=== PATIENT | male | born 1960 | race Caucasian/White ===

== ENCOUNTER → 2016-07-11 | Outpatient (CLI) | payer OTHER, BC ==
[~2016-07-11] MED LIST: AMLO-114 PO; AZAT50TA17 PO; CEFD300C3 PO; CPR/500 PO; ERGO500037 PO; FRRS300 PO; HYDR4TAB78 PO; INSPMPRGR SQ; INSU1INJ SC; INSUINJ17 SC; LDDP5 TD; LEVO150T9 PO; LEVO175T3 SL; LOSA50TA6 PO; METF-384 PO; METR-163 PO; NRN300 PO; ONDA4TAB46 PO; OPTIRAY 320 IV PRN; PRD10 PO; PRT/40 PO; SUCR1TAB PO; SYN200 PO; TAMS0.4C38 PO; VEDO1INJ IV
--- NOTE | 2016-07-11 14:59 | DIAGNOSTIC IMAGING REPORT ---
CT SCAN OF THE ABDOMEN AND PELVIS WITH IV CONTRAST CLINICAL HISTORY: Right lower quadrant abdominal pain. Reported history of Crohn's disease and previous bowel resection. COMPARISON STUDY: Prior abdominal CT scans, most recently dated 11/30/2015. TECHNIQUE: Following the IV administration of 113 cc of Optiray 320, CT scan of the abdomen and pelvis is performed from the lung bases to the proximal femora. Images are reviewed in the axial, sagittal, and coronal planes. IV contrast was administered without complication. Automated dose control exposure was utilized. CT DOSE: 898.97 mGy.cm FINDINGS: Lung bases: The heart is top normal in size and without pericardial effusion. The lung bases are clear noting dependent atelectasis. There is a small hiatal hernia. Liver: The contrast-enhanced liver is enlarged, measuring 20 cm in length. The liver demonstrates diminished attenuation consistent with hepatic steatosis. There is no intrahepatic biliary ductal dilatation there is chronic left portal vein thrombosis with left hepatic lobe atrophy. There is also chronic thrombosis of anterior segmental branches of the right hepatic lobe. The hepatic veins are patent. Gallbladder: Surgically absent noting clips in the gallbladder fossa. Spleen: The spleen is enlarged, measuring 14.9 cm in length. Pancreas: Mildly atrophic for age. Adrenal glands: Unremarkable. Kidneys: The contrast enhanced kidneys are normal in size and without hydronephrosis. The kidneys enhance symmetrically. A punctate nonobstructing right renal calculus is suggested on image #[id number]. Abdominal vasculature: The abdominal aorta is normal in course and caliber. Bowel: There are postoperative changes from ileocolic resections with ileocolic anastomosis. No bowel obstruction is seen. No focally thick walled bowel loops are identified. There is no pneumatosis intestinalis or portal venous gas. Peritoneum: There is no intraperitoneal free air or abdominal ascites. Lymphadenopathy: There are mild chronically enlarged mesenteric lymph nodes in the right lower quadrant measuring up to 10 mm short. Pelvic viscera: The bladder, prostate, and seminal vesicles are normal as visualized. Skeletal structures: The skeletal structures appear osteopenic. No lytic or blastic lesions are seen. Sclerotic change is identified involving the sacral joints. A large bone island is present in the left sacral wing. IMPRESSION: 1. There are no acute infectious or inflammatory findings in the abdomen or pelvis. 2. There are postoperative changes from ileocecal resection with ileocolic anastomosis. No bowel obstruction is seen and there is no convincing CT evidence of active Crohn's disease. 3. Mild chronically enlarged mesenteric lymph nodes are similar to prior studies. 4. Chronic thrombosis of the left portal venous system with atrophy of the left lobe is unchanged from previous 5. Hepatomegaly and hepatic steatosis. 6. Splenomegaly. 7. Additional changes as above. Electronically signed by: Pedro Garibay M.D. 07/11/2016 2:58 PM Dictated Date/Time: 07/11/2016 2:49 PM
== END | disposition home or self-care (01) ==
LOC: C.CTS 12:15
PROVIDERS: ATTEND Internal Medicine Gastroenterology
DX: R10.31 Right lower quadrant pain (principal); K50.80 Crohn's disease of both small and large intestine without complications; I81 Portal vein thrombosis; R16.0 Hepatomegaly, not elsewhere classified; K76.0 Fatty (change of) liver, not elsewhere classified; R16.1 Splenomegaly, not elsewhere classified

== ENCOUNTER 2016-07-15 10:31 | Inpatient (IN) | payer OTHER, BC ==
[~2016-07-15] VITALS: Ht 177.8 cm; Wt 103.6 kg
[~2016-07-15 10:31] MED LIST changes: -AMLO-114 PO; -AZAT50TA17 PO; -CEFD300C3 PO; -CPR/500 PO; -ERGO500037 PO; -FRRS300 PO; -HYDR4TAB78 PO; -INSPMPRGR SQ; -INSU1INJ SC; -LDDP5 TD; -LEVO175T3 SL; -LOSA50TA6 PO; -METF-384 PO; -METR-163 PO; -NRN300 PO; -ONDA4TAB46 PO; -OPTIRAY 320 IV PRN; -PRD10 PO; -PRT/40 PO; -SUCR1TAB PO; -SYN200 PO; -TAMS0.4C38 PO; -VEDO1INJ IV
[2016-07-15] MEDS ORDERED: TAMS0.4C38 PO (11:12)
[2016-07-15] MEDS ORDERED: HYDR4TAB78 PO (11:17)
[2016-07-15] MEDS ORDERED: SUCR1TAB PO (11:17)
[2016-07-15] MEDS ORDERED: CPR/500 PO (11:28)
[2016-07-15] MEDS ORDERED: FRRS300 PO (11:28)
[2016-07-15] MEDS ORDERED: INSPMPRGR SQ (11:28)
[2016-07-15] MEDS ORDERED: SYN200 PO (11:28)
[2016-07-15] MEDS ORDERED: METR-163 PO (11:28)
[2016-07-15] MEDS ORDERED: LOSA50TA6 PO (11:32)
[2016-07-15] MEDS ORDERED: AMLO-114 PO (11:32)
[2016-07-15] MEDS ORDERED: AZAT50TA17 PO (11:32)
[2016-07-15] MEDS ORDERED: ONDA4TAB46 PO (11:32)
[2016-07-15] MEDS ORDERED: INSU1INJ SC ×2 (11:32)
[2016-07-15 11:51] LABS: BASO % 0.5 %; BASO ABS # 0.03 K/uL (0-0.2); COMPLETE YES; EOS % 2.6 %; HEMATOCRIT 38.4 % (42-52); IG% 0.2 %; LYMPH % 19.5 %; LYMPH ABS # 1.27 K/uL (1.2-3.4); MEAN CELL VOLUME 76.3 fL (80-100); MEAN CORPUSCULAR HEMOGLOBIN 24.3 pg (25-34); MEAN CORPUSCULAR HGB CONC 31.8 g/dl (32-36); MEAN PLATELET VOLUME 8.9 fL (7.4-10.4); MONO % 8.4 %; NEUT % 68.8 %; PLATELET COUNT 338 K/uL (130-400); RED BLOOD COUNT 5.03 M/uL (4.7-6.1); WHITE BLOOD COUNT 6.51 K/uL (4.8-10.8)
[2016-07-15 12:03] LABS: URINE APPEARANCE CLEAR (CLEAR); URINE BILIRUBIN NEG (NEG); URINE COLOR YELLOW; URINE NITRITE NEG (NEG); URINE SPECIFIC GRAVITY 1.015 (1.000-1.030); UROBILINOGEN NEG (NEG); ZZUR CULT IF INDIC CLEAN CATCH NO
[2016-07-15] MEDS ORDERED: METHYLPREDNISOLONE 125 MG VIAL IV STA (12:07)
[2016-07-15] MEDS ORDERED: HYDROmorphone INJ 1 MG/ML SYR IV STA (12:07)
[2016-07-15] MEDS ORDERED: SODIUM CHLORIDE 0.9% 1000ML 1,000 ML IV STA (12:07)
[2016-07-15] MEDS ORDERED: ONDANSETRON INJ 2 MG/ML 2 ML VIAL IV STA (12:07)
[2016-07-15 12:10] LABS: MANUAL MICROSCOPIC REQUIRED? NO; REVIEW REQ? NO
[2016-07-15 12:19] LABS: BUN/CREATININE RATIO 8.1 (10-20); CALCIUM 9.1 mg/dl (8.5-10.1); CREATININE 1.3 mg/dl (0.60-1.40); POTASSIUM 3.5 mmol/L (3.5-5.1)
[2016-07-15] MEDS ORDERED: HYDROmorphone INJ 0.5 MG/0.5 ML SYR IV STA (14:01)
--- NOTE | 2016-07-15 14:03 | EMERGENCY ROOM VISIT NOTE ---
ED Visit Note First contact with patient: 11:58 I did evaluate and examine this patient myself. I did guide management for the patient. I agree with the PA's assessment as discussed. Please see the PAs dictation for further details. I did independently review the blood work. He will be hospitalized for inflammatory bowel disease exacerbation.
[2016-07-15] MEDS ORDERED: VEDOLIZUMAB 300 MG/VIAL INJ IV SCH (15:00)
[2016-07-15] MEDS ORDERED: HYDROmorphone HCL 2 MG TAB PO PRN (15:00)
[2016-07-15] MEDS ORDERED: HYDROmorphone INJ 1 MG/ML SYR IM PRN (15:00)
[2016-07-15] MEDS ORDERED: INSULIN HUMAN REGULAR SQ SCH (15:00)
[2016-07-15] MEDS ORDERED: GLUCOSE 40% GEL 15 GM TUBE PO PRN (16:00)
[2016-07-15] MEDS ORDERED: GLUCOSE 10 TABS/TUBE PO PRN (16:00)
[2016-07-15] MEDS ORDERED: GLUCAGON FOR INJ 1 MG VIAL SQ PRN (16:00)
[2016-07-15] MEDS ORDERED: DEXTROSE 50% 50 ML SYR IV PRN (16:00)
--- NOTE | 2016-07-15 16:01 | History and Physical ---
History & Physical Date & Time of Service: Jul 15, 2016 at 15:20 Chief Complaint: Chron's Pain Right Side Primary Care Physician: Audra Matos History of Present Illness Source: patient This is a 56 y/o male with hx of Crohn's (several bowel resections) and DMII presented to the ED complaining of RLQ abdominal pain X5days. He states that first he experienced the pain on . He was seen by Dr. Naranjo on and CT scan of the abdomen with IV contrast was performed. The CT was unremarkable. He was started on Ciprofloxacin and Metronidazole. On Friday his pain became worse. He rates the pain as 10/10, sharp, located at the RLQ and nonradiating. PO 4mg Dilaudid wouldn't alleviate the pain. His bowel movements increased also. On average he usually has 6-7 bowel movements. On Friday he had 7 and on Friday 10 bowel movements. He also feels nauseated and decrease in appetite. He states that over the weekend, he was only drinking fluid. Denies noticing any blood in the stool. He has hemorrhoid and frequently notice strikes of blood on the tissue paper. Right now he pain is decreased to 3/10. Denies vomiting, SOB, chest pain, dizziness, headache, dysuria or any other additional complaints. Past Medical/Surgical History Medical Problems: (1) Bronchitis Status: Resolved (2) Calculus of kidney Status: Resolved (3) Crohns disease Status: Chronic (4) Diabetes mellitus Status: Chronic (5) Hyperlipidemia Status: Chronic (6) Hypertension Status: Chronic (7) PNA (pneumonia) Status: Resolved (8) Unspecified immunity deficiency Status: Resolved Surgical Problems: (1) H/O thyroidectomy Status: Resolved (2) History of bowel resection Status: Resolved (3) Hx of appendectomy Status: Resolved (4) S/P cholecystectomy Status: Resolved Family History Cancer Diabetes mellitus Heart disease Hypertension Kidney disease Kidney stones Social History Smoking Status: Never Smoker Drug Use: none Marital Status: Housing status: lives with family Occupational Status: disabled Allergies Coded Allergies: Morphine (Unverified Allergy, Mild, GI SYMPTOMS, 07/15/16) throws up Home Medications Scheduled Amlodipine (Norvasc), 10 MG PO DAILY Azathioprine (Imuran), 150 MG PO DAILY Ciprofloxacin (Ciprofloxacin HCl), 500 MG PO DAILY Ferrous Sulfate (Ferrous Sulfate), 325 MG PO DAILY Insulin Isophan/Regular (Humulin 70/30), 40 UNITS SC QAM Insulin Isophan/Regular (Humulin 70/30), 20 UNITS SC QPM Levothyroxine Sodium (Synthroid), 200 MCG PO DAILY Losartan Potassium (Cozaar), 50 MG PO BID Metformin Hcl (Glucophage), 1,000 MG PO BID Metronidazole (Flagyl), 500 MG PO BID Sucralfate (Sucralfate), 1 TAB PO BID Tamsulosin Hcl (Flomax), 0.4 MG PO DAILY Vedolizumab (Entyvio), 1 DOSE IV Q6WK Scheduled PRN Hydromorphone Hcl (Dilaudid), 4 MG PO QID PRN for Pain Ondansetron Hcl (Zofran), 4 MG PO Q8 PRN for Nausea Miscellaneous Medications Insulin Human Regular (Humulin R) Review of Systems Constitutional: + weakness, + weight loss, No chills, No fever, No sweats Respiratory: No cough, No dyspnea at rest, No dyspnea on exertion, No shortness of breath, No sputum, No wheezing Cardiovascular: No chest pain, No edema Abdomen: + diarrhea, + nausea, + pain (RLQ pain), No GI bleeding, No constipation, No vomiting Musculoskeletal: No muscle pain Genitourinary - Male: No dysuria, No hematuria Neurologic: No weakness Endocrine: No fatigue Hematologic / Lymphatic: No abnormal bleeding/bruising Integumentary: No rash Physical Exam Vital Signs Date Time Temp Pulse Resp B/P Pulse Ox O2 Delivery O2 Flow Rate FiO2 07/15/16 11:19 68 18 138/78 97 Room Air 07/15/16 10:46 36.8 92 18 151/101 96 Room Air General Appearance: WD/WN, no apparent distress Head: normocephalic, atraumatic Eyes: normal inspection, PERRL, EOMI, sclerae normal Neck: supple, trachea midline Respiratory/Chest: chest non-tender, lungs clear, normal breath sounds, no respiratory distress, no accessory muscle use Cardiovascular: regular rate, rhythm, no edema Abdomen/GI: normal bowel sounds, soft, no pulsatile mass, + tenderness (tender to palpation on the RLQ) Extremities/Musculoskelatal: no calf tenderness, no pedal edema, non-tender Neurologic/Psych: alert, normal mood/affect, oriented x 3 Skin: normal color, warm/dry, no rash Diagnostics Laboratory Results Results Past 24 Hours Test 07/15/16 11:10 07/15/16 11:15 Range/Units Urine Color YELLOW Urine Appearance CLEAR CLEAR Urine pH 5.0 4.5-7.5 Urine Specific [place] 1.015 1.000-1.030 Urine Protein NEG NEG Urine Glucose (UA) NEG NEG Urine Ketones NEG NEG Urine Occult Blood NEG NEG Urine Nitrite NEG NEG Urine Bilirubin NEG NEG Urine Urobilinogen NEG NEG Urine Leukocyte Esterase NEG NEG White Blood Count 6.51 4.8-10.8 K/uL Red Blood Count 5.03 4.7-6.1 M/uL Hemoglobin 12.2 14.0-18.0 g/dL Hematocrit 38.4 42-52 % Mean Corpuscular Volume 76.3 80-100 fL Mean Corpuscular Hemoglobin 24.3 25-34 pg Mean Corpuscular Hemoglobin Concent 31.8 32-36 g/dl Platelet Count 338 130-400 K/uL Mean Platelet Volume 8.9 7.4-10.4 fL Neutrophils (%) (Auto) 68.8 % Lymphocytes (%) (Auto) 19.5 % Monocytes (%) (Auto) 8.4 % Eosinophils (%) (Auto) 2.6 % Basophils (%) (Auto) 0.5 % Neutrophils # (Auto) 4.48 1.4-6.5 K/uL Lymphocytes # (Auto) 1.27 1.2-3.4 K/uL Monocytes # (Auto) 0.55 0.11-0.59 K/uL Eosinophils # (Auto) 0.17 0-0.5 K/uL Basophils # (Auto) 0.03 0-0.2 K/uL RDW Standard Deviation 44.2 36.4-46.3 fL RDW Coefficient of Variation 16.3 11.5-14.5 % Immature Granulocyte % (Auto) 0.2 % Immature Granulocyte # (Auto) 0.01 0.00-0.02 K/uL Sodium Level 137 136-145 mmol/L Potassium Level 3.5 3.5-5.1 mmol/L Chloride Level 102 98-107 mmol/L Carbon Dioxide Level 26 21-32 mmol/L Anion Gap 9.0 3-11 mmol/L Blood Urea Nitrogen 11 7-18 mg/dl Creatinine 1.30 0.60-1.40 mg/dl Est Creatinine Clear Calc Drug Dose 76.5 ml/min Estimated GFR () 70.7 Estimated GFR (Non- 61.0 BUN/Creatinine Ratio 8.1 10-20 Random Glucose 101 70-99 mg/dl Calcium Level 9.1 8.5-10.1 mg/dl Total Bilirubin 0.7 0.2-1 mg/dl Aspartate Amino Transf (AST/SGOT) 89 15-37 U/L Alanine Aminotransferase (ALT/SGPT) 70 12-78 U/L Alkaline Phosphatase 85 45-117 U/L Total Protein 8.2 6.4-8.2 gm/dl Albumin 4.1 3.4-5.0 gm/dl Globulin 4.1 2.5-4.0 gm/dl Albumin/Globulin Ratio 1.0 0.9-2 Lipase 147 73-393 U/L Impression Assessment and Plan This is a 56 y/o male with PMHx of Crohn's disease and multiple bowel resection presented to the ED with Cronh's flare. 1. Crohn's flare - Patient was seen by Dr. Naranjo last week and had a CT with IV contrast, which was unremarkable. - Since patient is continue to have pain will repeat CT of abd/pelvis with IV and oral contrast - Lipase and UA are normal - Continue with Ciprofloxacin 500mg and Metronidazole 500mg for 10days. Today is Day #4 - Continue all the home medications for Crohn's, Imuran 150mg - GI was consulted and await for their recommendation - NPO after midnight for any possible procedure tomorrow am - IVF NSS+20KCL meq @125mls/hr - IV Dilaudid 1mg q4h prn 2. DM II - Will start him on Lantus 18unit and sliding scale - Keep monitor him 3. BPH - C/w Flomax 0.4mg daily 4. HTN - C/w Amlodipine 10mg daily 5. DVT prophylaxis - Lovenox 40mg 6. Code Status - Full code I agree with Resident assessment and plan and have seen and examined pt myself Admitted for likely crohn's flare GI consulted Repeat CT abd with IV and PO contrast NPO after MN Cont on IV steroids Cont antibx at this time of cipro and flagyl Level of Care Med/Surg Resuscitation Status FULL RESUSCITATION VTE Prophylaxis VTE Risk Assessment Done? Y/N: Yes Risk Level: Moderate Given or contraindicated: Enoxaparin (Lovenox)SQ Note About 45 minutes
[2016-07-15 16:04] LABS: PROTHROMBIN TIME (PATIENT) 10.9 SECONDS (9.0-12.0)
--- NOTE | 2016-07-15 16:10 | EMERGENCY ROOM VISIT NOTE ---
History First contact with patient: 11:58 Chief Complaint: ABDOMINAL PAIN Stated Complaint: CHRON'S PAIN RIGHT SIDE History of Present Illness The patient is a 56 year old male who presents to the Emergency Room with complaints of a Crohn's flare. The patient reports a long history of Crohn's disease. He is currently under the management of Dr. Naranjo. He is also had several bowel resections performed by Dr. Castle at [facility]. The patient has been having increasing pain for the past week. He was seen by Dr. Naranjo on and had a CT scan performed. The patient reports that his pain and nausea has worsened since . He denies any vomiting, bloody stool or urinary symptoms. The patient is status post appendectomy many years ago. He is currently on Imuran with Entyvio injections every 6 weeks.. His last prednisone taper was in April and May of this year. He currently rates his discomfort a 5 out of 10. He does have Dilaudid 4 mg tablets at home that have not been helping his pain. Review of Systems HEENT: Denies dizziness, visual problems, hearing loss, tinnitus. Denies difficulty swallowing or oral lesions. PULMONARY: Denies cough, shortness of breath, sputum production or hemoptysis. CARDIOVASCULAR: Denies chest pain, palpitations, dyspnea on exertion, orthopnea or peripheral edema. GASTROINTESTINAL: Denies diarrhea or constipation, otherwise see history of present illness. GENITOURINARY: Denies dysuria, frequency, urgency or nocturia. NEUROLOGIC: Denies history of epilepsy, CVA, TIA or chronic headaches. MUSCULOSKELETAL: Denies history of joint tenderness/swelling. SKIN: Denies rashes or lesions. PSYCHIATRIC: Denies history of depression or mental illness. ENDOCRINE: Denies history of diabetes or thyroid disorders. Past Medical/Surgical History Medical Problems: (1) Bronchitis (2) Calculus of kidney (3) Crohns disease (4) Diabetes mellitus (5) Hyperlipidemia (6) Hypertension (7) PNA (pneumonia) (8) Right lower quadrant abdominal pain (9) Unspecified immunity deficiency Surgical Problems: (1) H/O thyroidectomy (2) History of bowel resection (3) Hx of appendectomy (4) S/P cholecystectomy Family History Cancer Diabetes mellitus Heart disease Hypertension Kidney disease Kidney stones Social History Smoking Status: Never Smoker Alcohol Use: none Drug Use: none Marital Status: Housing Status: lives with family Occupation Status: disabled Current/Historical Medications Scheduled Amlodipine (Norvasc), 10 MG PO DAILY Azathioprine (Imuran), 150 MG PO DAILY Ciprofloxacin (Ciprofloxacin HCl), 500 MG PO DAILY Ferrous Sulfate (Ferrous Sulfate), 325 MG PO DAILY Insulin Isophan/Regular (Humulin 70/30), 40 UNITS SC QAM Insulin Isophan/Regular (Humulin 70/30), 20 UNITS SC QPM Levothyroxine Sodium (Synthroid), 200 MCG PO DAILY Losartan Potassium (Cozaar), 50 MG PO BID Metformin Hcl (Glucophage), 1,000 MG PO BID Metronidazole (Flagyl), 500 MG PO BID Sucralfate (Sucralfate), 1 TAB PO BID Tamsulosin Hcl (Flomax), 0.4 MG PO DAILY Vedolizumab (Entyvio), 1 DOSE IV Q6WK Scheduled PRN Hydromorphone Hcl (Dilaudid), 4 MG PO QID PRN for Pain Ondansetron Hcl (Zofran), 4 MG PO Q8 PRN for Nausea Miscellaneous Medications Insulin Human Regular (Humulin R) Allergies Coded Allergies: Morphine (Unverified Allergy, Mild, GI SYMPTOMS, 07/15/16) throws up Physical Exam Vital Signs Date Time Temp Pulse Resp B/P Pulse Ox O2 Delivery O2 Flow Rate FiO2 07/15/16 15:15 68 20 130/78 91 Room Air 07/15/16 13:15 72 20 144/71 96 Room Air 07/15/16 11:19 68 18 138/78 97 Room Air 07/15/16 10:46 36.8 92 18 151/101 96 Room Air Physical Exam CONSTITUTIONAL: Healthy and well nourished. Alert and oriented X 3 with positive affect. The patient appears in mild discomfort from pain and nausea. HEENT: Normocephalic, atraumatic. Pupils equal, round and reactive. Ears and nares are clear. No scleral icterus or conjunctival injection/pallor. NECK: Full active range of motion without discomfort. RESPIRATORY: Clear to auscultation bilaterally with no wheezing, crackles, rhonchi or stridor. CARDIOVASCULAR: Regular rate and rhythm with no murmurs, rubs or gallops. GASTROINTESTINAL: Bowel sounds present in all quadrants. She has diffuse lower abdominal tenderness to palpation. No rigidity, guarding or rebound. MUSCULOSKELETAL: Full range of motion of all joints without discomfort. INTEGUMENTARY: No rash or other significant dermatologic conditions noted. HEMATOLOGIC: No ecchymosis or petechiae noted. NEUROLOGIC: No focal neurologic deficits noted. Medical Decision & Procedures ER Provider Diagnostic Interpretation: I did review the patient's CT report and images from last , showing no acute Crohn's inflammation, perforation or free air. Radiologist report is as follows: CT SCAN OF THE ABDOMEN AND PELVIS WITH IV CONTRAST CLINICAL HISTORY: Right lower quadrant abdominal pain. Reported history of Crohn's disease and previous bowel resection. COMPARISON STUDY: Prior abdominal CT scans, most recently dated 11/30/2015. TECHNIQUE: Following the IV administration of 113 cc of Optiray 320, CT scan of the abdomen and pelvis is performed from the lung bases to the proximal femora. Images are reviewed in the axial, sagittal, and coronal planes. IV contrast was administered without complication. Automated dose control exposure was utilized. CT DOSE: 898.97 mGy.cm FINDINGS: Lung bases: The heart is top normal in size and without pericardial effusion. The lung bases are clear noting dependent atelectasis. There is a small hiatal hernia. Liver: The contrast-enhanced liver is enlarged, measuring 20 cm in length. The liver demonstrates diminished attenuation consistent with hepatic steatosis. There is no intrahepatic biliary ductal dilatation there is chronic left portal vein thrombosis with left hepatic lobe atrophy. There is also chronic thrombosis of anterior segmental branches of the right hepatic lobe. The hepatic veins are patent. Gallbladder: Surgically absent noting clips in the gallbladder fossa. Spleen: The spleen is enlarged, measuring 14.9 cm in length. Pancreas: Mildly atrophic for age. Adrenal glands: Unremarkable. Kidneys: The contrast enhanced kidneys are normal in size and without hydronephrosis. The kidneys enhance symmetrically. A punctate nonobstructing right renal calculus is suggested on image #[id number]. Abdominal vasculature: The abdominal aorta is normal in course and caliber. Bowel: There are postoperative changes from ileocolic resections with ileocolic anastomosis. No bowel obstruction is seen. No focally thick walled bowel loops are identified. There is no pneumatosis intestinalis or portal venous gas. Peritoneum: There is no intraperitoneal free air or abdominal ascites. Lymphadenopathy: There are mild chronically enlarged mesenteric lymph nodes in the right lower quadrant measuring up to 10 mm short. Pelvic viscera: The bladder, prostate, and seminal vesicles are normal as visualized. Skeletal structures: The skeletal structures appear osteopenic. No lytic or blastic lesions are seen. Sclerotic change is identified involving the sacral joints. A large bone island is present in the left sacral wing. IMPRESSION: 1. There are no acute infectious or inflammatory findings in the abdomen or pelvis. 2. There are postoperative changes from ileocecal resection with ileocolic anastomosis. No bowel obstruction is seen and there is no convincing CT evidence of active Crohn's disease. 3. Mild chronically enlarged mesenteric lymph nodes are similar to prior studies. 4. Chronic thrombosis of the left portal venous system with atrophy of the left lobe is unchanged from previous 5. Hepatomegaly and hepatic steatosis. 6. Splenomegaly. Laboratory Results 07/15/16 11:15 Red Blood Count 5.03, Mean Corpuscular Volume 76.3, Mean Corpuscular Hemoglobin 24.3, Mean Corpuscular Hemoglobin Concent 31.8, Mean Platelet Volume 8.9, Neutrophils (%) (Auto) 68.8, Lymphocytes (%) (Auto) 19.5, Monocytes (%) (Auto) 8.4, Eosinophils (%) (Auto) 2.6, Basophils (%) (Auto) 0.5, Neutrophils # (Auto) 4.48, Lymphocytes # (Auto) 1.27, Monocytes # (Auto) 0.55, Eosinophils # (Auto) 0.17, Basophils # (Auto) 0.03 07/15/16 11:15 Test 07/15/16 11:10 07/15/16 11:15 Urine Color YELLOW Urine Appearance CLEAR (CLEAR) Urine pH 5.0 (4.5-7.5) Urine Specific Brillion 1.015 (1.000-1.030) Urine Protein NEG (NEG) Urine Glucose (UA) NEG (NEG) Urine Ketones NEG (NEG) Urine Occult Blood NEG (NEG) Urine Nitrite NEG (NEG) Urine Bilirubin NEG (NEG) Urine Urobilinogen NEG (NEG) Urine Leukocyte Esterase NEG (NEG) White Blood Count 6.51 K/uL (4.8-10.8) Red Blood Count 5.03 M/uL (4.7-6.1) Hemoglobin 12.2 g/dL (14.0-18.0) Hematocrit 38.4 % (42-52) Mean Corpuscular Volume 76.3 fL (80-100) Mean Corpuscular Hemoglobin 24.3 pg (25-34) Mean Corpuscular Hemoglobin Concent 31.8 g/dl (32-36) Platelet Count 338 K/uL (130-400) Mean Platelet Volume 8.9 fL (7.4-10.4) Neutrophils (%) (Auto) 68.8 % Lymphocytes (%) (Auto) 19.5 % Monocytes (%) (Auto) 8.4 % Eosinophils (%) (Auto) 2.6 % Basophils (%) (Auto) 0.5 % Neutrophils # (Auto) 4.48 K/uL (1.4-6.5) Lymphocytes # (Auto) 1.27 K/uL (1.2-3.4) Monocytes # (Auto) 0.55 K/uL (0.11-0.59) Eosinophils # (Auto) 0.17 K/uL (0-0.5) Basophils # (Auto) 0.03 K/uL (0-0.2) RDW Standard Deviation 44.2 fL (36.4-46.3) RDW Coefficient of Variation 16.3 % (11.5-14.5) Immature Granulocyte % (Auto) 0.2 % Immature Granulocyte # (Auto) 0.01 K/uL (0.00-0.02) Prothrombin Time 10.9 SECONDS (9.0-12.0) Prothromb Time International Ratio 1.0 (0.9-1.1) Activated Partial Thromboplast Time 26.5 SECONDS (21.0-31.0) Partial Thromboplastin Ratio 1.0 Anion Gap 9.0 mmol/L (3-11) Est Creatinine Clear Calc Drug Dose 76.5 ml/min Estimated GFR () 70.7 Estimated GFR (Non- 61.0 BUN/Creatinine Ratio 8.1 (10-20) Calcium Level 9.1 mg/dl (8.5-10.1) Total Bilirubin 0.7 mg/dl (0.2-1) Aspartate Amino Transf (AST/SGOT) 89 U/L (15-37) Alanine Aminotransferase (ALT/SGPT) 70 U/L (12-78) Alkaline Phosphatase 85 U/L (45-117) Total Protein 8.2 gm/dl (6.4-8.2) Albumin 4.1 gm/dl (3.4-5.0) Globulin 4.1 gm/dl (2.5-4.0) Albumin/Globulin Ratio 1.0 (0.9-2) Lipase 147 U/L (73-393) The above labs were reviewed. Medications Administered Medications (Trade) Dose Ordered Sig/Lance Route Start Time Stop Time Status Last Admin Dose Admin Hydromorphone HCl (Dilaudid Inj) 1 mg NOW STAT IV 07/15/16 12:07 07/15/16 12:09 DC 07/15/16 12:24 1 MG Ondansetron HCl (Zofran Inj) 4 mg NOW STAT IV 07/15/16 12:07 07/15/16 12:09 DC 07/15/16 12:23 4 MG Methylprednisolone Sodium Succinate 125 mg 125 mg NOW STAT IV 07/15/16 12:07 07/15/16 12:09 DC 07/15/16 12:23 125 MG Sodium Chloride (Nss 1000ml) 1,000 ml @ 999 mls/hr Q1H1M STAT IV 07/15/16 12:07 07/15/16 13:08 DC 07/15/16 12:23 999 MLS/HR Hydromorphone HCl (Dilaudid Inj) 0.5 mg NOW STAT IV 07/15/16 14:01 07/15/16 14:02 DC 07/15/16 14:07 0.5 MG Procedure 1. IV hydration: The patient received a liter normal saline bolus 2. IV medications: The patient initially was administered Dilaudid 1 mg, Zofran 4 mg and Solu-Medrol 125 mg IVP. The patient did require an additional Dilaudid 0.5 mg IVP up on final reevaluation and before hospitalist evaluation. ED Course Patient history and physical exam were performed. Nurse's notes were reviewed. Vital signs were reviewed, showing a blood pressure 151/101. The patient is afebrile and not tachycardic. IV access was established, and labs were drawn. The patient was hydrated with normal saline, and received IV Dilaudid and Zofran for pain and nausea. Review of labs shows no leukocytosis or significant electrolyte abnormality. Urinalysis is normal. AST is mildly elevated. Lipase is normal. I did review the patient's CT scan from , showing no active Crohn's disease or other acute findings. After workup was complete, I did reevaluate the patient. His pain a decline from an 8 out of 10-5 out of 10, but still was having notable discomfort. He was administered an additional Dilaudid 0.5 mg IVP. At this point, the case was further discussed with Dr. Hernández, ED attending physician, who suggested hospitalist consultation. The case was further discussed with the [facility]. Please see their dictation for further treatment and final disposition. Medical Decision Patient has a known history of Crohn's disease status post bowel resection. He did have a CT scan performed 4 days ago that was normal. The patient is currently afebrile and has no leukocytosis. His clinical exam is not suggestive of peritonitis or surgical abdomen. I do feel that the patient would benefit from IV hydration, analgesics and steroids into his symptoms improve. Laboratory studies are not suggestive of pancreatitis, hepatitis or cholecystitis. The patient is status post appendectomy. His symptoms are also not consistent with pyelonephritis or UTI. Impression Primary Impression: Exacerbation of Crohn's disease Departure Information Referrals Audra Matos (PCP) Patient Instructions My [facility] Problem Qualifiers Primary Impression: Exacerbation of Crohn's disease Digestive disease complication type: without complication Qualified Codes: K50.90 - Crohn's disease, unspecified, without complications
[2016-07-15] MEDS: HYDROmorphone INJ 1 MG/ML SYR IV PRN ×2 (17:21→20:58)
[2016-07-15] MEDS ORDERED: OPTIRAY 320 IV PRN (18:00)
--- NOTE | 2016-07-15 18:06 | DIAGNOSTIC IMAGING REPORT ---
CT ABD/PELVIS IV AND ORAL CONT CLINICAL HISTORY: Cronh's flare, RLQ pain COMPARISON STUDY: 07/11/2016 TECHNIQUE: Following the IV administration of 115 mL of Optiray-320, CT scan of the abdomen and pelvis was performed from the lung bases to the proximal femurs. Images are reviewed in the axial, sagittal, and coronal planes. IV contrast was administered without complication. CT DOSE: 729.40 mGy.cm FINDINGS: Lower chest: There are minor basilar atelectatic changes. Liver: There is hepatic steatosis. Left lobe of the liver appears atrophic. There is apparent stenosis left and right hepatic vein at the IVC junction. There is probable chronic left portal vein thrombus. There is no intrahepatic biliary ductal dilatation. Gallbladder: Surgically absent Spleen: Normal in size and attenuation. Pancreas: Unremarkable. Adrenal glands: Unremarkable. Kidneys: There is a punctate nonobstructing right renal calculus. No solid renal masses are visualized. There is no hydronephrosis. Bowel: There are postsurgical changes from a prior ileal colic resection with ileocolic anastomosis. There are no transition zones indicate bowel obstruction. There is borderline rectosigmoid bowel wall thickening. Peritoneum: There is no intraperitoneal free air or abdominal ascites. Vasculature: The abdominal aorta is normal in course and caliber. Adenopathy: None. Pelvic viscera: The bladder, and pelvic viscera are unremarkable. Skeletal structures: There is bilateral sacroiliitis. IMPRESSION: 1. Postsurgical changes of a right hemicolectomy and ileal colic anastomosis 2. No evidence of bowel obstruction. No evidence of free air 3. Hepatic steatosis 4. Stable hepatic left lobe atrophy 5. Stable right and middle hepatic vein stenosis 6. Borderline colonic wall thickening versus nondistended segments 7. Punctate nonobstructing right renal calculus Electronically signed by: Bobby Hay M.D. 07/15/2016 6:04 PM Dictated Date/Time: 07/15/2016 5:54 PM
[2016-07-15] MEDS ORDERED: METF-384 PO (18:29)
[2016-07-15 19:59] VITALS: BP 130/80; PULSE 74; TEMP 36.6; O2SAT 94
[2016-07-15] MEDS: INSULIN ASPART 100 UNITS/ML 3 ML PEN SC SCH ×2 (20:39→20:47)
[2016-07-15] MEDS: NSS + 20MEQ KCL 1000ML 1,000 ML IV SCH (20:41)
[2016-07-15] MEDS: ENOXAPARIN 40 MG/0.4 ML SYR SQ SCH (20:42)
[2016-07-15] MEDS: METRONIDAZOLE 500 MG TAB PO SCH (20:43)
[2016-07-15] MEDS: LOSARTAN POTASSIUM 50 MG TAB PO SCH (20:43)
[2016-07-15] MEDS: SUCRALFATE 1 GM TAB PO SCH (20:44)
[2016-07-15] MEDS: INSULIN GLARGINE SOLOSTAR 100 UNITS/ML 3 ML PEN SC SCH (20:48)
[2016-07-15] MEDS ORDERED: INSULIN HUMAN 70% NPH/30% REGULAR SC SCH (21:00)
[2016-07-15] MEDS ORDERED: VEDO1INJ IV (22:39)
[2016-07-15 22:44] VITALS: BP 107/58; PULSE 73; TEMP 36.6; O2SAT 93
[2016-07-15 23:03] VITALS: O2SAT 93; Ht 177.8 cm; Wt 103.6 kg
[2016-07-15 23:59] VITALS: O2SAT 93
[2016-07-16] MEDS: ONDANSETRON INJ 2 MG/ML 2 ML VIAL IV PRN (01:02)
[2016-07-16] MEDS: HYDROmorphone INJ 1 MG/ML SYR IV PRN ×7 (01:03→21:39)
[2016-07-16] MEDS ORDERED: NURSING VERBAL MED ORDER ONE ×2 (05:00→21:45)
[2016-07-16] MEDS: NSS + 20MEQ KCL 1000ML 1,000 ML IV SCH ×3 (05:04→21:42)
[2016-07-16 05:49] LABS: HEMATOCRIT 32.8 % (42-52); MEAN CELL VOLUME 76.3 fL (80-100); MEAN CORPUSCULAR HEMOGLOBIN 24.4 pg (25-34); MEAN PLATELET VOLUME 9.4 fL (7.4-10.4); PLATELET COUNT 318 K/uL (130-400); WHITE BLOOD COUNT 11.68 K/uL (4.8-10.8)
[2016-07-16] MEDS: LEVOTHYROXINE 200 MCG TAB PO SCH (06:10)
[2016-07-16 06:26] LABS: CALCIUM 8.5 mg/dl (8.5-10.1); CREATININE 0.99 mg/dl (0.60-1.40); POTASSIUM 4.3 mmol/L (3.5-5.1)
[2016-07-16] MEDS: CIPROFLOXACIN 500 MG TAB PO SCH (08:02)
[2016-07-16] MEDS: AMLODIPINE BESYLATE 5 MG TAB PO SCH (08:02)
[2016-07-16] MEDS: METRONIDAZOLE 500 MG TAB PO SCH ×2 (08:02→21:41)
[2016-07-16] MEDS: AZATHIOPRINE 50 MG TAB PO SCH (08:02)
[2016-07-16] MEDS: FERROUS SULFATE 325 MG TAB PO SCH (08:02)
[2016-07-16] MEDS: SUCRALFATE 1 GM TAB PO SCH ×2 (08:02→21:40)
[2016-07-16] MEDS: TAMSULOSIN HCL 0.4 MG CAP PO SCH (08:02)
[2016-07-16] MEDS: LOSARTAN POTASSIUM 50 MG TAB PO SCH ×2 (08:03→21:41)
[2016-07-16 08:23] VITALS: BP 108/66; PULSE 54; TEMP 36.5; O2SAT 96
[2016-07-16] MEDS ORDERED: INSULIN HUMAN 70% NPH/30% REGULAR SC SCH (09:00)
[2016-07-16] MEDS: INSULIN ASPART 100 UNITS/ML 3 ML PEN SC SCH ×4 (10:34→21:00)
[2016-07-16] MEDS ORDERED: METHYLPREDNISOLONE IV 20 MG in SYRINGE 0 ML IV ONE (11:15)
[2016-07-16] MEDS: INSULIN GLARGINE SOLOSTAR 100 UNITS/ML 3 ML PEN SC SCH ×2 (12:15→12:52)
[2016-07-16] MEDS ORDERED: HYDROmorphone INJ 1 MG/ML SYR ONE (12:44)
--- NOTE | 2016-07-16 13:12 | Hospitalist Progress Note ---
Hospitalist Progress Note Date of Service Jul 16, 2016. Subjective Pt evaluation today including: conversation w/ patient, physical exam, chart review, lab review, review of studies, review of inpatient medication list Voiding: no voiding problems, no incontinence No improvements in symptoms since admission. +RLQ pain- pain controlled well for ~2 hours w/ 1 mg IV Dilaudid. Patient states he has had nothing to eat since 07/13. +lightheadedness. Patient denies any fever, chills, sweats, dizziness, vision changes, CP, palpitations, edema, SOB, wheezing, cough, nausea , vomiting, diarrhea, urinary symptoms, melena, numbness/tingling, weakness, muscle/joint pain, anxiety/depression, active bleeding, or new skin discoloration/changes. Medications Current Inpatient Medications Medications (Trade) Dose Ordered Sig/Lance Route Start Time Stop Time Status Last Admin Dose Admin Enoxaparin Sodium (Lovenox Inj) 40 mg Q24H SQ 07/15/16 21:00 08/14/16 20:59 07/15/16 20:42 40 MG Acetaminophen (Tylenol Tab) 650 mg Q4H PRN PO 07/15/16 15:00 08/14/16 14:59 Ondansetron HCl (Zofran Inj) 4 mg Q6H PRN IV 07/15/16 15:00 08/14/16 14:59 07/16/16 01:02 4 MG Amlodipine Besylate (Norvasc Tab) 10 mg DAILY PO 07/16/16 08:00 08/15/16 08:59 07/16/16 08:02 10 MG Azathioprine (Imuran Tab) 150 mg DAILY PO 07/16/16 08:00 08/15/16 08:59 07/16/16 08:02 150 MG Ciprofloxacin (Cipro Tab) 500 mg DAILY PO 07/16/16 08:00 07/21/16 23:59 07/16/16 08:02 500 MG Ferrous Sulfate (Feosol Tab) 325 mg DAILY PO 07/16/16 08:00 08/15/16 08:59 07/16/16 08:02 325 MG Levothyroxine Sodium (Synthroid Tab) 200 mcg DAILYBB PO 07/16/16 06:30 08/15/16 06:59 07/16/16 06:10 200 MCG Losartan Potassium (coZAAR TAB) 50 mg BID PO 07/15/16 20:00 08/14/16 20:59 07/16/16 08:03 50 MG Metronidazole (Flagyl Tab) 500 mg BID PO 07/15/16 20:00 07/21/16 23:59 07/16/16 08:02 500 MG Sucralfate (Carafate Tab) 1 gm BID PO 07/15/16 20:00 08/14/16 20:59 07/16/16 08:02 1 GM Tamsulosin HCl 0.4 mg 0.4 mg DAILY PO 07/16/16 08:00 08/15/16 08:59 07/16/16 08:02 0.4 MG Potassium Chloride/Sodium Chloride (Nss + 20meq KCl 1000ml) 1,000 ml @ 125 mls/hr Q8H IV 07/15/16 20:15 08/14/16 14:59 07/16/16 12:52 125 MLS/HR Insulin Glargine (Lantus Solostar Pen) 18 unit BID SC 07/15/16 20:00 08/14/16 20:59 07/16/16 12:52 10 UNIT Insulin Aspart (novoLOG ASPART) SLIDING SCALE ACHS SC 07/15/16 16:00 08/14/16 15:59 07/15/16 20:47 2 UNITS Glucose (Glucose 40% Gel) 15-30 GRAMS 15 GRAMS... UD PRN PO 07/15/16 16:00 08/14/16 15:59 Glucose (Glucose Chew Tab) 4-8 Tablets 4 Tabl... UD PRN PO 07/15/16 16:00 08/14/16 15:59 Dextrose (Dextrose 50% 50ML Syringe) 25-50ML OF 50% DW IV FOR... UD PRN IV 07/15/16 16:00 08/14/16 15:59 Glucagon (Glucagon Inj) 1 mg UD PRN SQ 07/15/16 16:00 08/14/16 15:59 Ioversol (Optiray 320) 115 ml UD PRN IV 07/15/16 18:00 07/19/16 17:59 Heparin Sodium (Porcine) 5 ml 5 ml PRN PRN IV 07/16/16 05:15 08/15/16 05:14 Methylprednisolone Sodium Succinate/ Syringe (Solu-Medrol IV/ Syringe) 0.32 ml @ 1.5 mls/min Q12 IV 07/16/16 21:00 08/15/16 20:59 Hydromorphone HCl (Dilaudid Inj) 1 mg Q2H PRN IV 07/16/16 14:00 07/30/16 13:59 07/16/16 12:53 1 MG Objective Vital Signs Date Time Temp Pulse Resp B/P Pulse Ox O2 Delivery O2 Flow Rate FiO2 07/16/16 10:00 Room Air 07/16/16 08:23 36.5 54 16 108/66 96 Room Air 07/15/16 23:59 93 Room Air 07/15/16 23:03 93 Room Air 07/15/16 22:44 36.6 73 16 107/58 93 Room Air 07/15/16 19:59 36.6 74 20 130/80 94 Room Air 07/15/16 18:22 72 20 129/63 94 Nasal Cannula 2.0 07/15/16 17:02 80 20 138/69 92 Nasal Cannula 2.0 07/15/16 15:15 68 20 130/78 91 Room Air 07/15/16 13:15 72 20 144/71 96 Room Air Physical Exam General Appearance: no apparent distress Eyes: normal inspection, PERRL ENT: hearing grossly normal Neck: supple Respiratory/Chest: lungs clear, no respiratory distress, no accessory muscle use Cardiovascular: regular rate, rhythm Abdomen: normal bowel sounds, soft, + tenderness (severe ttp of RLQ ) Extremities: no pedal edema, no calf tenderness Neurologic/Psychiatric: alert, normal mood/affect, oriented x 3 Skin: normal color, warm/dry, no rash Laboratory Results Last 24 Hours Test 07/15/16 20:10 07/16/16 04:55 07/16/16 07:23 07/16/16 11:24 Bedside Glucose 167 mg/dl 139 mg/dl 146 mg/dl White Blood Count 11.68 K/uL Red Blood Count 4.30 M/uL Hemoglobin 10.5 g/dL Hematocrit 32.8 % Mean Corpuscular Volume 76.3 fL Mean Corpuscular Hemoglobin 24.4 pg Mean Corpuscular Hemoglobin Concent 32.0 g/dl RDW Standard Deviation 44.6 fL RDW Coefficient of Variation 16.4 % Platelet Count 318 K/uL Mean Platelet Volume 9.4 fL Sodium Level 139 mmol/L Potassium Level 4.3 mmol/L Chloride Level 105 mmol/L Carbon Dioxide Level 22 mmol/L Anion Gap 12.0 mmol/L Blood Urea Nitrogen 12 mg/dl Creatinine 0.99 mg/dl Est Creatinine Clear Calc Drug Dose 100.5 ml/min Estimated GFR () 98.3 Estimated GFR (Non- 84.8 BUN/Creatinine Ratio 12.0 Random Glucose 141 mg/dl Calcium Level 8.5 mg/dl Hepatitis C Antibody Screen NEG Assessment and Plan This is a 56 y/o male with PMHx of Crohn's disease and multiple bowel resection presented to the ED with Cronh's flare. Crohn's flare: - Admit med/surg - Continue with Ciprofloxacin 500mg and Metronidazole 500mg for x10 days. Day #5 - Continue Imuran 150 mg - IVF NSS+20KCL meq @125mls/hr - IV Solu Medrol - IV Dilaudid 1mg q4h PRN--> increased to q2 hrs PRN - NPO pending GI consult - GI consulted, appreciate recommendations DM II - Lantus 18 unit BID, titrate as needed - BSG ACHS w/ sliding insulin scale BPH: Continue Flomax 0.4mg daily HTN: Continue Amlodipine 10mg daily, Cozaar 50 mg BID Hypothyroidism: Continue Synthroid 200 mcg daily DVT prophylaxis: Lovenox 40 mg SQ q24 hrs Code Status: LEVEL I, FULL Dispo: Discharge to home once medically stable
[2016-07-16 15:28] VITALS: BP 157/87; PULSE 77; TEMP 36.5; O2SAT 93
[2016-07-16 15:30] VITALS: O2SAT 93
[2016-07-16] MEDS ORDERED: LAVAGE SOLUTION 4000ML PO ONE (20:30)
[2016-07-16] MEDS: METHYLPREDNISOLONE IV 20 MG in SYRINGE 0 ML IV SCH (21:42)
[2016-07-16] MEDS: ENOXAPARIN 40 MG/0.4 ML SYR SQ SCH (21:43)
[2016-07-16] MEDS ORDERED: INSULIN GLARGINE SOLOSTAR 100 UNITS/ML 3 ML PEN SC ONE (22:00)
[2016-07-16 23:43] VITALS: BP 134/79; PULSE 54; TEMP 36.5; O2SAT 97
[2016-07-17] MEDS: HYDROmorphone INJ 1 MG/ML SYR IV PRN ×8 (00:02→20:06)
[2016-07-17] MEDS: NSS + 20MEQ KCL 1000ML 1,000 ML IV SCH ×3 (03:47→20:16)
[2016-07-17] MEDS: ONDANSETRON INJ 2 MG/ML 2 ML VIAL IV PRN ×3 (03:56→20:06)
[2016-07-17] MEDS: LEVOTHYROXINE 200 MCG TAB PO SCH (05:59)
[2016-07-17 07:36] VITALS: BP 132/73; PULSE 70; TEMP 36.6; O2SAT 94
[2016-07-17] MEDS: LOSARTAN POTASSIUM 50 MG TAB PO SCH ×2 (08:51→20:07)
[2016-07-17] MEDS: METHYLPREDNISOLONE IV 20 MG in SYRINGE 0 ML IV SCH ×2 (08:51→20:16)
[2016-07-17] MEDS: AMLODIPINE BESYLATE 5 MG TAB PO SCH (08:52)
[2016-07-17] MEDS: INSULIN ASPART 100 UNITS/ML 3 ML PEN SC SCH ×4 (08:56→20:19)
--- NOTE | 2016-07-17 13:55 | GASTROINTESTINAL CONSULTATION ---
DATE OF CONSULTATION: 07/16/2016 DATE OF CONSULTATION: 07/16/2016. This is a gastroenterology interim progress note. HISTORY OF PRESENT ILLNESS: Mr. Alcantara is a patient with longstanding history of Crohn disease with resection. The patient follows with and was recently seen by Dr. Naranjo in the office last and who was consulted for the patient's ongoing right-sided abdominal pain. The patient is on Imuran and vedolizumab therapy. His stools are generally loose anywhere from 4-10 stools daily. However, the nature of the consistency is perhaps slightly more loose than usual. He was started on Flagyl as an outpatient. Since admission, the patient continues to experience right-sided abdominal discomfort. He does have an elevated white count of 11.68 today (this is 07/16/2016 note), and his hemoglobin is 10.5 with an MCV of 76.3. His serum chemistries show a blood sugar of 165. INR is normal at 1.0. Hepatitis C screen is negative. Urinalysis negative. The patient denies any nausea, vomiting and has not reported any abdominal distention. There is no active GI bleeding reported in his stool. MEDICATIONS: Include Imuran 150 mg daily, ciprofloxacin in addition to Flagyl, ferrous sulfate, Flomax, levothyroxine, subQ heparin, Lovenox, Carafate 1 gram twice daily, insulin. PHYSICAL EXAMINATION: VITAL SIGNS: Today vital signs at this time are afebrile 36.5, blood pressure is 157/87, respirations 20, pulse 77, 93% on room air. GENERAL: The patient is awake, alert and oriented x3. HEAD, EYES, EARS, NOSE, AND THROAT: Oral mucosa moist, no plaques or exudates. HEART: Normal S1, S2. LUNGS: Clear to auscultation without rales, rhonchi or wheezes. ABDOMEN: Soft, nontender in the upper abdomen with tenderness around a small horizontal incision in the right mid to lower quadrant region. There is no evidence of a ventral wall hernia and no evidence of maceration or induration to the mucosa. The incision is well healed. The tenderness occurs several centimeters around this area and also in the right lower quadrant. There is no rebound or guarding. EXTREMITIES: Without clubbing, cyanosis or edema. RECTAL EXAMINATION: Deferred at this time. PLAN: Patient with history of Crohn disease for many years with resection. The intentions for outpatient colonoscopy were in progress; however given his admission will plan to do a colonoscopy tomorrow if bowel prep can be tolerated. Will start this this evening and will ask for a C. diff toxin as well just to exclude C. diff as possibility. Additionally, biopsy will be taken to exclude CMV by immunostaining. Further recommendations to follow. Continue antibiotics as are currently being administered and follow labs accordingly. All questions answered for the patient. DUNCAND
[2016-07-17] MEDS: INSULIN GLARGINE SOLOSTAR 100 UNITS/ML 3 ML PEN SC SCH ×2 (14:47→20:11)
[2016-07-17] MEDS: SUCRALFATE 1 GM TAB PO SCH ×2 (14:53→20:07)
[2016-07-17] MEDS: METRONIDAZOLE 500 MG TAB PO SCH ×2 (14:53→20:07)
[2016-07-17 15:06] VITALS: BP 133/77; PULSE 62; TEMP 36.7; O2SAT 96
--- NOTE | 2016-07-17 15:23 | Progress Note ---
Subjective Date of Service: Jul 17, 2016. Subjective Pt evaluation today including: conversation w/ patient, conversation w/ family , physical exam, lab review, conversation w/ technology consultant, review of inpatient medication list Pain: controlled with Dilaudid IV PO Intake: NPO for colonoscopy Voiding: no voiding problems tolerated prep for colonoscopy last evening, no issues over night except increased bowel frequency, no blood pain controlled today denies any other issues, waiting for scope Problem List Medical Problems: (1) Abdominal wall hernia Status: Acute (2) Exacerbation of Crohn's disease Status: Acute (3) Urinary tract infection Status: Acute Review of Systems Abdomen: + diarrhea, + pain, + problem reported (poor appetite) All Other Systems: Reviewed and Negative Medications Current Inpatient Medications Medications (Trade) Dose Ordered Sig/Lance Route Start Time Stop Time Status Last Admin Dose Admin Enoxaparin Sodium (Lovenox Inj) 40 mg Q24H SQ 07/15/16 21:00 08/14/16 20:59 07/16/16 21:43 40 MG Acetaminophen (Tylenol Tab) 650 mg Q4H PRN PO 07/15/16 15:00 08/14/16 14:59 Ondansetron HCl (Zofran Inj) 4 mg Q6H PRN IV 07/15/16 15:00 08/14/16 14:59 07/17/16 09:53 4 MG Amlodipine Besylate (Norvasc Tab) 10 mg DAILY PO 07/16/16 08:00 08/15/16 08:59 07/17/16 08:52 10 MG Azathioprine (Imuran Tab) 150 mg DAILY PO 07/16/16 08:00 08/15/16 08:59 07/16/16 08:02 150 MG Ciprofloxacin (Cipro Tab) 500 mg DAILY PO 07/16/16 08:00 07/21/16 23:59 07/16/16 08:02 500 MG Ferrous Sulfate (Feosol Tab) 325 mg DAILY PO 07/16/16 08:00 08/15/16 08:59 07/16/16 08:02 325 MG Levothyroxine Sodium (Synthroid Tab) 200 mcg DAILYBB PO 07/16/16 06:30 08/15/16 06:59 07/17/16 05:59 200 MCG Losartan Potassium (coZAAR TAB) 50 mg BID PO 07/15/16 20:00 08/14/16 20:59 07/17/16 08:51 50 MG Metronidazole (Flagyl Tab) 500 mg BID PO 07/15/16 20:00 07/21/16 23:59 07/16/16 21:41 500 MG Sucralfate (Carafate Tab) 1 gm BID PO 07/15/16 20:00 08/14/16 20:59 07/16/16 21:40 1 GM Tamsulosin HCl 0.4 mg 0.4 mg DAILY PO 07/16/16 08:00 08/15/16 08:59 07/16/16 08:02 0.4 MG Potassium Chloride/Sodium Chloride (Nss + 20meq KCl 1000ml) 1,000 ml @ 125 mls/hr Q8H IV 07/15/16 20:15 08/14/16 14:59 07/17/16 11:26 125 MLS/HR Insulin Glargine (Lantus Solostar Pen) 18 unit BID SC 07/15/16 20:00 08/14/16 20:59 Future hold 07/16/16 12:52 10 UNIT Insulin Aspart (novoLOG ASPART) SLIDING SCALE ACHS SC 07/15/16 16:00 08/14/16 15:59 07/15/16 20:47 2 UNITS Glucose (Glucose 40% Gel) 15-30 GRAMS 15 GRAMS... UD PRN PO 07/15/16 16:00 08/14/16 15:59 Glucose (Glucose Chew Tab) 4-8 Tablets 4 Tabl... UD PRN PO 07/15/16 16:00 08/14/16 15:59 Dextrose (Dextrose 50% 50ML Syringe) 25-50ML OF 50% DW IV FOR... UD PRN IV 07/15/16 16:00 08/14/16 15:59 Glucagon (Glucagon Inj) 1 mg UD PRN SQ 07/15/16 16:00 08/14/16 15:59 Ioversol (Optiray 320) 115 ml UD PRN IV 07/15/16 18:00 07/19/16 17:59 Heparin Sodium (Porcine) 5 ml 5 ml PRN PRN IV 07/16/16 05:15 08/15/16 05:14 Methylprednisolone Sodium Succinate/ Syringe (Solu-Medrol IV/ Syringe) 0.32 ml @ 1.5 mls/min Q12 IV 07/16/16 21:00 08/15/16 20:59 07/17/16 08:51 1.5 MLS/MIN Hydromorphone HCl (Dilaudid Inj) 1 mg Q2H PRN IV 07/16/16 14:00 07/30/16 13:59 07/17/16 13:45 1 MG Objective Vital Signs Date Time Temp Pulse Resp B/P Pulse Ox O2 Delivery O2 Flow Rate FiO2 07/17/16 15:06 36.7 62 14 133/77 96 Room Air 07/17/16 10:05 Room Air 07/17/16 07:36 36.6 70 16 132/73 94 Room Air 07/17/16 01:00 Room Air 07/16/16 23:43 36.5 54 20 134/79 97 Room Air 07/16/16 15:30 93 Room Air 07/16/16 15:28 36.5 77 20 157/87 93 Physical Exam General Appearance: WD/WN, no apparent distress Eyes: normal inspection, EOMI, sclerae normal ENT: normal ENT inspection, hearing grossly normal, pharynx normal Neck: supple, no adenopathy, no JVD, trachea midline Respiratory/Chest: chest non-tender, lungs clear, normal breath sounds, no respiratory distress, no accessory muscle use Cardiovascular: regular rate, rhythm, no edema, no gallop, no JVD, no murmur Abdomen: soft, no organomegaly, + abnormal bowel sounds, + distended, + tenderness (RLQ, no rebound or rigidity) Extremities: normal range of motion, non-tender, normal inspection, no pedal edema, no calf tenderness 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, no motor/sensory deficits, alert, normal mood/affect, oriented x 3 Skin: normal color, warm/dry, no rash Lymphatic: no adenopathy Laboratory Results Last 24 Hours Test 07/16/16 16:19 07/16/16 20:03 07/17/16 07:30 07/17/16 11:27 Bedside Glucose 165 mg/dl 140 mg/dl 129 mg/dl 150 mg/dl Assessment and Plan 56 yo male with h/o Crohn's disease, s/p colectomy with colostomy and then reversal, presented with several day of increased abdominal pain, increased bowel frequency, poor appetite, started on Cipro/Flagyl outpatient by GI with plans for colonoscopy, pain was too severe to manage at home and he was referred for admission Crohn's flare: Continue with Ciprofloxacin 500mg and Metronidazole 500mg for x10 days. Day # 6 Continue Imuran 150 mg Solu Medrol 20mg IV q12 NSS+20KCL meq @125mls/hr IV Dilaudid 1mg q4h PRN--> increased to q2 hrs PRN GI consult: check for C diff, plan for colonoscopy today, prep completed DM II: stable, sugars consistently in 130-160's - Lantus 18 unit BID, titrate as needed - BSG ACHS w/ sliding insulin scale BPH: Continue Flomax 0.4mg daily HTN: Continue Amlodipine 10mg daily, Cozaar 50 mg BID Hypothyroidism: Continue Synthroid 200 mcg daily DVT prophylaxis: Lovenox 40 mg SQ q24 hrs Code Status: LEVEL I, FULL Dispo: Discharge to home once medically stable
[2016-07-17] MEDS ORDERED: PROPOFOL IV EMULSION 10 MG/ML 20 ML VIAL IV ONE (16:09)
[2016-07-17] MEDS ORDERED: LIDOCAINE HCL 2% 2 ML VIAL (20MG/ML) ONE (16:09)
--- NOTE | 2016-07-17 16:14 | History & Physical Bridge Note ---
H&P Re-Evaluation Bridge Note: I have examined the patient, reviewed the History & Physical and in the interval since the performance of the History & Physical I have noted the following changes of clinical significance: No changes noted
--- NOTE | 2016-07-17 17:37 | GI REPORT ---
Procedure Date: 07/17/2016 3:58 PM Procedure: Colonoscopy Indications: Abdominal pain in the right lower quadrant, Chronic diarrhea, Crohn's disease of the small bowel and colon Medicines: Propofol per Anesthesia Complications: No immediate complications. Estimated blood loss: Minimal. Estimated Blood Loss: Estimated blood loss was minimal. Procedure: Pre-Anesthesia Assessment: - Prior to the procedure, a History and Physical was performed, and patient medications and allergies were reviewed. The patient's tolerance of previous anesthesia was also reviewed. The risks and benefits of the procedure and the sedation options and risks were discussed with the patient. All questions were answered, and informed consent was obtained. Prior Anticoagulants: The patient has taken no previous anticoagulant or antiplatelet agents. ASA Grade Assessment: II - A patient with mild systemic disease. After reviewing the risks and benefits, the patient was deemed in satisfactory condition to undergo the procedure. After I obtained informed consent, the scope was passed under direct vision. Throughout the procedure, the patient's blood pressure, pulse, and oxygen saturations were monitored continuously. The Scope was introduced through the anus and advanced to the ileocolonic anastomosis. The colonoscopy was performed without difficulty. The patient tolerated the procedure well. The quality of the bowel preparation was good. Findings: The perianal and digital rectal examinations were normal. Pertinent negatives include normal sphincter tone, no palpable rectal lesions and no anal lesion or abnormality was detected. The distal ileum appeared normal. Biopsies were taken with a cold forceps for histology. Estimated blood loss was minimal. Verification of patient identification for the specimen was done by the physician and civilian technician using the patient's name and medical record number. The ileal surgical anastomosis appeared normal. Biopsies were taken with a cold forceps for histology. Estimated blood loss was minimal. Verification of patient identification for the specimen was done by the physician and civilian technician using the patient's name and medical record number. A scattered area of mucosa in the stephon-terminal ileum was mildly ulcerated. Biopsies were taken with a cold forceps for histology. Estimated blood loss was minimal. Verification of patient identification for the specimen was done by the physician and civilian technician using the patient's name and medical record number. The anastomosis appeared normal. Biopsies were taken with a cold forceps for histology. Estimated blood loss was minimal. Verification of patient identification for the specimen was done by the physician and civilian technician using the patient's name and medical record number. The colon (entire examined portion) appeared normal. Biopsies were taken with a cold forceps for histology. Estimated blood loss was minimal. Verification of patient identification for the specimen was done by the physician and civilian technician using the patient's name and medical record number. The retroflexed view of the distal rectum and anal verge was normal and showed no anal or rectal abnormalities. Impression: - The examined portion of the ileum was normal. Biopsied. - The examined portion of the ileum was normal. Biopsied. - Ulcerated mucosa in the stephon-terminal ileum. Biopsied. - The colonic anastomosis is normal. Biopsied. - The entire examined colon is normal. Biopsied. - The distal rectum and anal verge are normal on retroflexion view. Recommendation: - [facility]. - Full liquid diet. - Perform an upper GI series and small bowel follow through tomorrow. - Await pathology results. - Continue present medications. ( C dif was negative yesterday) MD Castro North MD 07/17/2016 5:37:04 PM This report has been signed electronically. Note Initiated On: 07/17/2016 3:58 PM I attest to the content of the Intraoperative Record and orders documented therein, exceptions below
--- NOTE | 2016-07-17 17:39 | Anesthesiology Progress Note ---
Anesthesia Post Op Note Date & Time Jul 17, 2016 at 17:38 Vital Signs Pain Intensity: 5.5 Vital Signs Past 12 Hours Date Time Temp Pulse Resp B/P Pulse Ox O2 Delivery O2 Flow Rate FiO2 07/17/16 17:28 56 20 149/77 92 Room Air 07/17/16 17:14 63 20 131/69 95 Room Air 07/17/16 17:00 36.7 60 20 134/69 94 Room Air 07/17/16 16:45 Room Air 07/17/16 15:30 36.7 94 20 157/77 100 Room Air 07/17/16 15:06 36.7 62 14 133/77 96 Room Air 07/17/16 10:05 Room Air 07/17/16 07:36 36.6 70 16 132/73 94 Room Air Notes Mental Status: alert / awake / arousable, participated in evaluation Pt Amnestic to Procedure: Yes Nausea / Vomiting: adequately controlled Pain: adequately controlled Airway Patency, RR, SpO2: stable & adequate BP & HR: stable & adequate Hydration State: stable & adequate Anesthetic Complications: no major complications apparent
[2016-07-17] MEDS: AZATHIOPRINE 50 MG TAB PO SCH (17:45)
[2016-07-17] MEDS: FERROUS SULFATE 325 MG TAB PO SCH (17:45)
[2016-07-17] MEDS: CIPROFLOXACIN 500 MG TAB PO SCH (17:46)
[2016-07-17] MEDS: TAMSULOSIN HCL 0.4 MG CAP PO SCH (17:46)
[2016-07-17] MEDS: ENOXAPARIN 40 MG/0.4 ML SYR SQ SCH (20:20)
[2016-07-17 23:17] VITALS: BP 102/60; PULSE 57; TEMP 36.5; O2SAT 92
[2016-07-18] MEDS: HYDROmorphone INJ 1 MG/ML SYR IV PRN ×6 (00:15→20:27)
[2016-07-18] MEDS: NSS + 20MEQ KCL 1000ML 1,000 ML IV SCH ×3 (04:14→20:25)
[2016-07-18 05:51] LABS: HEMATOCRIT 31.8 % (42-52); MEAN CELL VOLUME 77.8 fL (80-100); MEAN CORPUSCULAR HEMOGLOBIN 24.2 pg (25-34); MEAN CORPUSCULAR HGB CONC 31.1 g/dl (32-36); MEAN PLATELET VOLUME 8.8 fL (7.4-10.4); PLATELET COUNT 247 K/uL (130-400); RED BLOOD COUNT 4.09 M/uL (4.7-6.1); WHITE BLOOD COUNT 9.13 K/uL (4.8-10.8)
[2016-07-18] MEDS: LEVOTHYROXINE 200 MCG TAB PO SCH (06:02)
[2016-07-18] MEDS: ACETAMINOPHEN 325 MG TAB PO PRN ×2 (06:05→14:42)
[2016-07-18 06:22] LABS: CREATININE 1.2 mg/dl (0.60-1.40)
[2016-07-18] MEDS ORDERED: NURSING VERBAL MED ORDER ONE ×3 (07:15→13:30)
[2016-07-18 07:53] VITALS: BP 134/71; PULSE 46; TEMP 36.5; O2SAT 94
[2016-07-18] MEDS: METRONIDAZOLE 500 MG TAB PO SCH ×2 (07:58→20:26)
[2016-07-18] MEDS: METHYLPREDNISOLONE IV 20 MG in SYRINGE 0 ML IV SCH ×2 (07:58→20:25)
[2016-07-18] MEDS: LOSARTAN POTASSIUM 50 MG TAB PO SCH ×2 (07:59→20:26)
[2016-07-18] MEDS: AMLODIPINE BESYLATE 5 MG TAB PO SCH (07:59)
[2016-07-18] MEDS: SUCRALFATE 1 GM TAB PO SCH ×2 (07:59→20:25)
[2016-07-18] MEDS: INSULIN GLARGINE SOLOSTAR 100 UNITS/ML 3 ML PEN SC SCH ×2 (08:00→20:33)
[2016-07-18 08:23] VITALS: O2SAT 94
[2016-07-18] MEDS: AZATHIOPRINE 50 MG TAB PO SCH (09:40)
[2016-07-18] MEDS: CIPROFLOXACIN 500 MG TAB PO SCH (09:41)
[2016-07-18] MEDS: FERROUS SULFATE 325 MG TAB PO SCH (09:41)
[2016-07-18] MEDS: TAMSULOSIN HCL 0.4 MG CAP PO SCH (09:41)
[2016-07-18] MEDS: INSULIN ASPART 100 UNITS/ML 3 ML PEN SC SCH ×3 (12:18→20:33)
[2016-07-18 12:22] VITALS: BP 117/73; PULSE 54; TEMP 36.9; O2SAT 91
--- NOTE | 2016-07-18 14:21 | Progress Note ---
Subjective Date of Service: Jul 18, 2016. Subjective Pt evaluation today including: conversation w/ patient, physical exam, lab review, review of studies, conversation w/ information technology consultant, review of inpatient medication list Pain: still with RLQ pain, unchanged, better with Dilaudid and Tylenol PO Intake: NPO for imaging Voiding: no voiding problems patient still with pain, tolerable, little diarrhea, no bleeding reviewed results of colonoscopy, some ulcers, multiple biopsies done awaiting SBFT today no issues overnight Problem List Medical Problems: (1) Abdominal wall hernia Status: Acute (2) Exacerbation of Crohn's disease Status: Acute (3) Urinary tract infection Status: Acute Review of Systems Abdomen: + diarrhea, + pain (RLQ, moderate) All Other Systems: Reviewed and Negative Medications Current Inpatient Medications Medications (Trade) Dose Ordered Sig/Lance Route Start Time Stop Time Status Last Admin Dose Admin Enoxaparin Sodium (Lovenox Inj) 40 mg Q24H SQ 07/15/16 21:00 08/14/16 20:59 07/17/16 20:20 40 MG Acetaminophen (Tylenol Tab) 650 mg Q4H PRN PO 07/15/16 15:00 08/14/16 14:59 07/18/16 06:05 650 MG Ondansetron HCl (Zofran Inj) 4 mg Q6H PRN IV 07/15/16 15:00 08/14/16 14:59 07/17/16 20:06 4 MG Amlodipine Besylate (Norvasc Tab) 10 mg DAILY PO 07/16/16 08:00 08/15/16 08:59 07/18/16 07:59 10 MG Azathioprine (Imuran Tab) 150 mg DAILY PO 07/16/16 08:00 08/15/16 08:59 07/18/16 09:40 150 MG Ciprofloxacin (Cipro Tab) 500 mg DAILY PO 07/16/16 08:00 07/21/16 23:59 07/18/16 09:41 500 MG Ferrous Sulfate (Feosol Tab) 325 mg DAILY PO 07/16/16 08:00 08/15/16 08:59 07/18/16 09:41 325 MG Levothyroxine Sodium (Synthroid Tab) 200 mcg DAILYBB PO 07/16/16 06:30 08/15/16 06:59 07/18/16 06:02 200 MCG Losartan Potassium (coZAAR TAB) 50 mg BID PO 07/15/16 20:00 08/14/16 20:59 07/18/16 07:59 50 MG Metronidazole (Flagyl Tab) 500 mg BID PO 07/15/16 20:00 07/21/16 23:59 07/18/16 07:58 500 MG Sucralfate (Carafate Tab) 1 gm BID PO 07/15/16 20:00 08/14/16 20:59 07/18/16 07:59 1 GM Tamsulosin HCl 0.4 mg 0.4 mg DAILY PO 07/16/16 08:00 08/15/16 08:59 07/18/16 09:41 0.4 MG Potassium Chloride/Sodium Chloride (Nss + 20meq KCl 1000ml) 1,000 ml @ 125 mls/hr Q8H IV 07/15/16 20:15 08/14/16 14:59 07/18/16 12:15 125 MLS/HR Insulin Glargine (Lantus Solostar Pen) 18 unit BID SC 07/15/16 20:00 08/14/16 20:59 Future hold 07/17/16 20:11 18 UNIT Glucose (Glucose 40% Gel) 15-30 GRAMS 15 GRAMS... UD PRN PO 07/15/16 16:00 08/14/16 15:59 Glucose (Glucose Chew Tab) 4-8 Tablets 4 Tabl... UD PRN PO 07/15/16 16:00 08/14/16 15:59 Dextrose (Dextrose 50% 50ML Syringe) 25-50ML OF 50% DW IV FOR... UD PRN IV 07/15/16 16:00 08/14/16 15:59 Glucagon (Glucagon Inj) 1 mg UD PRN SQ 07/15/16 16:00 08/14/16 15:59 Ioversol (Optiray 320) 115 ml UD PRN IV 07/15/16 18:00 07/19/16 17:59 Heparin Sodium (Porcine) 5 ml 5 ml PRN PRN IV 07/16/16 05:15 08/15/16 05:14 Methylprednisolone Sodium Succinate/ Syringe (Solu-Medrol IV/ Syringe) 0.32 ml @ 1.5 mls/min Q12 IV 07/16/16 21:00 08/15/16 20:59 07/18/16 07:58 1.5 MLS/MIN Hydromorphone HCl (Dilaudid Inj) 1 mg Q2H PRN IV 07/16/16 14:00 07/30/16 13:59 07/18/16 12:20 1 MG Insulin Aspart (novoLOG ASPART) SLIDING SCALE Q6 SC 07/18/16 12:00 08/17/16 11:59 Future hold 07/18/16 12:18 1 UNITS Insulin Aspart (novoLOG ASPART) SLIDING SCALE ACHS MA 07/18/16 16:30 07/18/16 23:59 Objective Vital Signs Date Time Temp Pulse Resp B/P Pulse Ox O2 Delivery O2 Flow Rate FiO2 07/18/16 12:22 36.9 54 16 117/73 91 Room Air 07/18/16 08:23 94 Room Air 07/18/16 08:20 Room Air 07/18/16 07:53 36.5 46 16 134/71 94 Room Air 07/18/16 00:00 Room Air 07/17/16 23:17 36.5 57 17 102/60 92 Room Air 07/17/16 20:00 Room Air 07/17/16 17:28 56 20 149/77 92 Room Air 07/17/16 17:14 63 20 131/69 95 Room Air 07/17/16 17:00 36.7 60 20 134/69 94 Room Air 07/17/16 16:45 Room Air 07/17/16 15:30 36.7 94 20 157/77 100 Room Air 07/17/16 15:06 36.7 62 14 133/77 96 Room Air Physical Exam General Appearance: WD/WN, no apparent distress Eyes: normal inspection, EOMI, sclerae normal ENT: normal ENT inspection, hearing grossly normal, pharynx normal Neck: supple, no adenopathy, no JVD, trachea midline Respiratory/Chest: chest non-tender, lungs clear, normal breath sounds, no respiratory distress, no accessory muscle use Cardiovascular: regular rate, rhythm, no edema, no gallop, no JVD, no murmur Abdomen: normal bowel sounds, no organomegaly, + tenderness (RLQ, no rebound, ) Extremities: normal range of motion, non-tender, normal inspection, no pedal edema, no calf tenderness 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, no motor/sensory deficits, alert, normal mood/affect, oriented x 3 Skin: normal color, warm/dry, no rash Lymphatic: no adenopathy Laboratory Results Last 24 Hours Test 07/17/16 17:49 07/17/16 20:12 07/18/16 05:33 07/18/16 07:08 Bedside Glucose 132 mg/dl 167 mg/dl 117 mg/dl White Blood Count 9.13 K/uL Red Blood Count 4.09 M/uL Hemoglobin 9.9 g/dL Hematocrit 31.8 % Mean Corpuscular Volume 77.8 fL Mean Corpuscular Hemoglobin 24.2 pg Mean Corpuscular Hemoglobin Concent 31.1 g/dl RDW Standard Deviation 46.9 fL RDW Coefficient of Variation 17.1 % Platelet Count 247 K/uL Mean Platelet Volume 8.8 fL Creatinine 1.20 mg/dl Est Creatinine Clear Calc Drug Dose 82.9 ml/min Estimated GFR () 77.9 Estimated GFR (Non- 67.2 Test 07/18/16 11:26 Bedside Glucose 157 mg/dl Assessment and Plan 56 yo male with h/o Crohn's disease, s/p colectomy with colostomy and then reversal, presented with several day of increased abdominal pain, increased bowel frequency, poor appetite, started on Cipro/Flagyl outpatient by GI with plans for colonoscopy, pain was too severe to manage at home and he was referred for admission Crohn's flare: Continue with Ciprofloxacin 500mg and Metronidazole 500mg for x10 days. Day # 7 Continue Imuran 150 mg Solu Medrol 20mg IV q12 NSS+20KCL meq @125mls/hr IV Dilaudid 1mg q3 PRN, added Tylenol now, pain is controlled colonoscopy: visualization of colon, ileum, small ulceration seen, 10 biopsies taken plan for SBFT today DM II: stable, sugars consistently in 130-160's - Lantus 18 unit BID, held AM dose since NPO - BSG ACHS w/ sliding insulin scale BPH: Continue Flomax 0.4mg daily HTN: Continue Amlodipine 10mg daily, Cozaar 50 mg BID Hypothyroidism: Continue Synthroid 200 mcg daily DVT prophylaxis: Lovenox 40 mg SQ q24 hrs Code Status: LEVEL I, FULL Dispo: Discharge to home once medically stable, defer to GI for that decision
[2016-07-18 15:49] VITALS: BP 144/84; PULSE 58; TEMP 36.9; O2SAT 94
--- NOTE | 2016-07-18 17:48 | GASTROENTEROLOGY PROGRESS NOTE ---
DATE: 07/18/2016 GASTROINTESTINAL INPATIENT PROGRESS NOTE HISTORY OF PRESENT ILLNESS: Mr. Alcantara underwent colonoscopy yesterday with multiple biopsies. Overall, the colonoscopy revealed normal colonic mucosa with evidence of an ileoileal anastomosis that was patent and ileocolonic anastomosis that was also patent. There was an area located between the ileoileal anastomosis and ileocolonic anastomosis that had 2 small superficial ulcers; however, the remainder of the small bowel had a normal appearance. Biopsies are pending at this time. The patient continues to experience right-sided abdominal pain quite focally in the area of a previous incision. This is somewhat exquisitely tender, although there is no evidence of an obvious hernia in this region, induration or maceration to the skin. There is no ballottable sensation on exam. The patient seemed to do reasonably well with full liquid diet. The biopsies are available and at the ileoileal anastomosis, there was a focal mild nonspecific active ileitis, but no evidence for chronic ileitis. Above this region in the distal ileum, this had a normal appearance. Samples from the neoterminal ileum showed a normal small bowel mucosa and samples from the ileocolonic anastomosis essentially showed a mixed normal appearing small bowel and colonic mucosa. All of the samples taken randomly throughout the colon had a normal appearance microscopically without evidence of acute or chronic inflammation. LABORATORY STUDIES: Today - white count is 9.1 with a hemoglobin of 9.9 and hematocrit 31.8 with an MCV of 77. Platelets are normal at 247,000. Blood glucose is 158. INR is normal at 1.0. MEDICATIONS: Reviewed and include methylprednisolone 20 mg IV q. 12, amlodipine, Imuran 150 mg daily, ciprofloxacin and Flagyl, ferrous sulfate, tamsulosin, levothyroxine, losartan, Carafate and insulin. PHYSICAL EXAMINATION: VITAL SIGNS: The patient is afebrile, blood pressure 144/84, temperature 36.9, heart rate 58, room air 94%, respirations 17. GENERAL: The patient is awake, alert and oriented x3. HEENT: Sclerae are anicteric. LUNGS: Clear to auscultation. HEART: Normal S1, S2. ABDOMEN: Soft. Positive bowel sounds. There is tenderness focally in within and surrounding incision on the right mid to lower quadrant area from a prior surgery. The more substantial surgical scars are not tender. There is no evidence for herniation. EXTREMITIES: Without edema. IMPRESSION AND PLAN: We will plan for small bowel follow through tomorrow to exclude any subtle narrowing or inflammatory features, although endoscopically the small bowel is overall responding well to Imuran and vedolizumab. Would continue the current antibiotics and steroids and will plan for an oral conversion once patient can consistently tolerate food. If small bowel follow through does not reveal anything this may reflect pain of abdominal wall origin and perhaps an evaluation by a chronic pain service may be helpful, particularly in the absence of any inflammatory features. The CT scan did not show evidence of bowel obstruction, free air and there are no apparent transition zones or description of abdominal wall hernias, although this may need to be reviewed with radiology for any subtle features. Further recommendations to follow once the barium study is completed. Would maintain a liquid diet at the present time and can eventually advance slowly as tolerated.
[2016-07-18] MEDS: ONDANSETRON INJ 2 MG/ML 2 ML VIAL IV PRN (18:20)
[2016-07-18 20:00] VITALS: O2SAT 95
[2016-07-18] MEDS: ENOXAPARIN 40 MG/0.4 ML SYR SQ SCH (20:25)
[2016-07-18 23:21] VITALS: BP 125/72; PULSE 56; TEMP 36.9; O2SAT 92
[2016-07-19] VITALS: O2SAT 95
[2016-07-19] MEDS: HYDROmorphone INJ 1 MG/ML SYR IV PRN ×6 (00:07→23:44)
[2016-07-19] MEDS ORDERED: NURSING VERBAL MED ORDER ONE (00:15)
[2016-07-19] MEDS: LEVOTHYROXINE 200 MCG TAB PO SCH (00:18)
[2016-07-19] MEDS: NSS + 20MEQ KCL 1000ML 1,000 ML IV SCH ×3 (04:07→20:28)
[2016-07-19] MEDS: INSULIN ASPART 100 UNITS/ML 3 ML PEN SC SCH ×5 (06:00→20:42)
[2016-07-19 07:33] VITALS: BP 130/71; PULSE 54; TEMP 36.9; O2SAT 95
--- NOTE | 2016-07-19 08:57 | DIAGNOSTIC IMAGING REPORT ---
GI W/AIR SMALL BOWEL ROUTINE CLINICAL HISTORY: Generalized abdominal pain; crohns dz with surgery exclude active disease/s tri COMPARISON STUDY: Abdomen and pelvis CT 07/15/2016. Small bowel follow-through 10/11/2010. FLUOROSCOPY TIME: 3.1 minutes. 29 images submitted. FINDINGS: The patient swallowed barium without difficulty. The esophagus is normal in course, caliber, and motility. No hiatus hernia. No gastroesophageal reflux. No gastric ulcerations. The duodenal bulb and duodenal C sweep are within normal limits. [employer] images demonstrate suture material within the right side the abdomen consistent with prior ileocolectomy. Bilateral sacroiliitis persist. There is a 7.4 cm narrowed segment of distal small bowel which demonstrates an irregular fold pattern. This is consistent with an area of thickened small bowel. This represents active Crohn's disease. This is immediately proximal to the anastomosis and located within the right side the abdomen. No evidence for bowel obstruction. IMPRESSION: 1. A 7.4 segment of thickened distal small bowel within the right side of the abdomen immediately proximal to the anastomosis consistent with active Crohn's disease. 2. Postoperative changes. 3. Persistent sacroiliitis. 4. Normal upper GI series. Electronically signed by: Edi Chairez M.D. 07/19/2016 8:55 AM Dictated Date/Time: 07/19/2016 8:48 AM
[2016-07-19] MEDS: CIPROFLOXACIN 500 MG TAB PO SCH (09:01)
[2016-07-19] MEDS: AZATHIOPRINE 50 MG TAB PO SCH (09:01)
[2016-07-19] MEDS: LOSARTAN POTASSIUM 50 MG TAB PO SCH ×2 (09:01→20:30)
[2016-07-19] MEDS: FERROUS SULFATE 325 MG TAB PO SCH (09:02)
[2016-07-19] MEDS: METRONIDAZOLE 500 MG TAB PO SCH ×2 (09:03→20:28)
[2016-07-19] MEDS: SUCRALFATE 1 GM TAB PO SCH ×2 (09:03→20:31)
[2016-07-19] MEDS: AMLODIPINE BESYLATE 5 MG TAB PO SCH (09:03)
[2016-07-19] MEDS: INSULIN GLARGINE SOLOSTAR 100 UNITS/ML 3 ML PEN SC SCH ×2 (09:09→20:43)
[2016-07-19] MEDS: METHYLPREDNISOLONE IV 20 MG in SYRINGE 0 ML IV SCH ×2 (09:10→20:31)
[2016-07-19] MEDS ORDERED: NURSING DECISION MEDICATION ORDER SCH (09:15)
[2016-07-19] MEDS: TAMSULOSIN HCL 0.4 MG CAP PO SCH (09:57)
[2016-07-19] MEDS: ONDANSETRON INJ 2 MG/ML 2 ML VIAL IV PRN ×2 (09:59→20:48)
[2016-07-19 15:43] VITALS: BP 142/74; PULSE 61; TEMP 37; O2SAT 95
--- NOTE | 2016-07-19 16:16 | Progress Note ---
Subjective Date of Service: Jul 19, 2016. Subjective Pt evaluation today including: conversation w/ patient, conversation w/ family , physical exam, lab review, review of studies, conversation w/ water resource consultant, review of inpatient medication list Pain: still with RLQ pain PO Intake: tolerating liquids Voiding: no voiding problems SBFT reviewed, 7 cm segment of distal ileum inflamed, no other findings still with pain today, relieved with dilaudid, less frequency today which is improvement Problem List Medical Problems: (1) Abdominal wall hernia Status: Acute (2) Exacerbation of Crohn's disease Status: Acute (3) Urinary tract infection Status: Acute Review of Systems Abdomen: + diarrhea, + pain All Other Systems: Reviewed and Negative Medications Current Inpatient Medications Medications (Trade) Dose Ordered Sig/Lance Route Start Time Stop Time Status Last Admin Dose Admin Enoxaparin Sodium (Lovenox Inj) 40 mg Q24H SQ 07/15/16 21:00 08/14/16 20:59 07/18/16 20:25 40 MG Acetaminophen (Tylenol Tab) 650 mg Q4H PRN PO 07/15/16 15:00 08/14/16 14:59 07/18/16 14:42 650 MG Ondansetron HCl (Zofran Inj) 4 mg Q6H PRN IV 07/15/16 15:00 08/14/16 14:59 07/19/16 09:59 4 MG Amlodipine Besylate (Norvasc Tab) 10 mg DAILY PO 07/16/16 08:00 08/15/16 08:59 07/19/16 09:03 10 MG Azathioprine (Imuran Tab) 150 mg DAILY PO 07/16/16 08:00 08/15/16 08:59 07/19/16 09:01 150 MG Ciprofloxacin (Cipro Tab) 500 mg DAILY PO 07/16/16 08:00 07/21/16 23:59 07/19/16 09:01 500 MG Ferrous Sulfate (Feosol Tab) 325 mg DAILY PO 07/16/16 08:00 08/15/16 08:59 07/19/16 09:02 325 MG Levothyroxine Sodium (Synthroid Tab) 200 mcg DAILYBB PO 07/16/16 06:30 08/15/16 06:59 07/18/16 06:02 200 MCG Losartan Potassium (coZAAR TAB) 50 mg BID PO 07/15/16 20:00 08/14/16 20:59 07/19/16 09:01 50 MG Metronidazole (Flagyl Tab) 500 mg BID PO 07/15/16 20:00 07/21/16 23:59 07/19/16 09:03 500 MG Sucralfate (Carafate Tab) 1 gm BID PO 07/15/16 20:00 08/14/16 20:59 07/19/16 09:03 1 GM Tamsulosin HCl 0.4 mg 0.4 mg DAILY PO 07/16/16 08:00 08/15/16 08:59 07/19/16 09:57 0.4 MG Potassium Chloride/Sodium Chloride (Nss + 20meq KCl 1000ml) 1,000 ml @ 125 mls/hr Q8H IV 07/15/16 20:15 08/14/16 14:59 07/19/16 12:24 125 MLS/HR Insulin Glargine (Lantus Solostar Pen) 18 unit BID SC 07/15/16 20:00 08/14/16 20:59 Future hold 07/19/16 09:09 18 UNIT Glucose (Glucose 40% Gel) 15-30 GRAMS 15 GRAMS... UD PRN PO 07/15/16 16:00 08/14/16 15:59 Glucose (Glucose Chew Tab) 4-8 Tablets 4 Tabl... UD PRN PO 07/15/16 16:00 08/14/16 15:59 Dextrose (Dextrose 50% 50ML Syringe) 25-50ML OF 50% DW IV FOR... UD PRN IV 07/15/16 16:00 08/14/16 15:59 Glucagon (Glucagon Inj) 1 mg UD PRN SQ 07/15/16 16:00 08/14/16 15:59 Ioversol (Optiray 320) 115 ml UD PRN IV 07/15/16 18:00 07/19/16 17:59 Heparin Sodium (Porcine) 5 ml 5 ml PRN PRN IV 07/16/16 05:15 08/15/16 05:14 Methylprednisolone Sodium Succinate/ Syringe (Solu-Medrol IV/ Syringe) 0.32 ml @ 1.5 mls/min Q12 IV 07/16/16 21:00 08/15/16 20:59 07/19/16 09:10 1.5 MLS/MIN Hydromorphone HCl (Dilaudid Inj) 1 mg Q2H PRN IV 07/16/16 14:00 07/30/16 13:59 07/19/16 13:05 1 MG Insulin Aspart (novoLOG ASPART) SLIDING SCALE ACHS SC 07/19/16 11:00 08/18/16 10:59 07/19/16 12:28 11 UNITS Objective Vital Signs Date Time Temp Pulse Resp B/P Pulse Ox O2 Delivery O2 Flow Rate FiO2 07/19/16 15:43 37.0 61 16 142/74 95 Room Air 07/19/16 09:00 Room Air 07/19/16 07:33 36.9 54 20 130/71 95 Room Air 07/19/16 00:00 95 Room Air 07/18/16 23:21 36.9 56 16 125/72 92 Room Air 07/18/16 20:00 95 Room Air Physical Exam General Appearance: WD/WN, no apparent distress Eyes: normal inspection, EOMI, sclerae normal ENT: normal ENT inspection, hearing grossly normal, pharynx normal Neck: supple, no adenopathy, no JVD, trachea midline Respiratory/Chest: chest non-tender, lungs clear, normal breath sounds, no respiratory distress, no accessory muscle use Cardiovascular: regular rate, rhythm, no edema, no gallop, no JVD, no murmur Abdomen: soft, no organomegaly, + abnormal bowel sounds (hypoactive), + tenderness (RLQ, no rebound, no rigidity) Extremities: normal range of motion, non-tender, normal inspection, no pedal edema, no calf tenderness 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, no motor/sensory deficits, alert, normal mood/affect, oriented x 3 Skin: normal color, warm/dry, no rash Lymphatic: no adenopathy Laboratory Results Last 24 Hours Test 07/18/16 16:39 07/18/16 20:16 07/18/16 23:50 07/19/16 06:30 Bedside Glucose 158 mg/dl 146 mg/dl 166 mg/dl 119 mg/dl Test 07/19/16 11:15 Bedside Glucose 159 mg/dl Assessment and Plan 56 yo male with h/o Crohn's disease, s/p colectomy with colostomy and then reversal, presented with several day of increased abdominal pain, increased bowel frequency, poor appetite, started on Cipro/Flagyl outpatient by GI with plans for colonoscopy, pain was too severe to manage at home and he was referred for admission Crohn's flare: Continue with Ciprofloxacin 500mg and Metronidazole 500mg for x10 days. Day # 8 Continue Imuran 150 mg Solu Medrol 20mg IV q12 NSS+20KCL meq @125mls/hr IV Dilaudid 1mg q3 PRN, added Tylenol now, pain is controlled colonoscopy: visualization of colon, ileum, small ulceration seen, 10 biopsies taken SBFT: 7 cm segment of thickened small bowel diet advanced by GI, pain management consult, continue above regimen DM II: stable, sugars consistently in 130-160's - Lantus 18 unit BID, held AM dose since NPO - BSG ACHS w/ sliding insulin scale BPH: Continue Flomax 0.4mg daily HTN: Continue Amlodipine 10mg daily, Cozaar 50 mg BID Hypothyroidism: Continue Synthroid 200 mcg daily DVT prophylaxis: Lovenox 40 mg SQ q24 hrs Code Status: LEVEL I, FULL Dispo: Discharge to home once medically stable, defer to GI for that decision
--- NOTE | 2016-07-19 16:18 | PROGRESS NOTE ---
DATE: 07/19/2016 The patient continues to have right lower quadrant pain. He has little dyspepsia with eating. He had a colonoscopy yesterday by Dr. Brooks, which showed a normal colon. Biopsies throughout the colon showed no active or chronic colitis identified. His ileocecal anastomosis was patent and he had a short segment of ileum before he encountered another ileoileal anastomosis. Between these anastomoses, there were 2 aphthous ulcers which were biopsied, which showed mild nonspecific active ileitis with no dysplasia and very minimal disease. The more proximal ileum was normal. He had an upper GI and small bowel followthrough today which did show some thickening of this interim segment between the anastomoses, suggestive of active Crohn disease but endoscopically there was minimal disease found. PHYSICAL EXAMINATION: The patient has normal vital signs. He has no stools recorded for the last 3 days. He is very tender in the right lower abdomen on the skin side without even pressing into the abdomen, suggesting a neuropathic origin for the pain. He did have an ostomy in this site, so it may be a cutaneous neuroma that is causing his pain, although it is more likely that he has dermatomal pain from his ankylosing spondylitis, associated with his Crohn disease. He has had back injections in the past which were not really very helpful. IMPRESSION: The patient is having right lower quadrant pain, probably dermatomal in nature or cutaneous in nature but appears to be neuropathic and not related to active inflammatory bowel disease which he has had in the past. At this point, I plan on advancing his diet to a low fiber diet and consulting pain management to see if some form of injection may be of benefit for this patient.
[2016-07-19 20:15] VITALS: BP 151/65; PULSE 50
[2016-07-19] MEDS: ENOXAPARIN 40 MG/0.4 ML SYR SQ SCH (20:31)
[2016-07-19 23:20] VITALS: BP 147/86; PULSE 59; TEMP 36.6; O2SAT 94
[2016-07-20] MEDS: NSS + 20MEQ KCL 1000ML 1,000 ML IV SCH ×2 (04:18→11:37)
[2016-07-20] MEDS: HYDROmorphone INJ 1 MG/ML SYR IV PRN ×6 (04:19→21:05)
[2016-07-20] MEDS: LEVOTHYROXINE 200 MCG TAB PO SCH (06:21)
[2016-07-20 07:42] VITALS: BP 166/81; PULSE 58; TEMP 36.6; O2SAT 97
[2016-07-20] MEDS: METHYLPREDNISOLONE IV 20 MG in SYRINGE 0 ML IV SCH ×2 (08:26→20:59)
[2016-07-20] MEDS: AMLODIPINE BESYLATE 5 MG TAB PO SCH (08:30)
[2016-07-20] MEDS: TAMSULOSIN HCL 0.4 MG CAP PO SCH (08:30)
[2016-07-20] MEDS: FERROUS SULFATE 325 MG TAB PO SCH (08:30)
[2016-07-20] MEDS: SUCRALFATE 1 GM TAB PO SCH ×2 (08:30→20:10)
[2016-07-20] MEDS: LOSARTAN POTASSIUM 50 MG TAB PO SCH ×2 (08:30→20:09)
[2016-07-20] MEDS: METRONIDAZOLE 500 MG TAB PO SCH ×2 (08:31→20:09)
[2016-07-20] MEDS: AZATHIOPRINE 50 MG TAB PO SCH (08:31)
[2016-07-20] MEDS: CIPROFLOXACIN 500 MG TAB PO SCH (08:31)
[2016-07-20] MEDS: INSULIN GLARGINE SOLOSTAR 100 UNITS/ML 3 ML PEN SC SCH ×2 (08:38→20:59)
[2016-07-20] MEDS: INSULIN ASPART 100 UNITS/ML 3 ML PEN SC SCH ×4 (08:38→21:00)
--- NOTE | 2016-07-20 10:34 | Hospitalist Progress Note ---
Hospitalist Progress Note Date of Service Jul 20, 2016. Subjective Pt evaluation today including: conversation w/ patient, physical exam, chart review, lab review, review of studies, review of inpatient medication list Voiding: no voiding problems, no incontinence Patient states no change in status since 07/19. +RLQ pain- 7/10 without pain medications, 3/10 with pain medications. Receiving Dilaudid consistently at q3- 4 hrs. Last BM was on 07/19. GI advanced diet- patient tolerating OK, with associated nausea. Zofran PRN helping. Patient denies any fever, chills, sweats , lightheadedness, dizziness, vision changes, CP, palpitations, edema, SOB, wheezing, cough, vomiting, diarrhea, urinary symptoms, melena, numbness/tingling , weakness, muscle/joint pain, anxiety/depression, active bleeding, or new skin discoloration/changes. Medications Current Inpatient Medications Medications (Trade) Dose Ordered Sig/Lance Route Start Time Stop Time Status Last Admin Dose Admin Enoxaparin Sodium (Lovenox Inj) 40 mg Q24H SQ 07/15/16 21:00 08/14/16 20:59 07/19/16 20:31 40 MG Acetaminophen (Tylenol Tab) 650 mg Q4H PRN PO 07/15/16 15:00 08/14/16 14:59 07/18/16 14:42 650 MG Ondansetron HCl (Zofran Inj) 4 mg Q6H PRN IV 07/15/16 15:00 08/14/16 14:59 07/19/16 20:48 4 MG Amlodipine Besylate (Norvasc Tab) 10 mg DAILY PO 07/16/16 08:00 08/15/16 08:59 07/20/16 08:30 10 MG Azathioprine (Imuran Tab) 150 mg DAILY PO 07/16/16 08:00 08/15/16 08:59 07/20/16 08:31 150 MG Ciprofloxacin (Cipro Tab) 500 mg DAILY PO 07/16/16 08:00 07/21/16 23:59 07/20/16 08:31 500 MG Ferrous Sulfate (Feosol Tab) 325 mg DAILY PO 07/16/16 08:00 08/15/16 08:59 07/20/16 08:30 325 MG Levothyroxine Sodium (Synthroid Tab) 200 mcg DAILYBB PO 07/16/16 06:30 08/15/16 06:59 07/20/16 06:21 200 MCG Losartan Potassium (coZAAR TAB) 50 mg BID PO 07/15/16 20:00 08/14/16 20:59 07/20/16 08:30 50 MG Metronidazole (Flagyl Tab) 500 mg BID PO 07/15/16 20:00 07/21/16 23:59 07/20/16 08:31 500 MG Sucralfate (Carafate Tab) 1 gm BID PO 07/15/16 20:00 08/14/16 20:59 07/20/16 08:30 1 GM Tamsulosin HCl 0.4 mg 0.4 mg DAILY PO 07/16/16 08:00 08/15/16 08:59 07/20/16 08:30 0.4 MG Potassium Chloride/Sodium Chloride (Nss + 20meq KCl 1000ml) 1,000 ml @ 125 mls/hr Q8H IV 07/15/16 20:15 08/14/16 14:59 07/20/16 04:18 125 MLS/HR Insulin Glargine (Lantus Solostar Pen) 18 unit BID SC 07/15/16 20:00 08/14/16 20:59 Future hold 07/20/16 08:38 18 UNIT Glucose (Glucose 40% Gel) 15-30 GRAMS 15 GRAMS... UD PRN PO 07/15/16 16:00 08/14/16 15:59 Glucose (Glucose Chew Tab) 4-8 Tablets 4 Tabl... UD PRN PO 07/15/16 16:00 08/14/16 15:59 Dextrose (Dextrose 50% 50ML Syringe) 25-50ML OF 50% DW IV FOR... UD PRN IV 07/15/16 16:00 08/14/16 15:59 Glucagon (Glucagon Inj) 1 mg UD PRN SQ 07/15/16 16:00 08/14/16 15:59 Heparin Sodium (Porcine) 5 ml 5 ml PRN PRN IV 07/16/16 05:15 08/15/16 05:14 Methylprednisolone Sodium Succinate/ Syringe (Solu-Medrol IV/ Syringe) 0.32 ml @ 1.5 mls/min Q12 IV 07/16/16 21:00 08/15/16 20:59 07/20/16 08:26 1.5 MLS/MIN Hydromorphone HCl (Dilaudid Inj) 1 mg Q2H PRN IV 07/16/16 14:00 07/30/16 13:59 07/20/16 08:25 1 MG Insulin Aspart (novoLOG ASPART) SLIDING SCALE ACHS SC 07/19/16 11:00 08/18/16 10:59 07/20/16 08:38 6 UNITS Objective Vital Signs Date Time Temp Pulse Resp B/P Pulse Ox O2 Delivery O2 Flow Rate FiO2 07/20/16 08:00 Room Air 07/20/16 07:42 36.6 58 20 166/81 97 Room Air 07/19/16 23:59 Room Air 07/19/16 23:20 36.6 59 20 147/86 94 Room Air 07/19/16 20:15 50 151/65 07/19/16 20:00 Room Air 07/19/16 15:43 37.0 61 16 142/74 95 Room Air Physical Exam General Appearance: no apparent distress Eyes: normal inspection, PERRL ENT: hearing grossly normal Neck: supple Respiratory/Chest: lungs clear, no respiratory distress, no accessory muscle use Cardiovascular: regular rate, rhythm Abdomen: normal bowel sounds, soft, + abnormal bowel sounds (hypoactive), + tenderness (severe RLQ tenderness with light palpation ) Extremities: no pedal edema, no calf tenderness Neurologic/Psychiatric: alert, normal mood/affect, oriented x 3 Skin: warm/dry, no rash, + pallor Laboratory Results Last 24 Hours Test 07/19/16 11:15 07/19/16 16:50 07/19/16 20:13 07/20/16 07:41 Bedside Glucose 159 mg/dl 143 mg/dl 150 mg/dl 129 mg/dl Assessment and Plan 56 yo male with h/o Crohn's disease, s/p colectomy with colostomy and then reversal, presented with several day of increased abdominal pain, increased bowel frequency, poor appetite, started on Cipro/Flagyl outpatient by GI with plans for colonoscopy, pain was too severe to manage at home and he was referred for admission Crohn's flare: - Admit med/surg - Continue with Ciprofloxacin 500mg and Metronidazole 500mg for x10 days. Day #9 - Continue Imuran 150 mg - IVF NSS+ 20KCL meq @125mls/hr--> check PRP tomorrow, if unremarkable and continues to tolerate diet, will d/c IVF - IV Solu Medrol 20 mg q12 hrs - IV Dilaudid 1mg q3h PRN and Tylenol PRN for pain control - IV Zofran PRN for nausea - GI consulted, appreciate recommendations -- Colonoscopy: The examined portion of the ileum was normal- Biopsied. The examined portion of the ileum was normal- Biopsied. Ulcerated mucosa in the stephon-terminal ileum- Biopsied. The colonic anastomosis is normal- Biopsied. The entire examined colon is normal- Biopsied. The distal rectum and anal verge are normal on retroflexion view. -- SBFT: 7.4 segment of thickened distal small bowel within the right side of the abdomen immediately proximal to the anastomosis consistent with active Crohn's disease. Postoperative changes. Persistent sacroiliitis. Normal upper GI series. -- Advance diet per GI recommendations--> tolerating OK, w/ associated nausea - Pain management consult per GI recommendations Anemia, baseline hgb 11-12: - Follow CBC - Continue Ferrous Sulfate supplement DM II - Lantus 18 unit BID, titrate as needed - BSG ACHS w/ sliding insulin scale BPH: Continue Flomax 0.4mg daily HTN: Continue Amlodipine 10mg daily, Cozaar 50 mg BID Hypothyroidism: Continue Synthroid 200 mcg daily DVT prophylaxis: Lovenox 40 mg SQ q24 hrs Code Status: LEVEL I, FULL Dispo: Discharge to home once medically stable and OK by GI standpoint
--- NOTE | 2016-07-20 12:08 | Gastroenterology Progress Note ---
Progress Note Subjective Pt evaluation today including: conversation w/ patient, physical exam, chart review, review of studies Review of Systems Abdomen: + pain, + see HPI Medications Current Inpatient Medications Medications (Trade) Dose Ordered Sig/Lance Route Start Time Stop Time Status Last Admin Dose Admin Enoxaparin Sodium (Lovenox Inj) 40 mg Q24H SQ 07/15/16 21:00 08/14/16 20:59 07/19/16 20:31 40 MG Acetaminophen (Tylenol Tab) 650 mg Q4H PRN PO 07/15/16 15:00 08/14/16 14:59 07/18/16 14:42 650 MG Ondansetron HCl (Zofran Inj) 4 mg Q6H PRN IV 07/15/16 15:00 08/14/16 14:59 07/19/16 20:48 4 MG Amlodipine Besylate (Norvasc Tab) 10 mg DAILY PO 07/16/16 08:00 08/15/16 08:59 07/20/16 08:30 10 MG Azathioprine (Imuran Tab) 150 mg DAILY PO 07/16/16 08:00 08/15/16 08:59 07/20/16 08:31 150 MG Ciprofloxacin (Cipro Tab) 500 mg DAILY PO 07/16/16 08:00 07/21/16 23:59 07/20/16 08:31 500 MG Ferrous Sulfate (Feosol Tab) 325 mg DAILY PO 07/16/16 08:00 08/15/16 08:59 07/20/16 08:30 325 MG Levothyroxine Sodium (Synthroid Tab) 200 mcg DAILYBB PO 07/16/16 06:30 08/15/16 06:59 07/20/16 06:21 200 MCG Losartan Potassium (coZAAR TAB) 50 mg BID PO 07/15/16 20:00 08/14/16 20:59 07/20/16 08:30 50 MG Metronidazole (Flagyl Tab) 500 mg BID PO 07/15/16 20:00 07/21/16 23:59 07/20/16 08:31 500 MG Sucralfate (Carafate Tab) 1 gm BID PO 07/15/16 20:00 08/14/16 20:59 07/20/16 08:30 1 GM Tamsulosin HCl 0.4 mg 0.4 mg DAILY PO 07/16/16 08:00 08/15/16 08:59 07/20/16 08:30 0.4 MG Potassium Chloride/Sodium Chloride (Nss + 20meq KCl 1000ml) 1,000 ml @ 125 mls/hr Q8H IV 07/15/16 20:15 08/14/16 14:59 07/20/16 11:37 125 MLS/HR Insulin Glargine (Lantus Solostar Pen) 18 unit BID SC 07/15/16 20:00 08/14/16 20:59 Future hold 07/20/16 08:38 18 UNIT Glucose (Glucose 40% Gel) 15-30 GRAMS 15 GRAMS... UD PRN PO 07/15/16 16:00 08/14/16 15:59 Glucose (Glucose Chew Tab) 4-8 Tablets 4 Tabl... UD PRN PO 07/15/16 16:00 08/14/16 15:59 Dextrose (Dextrose 50% 50ML Syringe) 25-50ML OF 50% DW IV FOR... UD PRN IV 07/15/16 16:00 08/14/16 15:59 Glucagon (Glucagon Inj) 1 mg UD PRN SQ 07/15/16 16:00 08/14/16 15:59 Heparin Sodium (Porcine) 5 ml 5 ml PRN PRN IV 07/16/16 05:15 08/15/16 05:14 Methylprednisolone Sodium Succinate/ Syringe (Solu-Medrol IV/ Syringe) 0.32 ml @ 1.5 mls/min Q12 IV 07/16/16 21:00 08/15/16 20:59 07/20/16 08:26 1.5 MLS/MIN Hydromorphone HCl (Dilaudid Inj) 1 mg Q2H PRN IV 07/16/16 14:00 07/30/16 13:59 07/20/16 11:36 1 MG Insulin Aspart (novoLOG ASPART) SLIDING SCALE ACHS SC 07/19/16 11:00 08/18/16 10:59 07/20/16 08:38 6 UNITS Objective Vital Signs Date Time Temp Pulse Resp B/P Pulse Ox O2 Delivery O2 Flow Rate FiO2 07/20/16 08:00 Room Air 07/20/16 07:42 36.6 58 20 166/81 97 Room Air 07/19/16 23:59 Room Air 07/19/16 23:20 36.6 59 20 147/86 94 Room Air 07/19/16 20:15 50 151/65 07/19/16 20:00 Room Air 07/19/16 15:43 37.0 61 16 142/74 95 Room Air Physical Exam General Appearance: + mild distress Eyes: normal inspection Abdomen: soft, + tenderness (Around area of scar and right lower quadrant. Sensitive to touch and altered sense of touch) Extremities: normal inspection Skin: normal color, no jaundice, warm/dry Laboratory Results Last 24 Hours Test 07/19/16 16:50 07/19/16 20:13 07/20/16 07:41 07/20/16 11:17 Bedside Glucose 143 mg/dl 150 mg/dl 129 mg/dl 163 mg/dl Assessment and Plan Overall stable Consider application of Lidoderm patch or such to the area of pain. Agree with pain consult as this looks like a superficial pain. Local anesthetic injection to the ilioinguinal nerve distribution may be diagnostic. Believe we can discontinue steroid therapy as we do not feel as his symptoms are from a Crohn's flare.
[2016-07-20] MEDS ORDERED: LIDODERM (LIDOCAINE) PATCH 5% TD ONE (14:10)
[2016-07-20] MEDS: ONDANSETRON INJ 2 MG/ML 2 ML VIAL IV PRN ×3 (14:54→22:36)
[2016-07-20 14:57] VITALS: BP 152/74; PULSE 62; TEMP 36.6; O2SAT 97
[2016-07-20] MEDS ORDERED: NURSING VERBAL MED ORDER ONE (18:30)
[2016-07-20] MEDS: ENOXAPARIN 40 MG/0.4 ML SYR SQ SCH (21:06)
[2016-07-20 23:47] VITALS: BP 133/77; PULSE 58; TEMP 37.1; O2SAT 96
[2016-07-21] MEDS: HYDROmorphone INJ 1 MG/ML SYR IV PRN ×7 (00:17→22:09)
[2016-07-21 06:01] LABS: HEMATOCRIT 36.4 % (42-52); MEAN CELL VOLUME 76.5 fL (80-100); MEAN CORPUSCULAR HEMOGLOBIN 24.4 pg (25-34); MEAN CORPUSCULAR HGB CONC 31.9 g/dl (32-36); MEAN PLATELET VOLUME 9.1 fL (7.4-10.4); PLATELET COUNT 304 K/uL (130-400); RED BLOOD COUNT 4.76 M/uL (4.7-6.1); WHITE BLOOD COUNT 9.93 K/uL (4.8-10.8)
[2016-07-21] MEDS: LEVOTHYROXINE 200 MCG TAB PO SCH (06:25)
[2016-07-21 06:35] LABS: BUN/CREATININE RATIO 12.3 (10-20); CALCIUM 8.4 mg/dl (8.5-10.1); CREATININE 1.3 mg/dl (0.60-1.40); POTASSIUM 4.2 mmol/L (3.5-5.1)
[2016-07-21 07:02] VITALS: BP 115/70; PULSE 50; TEMP 36.6; O2SAT 98
[2016-07-21] MEDS: ONDANSETRON INJ 2 MG/ML 2 ML VIAL IV PRN ×3 (08:42→18:00)
[2016-07-21] MEDS: LOSARTAN POTASSIUM 50 MG TAB PO SCH ×2 (08:46→20:13)
[2016-07-21] MEDS: CIPROFLOXACIN 500 MG TAB PO SCH (08:46)
[2016-07-21] MEDS: FERROUS SULFATE 325 MG TAB PO SCH (08:47)
[2016-07-21] MEDS: METRONIDAZOLE 500 MG TAB PO SCH ×2 (08:47→20:12)
[2016-07-21] MEDS: AMLODIPINE BESYLATE 5 MG TAB PO SCH (08:47)
[2016-07-21] MEDS: TAMSULOSIN HCL 0.4 MG CAP PO SCH (08:47)
[2016-07-21] MEDS: SUCRALFATE 1 GM TAB PO SCH ×2 (08:48→20:12)
[2016-07-21] MEDS: AZATHIOPRINE 50 MG TAB PO SCH (08:48)
[2016-07-21] MEDS: LIDODERM (LIDOCAINE) PATCH 5% TD SCH (08:49)
[2016-07-21] MEDS: INSULIN ASPART 100 UNITS/ML 3 ML PEN SC SCH ×4 (08:56→20:13)
[2016-07-21] MEDS: INSULIN GLARGINE SOLOSTAR 100 UNITS/ML 3 ML PEN SC SCH ×2 (08:57→20:16)
--- NOTE | 2016-07-21 14:44 | Progress Note ---
Subjective Date of Service: Jul 21, 2016. Subjective Pt evaluation today including: conversation w/ patient, conversation w/ family , physical exam, lab review, review of inpatient medication list Pain: still with pain, no change PO Intake: tolerating food, some nausea but no vomiting Voiding: no voiding problems lidoderm patch did not help with pain yesterday, just made the patient itch, refused this AM eating well, moved bowels once, loose, no blood has nausea intermittently but no vomiting awaiting pain management consult tomorrow Problem List Medical Problems: (1) Abdominal wall hernia Status: Acute (2) Exacerbation of Crohn's disease Status: Acute (3) Urinary tract infection Status: Acute Review of Systems Abdomen: + diarrhea, + nausea, + pain (RLQ) All Other Systems: Reviewed and Negative Medications Current Inpatient Medications Medications (Trade) Dose Ordered Sig/Lance Route Start Time Stop Time Status Last Admin Dose Admin Enoxaparin Sodium (Lovenox Inj) 40 mg Q24H SQ 07/15/16 21:00 08/14/16 20:59 07/20/16 21:06 40 MG Acetaminophen (Tylenol Tab) 650 mg Q4H PRN PO 07/15/16 15:00 08/14/16 14:59 07/18/16 14:42 650 MG Amlodipine Besylate (Norvasc Tab) 10 mg DAILY PO 07/16/16 08:00 08/15/16 08:59 07/21/16 08:47 10 MG Azathioprine (Imuran Tab) 150 mg DAILY PO 07/16/16 08:00 08/15/16 08:59 07/21/16 08:48 150 MG Ciprofloxacin (Cipro Tab) 500 mg DAILY PO 07/16/16 08:00 07/21/16 23:59 07/21/16 08:46 500 MG Ferrous Sulfate (Feosol Tab) 325 mg DAILY PO 07/16/16 08:00 08/15/16 08:59 07/21/16 08:47 325 MG Levothyroxine Sodium (Synthroid Tab) 200 mcg DAILYBB PO 07/16/16 06:30 08/15/16 06:59 07/21/16 06:25 200 MCG Losartan Potassium (coZAAR TAB) 50 mg BID PO 07/15/16 20:00 08/14/16 20:59 07/21/16 08:46 50 MG Metronidazole (Flagyl Tab) 500 mg BID PO 07/15/16 20:00 07/21/16 23:59 07/21/16 08:47 500 MG Sucralfate (Carafate Tab) 1 gm BID PO 07/15/16 20:00 08/14/16 20:59 07/21/16 08:48 1 GM Tamsulosin HCl (Flomax Cap) 0.4 mg DAILY PO 07/16/16 08:00 08/15/16 08:59 07/21/16 08:47 0.4 MG Insulin Glargine (Lantus Solostar Pen) 18 unit BID SC 07/15/16 20:00 08/14/16 20:59 Future hold 07/21/16 08:57 18 UNIT Glucose (Glucose 40% Gel) 15-30 GRAMS 15 GRAMS... UD PRN PO 07/15/16 16:00 08/14/16 15:59 Glucose (Glucose Chew Tab) 4-8 Tablets 4 Tabl... UD PRN PO 07/15/16 16:00 08/14/16 15:59 Dextrose (Dextrose 50% 50ML Syringe) 25-50ML OF 50% DW IV FOR... UD PRN IV 07/15/16 16:00 08/14/16 15:59 Glucagon (Glucagon Inj) 1 mg UD PRN SQ 07/15/16 16:00 08/14/16 15:59 Heparin Sodium (Porcine) (Heparin 100 Unit/ml 5ml Flush) 5 ml PRN PRN IV 07/16/16 05:15 08/15/16 05:14 07/21/16 13:07 5 ML Hydromorphone HCl (Dilaudid Inj) 1 mg Q2H PRN IV 07/16/16 14:00 07/30/16 13:59 07/21/16 11:48 1 MG Insulin Aspart (novoLOG ASPART) SLIDING SCALE ACHS SC 07/19/16 11:00 08/18/16 10:59 07/21/16 13:07 5 UNITS Lidocaine (Lidoderm Patch 5%) 1 patch QAM TD 07/21/16 08:00 08/20/16 07:59 Miscellaneous (Remove Lidoderm Patch) 1 ea DAILY@21 N/A 07/20/16 21:00 08/19/16 20:59 07/20/16 22:30 1 EA Ondansetron HCl (Zofran Inj) 4 mg Q4H PRN IV 07/20/16 18:45 08/19/16 18:44 07/21/16 13:07 4 MG Objective Vital Signs Date Time Temp Pulse Resp B/P Pulse Ox O2 Delivery O2 Flow Rate FiO2 07/21/16 08:50 Room Air 07/21/16 07:02 36.6 50 18 115/70 98 Room Air 07/20/16 23:59 Room Air 07/20/16 23:47 37.1 58 20 133/77 96 Room Air 07/20/16 20:00 Room Air 07/20/16 16:00 Room Air 07/20/16 14:57 36.6 62 18 152/74 97 Room Air Physical Exam General Appearance: WD/WN, no apparent distress Eyes: normal inspection, EOMI, sclerae normal ENT: normal ENT inspection, hearing grossly normal, pharynx normal Neck: supple, no adenopathy, no JVD, trachea midline Respiratory/Chest: chest non-tender, lungs clear, normal breath sounds, no respiratory distress, no accessory muscle use Cardiovascular: regular rate, rhythm, no edema, no gallop, no JVD, no murmur Abdomen: normal bowel sounds, soft, no organomegaly, + tenderness (RLQ to minimal palpation, seems superficial, but also pain to deep palpation) Extremities: normal range of motion, non-tender, normal inspection, no pedal edema, no calf tenderness Neurologic/Psychiatric: cyber threat analyst II-XII nml as tested, no motor/sensory deficits, alert, normal mood/affect, oriented x 3 Skin: normal color, warm/dry, no rash Lymphatic: no adenopathy Laboratory Results Last 24 Hours Test 07/20/16 16:16 07/20/16 19:47 07/21/16 05:45 07/21/16 07:15 Bedside Glucose 159 mg/dl 142 mg/dl 151 mg/dl White Blood Count 9.93 K/uL Red Blood Count 4.76 M/uL Hemoglobin 11.6 g/dL Hematocrit 36.4 % Mean Corpuscular Volume 76.5 fL Mean Corpuscular Hemoglobin 24.4 pg Mean Corpuscular Hemoglobin Concent 31.9 g/dl RDW Standard Deviation 45.1 fL RDW Coefficient of Variation 16.8 % Platelet Count 304 K/uL Mean Platelet Volume 9.1 fL Sodium Level 138 mmol/L Potassium Level 4.2 mmol/L Chloride Level 100 mmol/L Carbon Dioxide Level 30 mmol/L Anion Gap 8.0 mmol/L Blood Urea Nitrogen 16 mg/dl Creatinine 1.30 mg/dl Est Creatinine Clear Calc Drug Dose 76.5 ml/min Estimated GFR () 70.7 Estimated GFR (Non- 61.0 BUN/Creatinine Ratio 12.3 Random Glucose 149 mg/dl Calcium Level 8.4 mg/dl Test 07/21/16 11:33 Bedside Glucose 107 mg/dl Assessment and Plan 56 yo male with h/o Crohn's disease, s/p colectomy with colostomy and then reversal, s/p hernia repair with large mesh, presented with several day of increased abdominal pain, increased bowel frequency, poor appetite, started on Cipro/Flagyl outpatient by GI with plans for colonoscopy, pain was too severe to manage at home and he was referred for admission Crohn's flare: Continue with Ciprofloxacin 500mg and Metronidazole 500mg for x10 days. Day # 9 Continue Imuran 150 mg was on Solu Medrol, stopped since no clear evidence of severe exacerbation on imaging fluids stopped IV Dilaudid 1mg q3 PRN, added Tylenol now, pain is controlled intermittently but still needs IV medications colonoscopy: visualization of colon, ileum, small ulceration seen, 10 biopsies taken SBFT: 7 cm segment of thickened small bowel diet advanced by GI, pain management consult GI feels that there is likely a neuropathic component of pain, perhaps from multiple prior surgeries DM II: stable, sugars consistently in 130-160's - Lantus 18 unit BID, held AM dose since NPO - BSG ACHS w/ sliding insulin scale BPH: Continue Flomax 0.4mg daily HTN: Continue Amlodipine 10mg daily, Cozaar 50 mg BID Hypothyroidism: Continue Synthroid 200 mcg daily DVT prophylaxis: Lovenox 40 mg SQ q24 hrs Code Status: LEVEL I, FULL Dispo: Discharge to home once medically stable, awaiting pain management recommendations tomorrow
[2016-07-21 15:05] VITALS: BP 105/58; PULSE 53; TEMP 36.8; O2SAT 94
[2016-07-21] MEDS: ENOXAPARIN 40 MG/0.4 ML SYR SQ SCH (20:16)
[2016-07-21 23:55] VITALS: BP 146/84; PULSE 60; TEMP 36.8; O2SAT 94
[2016-07-22] MEDS: HYDROmorphone INJ 1 MG/ML SYR IV PRN ×2 (01:59→07:43)
[2016-07-22] MEDS: LEVOTHYROXINE 200 MCG TAB PO SCH (06:16)
[2016-07-22 07:10] VITALS: BP 113/74; PULSE 53; TEMP 36.3; O2SAT 96
[2016-07-22] MEDS: ONDANSETRON INJ 2 MG/ML 2 ML VIAL IV PRN ×3 (07:43→23:56)
[2016-07-22] MEDS: LOSARTAN POTASSIUM 50 MG TAB PO SCH ×2 (07:46→20:25)
[2016-07-22] MEDS: SUCRALFATE 1 GM TAB PO SCH ×2 (07:46→20:25)
[2016-07-22] MEDS: TAMSULOSIN HCL 0.4 MG CAP PO SCH (07:46)
[2016-07-22] MEDS: AMLODIPINE BESYLATE 5 MG TAB PO SCH (07:47)
[2016-07-22] MEDS: AZATHIOPRINE 50 MG TAB PO SCH (07:47)
[2016-07-22] MEDS: LIDODERM (LIDOCAINE) PATCH 5% TD SCH (07:47)
[2016-07-22] MEDS: FERROUS SULFATE 325 MG TAB PO SCH (07:47)
[2016-07-22] MEDS: INSULIN ASPART 100 UNITS/ML 3 ML PEN SC SCH ×4 (09:04→20:22)
[2016-07-22] MEDS: INSULIN GLARGINE SOLOSTAR 100 UNITS/ML 3 ML PEN SC SCH ×2 (09:04→20:23)
--- NOTE | 2016-07-22 09:49 | Pain Management Consultation ---
Pain Management Consultation Date of Consultation Jul 22, 2016. Reason for Consultation RLQ abdominal pain History Mr. Alcantara is a 56 year old white male that has a significant history of Crohn's disease, bowel resection, and multiple hernia repairs. Patient reports pain in the RLQ that was not previously controlled with PO Dilaudid 4mg. Patient is currently utilizing Dilaudid 1mg x 2 hrs (7mg total) over the last 24 hours. Patient describes an aching and sharp pain that is localized in the RLQ. There are no radicular symptoms. Patient states that the pain has been slightly decreasing over the last 2 days. His nausea, diarrhea, and decreased appetite has improved. Patient denies any fevers, chills, flank pain, urinary sx, current nausea, vomiting, groin pain. Case discussed with Dr. Street Past Medical/Surgical History (1) History of herniorrhaphy (2) Diabetes mellitus (3) Hyperlipidemia (4) Right lower quadrant abdominal pain (5) Exacerbation of Crohn's disease (6) Hypertension (7) Crohns disease (8) S/P cholecystectomy (9) History of bowel resection (10) H/O thyroidectomy (11) Hx of appendectomy Social / Work History Smoking Status: Never smoker Smokeless Tobacco Use: No Alcohol Use: none Drug Use: none Marital Status: Housing Status: lives with family Occupation: disabled Allergies Coded Allergies: Morphine (Unverified Allergy, Mild, GI SYMPTOMS, 07/15/16) throws up Medications Current Inpatient Medications Medications (Trade) Dose Ordered Sig/Lance Route Start Time Stop Time Status Last Admin Dose Admin Enoxaparin Sodium (Lovenox Inj) 40 mg Q24H SQ 07/15/16 21:00 08/14/16 20:59 07/21/16 20:16 40 MG Acetaminophen (Tylenol Tab) 650 mg Q4H PRN PO 07/15/16 15:00 08/14/16 14:59 07/18/16 14:42 650 MG Amlodipine Besylate (Norvasc Tab) 10 mg DAILY PO 07/16/16 08:00 08/15/16 08:59 07/22/16 07:47 10 MG Azathioprine (Imuran Tab) 150 mg DAILY PO 07/16/16 08:00 08/15/16 08:59 07/22/16 07:47 150 MG Ferrous Sulfate (Feosol Tab) 325 mg DAILY PO 07/16/16 08:00 08/15/16 08:59 07/22/16 07:47 325 MG Levothyroxine Sodium (Synthroid Tab) 200 mcg DAILYBB PO 07/16/16 06:30 08/15/16 06:59 07/22/16 06:16 200 MCG Losartan Potassium (coZAAR TAB) 50 mg BID PO 07/15/16 20:00 08/14/16 20:59 07/22/16 07:46 50 MG Sucralfate (Carafate Tab) 1 gm BID PO 07/15/16 20:00 08/14/16 20:59 07/22/16 07:46 1 GM Tamsulosin HCl (Flomax Cap) 0.4 mg DAILY PO 07/16/16 08:00 08/15/16 08:59 07/22/16 07:46 0.4 MG Insulin Glargine (Lantus Solostar Pen) 18 unit BID SC 07/15/16 20:00 08/14/16 20:59 Future hold 07/22/16 09:04 18 UNIT Glucose (Glucose 40% Gel) 15-30 GRAMS 15 GRAMS... UD PRN PO 07/15/16 16:00 08/14/16 15:59 Glucose (Glucose Chew Tab) 4-8 Tablets 4 Tabl... UD PRN PO 07/15/16 16:00 08/14/16 15:59 Dextrose (Dextrose 50% 50ML Syringe) 25-50ML OF 50% DW IV FOR... UD PRN IV 07/15/16 16:00 08/14/16 15:59 Glucagon (Glucagon Inj) 1 mg UD PRN SQ 07/15/16 16:00 08/14/16 15:59 Heparin Sodium (Porcine) (Heparin 100 Unit/ml 5ml Flush) 5 ml PRN PRN IV 07/16/16 05:15 08/15/16 05:14 07/22/16 07:43 5 ML Hydromorphone HCl (Dilaudid Inj) 1 mg Q2H PRN IV 07/16/16 14:00 07/30/16 13:59 07/22/16 07:43 1 MG Insulin Aspart (novoLOG ASPART) SLIDING SCALE ACHS SC 07/19/16 11:00 08/18/16 10:59 07/22/16 09:04 4 UNITS Lidocaine (Lidoderm Patch 5%) 1 patch QAM TD 07/21/16 08:00 08/20/16 07:59 Miscellaneous (Remove Lidoderm Patch) 1 ea DAILY@21 N/A 07/20/16 21:00 08/19/16 20:59 07/20/16 22:30 1 EA Ondansetron HCl (Zofran Inj) 4 mg Q4H PRN IV 07/20/16 18:45 08/19/16 18:44 07/22/16 07:43 4 MG Review of Systems Denies any constitutional, cardiac, pulmonary, neurological, GI, , extremity, endocrine, neuro, ENT, dermatological, or musculoskeletal complaints other than stated in HPI Physical Exam Height & Weight: Height 5 feet, 10.00 inches. Weight 103.600 (Kilograms) 228 (Pounds) Last Vital Signs Documentation Date Time Temp Pulse Resp B/P Pulse Ox O2 Delivery O2 Flow Rate FiO2 07/22/16 07:10 36.3 53 16 113/74 96 Room Air 07/15/16 18:22 2.0 Exam: GENERAL: Mr. Alcantara is a 56 y/o white male that appears his stated age. Speech and cognition is intact. Mood and affect is appropriate. Sitting quietly in the exam room, in no acute distress. HEAD: Normocephalic; atraumatic. EYES: Pupils are round, equal, and reactive to light; EOM intact. ENT: No external ear discharge or lesions. No rhinorrhea or epistaxis. No mucosal lesions. CHEST: Regular chest respiration and excursion. ABDOMEN: Active bowel sounds throughout; focal tenderness of the RLQ. There is no focal tenderness along the right ilioinguinal nerve or genitofemoral neve. No peritoneal signs. No CVA tenderness bilaterally. EXTREMITIES: Using all extremities appropriately. NEURO: CN II-XII grossly intact with no focal deficits noted. SKIN: Multiple well healed surgical incisions along the abdomen. Laboratory / Imaging Results Laboratory Results (Last CBC): 07/21/16 05:45 Imagin07/15/[address] with IV and oral contrast 1. Postsurgical changes of a right hemicolectomy and ileal colic anastomosis 2. No evidence of bowel obstruction. No evidence of free air 3. Hepatic steatosis 4. Stable hepatic left lobe atrophy 5. Stable right and middle hepatic vein stenosis 6. Borderline colonic wall thickening versus nondistended segments 7. Punctate nonobstructing right renal calculus [place] Drug Monitoring Program Search Results: patient reviewed within database, no issues identified Assessment 1. RLQ abdominal pain 2. Crohns Disease 3. History of herniorrhaphy 4. History of multiple bowel resections 5. Diabetes Mellitus Recommendations 1. Patient is not tender in the ilioinguinal nerve region on exam, he is tender superior of the ilioinguinal nerve. Patient also denies any radicular symptoms. An ilioinguinal nerve block is not warranted for the patient. 2. Would plan to convert IV Dilaudid to oral Dilaudid so that the patient may be ready for discharge. Recommend resuming Dilaudid 4mg PO x 6 hours PRN pain. Dragon Voice Recognition This chart was completed in part utilizing [email or web address] Voice Recognition Software. Random word insertions, pronoun errors, and incomplete sentences are an occasional consequence of this system due to software limitations and ambient noise. Any questions or concerns about the content, text or information contained within the body of this dictation should be directly addressed to the provider for clarification. Additional Copies To Audra Matos
[2016-07-22] MEDS: HYDROmorphone HCL 2 MG TAB PO PRN ×2 (11:41→20:19)
--- NOTE | 2016-07-22 11:41 | Hospitalist Progress Note ---
Hospitalist Progress Note Date of Service Jul 22, 2016. Subjective Pt evaluation today including: conversation w/ patient, physical exam, chart review, lab review, review of inpatient medication list Voiding: no voiding problems, no incontinence Patient states his status remains unchanged from yesterday. +RLQ pain w/ frequent use of IV Dilaudid. +nausea w/ eating- Zofran provides relief. Patient denies any fever, chills, sweats, lightheadedness, dizziness, vision changes, CP , palpitations, edema, SOB, wheezing, cough, vomiting, diarrhea, urinary symptoms, melena, numbness/tingling, weakness, muscle/joint pain, anxiety/ depression, active bleeding, or new skin discoloration/changes. Medications Current Inpatient Medications Medications (Trade) Dose Ordered Sig/Lance Route Start Time Stop Time Status Last Admin Dose Admin Enoxaparin Sodium (Lovenox Inj) 40 mg Q24H SQ 07/15/16 21:00 08/14/16 20:59 07/21/16 20:16 40 MG Acetaminophen (Tylenol Tab) 650 mg Q4H PRN PO 07/15/16 15:00 08/14/16 14:59 07/18/16 14:42 650 MG Amlodipine Besylate (Norvasc Tab) 10 mg DAILY PO 07/16/16 08:00 08/15/16 08:59 07/22/16 07:47 10 MG Azathioprine (Imuran Tab) 150 mg DAILY PO 07/16/16 08:00 08/15/16 08:59 07/22/16 07:47 150 MG Ferrous Sulfate (Feosol Tab) 325 mg DAILY PO 07/16/16 08:00 08/15/16 08:59 07/22/16 07:47 325 MG Levothyroxine Sodium (Synthroid Tab) 200 mcg DAILYBB PO 07/16/16 06:30 08/15/16 06:59 07/22/16 06:16 200 MCG Losartan Potassium (coZAAR TAB) 50 mg BID PO 07/15/16 20:00 08/14/16 20:59 07/22/16 07:46 50 MG Sucralfate (Carafate Tab) 1 gm BID PO 07/15/16 20:00 08/14/16 20:59 07/22/16 07:46 1 GM Tamsulosin HCl (Flomax Cap) 0.4 mg DAILY PO 07/16/16 08:00 08/15/16 08:59 07/22/16 07:46 0.4 MG Insulin Glargine (Lantus Solostar Pen) 18 unit BID SC 07/15/16 20:00 08/14/16 20:59 Future hold 07/22/16 09:04 18 UNIT Glucose (Glucose 40% Gel) 15-30 GRAMS 15 GRAMS... UD PRN PO 07/15/16 16:00 08/14/16 15:59 Glucose (Glucose Chew Tab) 4-8 Tablets 4 Tabl... UD PRN PO 07/15/16 16:00 08/14/16 15:59 Dextrose (Dextrose 50% 50ML Syringe) 25-50ML OF 50% DW IV FOR... UD PRN IV 07/15/16 16:00 08/14/16 15:59 Glucagon (Glucagon Inj) 1 mg UD PRN SQ 07/15/16 16:00 08/14/16 15:59 Heparin Sodium (Porcine) (Heparin 100 Unit/ml 5ml Flush) 5 ml PRN PRN IV 07/16/16 05:15 08/15/16 05:14 07/22/16 07:43 5 ML Hydromorphone HCl (Dilaudid Inj) 1 mg Q2H PRN IV 07/16/16 14:00 07/30/16 13:59 Future Hold 07/22/16 07:43 1 MG Insulin Aspart (novoLOG ASPART) SLIDING SCALE ACHS SC 07/19/16 11:00 08/18/16 10:59 07/22/16 09:04 4 UNITS Lidocaine (Lidoderm Patch 5%) 1 patch QAM TD 07/21/16 08:00 08/20/16 07:59 Miscellaneous (Remove Lidoderm Patch) 1 ea DAILY@21 N/A 07/20/16 21:00 08/19/16 20:59 07/20/16 22:30 1 EA Ondansetron HCl (Zofran Inj) 4 mg Q4H PRN IV 07/20/16 18:45 08/19/16 18:44 07/22/16 07:43 4 MG Hydromorphone HCl (Dilaudid Tab) 4 mg Q6 PRN PO 07/22/16 10:00 08/05/16 09:59 Objective Vital Signs Date Time Temp Pulse Resp B/P Pulse Ox O2 Delivery O2 Flow Rate FiO2 07/22/16 07:10 36.3 53 16 113/74 96 Room Air 07/21/16 23:59 Room Air 07/21/16 23:55 36.8 60 20 146/84 94 Room Air 07/21/16 20:00 Room Air 07/21/16 15:16 Room Air 07/21/16 15:05 36.8 53 18 105/58 94 Room Air Physical Exam General Appearance: no apparent distress Eyes: normal inspection, PERRL ENT: hearing grossly normal Neck: supple Respiratory/Chest: lungs clear, no respiratory distress, no accessory muscle use Cardiovascular: regular rate, rhythm Abdomen: normal bowel sounds, soft, + tenderness (moderate tenderness to superficial/deep palpations ) Extremities: no pedal edema, no calf tenderness Neurologic/Psychiatric: alert, normal mood/affect, oriented x 3 Skin: normal color, warm/dry Laboratory Results Last 24 Hours Test 07/21/16 11:33 07/21/16 16:31 07/21/16 19:59 07/22/16 07:36 Bedside Glucose 107 mg/dl 119 mg/dl 103 mg/dl 115 mg/dl Assessment and Plan 56 yo male with h/o Crohn's disease, s/p colectomy with colostomy and then reversal, presented with several day of increased abdominal pain, increased bowel frequency, poor appetite, started on Cipro/Flagyl outpatient by GI with plans for colonoscopy, pain was too severe to manage at home and he was referred for admission Crohn's flare: - Admit med/surg - Continue with Ciprofloxacin 500mg and Metronidazole 500mg for x10 days- completed course - Continue Imuran 150 mg - IVF NSS+ 20KCL meq @125mls/hr provided while NPO - IV Solu Medrol 20 mg q12 hrs--> d/c'd on 07/20 because of no clear exacerbation on imaging - IV Zofran PRN for nausea - GI consulted, appreciate recommendations -- Colonoscopy: The examined portion of the ileum was normal- Biopsied. The examined portion of the ileum was normal- Biopsied. Ulcerated mucosa in the stephon-terminal ileum- Biopsied. The colonic anastomosis is normal- Biopsied. The entire examined colon is normal- Biopsied. The distal rectum and anal verge are normal on retroflexion view. -- SBFT: 7.4 segment of thickened distal small bowel within the right side of the abdomen immediately proximal to the anastomosis consistent with active Crohn's disease. Postoperative changes. Persistent sacroiliitis. Normal upper GI series. -- Advance diet per GI recommendations--> tolerating OK, w/ associated nausea - Pain management consult per GI recommendations -- Recommended Lidoderm patch- provided no relief to patient and caused local pruritus -- Does not believe lioinguinal nerve block indicated at this time -- Transition to PO home Dilaudid dose at 4 mg q6 hrs PRN on 07/22 to prepare for discharge Anemia, baseline hgb 11-12- stable: - Follow CBC - Continue Ferrous Sulfate supplement DM II - Lantus 18 unit BID, titrate as needed - BSG ACHS w/ sliding insulin scale BPH: Continue Flomax 0.4mg daily HTN: Continue Amlodipine 10mg daily, Cozaar 50 mg BID Hypothyroidism: Continue Synthroid 200 mcg daily DVT prophylaxis: Lovenox 40 mg SQ q24 hrs Code Status: LEVEL I, FULL Dispo: Discharge to home once medically stable and OK by GI standpoint. If tolerates PO Dilaudid- discharge on ?07/23
[2016-07-22 15:00] VITALS: BP 110/64; PULSE 75; TEMP 36.6; O2SAT 95
[2016-07-22 15:50] VITALS: O2SAT 95
[2016-07-22] MEDS ORDERED: NURSING VERBAL MED ORDER ONE (16:15)
[2016-07-22] MEDS ORDERED: HYDROmorphone HCL 2 MG TAB PO ONE (16:15)
--- NOTE | 2016-07-22 17:08 | PROGRESS NOTE ---
DATE: 07/22/2016 SUBJECTIVE: The patient continues to complain of relatively severe right lower quadrant pain which is very localized, does not radiate into his groin at all or his testicle. He has been seen by the pain management and they felt that this was not a dermatomal type pain or radicular pain and did not feel that an injection would be of benefit. The patient has been switched to oral Dilaudid today but it is not holding his pain. He did try a topical lidocaine patch over the weekend, but it caused the skin to be extremely itchy and had to be removed. CT scan and colonoscopy did not really show any signs of aggressive intraluminal Crohn's disease or abscess or fistula. IMPRESSION: The patient has right lower quadrant pain which I believe appears to be in the abdominal wall. On physical exam, I suspect that he may have a neuroma or neuropathic kind of pain from his previous surgery where his ileostomy was. The patient is still in a lot of distress and I plan on discussing the case with Dr. Eligio Abbasi, his colorectal surgeon tomorrow to see if he has any other suggestions on how to manage his situation.
[2016-07-22] MEDS: ENOXAPARIN 40 MG/0.4 ML SYR SQ SCH (20:24)
[2016-07-22 23:36] VITALS: BP 123/79; PULSE 79; TEMP 36.6; O2SAT 91
[2016-07-23] VITALS: O2SAT 91
[2016-07-23] MEDS: HYDROmorphone HCL 2 MG TAB PO PRN ×4 (02:06→19:52)
[2016-07-23] MEDS: LEVOTHYROXINE 200 MCG TAB PO SCH (06:55)
[2016-07-23 07:52] VITALS: BP 118/74; PULSE 54; TEMP 36.7; O2SAT 94
[2016-07-23] MEDS: LIDODERM (LIDOCAINE) PATCH 5% TD SCH (08:00)
[2016-07-23] MEDS: ONDANSETRON INJ 2 MG/ML 2 ML VIAL IV PRN ×3 (08:03→13:30)
[2016-07-23] MEDS: FERROUS SULFATE 325 MG TAB PO SCH (08:07)
[2016-07-23] MEDS: AMLODIPINE BESYLATE 5 MG TAB PO SCH (08:07)
[2016-07-23] MEDS: SUCRALFATE 1 GM TAB PO SCH ×2 (08:07→19:53)
[2016-07-23] MEDS: LOSARTAN POTASSIUM 50 MG TAB PO SCH ×2 (08:07→19:53)
[2016-07-23] MEDS: TAMSULOSIN HCL 0.4 MG CAP PO SCH (08:07)
[2016-07-23] MEDS: AZATHIOPRINE 50 MG TAB PO SCH (08:08)
--- NOTE | 2016-07-23 08:38 | Pain Management Progress Note ---
Pain Management Progress Note Date of Service Jul 23, 2016. Subjective Mr. Alcantara is admitted to the [facility] for RLQ abdominal pain. Yesterday IV Dilaudid was discontinued and oral Dilaudid 4mg x 6 hours was initiated in hopes of adequate pain relief and discharge from the hospital. Patient states that the oral Dilaudid was mildly effective for a short amount of time, it did not last 6 hours. He continues to describe right lower quadrant abdominal pain that is an aching and burning with occasional sharp pain. There is no radicular component. Patient denies any diarrhea, constipation, flank pain, urinary sx. Case discussed with Dr. Street Objective Vital Signs: Last Vital Signs Documentation Date Time Temp Pulse Resp B/P Pulse Ox O2 Delivery O2 Flow Rate FiO2 07/23/16 07:52 36.7 54 16 118/74 94 Room Air 07/23/16 00:00 2.0 Physical Exam: GENERAL: Mr. Alcantara is a 56 y/o WM that doesn't appear to be in any acute distress. ABDOMEN: Active bowel sounds throughout; focal tenderness of the RLQ. There is no focal tenderness along the right ilioinguinal nerve or genitofemoral nerve. No peritoneal signs. No CVA tenderness bilaterally. EXTREMITIES: Using all extremities appropriately. NEURO: CN II-XII grossly intact with no focal deficits noted. SKIN: Multiple well healed surgical incisions along the abdomen. Laboratory (Last CBC): 07/21/16 05:45 Assessment 1. RLQ abdominal pain 2. Crohns Disease 3. History of herniorrhaphy 4. History of multiple bowel resections 5. Diabetes Mellitus Recommendations 1. Continue Dilaudid 4mg PO x 6 hours PRN pain 2. Will initiate Gabapentin 300mg PO TID to address possible neuropathic component to pain. [employer] Voice Recognition This chart was completed in part utilizing [employer] Voice Recognition Software. Random word insertions, pronoun errors, and incomplete sentences are an occasional consequence of this system due to software limitations and ambient noise. Any questions or concerns about the content, text or information contained within the body of this dictation should be directly addressed to the provider for clarification.
[2016-07-23] MEDS: INSULIN ASPART 100 UNITS/ML 3 ML PEN SC SCH ×4 (08:58→20:42)
[2016-07-23] MEDS: INSULIN GLARGINE SOLOSTAR 100 UNITS/ML 3 ML PEN SC SCH ×2 (08:58→20:50)
[2016-07-23] MEDS: GABAPENTIN 300 MG CAP PO SCH ×3 (10:02→19:52)
--- NOTE | 2016-07-23 10:02 | Progress Note ---
Subjective Date of Service: Jul 23, 2016. Subjective Pt evaluation today including: conversation w/ patient, physical exam, chart review, lab review, review of studies, conversation w/ [facility] consultant, review of inpatient medication list Voiding: no voiding problems Sitting up in chair, feeling okay, report was having a rough night last night because of right lower abdominal pain, which required additional pain medication, for now he is eating drinking okay, he is expecting the effects of new meds from pain management Problem List Medical Problems: (1) Abdominal wall hernia Status: Acute (2) Exacerbation of Crohn's disease Status: Acute (3) Urinary tract infection Status: Acute Review of Systems Constitutional: No chills, No fatigue, No fever, No problem reported, No sweats , No weakness, No weight loss Eyes: No diplopia, No discharge, No eye pain, No redness, No worsening of vision ENT: No dental problems, No hearing loss, No nasal symptoms, No sore throat, No tinnitus, No trouble swallowing, No unusual epistaxis Respiratory: No cough, No dyspnea at rest, No dyspnea on exertion, No hemoptysis, No shortness of breath, No sputum, No wheezing Cardiac: No PND, No chest pain, No claudication, No edema, No orthopnea, No palpitations Abdomen: + pain, No constipation, No diarrhea, No nausea, No vomiting Musculoskeletal: No calf pain, No joint pain, No muscle pain, No swelling Male : No dysuria, No hematuria, No incontinence, No nocturia more than once/ night, No slowing stream, No urinary frequency Neurologic: No balance problems, No memory loss, No numbness/tingling, No paralysis, No vertigo, No weakness Psychiatric: No anhedonism, No anxiety, No depression symptoms, No insomnia, No substance abuse Heme: No abnormal bleeding/bruising, No clotting problems, No night sweats, No swollen lymph nodes Endo: No excessive thirst, No excessive urination, No fatigue Skin: No bleeding, No color change, No itch, No new/changing skin lesions, No rash Objective Vital Signs Date Time Temp Pulse Resp B/P Pulse Ox O2 Delivery O2 Flow Rate FiO2 07/23/16 07:52 36.7 54 16 118/74 94 Room Air 07/23/16 00:00 91 Room Air 2.0 07/22/16 23:36 36.6 79 20 123/79 91 Room Air 07/22/16 15:50 95 Room Air 07/22/16 15:00 36.6 75 20 110/64 95 Room Air Physical Exam General Appearance: WD/WN, no apparent distress Eyes: normal inspection, PERRL, EOMI, sclerae normal ENT: normal ENT inspection, hearing grossly normal, pharynx normal Neck: supple, no adenopathy, thyroid normal, no JVD, no carotid bruits, trachea midline Respiratory/Chest: chest non-tender, lungs clear, normal breath sounds, no respiratory distress, no accessory muscle use Cardiovascular: regular rate, rhythm, no edema, no gallop, no JVD, no murmur Abdomen: normal bowel sounds, non tender, soft, no organomegaly, no pulsatile mass, + tenderness (right lower abdomen) Extremities: normal range of motion, non-tender, normal inspection, no pedal edema, no calf tenderness, normal capillary refill, pelvis stable 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, no motor/sensory deficits, alert, normal mood/affect, oriented x 3 Skin: normal color, warm/dry, no rash Lymphatic: no adenopathy Laboratory Results Last 24 Hours Test 07/22/16 11:39 07/22/16 16:23 07/22/16 20:10 07/23/16 07:27 Bedside Glucose 113 mg/dl 124 mg/dl 162 mg/dl 121 mg/dl Assessment and Plan 56-year-old white male admitted for possible Crohn's flare on 07/15/2016 possible Crohn's flare: Has been on Ciprofloxacin 500mg and Metronidazole 500mg for x10 days- completed course Continue Imuran 150 mg IV fluid and Solu-Medrol was discontinued GI consulted, appreciate recommendations -- Colonoscopy: The examined portion of the ileum was normal- Biopsied. The examined portion of the ileum was normal- Biopsied. Ulcerated mucosa in the stephon-terminal ileum- Biopsied. The colonic anastomosis is normal- Biopsied. The entire examined colon is normal- Biopsied. The distal rectum and anal verge are normal on retroflexion view. -- SBFT: segment of thickened distal small bowel within the right side of the abdomen immediately proximal to the anastomosis consistent with active Crohn 's disease. Postoperative changes. Persistent sacroiliitis. Normal upper GI series. Right lower quadrant abdominal pain, likely because of muscular or from the nerve pain Pain management consult per GI recommendations , Recommended Lidoderm patch provided no relief to patient and caused local pruritus, Does not believe lioinguinal nerve block indicated at this time, Continue PO home Dilaudid dose at 4 mg q6 hrs PRN on 07/22 to prepare for discharge Pain management at the [facility] today Dr. Naranjo is planning to call to colorectal surgeon today Has been discussion above the planning to going home, patient agreeable for possible discharge late pm or tomorrow morning Add heating pack Continued [facility] stay due to: home environment unsafe for pt Discharge planning: home
[2016-07-23] MEDS ORDERED: LDDP5 TD (10:20)
[2016-07-23] MEDS ORDERED: NRN300 PO (10:20)
[2016-07-23] MEDS ORDERED: NURSING VERBAL MED ORDER ONE (13:30)
--- NOTE | 2016-07-23 14:11 | Pain Management Progress Note ---
Pain Management Progress Note Date of Service Jul 23, 2016. Objective Vital Signs: Last Vital Signs Documentation Date Time Temp Pulse Resp B/P Pulse Ox O2 Delivery O2 Flow Rate FiO2 07/23/16 08:00 Room Air 07/23/16 07:52 36.7 54 16 118/74 94 07/23/16 00:00 2.0 Laboratory (Last CBC): 07/21/16 05:45 Assessment 1. [] 2. [] 3. [] 4. [] 5. [] Recommendations Will plan for ultrasound guided abdominal wall trigger points in the RLQ tomorrow afternoon if the patient does not improve with oral Gabapentin today. [employer] Voice Recognition This chart was completed in part utilizing [employer] Voice Recognition Software. Random word insertions, pronoun errors, and incomplete sentences are an occasional consequence of this system due to software limitations and ambient noise. Any questions or concerns about the content, text or information contained within the body of this dictation should be directly addressed to the provider for clarification.
[2016-07-23 15:31] VITALS: BP 118/76; PULSE 83; TEMP 37; O2SAT 94
--- NOTE | 2016-07-23 17:03 | GASTROENTEROLOGY PROGRESS NOTE ---
DATE: 07/23/2016 DATE: 07/23/2016. HISTORY OF PRESENT ILLNESS: The patient continues with abdominal pain that is focal along the right mid abdomen consistent with prior ileostomy site. The patient has been seen by chronic pain management recently and again this morning and although the pain is identified in this vicinity and fairly close to the surface, they would prefer to try medical approach with gabapentin initially. The patient is requiring oral Dilaudid which only gets this pain to perhaps 5/10. His stool patterns remain unchanged and are at baseline anywhere from soft to loose stools daily which are nonbloody. He is tolerating some oral intake. He is ambulating. LABORATORY STUDIES TODAY: There are no laboratory studies available today. PHYSICAL EXAMINATION: VITAL SIGNS: Show afebrile 37.0, blood pressure 118/76, respirations 20, room air 94%, heart rate 83. GENERAL: Today the patient is awake, alert and oriented x3. HEAD, EYES, EARS, NOSE, AND THROAT: Oral mucosa moist. HEART: Normal S1, S2. LUNGS: Clear to auscultation. ABDOMEN: Soft, tender in the vicinity of 1 to 1.5 long prior incision site that is well healed. There is tenderness in and slightly around the parameter of this with superficial mild to moderate palpation. There is no hernia in this site or adjacent to it. EXTREMITIES: Without edema. RECTAL EXAMINATION: Deferred. IMPRESSION: The patient with longstanding history of Crohn disease, prior surgeries with focal tenderness in the right and mid abdomen in the close proximity and at a prior incisional site. Chronic pain therapy has been in to evaluate the patient and initially would like to try oral gabapentin. The patient unfortunately still has abdominal pain 5/10 even with oral Dilaudid and does not feel that this is a suitable approach and would like to explore other options including perhaps either transfer to [place] or prompt [place] evaluation in chronic pain service to see if local injection would be helpful. My approach to this would be that if the patient can be provided adequate pain control with Dilaudid or other agents then this can occur as an outpatient visit. Alternatively, if there is no meaningful controlling the patient's symptoms, then consideration for inpatient transfer to [place] should be considered. Would continue current therapies and diets. The patient should ambulate as currently doing. All questions answered. EM
[2016-07-23] MEDS: ONDANSETRON INJ 8 MG in DEXTROSE 5% 50ML 50 ML IV PRN (17:14)
[2016-07-23] MEDS: ENOXAPARIN 40 MG/0.4 ML SYR SQ SCH (20:44)
[2016-07-24 00:31] VITALS: BP 105/72; PULSE 71; TEMP 36.6; O2SAT 93
[2016-07-24] MEDS: HYDROmorphone HCL 2 MG TAB PO PRN ×2 (03:32→11:37)
[2016-07-24 05:46] LABS: HEMATOCRIT 37.5 % (42-52); MEAN CELL VOLUME 78.5 fL (80-100); MEAN CORPUSCULAR HEMOGLOBIN 24.9 pg (25-34); MEAN CORPUSCULAR HGB CONC 31.7 g/dl (32-36); MEAN PLATELET VOLUME 9.5 fL (7.4-10.4); PLATELET COUNT 264 K/uL (130-400); RED BLOOD COUNT 4.78 M/uL (4.7-6.1); WHITE BLOOD COUNT 8.37 K/uL (4.8-10.8)
[2016-07-24] MEDS: LEVOTHYROXINE 200 MCG TAB PO SCH (06:07)
[2016-07-24 06:20] LABS: CREATININE 1.4 mg/dl (0.60-1.40)
--- NOTE | 2016-07-24 07:33 | Hospitalist Progress Note ---
Hospitalist Progress Note Date of Service Jul 24, 2016. Objective Vital Signs Date Time Temp Pulse Resp B/P Pulse Ox O2 Delivery O2 Flow Rate FiO2 07/24/16 00:31 36.6 71 20 105/72 93 Room Air 07/24/16 00:25 Room Air 07/23/16 16:00 Room Air 07/23/16 15:31 37.0 83 20 118/76 94 Room Air 07/23/16 08:00 Room Air 07/23/16 07:52 36.7 54 16 118/74 94 Room Air Laboratory Results Last 24 Hours Test 07/23/16 11:03 07/23/16 16:47 07/23/16 20:34 07/24/16 05:25 Bedside Glucose 131 mg/dl 124 mg/dl 135 mg/dl White Blood Count 8.37 K/uL Red Blood Count 4.78 M/uL Hemoglobin 11.9 g/dL Hematocrit 37.5 % Mean Corpuscular Volume 78.5 fL Mean Corpuscular Hemoglobin 24.9 pg Mean Corpuscular Hemoglobin Concent 31.7 g/dl RDW Standard Deviation 50.5 fL RDW Coefficient of Variation 17.9 % Platelet Count 264 K/uL Mean Platelet Volume 9.5 fL Creatinine 1.40 mg/dl Est Creatinine Clear Calc Drug Dose 71.0 ml/min Estimated GFR () 64.6 Estimated GFR (Non- 55.8 Assessment and Plan 56 yo male with h/o Crohn's disease, s/p colectomy with colostomy and then reversal, presented with several day of increased abdominal pain, increased bowel frequency, poor appetite, started on Cipro/Flagyl outpatient by GI with plans for colonoscopy, pain was too severe to manage at home and he was referred for admission Crohn's flare: - Admit med/surg - Continue with Ciprofloxacin 500mg and Metronidazole 500mg for x10 days- completed course - Continue Imuran 150 mg - IVF NSS+ 20KCL meq @125mls/hr provided while NPO - IV Solu Medrol 20 mg q12 hrs--> d/c'd on 07/20 because of no clear exacerbation on imaging - IV Zofran PRN for nausea - GI consulted, appreciate recommendations -- Diarrhea- c.diff negative -- Colonoscopy: The examined portion of the ileum was normal- Biopsied. The examined portion of the ileum was normal- Biopsied. Ulcerated mucosa in the stephon-terminal ileum- Biopsied. The colonic anastomosis is normal- Biopsied. The entire examined colon is normal- Biopsied. The distal rectum and anal verge are normal on retroflexion view. -- SBFT: 7.4 segment of thickened distal small bowel within the right side of the abdomen immediately proximal to the anastomosis consistent with active Crohn's disease. Postoperative changes. Persistent sacroiliitis. Normal upper GI series. -- Advance diet per GI recommendations--> tolerating OK, w/ associated nausea - Pain management consult per GI recommendations -- Recommended Lidoderm patch- provided no relief to patient and caused local pruritus -- Does not believe lioinguinal nerve block indicated at this time -- Transition to PO home Dilaudid dose at 4 mg q6 hrs PRN on 07/22 to prepare for discharge -- Started Gabapentin 300 mg PO TID on 07/23 -- Ultrasound guided abdominal wall trigger points in the RLQ on 07/24 Anemia, baseline hgb 11-12- stable: - Follow CBC - Continue Ferrous Sulfate supplement DM II - Lantus 18 unit BID, titrate as needed - BSG ACHS w/ sliding insulin scale BPH: Continue Flomax 0.4mg daily HTN: Continue Amlodipine 10mg daily, Cozaar 50 mg BID Hypothyroidism: Continue Synthroid 200 mcg daily DVT prophylaxis: Lovenox 40 mg SQ q24 hrs Code Status: LEVEL I, FULL Dispo: Discharge to home once medically stable vs transfer to [facility] if pain cannot be controlled
[2016-07-24 07:48] VITALS: BP 124/84; PULSE 72; TEMP 36.6; O2SAT 93
[2016-07-24] MEDS: ONDANSETRON INJ 8 MG in DEXTROSE 5% 50ML 50 ML IV PRN ×2 (07:54→11:45)
[2016-07-24] MEDS: AMLODIPINE BESYLATE 5 MG TAB PO SCH (07:58)
[2016-07-24] MEDS: SUCRALFATE 1 GM TAB PO SCH (07:58)
[2016-07-24] MEDS: GABAPENTIN 300 MG CAP PO SCH ×2 (07:58→14:05)
[2016-07-24] MEDS: FERROUS SULFATE 325 MG TAB PO SCH (07:58)
[2016-07-24] MEDS: TAMSULOSIN HCL 0.4 MG CAP PO SCH (07:58)
[2016-07-24] MEDS: LOSARTAN POTASSIUM 50 MG TAB PO SCH (07:59)
[2016-07-24] MEDS: LIDODERM (LIDOCAINE) PATCH 5% TD SCH (07:59)
--- NOTE | 2016-07-24 08:39 | Pain Management Progress Note ---
Pain Management Progress Note Date of Service Jul 24, 2016. Subjective Mr. Alcantara is a 56 year old white male with RLQ abdominal pain. He is taking Dilaudid 4mg PO x 6 hours PRN pain which is mildly efficacious but the medication will not get his pain below a 5/10. He was initiated on Gabapentin 300mg TID yesterday and has not noted any efficacy yet. Patient denies any radicular pain, nausea, vomiting, diarrhea, constipation. Case discussed with Dr. Street Objective Vital Signs: Last Vital Signs Documentation Date Time Temp Pulse Resp B/P Pulse Ox O2 Delivery O2 Flow Rate FiO2 07/24/16 07:48 36.6 72 16 124/84 93 07/24/16 00:31 Room Air 07/23/16 00:00 2.0 Physical Exam: GENERAL: Mr. Alcantara is a 56 y/o WM that appears his stated age. NAD. ABDOMEN: Active bowel sounds throughout; focal tenderness of the RLQ along the edge of mesh. There is no focal tenderness along the right ilioinguinal nerve or genitofemoral nerve. No peritoneal signs. No CVA tenderness bilaterally. NEURO: CN II-XII grossly intact with no focal deficits noted. SKIN: Multiple well healed surgical incisions along the abdomen. Laboratory (Last CBC): 07/24/16 05:25 Assessment 1. RLQ abdominal pain 2. Crohns Disease 3. History of herniorrhaphy 4. History of multiple bowel resections 5. Diabetes Mellitus Recommendations Patient has failed to realize any significant improvement with oral Dilaudid and Gabapentin. Patient will have an ultrasound guided trigger point injection by Dr. Street into the RLQ this afternoon for possible pain relief. The procedure was explained to the patient. Risks and benefits were reviewed. Patient would like to proceed with the procedure. [employer] Voice Recognition This chart was completed in part utilizing [email or web address] Voice Recognition Software. Random word insertions, pronoun errors, and incomplete sentences are an occasional consequence of this system due to software limitations and ambient noise. Any questions or concerns about the content, text or information contained within the body of this dictation should be directly addressed to the provider for clarification.
[2016-07-24] MEDS: INSULIN GLARGINE SOLOSTAR 100 UNITS/ML 3 ML PEN SC SCH (08:57)
[2016-07-24] MEDS: INSULIN ASPART 100 UNITS/ML 3 ML PEN SC SCH ×2 (08:57→12:38)
[2016-07-24] MEDS ORDERED: ONDA4TAB46 PO (10:16)
--- NOTE | 2016-07-24 10:20 | Discharge Instructions ---
Discharge Instructions Date of Service Jul 24, 2016. Admission Reason for Admission: Right Lower Quadrant Abdominal Pain Discharge Discharge Diagnosis / Problem: Right lower quadrant abdominal pain Discharge Goals Goal(s): Decrease discomfort, Improve function, Diagnostic testing, Therapeutic intervention, Prevent Disease Progression Activity Recommendations Activity Limitations: resume your previous activity . Instructions / Follow-Up Instructions / Follow-Up New/changed medication: 1. Gabapentin 300 mg by mouth three times per day This medication is to help treat your abdominal pain This has been sent to your pharmacy 2. A renewal prescription of Zofran has been sent to your pharmacy- 4 mg by mouth every 6 hours as needed for nausea (you may take 2 tablets (8mg) every 6 hours if needed) 3. A renewal prescription of Dilaudid has been given to you- 4 mg by mouth every 6 hours as needed for pain Continue all other regular home medication as prescribed Please follow-up with your PCP within 5-7 days Please follow-up with GI as scheduled on 07/29 Please follow-up/keep all of your subspecialty appointments Current Hospital Diet Patient's current hospital diet: Low Fiber Diet Discharge Diet Recommended Diet: Low Fiber Diet Procedures Procedures Performed: 1. Colonoscopy with bx 2. Small bowel follow through 3. Abdominal/pelvic CT Pending Studies Studies pending at discharge: no Laboratory Results Test 07/15/16 11:10 07/15/16 11:15 07/16/16 04:55 07/21/16 05:45 Range/Units Urine Color YELLOW Urine Appearance CLEAR CLEAR Urine pH 5.0 4.5-7.5 Urine Specific [place] 1.015 1.000-1.030 Urine Protein NEG NEG Urine Glucose (UA) NEG NEG Urine Ketones NEG NEG Urine Occult Blood NEG NEG Urine Nitrite NEG NEG Urine Bilirubin NEG NEG Urine Urobilinogen NEG NEG Urine Leukocyte Esterase NEG NEG Immature Granulocyte % (Auto) 0.2 % White Blood Count 6.51 4.8-10.8 K/uL Red Blood Count 5.03 4.7-6.1 M/uL Hemoglobin 12.2 14.0-18.0 g/dL Hematocrit 38.4 42-52 % Mean Corpuscular Volume 76.3 80-100 fL Mean Corpuscular Hemoglobin 24.3 25-34 pg Mean Corpuscular Hemoglobin Concent 31.8 32-36 g/dl Platelet Count 338 130-400 K/uL Mean Platelet Volume 8.9 7.4-10.4 fL Neutrophils (%) (Auto) 68.8 % Lymphocytes (%) (Auto) 19.5 % Monocytes (%) (Auto) 8.4 % Eosinophils (%) (Auto) 2.6 % Basophils (%) (Auto) 0.5 % Neutrophils # (Auto) 4.48 1.4-6.5 K/uL Lymphocytes # (Auto) 1.27 1.2-3.4 K/uL Monocytes # (Auto) 0.55 0.11-0.59 K/uL Eosinophils # (Auto) 0.17 0-0.5 K/uL Basophils # (Auto) 0.03 0-0.2 K/uL Immature Granulocyte # (Auto) 0.01 0.00-0.02 K/uL Prothrombin Time 10.9 9.0-12.0 SECONDS Prothromb Time International Ratio 1.0 0.9-1.1 Activated Partial Thromboplast Time 26.5 21.0-31.0 SECONDS Partial Thromboplastin Ratio 1.0 Total Bilirubin 0.7 0.2-1 mg/dl Aspartate Amino Transf (AST/SGOT) 89 15-37 U/L Alanine Aminotransferase (ALT/SGPT) 70 12-78 U/L Alkaline Phosphatase 85 45-117 U/L Total Protein 8.2 6.4-8.2 gm/dl Albumin 4.1 3.4-5.0 gm/dl Globulin 4.1 2.5-4.0 gm/dl Albumin/Globulin Ratio 1.0 0.9-2 Lipase 147 73-393 U/L Hepatitis C Antibody Screen NEG NEG Sodium Level 138 136-145 mmol/L Potassium Level 4.2 3.5-5.1 mmol/L Chloride Level 100 98-107 mmol/L Carbon Dioxide Level 30 21-32 mmol/L Anion Gap 8.0 3-11 mmol/L Blood Urea Nitrogen 16 7-18 mg/dl BUN/Creatinine Ratio 12.3 10-20 Random Glucose 149 70-99 mg/dl Calcium Level 8.4 8.5-10.1 mg/dl Test 07/24/16 05:25 07/24/16 07:31 Range/Units White Blood Count 8.37 4.8-10.8 K/uL Red Blood Count 4.78 4.7-6.1 M/uL Hemoglobin 11.9 14.0-18.0 g/dL Hematocrit 37.5 42-52 % Mean Corpuscular Volume 78.5 80-100 fL Mean Corpuscular Hemoglobin 24.9 25-34 pg Mean Corpuscular Hemoglobin Concent 31.7 32-36 g/dl RDW Standard Deviation 50.5 36.4-46.3 fL RDW Coefficient of Variation 17.9 11.5-14.5 % Platelet Count 264 130-400 K/uL Mean Platelet Volume 9.5 7.4-10.4 fL Creatinine 1.40 0.60-1.40 mg/dl Est Creatinine Clear Calc Drug Dose 71.0 ml/min Estimated GFR () 64.6 Estimated GFR (Non- 55.8 Bedside Glucose 127 70-99 mg/dl Medical Emergencies . Who to Call and When: Medical Emergencies: If at any time you feel your situation is an emergency, please call 911 immediately. . Non-Emergent Contact Non-Emergency issues call your: Primary Care Provider . . "Provider Documentation" section prepared by Kalyn Paiz. VTE Core Measure Inpt VTE Proph given/why not?: Enoxaparin (Lovenox)SQ
--- NOTE | 2016-07-24 10:23 | Discharge Summary ---
Discharge Summary Date of Service Jul 24, 2016. Discharge Summary Admission Date: Jul 15, 2016 at 15:12 Discharge Date: Jul 24, 2016 Discharge Disposition: Home Principal Diagnosis: RLQ pain Problems/Secondary Diagnoses: 1. Crohn's flare 2. Anemia 2. DM II 4. BPH 5. HTN 6. Hypothyroidism Procedures: COLONOSCOPY Patient: WILMER REESE Admit Date: 07/15/1702/20/17 [facility] Rec: [id number] Acct ID: [id number] [~ rep ct labl] Page 3of 3 p: [~ rep prt dt last] [~ rep prt tm last] [~ rep ct labl] Page 1of 3 p: [~ rep prt dt last] [~ rep prt tm last] DICTATED BY: Castro Brooks M.D. Procedure Date: 07/17/2016 3:58 PM Procedure: Colonoscopy Indications: Abdominal pain in the right lower quadrant, Chronic diarrhea, Crohn's disease of the small bowel and colon Medicines: Propofol per Anesthesia Complications: No immediate complications. Estimated blood loss: Minimal. Estimated Blood Loss: Estimated blood loss was minimal. Procedure: Pre-Anesthesia Assessment: - Prior to the procedure, a History and Physical was performed, and patient medications and allergies were reviewed. The patient's tolerance of previous anesthesia was also reviewed. The risks and benefits of the procedure and the sedation options and risks were discussed with the patient. All questions were answered, and informed consent was obtained. Prior Anticoagulants: The patient has taken no previous anticoagulant or antiplatelet agents. ASA Grade Assessment: II - A patient with mild systemic disease. After reviewing the risks and benefits, the patient was deemed in satisfactory condition to undergo the procedure. After I obtained informed consent, the scope was passed under direct vision. Throughout the procedure, the patient's blood pressure, pulse, and oxygen saturations were monitored continuously. The Scope was introduced through the anus and advanced to the ileocolonic anastomosis. The colonoscopy was performed without difficulty. The patient tolerated the procedure well. The quality of the bowel preparation was good. Findings: The perianal and digital rectal examinations were normal. Pertinent negatives include normal sphincter tone, no palpable rectal lesions and no anal lesion or abnormality was detected. The distal ileum appeared normal. Biopsies were taken with a cold forceps for histology. Estimated blood loss was minimal. Verification of patient identification for the specimen was done by the physician and anesthesia technician using the patient's name and medical record number. The ileal surgical anastomosis appeared normal. Biopsies were taken with a cold forceps for histology. Estimated blood loss was minimal. Verification of patient identification for the specimen was done by the physician and anesthesia technician using the patient's name and medical record number. A scattered area of mucosa in the stephon-terminal ileum was mildly ulcerated. Biopsies were taken with a cold forceps for histology. Estimated blood loss was minimal. Verification of patient identification for the specimen was done by the physician and anesthesia technician using the patient's name and medical record number. The anastomosis appeared normal. Biopsies were taken with a cold forceps for histology. Estimated blood loss was minimal. Verification of patient identification for the specimen was done by the physician and anesthesia technician using the patient's name and medical record number. The colon (entire examined portion) appeared normal. Biopsies were taken with a cold forceps for histology. Estimated blood loss was minimal. Verification of patient identification for the specimen was done by the physician and anesthesia technician using the patient's name and medical record number. The retroflexed view of the distal rectum and anal verge was normal and showed no anal or rectal abnormalities. Impression: - The examined portion of the ileum was normal. Biopsied. - The examined portion of the ileum was normal. Biopsied. - Ulcerated mucosa in the stephon-terminal ileum. Biopsied. - The colonic anastomosis is normal. Biopsied. - The entire examined colon is normal. Biopsied. - The distal rectum and anal verge are normal on retroflexion view. Recommendation: - [facility]. - Full liquid diet. - Perform an upper GI series and small bowel follow through tomorrow. - Await pathology results. - Continue present medications. ( C dif was negative yesterday) MD Castro North MD 07/17/2016 5:37:04 PM This report has been signed electronically. Note Initiated On: 07/17/2016 3:58 PM I attest to the content of the Intraoperative Record and orders documented therein, exceptions below Dictated: 07/17/16 1558 Signed: 07/17/16 1736 The status of this report is Signed. Draft = Not yet reviewed or approved by Medical Physician. Signed = Reviewed and approved by Medical Physician. CT ABD/PELVIS IV AND ORAL CONT CLINICAL HISTORY: Cronh's flare, RLQ pain COMPARISON STUDY: 07/11/2016 TECHNIQUE: Following the IV administration of 115 mL of Optiray-320, CT scan of the abdomen and pelvis was performed from the lung bases to the proximal femurs. Images are reviewed in the axial, sagittal, and coronal planes. IV contrast was administered without complication. CT DOSE: 729.40 mGy.cm FINDINGS: Lower chest: There are minor basilar atelectatic changes. Liver: There is hepatic steatosis. Left lobe of the liver appears atrophic. There is apparent stenosis left and right hepatic vein at the IVC junction. There is probable chronic left portal vein thrombus. There is no intrahepatic biliary ductal dilatation. Gallbladder: Surgically absent Spleen: Normal in size and attenuation. Pancreas: Unremarkable. Adrenal glands: Unremarkable. Kidneys: There is a punctate nonobstructing right renal calculus. No solid renal masses are visualized. There is no hydronephrosis. Bowel: There are postsurgical changes from a prior ileal colic resection with ileocolic anastomosis. There are no transition zones indicate bowel obstruction. There is borderline rectosigmoid bowel wall thickening. Peritoneum: There is no intraperitoneal free air or abdominal ascites. Vasculature: The abdominal aorta is normal in course and caliber. Adenopathy: None. Pelvic viscera: The bladder, and pelvic viscera are unremarkable. Skeletal structures: There is bilateral sacroiliitis. IMPRESSION: 1. Postsurgical changes of a right hemicolectomy and ileal colic anastomosis 2. No evidence of bowel obstruction. No evidence of free air 3. Hepatic steatosis 4. Stable hepatic left lobe atrophy 5. Stable right and middle hepatic vein stenosis 6. Borderline colonic wall thickening versus nondistended segments 7. Punctate nonobstructing right renal calculus Electronically signed by: Bobby Hay M.D. 07/15/2016 6:04 PM Dictated Date/Time: 07/15/2016 5:54 PM The status of this report is Signed. Draft = Not yet reviewed or approved by Radiologist. Signed = Reviewed and approved by Radiologist. GI W/AIR SMALL BOWEL ROUTINE CLINICAL HISTORY: Generalized abdominal pain; crohns dz with surgery exclude active disease/s tri COMPARISON STUDY: Abdomen and pelvis CT 07/15/2016. Small bowel follow-through 10/11/2010. FLUOROSCOPY TIME: 3.1 minutes. 29 images submitted. FINDINGS: The patient swallowed barium without difficulty. The esophagus is normal in course, caliber, and motility. No hiatus hernia. No gastroesophageal reflux. No gastric ulcerations. The duodenal bulb and duodenal C sweep are within normal limits. Sheepskin Pickler images demonstrate suture material within the right side the abdomen consistent with prior ileocolectomy. Bilateral sacroiliitis persist. There is a 7.4 cm narrowed segment of distal small bowel which demonstrates an irregular fold pattern. This is consistent with an area of thickened small bowel. This represents active Crohn's disease. This is immediately proximal to the anastomosis and located within the right side the abdomen. No evidence for bowel obstruction. IMPRESSION: 1. A 7.4 segment of thickened distal small bowel within the right side of the abdomen immediately proximal to the anastomosis consistent with active Crohn's disease. 2. Postoperative changes. 3. Persistent sacroiliitis. 4. Normal upper GI series. Electronically signed by: Edi Chairez M.D. 07/19/2016 8:55 AM Dictated Date/Time: 07/19/2016 8:48 AM The status of this report is Signed. Draft = Not yet reviewed or approved by Radiologist. Signed = Reviewed and approved by Radiologist. Consultations: GI- Dr. Brooks Pain management- Marissa Trujillo PA-C, Dr. Street Medication Reconciliation New Medications: Gabapentin (Gabapentin) 300 Mg Cap 300 MG PO TID for 30 Days, CAP Lidocaine (Lidocaine) 1 Patch Tdsy 1 PATCH TD QAM for 7 Days Continued Medications: Amlodipine (Norvasc) 10 Mg Tab 10 MG PO DAILY, TAB Azathioprine (Imuran) 50 Mg Tab 150 MG PO DAILY, TAB Ferrous Sulfate (Ferrous Sulfate) 325 Mg Tab 325 MG PO DAILY Hydromorphone Hcl (Dilaudid) 4 Mg Tab 4 MG PO QID PRN for Pain for 30 Days, #120 TAB Insulin Human Regular (Humulin R) 1 Ea Inj 4 UNITS WITH MEALS PLUS SLIDING SCALE FOR BSG: BSG 201-250= 2 UNITS BSG 251-300= 3 UNITS BSG 301-350= 4 UNITS Insulin Isophan/Regular (Humulin 70/30) Susp 40 UNITS SC QAM, VIAL Insulin Isophan/Regular (Humulin 70/30) Susp 20 UNITS SC QPM, VIAL Levothyroxine Sodium (Synthroid) 200 Mcg Tab 200 MCG PO DAILY Losartan Potassium (Cozaar) 50 Mg Tab 50 MG PO BID, TAB Metformin Hcl (Glucophage) 1,000 Mg Tab 1000 MG PO BID, #60 Ondansetron Hcl (Zofran) 4 Mg Tab 4 MG PO Q8 PRN for Nausea for 30 Days, #90 TAB (This prescription has been renewed) Sucralfate (Sucralfate) 1 Gm Tab 1 TAB PO BID for 30 Days, #60 TAB 11 Refills Tamsulosin Hcl (Flomax) 0.4 Mg Cap 0.4 MG PO DAILY, CAP Vedolizumab (Entyvio) 300 Mg Inj 1 DOSE IV Q6WK Discontinued Medications: Ciprofloxacin (Ciprofloxacin HCl) 500 Mg Tab 500 MG PO DAILY Metronidazole (Flagyl) 500 Mg Tab 500 MG PO BID, #20 TAB Referrals At Discharge Follow up Referrals: Family Practice Referral - Within 1 Week with Audra Matos Discharge Exam Review of Systems: Constitutional: No chills, No fatigue, No fever, No sweats, No weakness Respiratory: No cough, No hemoptysis, No shortness of breath Cardiovascular: No chest pain, No edema, No palpitations Abdomen: + diarrhea, + nausea, + pain, No constipation, No vomiting Musculoskeletal: No calf pain, No joint pain, No muscle pain, No swelling Genitourinary - Male: No dysuria, No hematuria Neurologic: No numbness/tingling, No weakness Psychiatric: No anxiety, No depression symptoms Hematologic / Lymphatic: No abnormal bleeding/bruising Integumentary: No itch, No new/changing skin lesions, No rash Physical Exam: General Appearance: no apparent distress Eyes: normal inspection, PERRL ENT: hearing grossly normal Neck: supple Respiratory/Chest: lungs clear, no respiratory distress, no accessory muscle use Cardiovascular: regular rate, rhythm Abdomen / GI: normal bowel sounds, soft, + tenderness (RLQ ttp) Extremities: no calf tenderness, no pedal edema Neurologic/Psychiatric: alert, normal mood/affect, oriented x 3 Skin: normal color, warm/dry, no rash Hospital Course 56 yo male with h/o Crohn's disease, s/p colectomy with colostomy and then reversal, presented with several day of increased abdominal pain, increased bowel frequency, poor appetite, started on Cipro/Flagyl outpatient by GI with plans for colonoscopy, pain was too severe to manage at home and he was referred for admission Crohn's flare: - Admit med/surg - Continue with Ciprofloxacin 500mg and Metronidazole 500mg for x10 days- completed course - Continue Imuran 150 mg - IVF NSS+ 20KCL meq @125mls/hr provided while NPO - IV Solu Medrol 20 mg q12 hrs--> d/c'd on 07/20 because of no clear exacerbation on imaging - IV Zofran PRN for nausea - GI consulted, appreciate recommendations -- Diarrhea- c.diff negative -- Colonoscopy: The examined portion of the ileum was normal- Biopsied. The examined portion of the ileum was normal- Biopsied. Ulcerated mucosa in the stephon-terminal ileum- Biopsied. The colonic anastomosis is normal- Biopsied. The entire examined colon is normal- Biopsied. The distal rectum and anal verge are normal on retroflexion view. -- SBFT: 7.4 segment of thickened distal small bowel within the right side of the abdomen immediately proximal to the anastomosis consistent with active Crohn's disease. Postoperative changes. Persistent sacroiliitis. Normal upper GI series. -- Advance diet per GI recommendations--> tolerating OK, w/ associated nausea -- Patient has follow-up appointment with GI on 07/29 - Pain management consult per GI recommendations -- Recommended Lidoderm patch- provided no relief to patient and caused local pruritus -- Does not believe lioinguinal nerve block indicated at this time -- Transition to PO home Dilaudid dose at 4 mg q6 hrs PRN on 07/22 to prepare for discharge -- Started Gabapentin 300 mg PO TID on 07/23 -- Ultrasound guided abdominal wall trigger points in the RLQ on 07/24 Anemia, baseline hgb 11-12- stable: - Follow CBC - Continue Ferrous Sulfate supplement DM II - Lantus 18 unit BID, titrate as needed - BSG ACHS w/ sliding insulin scale BPH: Continue Flomax 0.4mg daily HTN: Continue Amlodipine 10mg daily, Cozaar 50 mg BID Hypothyroidism: Continue Synthroid 200 mcg daily DVT prophylaxis: Lovenox 40 mg SQ q24 hrs Code Status: LEVEL I, FULL Dispo: Discharge to home Total Time Spent: Greater than 30 minutes This includes examination of the patient, discharge planning, medication reconciliation, and communication with other providers. Discharge Instructions Please refer to the electronic Patient Visit Report (Discharge Instructions) for additional information. Follow-Up Please follow-up with your PCP within 5-7 days Please follow-up with GI on scheduled 07/29 appointment Please follow-up/keep all of your subspecialty appointments Additional Copies To Audra Matos.
[2016-07-24] MEDS ORDERED: BUPIVACAINE 0.5 % 5 MG/1 ML PF 10ML VIAL ONE (15:22)
[2016-07-24] MEDS ORDERED: TRIAMCINOLONE ACET 40 MG/ML VIAL ONE (15:22)
--- NOTE | 2016-07-24 15:27 | Operative Note-Pain Management ---
Pain Clinic Operative Note TRIGGER POINT INJECTION Site: Right internal/external oblique lower quadrant Diagnosis: myofascial pain syndrome and spasm Surgeon: Dr. Nargis Street Anesthesia: none Material forwarded to lab: none The patient was brought to the procedure room and consent was obtained and witnessed. Time out was performed. No signs of infection at the sites of needle insertion were identified. Three discrete trigger points were identified by palpation. The area was prepped with Chlorhexadine. Sterile technique was maintained throughout the procedure. Using a 25 gauge 1 inch needle, each trigger point was injected with 2 cc of solution containing 0.5% Bupivacine-MPF and 10mg Triamcinalone Acetonide. Aspiration of the needle prior to injection did not demonstrate any blood. Needle was removed. Adequate hemostasis was noted. Report was given to the floor RN. I attest to the content of the Intraoperative Record and any orders documented therein. Any exceptions are noted below.
[2016-07-24 15:37] VITALS: BP 113/71; PULSE 73; TEMP 37; O2SAT 95
[2016-07-24 15:55] VITALS: BP 113/71; PULSE 73; TEMP 37; O2SAT 95
[2016-08-18] MEDS ORDERED: PRT/40 PO (11:06)
== END 2016-07-24 17:14 | disposition home or self-care (01) | DRG 387 ==
LOC: ENRESERVDT → ENRESERVTM → C.EDB 10:34 → C.4E 15:12
PROVIDERS: ADMIT Hospitalist; ATTEND Hospitalist
PROC: 0DBE8ZX Excision of Large Intestine, Via Natural or Artificial Opening Endoscopic, Diagnostic (ICD-10-PCS; principal; 2016-07-17 15:28)
PROC: 0DBB8ZX Excision of Ileum, Via Natural or Artificial Opening Endoscopic, Diagnostic (ICD-10-PCS; principal; 2016-07-17 15:28)
PROC: 3E0233Z Introduction of Anti-inflammatory into Muscle, Percutaneous Approach (ICD-10-PCS; 2016-07-24)
DX: K50.90 Crohn's disease, unspecified, without complications (principal); D64.9 Anemia, unspecified; N40.0 Benign prostatic hyperplasia without lower urinary tract symptoms; E03.9 Hypothyroidism, unspecified; Z79.4 Long term (current) use of insulin; E78.5 Hyperlipidemia, unspecified; E11.9 Type 2 diabetes mellitus without complications; M46.1 Sacroiliitis, not elsewhere classified; I10 Essential (primary) hypertension; N20.0 Calculus of kidney; M79.1 Myalgia

== ENCOUNTER → 2016-08-16 | Outpatient (CLI) | payer OTHER, BC ==
[~2016-08-16] MED LIST changes: +AMLO-114 PO; +AZAT50TA17 PO; +CEFD300C3 PO; +ERGO500037 PO; +FRRS300 PO; +HYDR4TAB78 PO; +INSPMPRGR SQ; +INSU1INJ SC; -INSUINJ17 SC; +LDDP5 TD; -LEVO150T9 PO; +LEVO175T3 SL; +LOSA50TA6 PO; +METF-384 PO; +NRN300 PO; +ONDA4TAB46 PO; +PANT40TA2 PO; +PRD10 PO; +SUCR1TAB PO; +SYN200 PO; +TAMS0.4C38 PO; +VEDO1INJ IV
[2016-08-16 13:52] LABS: CALCIUM URINE 12.1 mg/dl
== END | disposition home or self-care (01) ==
LOC: C.LAB1850 12:06
PROVIDERS: ATTEND Internal Medicine Rheumatology
DX: M45.9 Ankylosing spondylitis of unspecified sites in spine (principal); M12.9 Arthropathy, unspecified; M54.6 Pain in thoracic spine; E61.8 Deficiency of other specified nutrient elements; E55.9 Vitamin D deficiency, unspecified; T38.0X1A Poisoning by glucocorticoids and synthetic analogues, accidental (unintentional), initial encounter; M81.8 Other osteoporosis without current pathological fracture

== ENCOUNTER → 2016-08-16 | Outpatient (CLI) | payer OTHER, BC ==
--- NOTE | 2016-08-16 15:55 | DIAGNOSTIC IMAGING REPORT ---
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 COMPARISON: Thoracic and lumbar spine 08/13/2016. FINDINGS: A few small focal areas of mild radiotracer uptake seen within the acromioclavicular joints, left sternoclavicular joint, knees, and right posterior L1 vertebral body suggestive of degenerative change.. Nonspecific punctate focus of radiotracer uptake seen within the left posterior fifth rib. Symmetric mild radiotracer uptake seen within the first MTP joints consistent with degenerative change.. IMPRESSION: 1. A few small focal areas of mild radiotracer uptake seen scattered within the axial and appendicular skeleton suggestive of degenerative change. 2. No fractures identified. 3. Punctate focus of nonspecific radiotracer uptake seen within the left posterior fifth rib. Electronically signed by: Edi Chairez M.D. 08/16/2016 3:53 PM Dictated Date/Time: 08/16/2016 3:49 PM
== END | disposition home or self-care (01) ==
LOC: C.NUCL 12:23
PROVIDERS: ATTEND Internal Medicine Rheumatology
DX: E61.8 Deficiency of other specified nutrient elements (principal); E55.9 Vitamin D deficiency, unspecified; M81.8 Other osteoporosis without current pathological fracture

== ENCOUNTER 2016-08-18 10:29 | Emergency (ER) | payer OTHER, BC ==
[~2016-08-18] VITALS: Ht 175.3 cm; Wt 102.2 kg
[~2016-08-18 10:29] MED LIST changes: -CEFD300C3 PO; -ERGO500037 PO; -LEVO175T3 SL; -PANT40TA2 PO; -PRD10 PO
[2016-08-18 10:34] VITALS: TEMP 36.6; Ht 175.3 cm; Wt 102.2 kg
[2016-08-18] MEDS ORDERED: SODIUM CHLORIDE 0.9% 1000ML 500 ML IV ONE (11:00)
[2016-08-18] MEDS ORDERED: PANT40TA2 PO (11:06)
[2016-08-18 11:19] LABS: URINE APPEARANCE CLEAR (CLEAR); URINE BILIRUBIN NEG (NEG); URINE COLOR YELLOW; URINE EPITHELIAL CELL AUTO 0-5 /lpf (0-5); URINE NITRITE NEG (NEG); URINE SPECIFIC GRAVITY 1.007 (1.000-1.030); UROBILINOGEN NEG (NEG); ZZUR CULT IF INDIC CLEAN CATCH NO
[2016-08-18 11:21] LABS: MANUAL MICROSCOPIC REQUIRED? NO; REVIEW REQ? NO
[2016-08-18 11:23] LABS: HEMATOCRIT 41.5 % (42-52); MEAN CELL VOLUME 81.4 fL (80-100); MEAN CORPUSCULAR HEMOGLOBIN 26.5 pg (25-34); MEAN CORPUSCULAR HGB CONC 32.5 g/dl (32-36); MEAN PLATELET VOLUME 8.6 fL (7.4-10.4); PLATELET COUNT 262 K/uL (130-400); WHITE BLOOD COUNT 7.64 K/uL (4.8-10.8)
[2016-08-18 11:41] LABS: BUN/CREATININE RATIO 9.3 (10-20); CALCIUM 9.2 mg/dl (8.5-10.1); CREATININE 1.2 mg/dl (0.60-1.40); POTASSIUM 3.8 mmol/L (3.5-5.1)
[2016-08-18] MEDS ORDERED: SODIUM CHLORIDE 0.9% 1000ML 1,000 ML IV ONE (12:00)
[2016-08-18] MEDS: ONDANSETRON INJ 2 MG/ML 2 ML VIAL IV PRN ×2 (12:08→16:23)
[2016-08-18] MEDS: HYDROmorphone INJ 1 MG/ML SYR IV PRN ×3 (12:09→16:23)
--- NOTE | 2016-08-18 12:17 | EMERGENCY ROOM VISIT NOTE ---
History Report prepared by Madi: Noemí Hanna Under the Supervision of: Dr. Mason Olguin M.D. First contact with patient: 11:53 Chief Complaint: KIDNEY STONE Stated Complaint: MID BACK PAIN,KIDNEY STONE??ABD PAIN-CROHNS History of Present Illness The patient is a 56 year old male who presents to the Emergency Room with complaints of constant severe sharp pain in the middle of his back starting a few days ago. He states that the pain is just above where he had pain with his past kidney stone, which was surgically removed two years ago. The patient also reports a history of Crohn's disease, but states that the pain does not match the pain from his Crohn's disease. The patient complains of difficulty urinating and vomiting. The patient denies any radiation of his pain and pain while urinating. The patient does have a history of five bowel resections since 2011, a hernia repair a year ago, and a ileostomy removal recently. Source of History: patient Onset: a few days ago Position: back Symptom Intensity: severe Quality: sharp Timing: constant Associated Symptoms: + nausea, + vomiting Note: The patient complains of difficulty urinating. The patient denies radiation of pain or pain while urinating. Review of Systems All systems have been listed, reviewed, and are negative other than those previously mentioned. Please see Additional Medical History Sheet. Past Medical & Surgical Medical Problems: (1) Bronchitis (2) Calculus of kidney (3) Crohns disease (4) Diabetes mellitus (5) Hyperlipidemia (6) Hypertension (7) PNA (pneumonia) (8) Right lower quadrant abdominal pain (9) Unspecified immunity deficiency Surgical Problems: (1) H/O thyroidectomy (2) History of bowel resection (3) History of herniorrhaphy (4) Hx of appendectomy (5) S/P cholecystectomy Family History Cancer Diabetes mellitus Heart disease Hypertension Kidney disease Kidney stones Social History Smoking Status: Never Smoker Alcohol Use: none Drug Use: none Marital Status: Housing Status: lives with family Occupation Status: disabled Current/Historical Medications Scheduled Amlodipine (Norvasc), 10 MG PO DAILY Azathioprine (Imuran), 150 MG PO DAILY Ferrous Sulfate (Ferrous Sulfate), 325 MG PO DAILY Gabapentin (Gabapentin), 300 MG PO TID Insulin Isophan/Regular (Humulin 70/30), 40 UNITS SC QAM Insulin Isophan/Regular (Humulin 70/30), 20 UNITS SC QPM Levothyroxine Sodium (Synthroid), 200 MCG PO DAILY Losartan Potassium (Cozaar), 50 MG PO BID Metformin Hcl (Glucophage), 1,000 MG PO BID Sucralfate (Sucralfate), 1 TAB PO BID Tamsulosin Hcl (Flomax), 0.4 MG PO DAILY Vedolizumab (Entyvio), 1 DOSE IV Q6WK Scheduled PRN Hydromorphone Hcl (Dilaudid), 4 MG PO QID PRN for Pain Ondansetron Hcl (Zofran), 4 MG PO Q8 PRN for Nausea Pantoprazole (Pantoprazole Sodium), 40 MG PO DAILY PRN for PRN Miscellaneous Medications Insulin Human Regular (Humulin R) Allergies Coded Allergies: Morphine (Unverified Allergy, Mild, GI SYMPTOMS, 08/18/16) throws up Physical Exam Vital Signs Date Time Temp Pulse Resp B/P Pulse Ox O2 Delivery O2 Flow Rate FiO2 08/18/16 15:54 73 16 132/79 94 Room Air 08/18/16 14:40 64 16 122/80 94 Room Air 08/18/16 13:29 65 16 161/87 97 Room Air 08/18/16 12:17 72 16 130/91 97 Room Air 08/18/16 11:19 73 16 201/101 97 Room Air 140/69 08/18/16 10:34 36.6 75 18 161/96 99 Room Air Physical Exam GENERAL: Patient awake, alert, oriented x 3. Patient follows commands. Patient does not appear toxic. Patient is adequately hydrated and well- nourished. Patient appears to be in moderate distress. SKIN: No erythema, pallor, cyanosis or rash HEENT: Normal head, pupils equal, reactive to light and accommodation. Ears normal. Mucous membranes appear dry. Posterior pharynx appear normal. Neck: Without adenopathy, no neck vein distention. LUNGS: Clear to auscultation. No wheezes, no rales, no rhonchi. HEART: No murmurs. No gallops. No rubs ABDOMEN: No masses, no rebound, no hepatomegaly or splenomegaly. Vague right upper quadrant tenderness that patient states is chronic. Right CVA tenderness noted. EXTREMITIES: No signs of trauma. No pedal or pretibial edema. No calf or thigh tenderness. NEUROLOGIC: Cranial nerves II-XII within normal limits. No gross motor sensory function deficits. Medical Decision & Procedures ER Provider Diagnostic Interpretation: Radiology results as stated below per my review and radiologist interpretation: ABDOMEN AND PELVIS CT WITHOUT CONTRAST CT DOSE: 690.20 mGy.cm HISTORY: Right flank tenderness. TECHNIQUE: Multiaxial CT images of the abdomen and pelvis were performed without the use of intravenous and oral contrast according to the standard department stone protocol. COMPARISON STUDY: Abdomen and pelvis CT 07/15/2016. FINDINGS: Suboptimal evaluation for bowel pathology due to the lack of intravenous and oral contrast. However, there is no evidence for bowel obstruction. There may be mild thickening of the colon most pronounced at the sigmoid colon. However, this could be due to underdistention. Right hemicolectomy with ileocolonic anastomosis is again noted. The bladder is unremarkable. Densities within the bilateral lower lobes posteriorly favor mild dependent change. No pneumoperitoneum. No pneumatosis no fractures within the visualized osseous structures. Bilateral sacroiliitis is again noted. Cholecystectomy. The unenhanced liver, spleen, adrenal glands, and pancreas are unremarkable. There is a punctate stone within the left kidney. No hydronephrosis. No ureteral or bladder calculi. No retroperitoneal lymphadenopathy. IMPRESSION: 1. There may be mild thickening of the colon suggestive of a low-grade colitis. This favors an inflammatory or infectious process. However, this could also be due to underdistention. Clinical correlation recommended. 2. Left-sided nephrolithiasis. No hydronephrosis. 3. Postoperative changes as described above. Electronically signed by: Edi Chairez M.D. 08/18/2016 2:34 PM Dictated Date/Time: 08/18/2016 2:28 PM RENAL ULTRASOUND HISTORY: right renal colic COMPARISON: Abdomen and pelvis CT 07/15/2016. FINDINGS: Right kidney: 11.7 cm. No hydronephrosis. Normal corticomedullary differentiation and cortical thickness. Left kidney: 11.2 cm. No hydronephrosis. Normal corticomedullary differentiation and cortical thickness. Bladder: No bladder wall thickening. The bilateral ureteral jets were identified. IMPRESSION: Normal renal ultrasound. Electronically signed by: Edi Chairez M.D. 08/18/2016 1:18 PM Dictated Date/Time: 08/18/2016 1:17 PM Laboratory Results 08/18/16 11:05 08/18/16 11:05 Test 08/18/16 11:00 08/18/16 11:05 Urine Color YELLOW Urine Appearance CLEAR (CLEAR) Urine pH 5.0 (4.5-7.5) Urine Specific [place] 1.007 (1.000-1.030) Urine Protein NEG (NEG) Urine Glucose (UA) NEG (NEG) Urine Ketones NEG (NEG) Urine Occult Blood NEG (NEG) Urine Nitrite NEG (NEG) Urine Bilirubin NEG (NEG) Urine Urobilinogen NEG (NEG) Urine Leukocyte Esterase NEG (NEG) Urine WBC (Auto) 0 /hpf (0-5) Urine RBC (Auto) 0-4 /hpf (0-4) Urine Hyaline Casts (Auto) 0 /lpf (0-5) Urine Epithelial Cells (Auto) 0-5 /lpf (0-5) Urine Bacteria (Auto) NEG (NEG) Red Blood Count 5.10 M/uL (4.7-6.1) Mean Corpuscular Volume 81.4 fL (80-100) Mean Corpuscular Hemoglobin 26.5 pg (25-34) Mean Corpuscular Hemoglobin Concent 32.5 g/dl (32-36) RDW Standard Deviation 53.3 fL (36.4-46.3) RDW Coefficient of Variation 17.8 % (11.5-14.5) Mean Platelet Volume 8.6 fL (7.4-10.4) Anion Gap 6.0 mmol/L (3-11) Est Creatinine Clear Calc Drug Dose 81.0 ml/min Estimated GFR () 77.9 Estimated GFR (Non- 67.2 BUN/Creatinine Ratio 9.3 (10-20) Calcium Level 9.2 mg/dl (8.5-10.1) Laboratory results as stated above per my review. Medications Administered Medications (Trade) Dose Ordered Sig/Lance Route Start Time Stop Time Status Last Admin Dose Admin Sodium Chloride (Nss 1000ml) 500 ml @ 999 mls/hr Q31M ONCE IV 08/18/16 11:00 08/18/16 11:30 DC 08/18/16 11:21 999 MLS/HR Hydromorphone HCl (Dilaudid Inj) 1 mg Q1HWA PRN IV 08/18/16 12:00 09/01/16 11:59 08/18/16 14:39 1 MG Ondansetron HCl 4 mg 4 mg PRN PRN IV 08/18/16 12:00 09/17/16 11:59 08/18/16 12:08 4 MG Sodium Chloride (Nss 1000ml) 1,000 ml @ 1,000 mls/hr Q1H ONCE IV 08/18/16 12:00 08/18/16 12:59 DC 08/18/16 12:09 1,000 MLS/HR ED Course 1100: Ordered NSS 500 ml @ 999 mls/hr IV. 1156: Past medical records reviewed. The patient was evaluated in room B11B. A complete history and physical examination was performed. 1200: Ordered NSS 1000 ml @ 1000 mls/hr IV, Zofran Inj 4mg PRN IV nausea, Dilaudid Inj 1 mg PRN IV pain. 1518: I reevaluated the patient and he is still in some pain. I discussed the exam findings with the patient and requested to be transferred to [place]. 1539: Discussed the patient's case with Dr. Duran from [place]. The patient will be evaluated for further management with a [place] hospitalist. 1609: I discussed the patient's future treatment plan with him and his . He will be going to [place] by private auto with his . Medical Decision Differential diagnoses include renal cholic, Crohn's disease, bowel obstruction , renal disease, pyelonephritis. Patient arrived with severe flank pain. He has had renal colic in the past in addition to multiple visits for Crohn's disease. The patient has also had multiple surgeries. Initial evaluation did not reveal a stone by ultrasound or by CAT scan. The patient received multiple doses of Dilaudid to control his pain. White count was not elevated. Urinalysis is unremarkable. I discussed at length with the patient, his and with his physicians at [facility]. The patient will require further care for his pain and evaluation for his Crohn's disease. I do not believe the patient's pain is coming from a kidney stone. The patient and have elected to be transported via private auto. I believe this is safe transport for the patient. IV was left in place. Consults Time Called: 1520 Consulting Physician: Dr. Polanco Mya Returned Call: 1535 Discussed the patient's case with Dr. Duran from [place]. The patient will be evaluated for further management with a [place] hospitalist Impression Primary Impression: Intractable abdominal pain Additional Impression: Crohns disease Scribe Attestation The scribe's documentation has been prepared under my direction and personally reviewed by me in its entirety. I confirm that the note above accurately reflects all work, treatment, procedures, and medical decision making performed by me. Departure Information Dispostion Transfer Acute Care Facility Referrals Audra Matos (PCP) Patient Instructions [facility] Additional Instructions Go directly to [facility] for a direct admission. Problem Qualifiers
--- NOTE | 2016-08-18 13:20 | DIAGNOSTIC IMAGING REPORT ---
RENAL ULTRASOUND HISTORY: right renal colic COMPARISON: Abdomen and pelvis CT 07/15/2016. FINDINGS: Right kidney: 11.7 cm. No hydronephrosis. Normal corticomedullary differentiation and cortical thickness. Left kidney: 11.2 cm. No hydronephrosis. Normal corticomedullary differentiation and cortical thickness. Bladder: No bladder wall thickening. The bilateral ureteral jets were identified. IMPRESSION: Normal renal ultrasound. Electronically signed by: Edi Chairez M.D. 08/18/2016 1:18 PM Dictated Date/Time: 08/18/2016 1:17 PM
--- NOTE | 2016-08-18 14:36 | DIAGNOSTIC IMAGING REPORT ---
ABDOMEN AND PELVIS CT WITHOUT CONTRAST CT DOSE: 690.20 mGy.cm HISTORY: Right flank tenderness. TECHNIQUE: Multiaxial CT images of the abdomen and pelvis were performed without the use of intravenous and oral contrast according to the standard department stone protocol. COMPARISON STUDY: Abdomen and pelvis CT 07/15/2016. FINDINGS: Suboptimal evaluation for bowel pathology due to the lack of intravenous and oral contrast. However, there is no evidence for bowel obstruction. There may be mild thickening of the colon most pronounced at the sigmoid colon. However, this could be due to underdistention. Right hemicolectomy with ileocolonic anastomosis is again noted. The bladder is unremarkable. Densities within the bilateral lower lobes posteriorly favor mild dependent change. No pneumoperitoneum. No pneumatosis no fractures within the visualized osseous structures. Bilateral sacroiliitis is again noted. Cholecystectomy. The unenhanced liver, spleen, adrenal glands, and pancreas are unremarkable. There is a punctate stone within the left kidney. No hydronephrosis. No ureteral or bladder calculi. No retroperitoneal lymphadenopathy. IMPRESSION: 1. There may be mild thickening of the colon suggestive of a low-grade colitis. This favors an inflammatory or infectious process. However, this could also be due to underdistention. Clinical correlation recommended. 2. Left-sided nephrolithiasis. No hydronephrosis. 3. Postoperative changes as described above. Electronically signed by: Edi Chairez M.D. 08/18/2016 2:34 PM Dictated Date/Time: 08/18/2016 2:28 PM
[2016-08-18 16:39] VITALS: BP 139/66; PULSE 66; O2SAT 98
== END 2016-08-18 16:40 | disposition short-term general hospital (02) ==
LOC: C.EDB 10:40
DX: K50.90 Crohn's disease, unspecified, without complications (principal); Z87.442 Personal history of urinary calculi; Z90.49 Acquired absence of other specified parts of digestive tract; E11.9 Type 2 diabetes mellitus without complications; E78.5 Hyperlipidemia, unspecified; I10 Essential (primary) hypertension; Z87.01 Personal history of pneumonia (recurrent); D84.9 Immunodeficiency, unspecified; E89.0 Postprocedural hypothyroidism; Z80.9 Family history of malignant neoplasm, unspecified; Z83.3 Family history of diabetes mellitus; Z82.49 Family history of ischemic heart disease and other diseases of the circulatory system; Z79.4 Long term (current) use of insulin; Z79.899 Other long term (current) drug therapy

== ENCOUNTER → 2016-09-16 | Outpatient (CLI) | payer OTHER, BC ==
[~2016-09-16] MED LIST changes: +CEFD300C3 PO; +ERGO500037 PO; -LDDP5 TD; +LEVO175T3 SL; +PANT40TA2 PO; +PRD10 PO
== END | disposition home or self-care (01) ==
LOC: C.MAMM 10:21
PROVIDERS: ATTEND Internal Medicine Rheumatology
DX: M45.9 Ankylosing spondylitis of unspecified sites in spine (principal); M12.9 Arthropathy, unspecified; E55.9 Vitamin D deficiency, unspecified; M54.6 Pain in thoracic spine; T38.0X1A Poisoning by glucocorticoids and synthetic analogues, accidental (unintentional), initial encounter; E61.8 Deficiency of other specified nutrient elements; M85.851 Other specified disorders of bone density and structure, right thigh; M85.852 Other specified disorders of bone density and structure, left thigh

== ENCOUNTER → 2016-10-25 | Outpatient (CLI) | payer OTHER, BC ==
[~2016-10-25] MED LIST changes: -PANT40TA2 PO; +PRT/40 PO
[2016-10-25 15:19] LABS: THYROID STIMULATING HORMONE 4.12 uIu/ml (0.300-4.500)
== END | disposition home or self-care (01) ==
LOC: C.LAB1850 12:53
PROVIDERS: ATTEND Internal Medicine Endocrinology, Diabetes & Metabolism
DX: E89.0 Postprocedural hypothyroidism (principal)

== ENCOUNTER 2016-12-24 12:33 | Emergency (ER) | payer OTHER, BC ==
[~2016-12-24] VITALS: Ht 175.3 cm; Wt 105.0 kg
[~2016-12-24 12:33] MED LIST changes: -CEFD300C3 PO; -ERGO500037 PO; -LEVO175T3 SL; -PRD10 PO
[2016-12-24 12:42] VITALS: TEMP 36.5; Ht 175.3 cm; Wt 105.0 kg
[2016-12-24] MEDS ORDERED: SODIUM CHLORIDE 0.9% 1000ML 1,000 ML IV STA ×2 (14:04→16:24)
[2016-12-24] MEDS ORDERED: HYDROmorphone INJ 0.5 MG/0.5 ML SYR IV STA (14:04)
[2016-12-24] MEDS ORDERED: ONDANSETRON INJ 2 MG/ML 2 ML VIAL IV STA (14:04)
[2016-12-24] MEDS ORDERED: LEVO175T3 SL (14:10)
[2016-12-24] MEDS ORDERED: ERGO500037 PO (14:10)
[2016-12-24] MEDS ORDERED: CEFD300C3 PO (14:11)
[2016-12-24 14:21] LABS: BASO % 0.2 %; BASO ABS # 0.02 K/uL (0-0.2); COMPLETE YES; EOS % 2.1 %; HEMATOCRIT 39.9 % (42-52); IG% 0.2 %; LYMPH % 15.8 %; LYMPH ABS # 1.44 K/uL (1.2-3.4); MEAN CELL VOLUME 80.1 fL (80-100); MEAN CORPUSCULAR HEMOGLOBIN 24.7 pg (25-34); MEAN CORPUSCULAR HGB CONC 30.8 g/dl (32-36); MEAN PLATELET VOLUME 8.8 fL (7.4-10.4); MONO % 6.6 %; NEUT % 75.1 %; PLATELET COUNT 340 K/uL (130-400); RED BLOOD COUNT 4.98 M/uL (4.7-6.1)
[2016-12-24 14:27] LABS: URINE APPEARANCE CLEAR (CLEAR); URINE COLOR DK YELLOW; URINE EPITHELIAL CELL AUTO 0-5 /lpf (0-5); URINE NITRITE NEG (NEG); UROBILINOGEN NEG (NEG); ZZUR CULT IF INDIC CLEAN CATCH NO
[2016-12-24 14:38] LABS: ALT/SGPT 61 U/L (12-78); AST/SGOT 70 U/L (15-37); BLOOD UREA NITROGEN 16 mg/dl (7-18); BUN/CREATININE RATIO 12.3 (10-20); CARBON DIOXIDE 24 mmol/L (21-32); CHLORIDE 103 mmol/L (98-107); GLUCOSE 185 mg/dl (70-99); POTASSIUM 3.6 mmol/L (3.5-5.1); SODIUM 136 mmol/L (136-145)
[2016-12-24 14:41] LABS: ALKALINE PHOSPHATASE 92 U/L (45-117); C-REACTIVE PROTEIN 0.35 mg/dl (0-0.29)
[2016-12-24 14:47] LABS: MANUAL MICROSCOPIC REQUIRED? NO; REVIEW REQ? NO; URINE BILIRUBIN NEG (NEG)
[2016-12-24] MEDS ORDERED: HYDROmorphone INJ 1 MG/ML SYR IV STA (16:25)
--- NOTE | 2016-12-24 17:04 | DIAGNOSTIC IMAGING REPORT ---
PA CHEST RADIOGRAPH AND UPRIGHT AND SUPINE AP RADIOGRAPHS OF THE ABDOMEN CLINICAL HISTORY: Abdominal pain. COMPARISON STUDY: Chest radiograph and abdominal series January 22, [address] of the abdomen and pelvis August 18, 2016. FINDINGS: A right internal jugular Gskzwn-d-Ebur is in place. Mild elevation of the right hemidiaphragm is unchanged. There is no evidence of pulmonary edema. No consolidation is identified. Cardiomediastinal silhouette is stable. There is no free air. There is a paucity of bowel gas. Interval placement of an electronic device is noted. IMPRESSION: 1. No free air. 2. Paucity of bowel gas, a nonspecific pattern; however, no convincing evidence for a bowel obstruction. 3. No acute cardiopulmonary findings. Electronically signed by: Heraclio Alcantara M.D. 12/24/2016 5:02 PM Dictated Date/Time: 12/24/2016 4:59 PM
[2016-12-24 17:49] VITALS: BP 136/80; PULSE 69; O2SAT 95
--- NOTE | 2016-12-24 20:59 | EMERGENCY ROOM VISIT NOTE ---
History Report prepared by Madi: Samantha Hua Under the Supervision of: Dr. Erasmo Hickman D.O. First contact with patient: 13:52 Chief Complaint: ABDOMINAL PAIN Stated Complaint: ABD PAIN, HX CROHNS Nursing Triage Summary: Pt states he has pain in LLQ that began 45 minutes ago. States he had ULQ pain last night but it went away. Pt had just eaten when he started to have pain attempted to give stool specimens to check for CDiff but that did not help the pain. Nerve stimulator placed 12/11 and . Hx Crohn's supposed to have an infusion in [place] today. History of Present Illness The patient is a 56 year old male who presents to the Emergency Room with complaints of persistent left sided abdominal pain starting 2 hours ago. The patient has a history of Crohn's disease. He has had 4 bowel resections in the past. The last was in 2013. He has been experiencing a flare over the past week. He has not seen his doctor for this as he was scheduled to have an infusion this week. He describes the pain today as sharp and stabbing. The pain today feels like his previous Crohn's flares, but worse. He was seen by his PCP today for diabetes check up. He had a stool sample taken for C diff testing. He was eating lunch after his appointment when the pain started. He reports nausea. He denies any dysuria, vomiting, or bloody stools. His last bowel movement was 10 minutes ago. He had slimy diarrhea which is normal for him. He had a DRG stem implant last week and ileostomy reversal. He is currently on Omnicef. He has had a cholecystectomy and appendectomy. Source of History: patient Onset: 2 hours ago Position: abdomen (left sided) Quality: sharp Timing: other (persistent) Associated Symptoms: + nausea, + diarrhea, No vomiting, No hematochezia, No urinary symptoms Review of Systems See HPI for pertinent positives & negatives. A total of 10 systems reviewed and were otherwise negative. Past Medical & Surgical Medical Problems: (1) Bronchitis (2) Calculus of kidney (3) Crohns disease (4) Diabetes mellitus (5) Hyperlipidemia (6) Hypertension (7) PNA (pneumonia) (8) Right lower quadrant abdominal pain (9) Unspecified immunity deficiency Surgical Problems: (1) H/O thyroidectomy (2) History of bowel resection (3) History of herniorrhaphy (4) Hx of appendectomy (5) S/P cholecystectomy Family History Cancer Diabetes mellitus Heart disease Hypertension Kidney disease Kidney stones Social History Smoking Status: Never Smoker Alcohol Use: none Drug Use: none Marital Status: Housing Status: lives with family Occupation Status: disabled Current/Historical Medications Scheduled Amlodipine (Norvasc), 10 MG PO DAILY Azathioprine (Imuran), 150 MG PO DAILY Cefdinir (Cefdinir), 300 MG PO BID Ergocalciferol (Vitamin D 01386 Unit), 50,000 UNIT PO WK Gabapentin (Gabapentin), 300 MG PO TID Insulin Human Regular (Humulin R), 6-10 UNITS SQ AC Insulin Isophan/Regular (Humulin 70/30), 40 UNITS SC QAM Insulin Isophan/Regular (Humulin 70/30), 20 UNITS SC QPM Levothyroxine Sodium (Levothyroxine Sodium), 1 TAB SL DAILY Losartan Potassium (Cozaar), 50 MG PO BID Metformin Hcl (Glucophage), 1,000 MG PO BID Pantoprazole (Pantoprazole Sodium), 40 MG PO DAILY Tamsulosin Hcl (Flomax), 0.4 MG PO DAILY Vedolizumab (Entyvio), 1 DOSE IV Q6WK Scheduled PRN Hydromorphone Hcl (Dilaudid), 4 MG PO QID PRN for Pain Ondansetron Hcl (Zofran), 4 MG PO Q8 PRN for Nausea Allergies Coded Allergies: Morphine (Unverified Allergy, Mild, GI SYMPTOMS, 12/24/16) throws up Physical Exam Vital Signs Date Time Temp Pulse Resp B/P (MAP) Pulse Ox O2 Delivery O2 Flow Rate FiO2 12/24/16 17:49 69 18 136/80 95 12/24/16 17:41 69 18 136/80 95 12/24/16 16:20 68 20 135/76 95 Room Air 12/24/16 14:24 78 18 136/74 95 Room Air 12/24/16 12:42 36.5 98 17 140/85 96 Room Air Physical Exam GENERAL: sitting up in bed, disheveled, no acute distress, nontoxic EYE EXAM: normal conjunctiva OROPHARYNX: no exudate, no erythema, lips, buccal mucosa, and tongue normal and mucous membranes are moist NECK: supple, no nuchal rigidity, no adenopathy, non-tender LUNGS: Clear to auscultation. Normal chest wall mechanics HEART: no murmurs, S1 normal and S2 normal ABDOMEN: abdomen soft, minimal tenderness to the left lower quadrant, normo- active bowel sounds, no masses, no rebound or guarding. BACK: Recent incision in the left lower back, clean dry and intact, 2 incision sites in the mid thoracic region clean dry and intact, no surrounding erythema or discharge. SKIN: no rashes and no bruising UPPER EXTREMITIES: upper extremities are grossly normal. LOWER EXTREMITIES: No pitting edema. NEURO EXAM: Normal sensorium, cranial nerves II-XII grossly intact, normal speech, no gross weakness of arms, no gross weakness of legs. Medical Decision & Procedures ER Provider Diagnostic Interpretation: Radiology results as stated below per my review and the radiologist's interpretation: PA CHEST RADIOGRAPH AND UPRIGHT AND SUPINE AP RADIOGRAPHS OF THE ABDOMEN CLINICAL HISTORY: Abdominal pain. COMPARISON STUDY: Chest radiograph and abdominal series January 22, [address] of the abdomen and pelvis August 18, 2016. FINDINGS: A right internal jugular Gebfku-k-Deap is in place. Mild elevation of the right hemidiaphragm is unchanged. There is no evidence of pulmonary edema. No consolidation is identified. Cardiomediastinal silhouette is stable. There is no free air. There is a paucity of bowel gas. Interval placement of an electronic device is noted. IMPRESSION: 1. No free air. 2. Paucity of bowel gas, a nonspecific pattern; however, no convincing evidence for a bowel obstruction. 3. No acute cardiopulmonary findings. Electronically signed by: Heraclio Alcantara M.D. 12/24/2016 5:02 PM Dictated Date/Time: 12/24/2016 4:59 PM Laboratory Results 12/24/16 14:05 Red Blood Count 4.98, Mean Corpuscular Volume 80.1, Mean Corpuscular Hemoglobin 24.7, Mean Corpuscular Hemoglobin Concent 30.8, Mean Platelet Volume 8.8, Neutrophils (%) (Auto) 75.1, Lymphocytes (%) (Auto) 15.8, Monocytes (%) (Auto) 6.6, Eosinophils (%) (Auto) 2.1, Basophils (%) (Auto) 0.2, Neutrophils # (Auto) 6.83, Lymphocytes # (Auto) 1.44, Monocytes # (Auto) 0.60, Eosinophils # (Auto) 0.19, Basophils # (Auto) 0.02 12/24/16 14:05 Test 12/24/16 14:00 12/24/16 14:05 Urine Color DK YELLOW Urine Appearance CLEAR (CLEAR) Urine pH 5.0 (4.5-7.5) Urine Specific Trade 1.030 (1.000-1.030) Urine Protein TRACE (NEG) Urine Glucose (UA) NEG (NEG) Urine Ketones TRACE (NEG) Urine Occult Blood NEG (NEG) Urine Nitrite NEG (NEG) Urine Bilirubin NEG (NEG) Urine Urobilinogen NEG (NEG) Urine Leukocyte Esterase NEG (NEG) Urine WBC (Auto) 1-5 /hpf (0-5) Urine RBC (Auto) 0-4 /hpf (0-4) Urine Hyaline Casts (Auto) 5-10 /lpf (0-5) Urine Epithelial Cells (Auto) 0-5 /lpf (0-5) Urine Bacteria (Auto) NEG (NEG) White Blood Count 9.10 K/uL (4.8-10.8) Red Blood Count 4.98 M/uL (4.7-6.1) Hemoglobin 12.3 g/dL (14.0-18.0) Hematocrit 39.9 % (42-52) Mean Corpuscular Volume 80.1 fL (80-100) Mean Corpuscular Hemoglobin 24.7 pg (25-34) Mean Corpuscular Hemoglobin Concent 30.8 g/dl (32-36) Platelet Count 340 K/uL (130-400) Mean Platelet Volume 8.8 fL (7.4-10.4) Neutrophils (%) (Auto) 75.1 % Lymphocytes (%) (Auto) 15.8 % Monocytes (%) (Auto) 6.6 % Eosinophils (%) (Auto) 2.1 % Basophils (%) (Auto) 0.2 % Neutrophils # (Auto) 6.83 K/uL (1.4-6.5) Lymphocytes # (Auto) 1.44 K/uL (1.2-3.4) Monocytes # (Auto) 0.60 K/uL (0.11-0.59) Eosinophils # (Auto) 0.19 K/uL (0-0.5) Basophils # (Auto) 0.02 K/uL (0-0.2) RDW Standard Deviation 41.1 fL (36.4-46.3) RDW Coefficient of Variation 14.2 % (11.5-14.5) Immature Granulocyte % (Auto) 0.2 % Immature Granulocyte # (Auto) 0.02 K/uL (0.00-0.02) Erythrocyte Sedimentation Rate 38 mm/hr (0-14) Anion Gap 9.0 mmol/L (3-11) Est Creatinine Clear Calc Drug Dose 75.8 ml/min Estimated GFR () 70.7 Estimated GFR (Non- 61.0 BUN/Creatinine Ratio 12.3 (10-20) Calcium Level 9.0 mg/dl (8.5-10.1) Total Bilirubin 0.6 mg/dl (0.2-1) Direct Bilirubin < 0.1 mg/dl (0-0.2) Aspartate Amino Transf (AST/SGOT) 70 U/L (15-37) Alanine Aminotransferase (ALT/SGPT) 61 U/L (12-78) Alkaline Phosphatase 92 U/L (45-117) C-Reactive Protein 0.35 mg/dl (0-0.29) Total Protein 8.2 gm/dl (6.4-8.2) Albumin 3.8 gm/dl (3.4-5.0) Lipase 164 U/L (73-393) Laboratory results per my review. Medications Administered Medications (Trade) Dose Ordered Sig/Lance Route Start Time Stop Time Status Last Admin Dose Admin Sodium Chloride 1,000 ml @ 999 mls/hr Q1H1M STAT IV 12/24/16 14:04 12/24/16 15:04 DC 12/24/16 14:57 999 MLS/HR Ondansetron HCl (Zofran Inj) 4 mg NOW STAT IV 12/24/16 14:04 12/24/16 14:06 DC 12/24/16 14:56 4 MG Hydromorphone HCl (Dilaudid Inj) 0.5 mg NOW STAT IV 12/24/16 14:04 12/24/16 14:06 DC 12/24/16 14:56 0.5 MG Sodium Chloride 1,000 ml @ 999 mls/hr Q1H1M STAT IV 12/24/16 16:24 12/24/16 17:24 DC 12/24/16 16:57 999 MLS/HR Hydromorphone HCl (Dilaudid Inj) 1 mg NOW STAT IV 12/24/16 16:25 12/24/16 16:26 DC 12/24/16 16:58 1 MG ED Course ED COURSE: Vital signs were reviewed and showed hypertension. The patients medical record was reviewed The above diagnostic studies were performed and reviewed. ED treatments and interventions as stated above. 1357: The patient was evaluated in room A10. A complete history and physical examination was performed. 1404: Dilaudid Inj 0.5 mg IV, Zofran Inj 4 mg IV, NSS 1000 ml @ 999 mls/hr IV. 1547: I reevaluated the patient. He is still having abdominal pain. 1622: I discussed the patient's case with Dr. Naranjo, [facility]. He recommends the patient finish his fluids and follow up as an outpatient. He does not think a CT or steroids is necessary at this time. 1624: NSS 1000 ml @ 999 mls/hr IV. 1625: Dilaudid Inj 1 mg IV. 1718: Upon reevaluation, the patient is resting comfortably.I discussed my findings with the patient and he understands and agrees with the treatment plan. Based on the patients age, coexisting illnesses, exam and lab findings the decision to treat as an outpatient was made. The patient remained stable while under my care. The patient appeared well at the time of discharge. Medical Decision Differential diagnoses includes but is not limited to gastritis, peptic ulcer disease, GERD, gallbladder disease, pancreatitis, small bowel obstruction, acute coronary syndrome, pericarditis, ischemic bowel, irritable bowel disease, irritable bowel syndrome, appendicitis, diverticulitis, malignancy, hernia, urinary tract infection, torsion, perforation, trauma, infectious. Patient is a 56-year-old male who presents the ER for left lower quadrant abdominal pain which is sharp and stabbing in nature. This has been present for the past week. He notes it feels like his previous bouts of Crohn's flares. 5 previous bowel resections. He saw GI today. CBC shows no sniffing a leukocytosis. Sedimentation rate is slightly elevated at 38. BMP along with LFTs, bilirubin and lipase is unremarkable. CRP was slightly elevated at 0.35 but not remarkable. UA was unremarkable. Obstruction series is unremarkable. I discussed the case with GI and they did not want to start him on a present at this time. They recommended holding on imaging at this time. I had a long discussion with the patient regards to this as he has had multiple CTs before in the past. I do favor this is likely his Crohn's. C. difficile was negative. No leukocytosis and unremarkable vitals. Patient was discharged to follow-up with PCP and GI tomorrow with a Crohn's exacerbation/left lower quadrant abdominal pain. Discussed with Pt concerning signs and symptoms to watch out for. Pt was instructed to follow up with their PCP and discussed with the patient their option to return to the ED at anytime for persistent or worsening symptoms. The appropriate anticipatory guidance and out-patient management, including indications for return to the emergency department, were explained at length to the patient and understood. Medication Reconcilliation Current Medication List: was personally reviewed by me Blood Pressure Screening Patient's blood pressure: Elevated blood pressure Blood pressure disposition: Elevated BP felt to be situational Consults Time Called: 1615 Consulting Physician: Dr. Naranjo, [facility] Returned Call: 1622 I discussed the patient's case with him. He recommends the patient finish his fluids and follow up as an outpatient. He does not think a CT or steroids is necessary at this time. Impression Primary Impression: Exacerbation of Crohn's disease Additional Impression: LLQ abdominal pain Scribe Attestation The scribe's documentation has been prepared under my direction and personally reviewed by me in its entirety. I confirm that the note above accurately reflects all work, treatment, procedures, and medical decision making performed by me. Departure Information Dispostion Home / Self-Care Referrals Audra Matos (PCP) Forms Call Back Authorization, HOME CARE DOCUMENTATION FORM, IMPORTANT VISIT INFORMATION Patient Instructions Abdominal Pain - [facility] Additional Instructions Please follow up with your primary care doctor with in the next 24 hours. Any worsening of your symptoms, please return to the ED immediately. This includes any fevers greater than 100.4, worsening pain, chest pain, shortness breath, persistent nausea, vomiting, unable to eat or drink, or any other concerning signs or symptoms from your standpoint. Please touch base with GI tomorrow. Problem Qualifiers Primary Impression: Exacerbation of Crohn's disease Digestive disease complication type: unspecified complication Qualified Codes : K50.919 - Crohn's disease, unspecified, with unspecified complications
== END 2016-12-24 17:50 | disposition home or self-care (01) ==
LOC: C.EDB 12:35 → C.EDA 17:50
DX: K50.919 Crohn's disease, unspecified, with unspecified complications (principal); R10.32 Left lower quadrant pain; E11.9 Type 2 diabetes mellitus without complications; I10 Essential (primary) hypertension; E89.0 Postprocedural hypothyroidism; Z87.442 Personal history of urinary calculi; Z87.01 Personal history of pneumonia (recurrent); Z90.49 Acquired absence of other specified parts of digestive tract; Z90.89 Acquired absence of other organs; Z98.890 Other specified postprocedural states; Z83.3 Family history of diabetes mellitus; Z82.49 Family history of ischemic heart disease and other diseases of the circulatory system; Z84.1 Family history of disorders of kidney and ureter; Z79.4 Long term (current) use of insulin; Z79.84 Long term (current) use of oral hypoglycemic drugs; Z79.899 Other long term (current) drug therapy

== ENCOUNTER → 2016-12-24 | Outpatient (CLI) | payer OTHER, BC | END | disposition home or self-care (01) | LOC: C.LABSPEC 12:50 | PROVIDERS: ATTEND Internal Medicine Gastroenterology | DX: K50.90 Crohn's disease, unspecified, without complications (principal) ==

== ENCOUNTER → 2016-12-26 | Outpatient (CLI) | payer OTHER, BC ==
[~2016-12-26] MED LIST changes: +CEFD300C3 PO; +ERGO500037 PO; -FRRS300 PO; +LEVO175T3 SL; +PRD10 PO; -SUCR1TAB PO; -SYN200 PO
--- NOTE | 2016-12-26 12:59 | DIAGNOSTIC IMAGING REPORT ---
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 COMPARISON STUDY: 08/13/2016 FINDINGS: There is a right-sided A-Port catheter present. There are surgical clips in the right upper quadrant. There are right paraspinal electrodes. No fractures or subluxations are visualized. The paraspinal line is not displaced. IMPRESSION: No fractures or subluxations are visualized. Electronically signed by: Bobby Hay M.D. 12/26/2016 12:57 PM Dictated Date/Time: 12/26/2016 12:56 PM
[2016-12-26 13:58] LABS: THYROID STIMULATING HORMONE 2.8 uIu/ml (0.300-4.500)
== END | disposition home or self-care (01) ==
LOC: C.RAD1850 12:19
PROVIDERS: ATTEND Internal Medicine Endocrinology, Diabetes & Metabolism
DX: E55.9 Vitamin D deficiency, unspecified (principal); E61.8 Deficiency of other specified nutrient elements; M12.9 Arthropathy, unspecified; M54.6 Pain in thoracic spine; T38.0X1A Poisoning by glucocorticoids and synthetic analogues, accidental (unintentional), initial encounter

== ENCOUNTER → 2017-01-01 | Outpatient (CLI) | payer OTHER, BC ==
--- NOTE | 2017-01-01 14:09 | DIAGNOSTIC IMAGING REPORT ---
LUMBAR SPINE 2 OR 3 VIEWS CLINICAL HISTORY: POLYNEUROPATHY pain. Neuropathy. COMPARISON STUDY: 12/26/2016 FINDINGS: Similar electrodes appear somewhat displaced compared to the prior study. Electrode located at the T11-T12 level. Be unchanged in position. The more superior loculated appears to been pulled back and is now within the tissues posterior to the vertebral column. Electrodes themselves appear to be intact. IMPRESSION: 1. Interval displacement of the T10-T11 electrode which has been pulled back to the posterior paraspinal soft tissues. 2. The electrode appears to located at T11-T12 remains in position The above report was generated using voice recognition software. It may contain grammatical, syntax or spelling errors. Electronically signed by: Willian Ceron M.D. 01/01/2017 2:08 PM Dictated Date/Time: 01/01/2017 2:02 PM
--- NOTE | 2017-01-01 14:18 | DIAGNOSTIC IMAGING REPORT ---
THORACIC SPINE 3 VIEWS HISTORY: POLYNEUROPATHY COMPARISON: None. FINDINGS: There is no fracture. No subluxation. Right jugular Port-A-Cath terminus in the SVC. The heart is borderline enlarged. Cholecystectomy. Minimal disc space narrowing within the mid thoracic spine. The spinal electrodes tips are only partially visualized. The right T11-T12 spinal electrodes terminates within the right paraspinal location and remains unchanged. The T10-11 spinal electrodes has been pulled back and now terminates along the left posterior paraspinal soft tissues at the level of the superior endplate of L1. IMPRESSION: 1. Interval displacement of the T10 and T11 spinal electrode as described above. 2. No change in position of the T11-T12 spinal electrode. Electronically signed by: Edi Chairez M.D. 01/01/2017 2:23 PM Dictated Date/Time: 01/01/2017 2:03 PM
== END | disposition home or self-care (01) ==
LOC: C.RAD1850 13:35
PROVIDERS: ATTEND Neurological Surgery
DX: G62.9 Polyneuropathy, unspecified (principal)

== ENCOUNTER → 2017-01-14 | Outpatient (CLI) | payer OTHER, BC ==
[~2017-01-14] MED LIST changes: +OPTIRAY 320 IV PRN
--- NOTE | 2017-01-14 16:03 | DIAGNOSTIC IMAGING REPORT ---
ABD/PELVIS IV AND ORAL CONT CLINICAL HISTORY: 56 years-old Male presenting with ENTEROGROPHY, Crohn's disease. TECHNIQUE: Multidetector CT of the abdomen and pelvis was performed after the administration of oral and intravenous contrast. IV contrast: 93 mL of Optiray 320. A dose lowering technique was used consistent with the principles of ALARA (as low as reasonably achievable). COMPARISON: 08/18/2016. CT DOSE (mGy.cm): The estimated cumulative dose is 1098.02 mGycm. FINDINGS: Drafter Electromechanical topogram: Spinal stimulator noted. Lung bases: Minimal dependent changes likely atelectasis. Normal heart size. Mild coronary artery calcification. No pericardial or pleural effusion. Liver: Hypoplasia of the left hepatic lobe. Hepatic steatosis. No focal lesion. Patent hepatic vasculature. Biliary: No intrahepatic or extrahepatic biliary ductal dilatation. Gallbladder surgically absent. Pancreas: Moderate parenchymal atrophy. Spleen: Normal. Adrenal glands: Normal. Kidneys and ureters: Normal. No hydronephrosis. Bladder: Normal. Pelvic organs: Prostate and seminal vesicles normal. Bowel: Oral contrast has reached the rectum. No evidence of colonic wall thickening. Postsurgical changes of right hemicolectomy with ileocolic anastomosis in the anterior right abdomen. Mild wall thickening of the terminal ileum along a short length of approximately 5 cm. No significant perienteric fat stranding, although prominence of the vasa recta is noted. Small bowel anastomosis is noted slightly upstream from the terminal ileum, which is patent. No bowel obstruction. More proximal small bowel is suboptimally distended with oral contrast, suggesting rapid transit. Peritoneal cavity: No free fluid or intraperitoneal gas. Vasculature: Aorta and IVC patent and normal in caliber. Lymph nodes: No enlarged lymph nodes in the abdomen or pelvis. Abdominal wall: Postsurgical changes of the right lower quadrant with an old ostomy site noted. A loop of small bowel is in direct apposition to this site and a enterocutaneous fistula cannot be excluded. Musculoskeletal: Spinal stimulator enters the spinal canal at T12-L1 and terminates along the right neural foramina at this level. A second lead is also noted in the paraspinal musculature on the left. IMPRESSION: 1. No evidence of colitis. 2. Postsurgical changes of right hemicolectomy and ileocolic anastomosis. 3. Suggestion of rapid transit through the bowel. 4. Short segment wall thickening of the terminal ileum. An acute inflammatory component cannot be excluded, although no perienteric inflammatory changes evident. Prominence of the vasa recta in this region is consistent with chronic inflammation. No evidence of fibrostenotic disease. 5. Old ostomy site in the right lower quadrant. A loop of small bowel is in direct apposition to this site and an enterocutaneous fistula cannot be excluded. Correlate clinically. No other evidence to suggest penetrating disease. 6. Hepatic steatosis. Electronically signed by: Tom Queen M.D. 01/14/2017 4:02 PM Dictated Date/Time: 01/14/2017 3:55 PM
== END | disposition home or self-care (01) ==
LOC: C.CTS 14:00
PROVIDERS: ATTEND Colon & Rectal Surgery
DX: K50.90 Crohn's disease, unspecified, without complications (principal); Z90.49 Acquired absence of other specified parts of digestive tract; K63.89 Other specified diseases of intestine; K76.0 Fatty (change of) liver, not elsewhere classified

== ENCOUNTER 2017-01-17 09:28 | Inpatient (IN) | payer OTHER, BC ==
[~2017-01-17] VITALS: Ht 175.3 cm; Wt 101.5 kg
[~2017-01-17 09:28] MED LIST changes: -OPTIRAY 320 IV PRN; -PRD10 PO
[2017-01-17 11:00] VITALS: BP 159/92; PULSE 79; TEMP 36.7; O2SAT 95
[2017-01-17] MEDS ORDERED: HYDROmorphone INJ 0.5 MG/0.5 ML SYR IV STA (11:53)
[2017-01-17] MEDS ORDERED: CONSULT PHARMACY STA (11:53)
[2017-01-17] MEDS ORDERED: DEXTROSE 10% 1,000 ML IV PRN ×2 (11:53→14:16)
[2017-01-17] MEDS ORDERED: TPN/PPN CONSULT PHARMACY PRN (12:00)
[2017-01-17] MEDS ORDERED: LORAZEPAM 2 MG/ML 1 ML VIAL IV PRN ×2 (12:00)
[2017-01-17] MEDS ORDERED: HYDROmorphone INJ 0.5 MG/0.5 ML SYR IV PRN (12:00)
[2017-01-17] MEDS ORDERED: ACETAMINOPHEN IV 650 MG in EMPTY BAG 0 ML IV PRN (12:00)
[2017-01-17] MEDS ORDERED: HYDROmorphone INJ 2 MG/ML SYR/VIAL ONE (12:12)
[2017-01-17 12:39] VITALS: BP 159/92; PULSE 79; TEMP 36.7; O2SAT 95; Ht 175.3 cm; Wt 101.5 kg
[2017-01-17 13:02] LABS: HEMATOCRIT 37.7 % (42-52); MEAN CELL VOLUME 77.3 fL (80-100); MEAN CORPUSCULAR HEMOGLOBIN 25.8 pg (25-34); MEAN CORPUSCULAR HGB CONC 33.4 g/dl (32-36); MEAN PLATELET VOLUME 8.8 fL (7.4-10.4); PLATELET COUNT 319 K/uL (130-400); RED BLOOD COUNT 4.88 M/uL (4.7-6.1)
[2017-01-17 13:26] LABS: BUN/CREATININE RATIO 10.7 (10-20); CALCIUM 9.5 mg/dl (8.5-10.1); CREATININE 1.2 mg/dl (0.60-1.40); MAGNESIUM 1.8 mg/dl (1.8-2.4); POTASSIUM 3.7 mmol/L (3.5-5.1)
[2017-01-17 13:27] LABS: ALB/GLOB RATIO 1.1 (0.9-2); PHOSPHORUS 3.4 mg/dl (2.5-4.9)
[2017-01-17 14:41] LABS: PARTIAL THROMBOPLASTIN RATIO 1.6; PROTHROMBIN TIME (PATIENT) 10.6 SECONDS (9.0-12.0)
[2017-01-17 15:49] VITALS: BP 141/83; PULSE 60; TEMP 36.5; O2SAT 96
[2017-01-17 16:00] VITALS: O2SAT 96
[2017-01-17] MEDS ORDERED: CUSTOM CENTRAL PN 1 BAG IV SCH (16:00)
[2017-01-17] MEDS: HYDROmorphone INJ 1 MG/ML SYR IV PRN ×2 (16:00→19:15)
--- NOTE | 2017-01-17 16:47 | History and Physical ---
History & Physical Date & Time of Service: Jan 17, 2017 at 16:40 Chief Complaint: Crohns Flare Primary Care Physician: Audra Matos History of Present Illness 56-year-old male suffering from Crohn's disease with multiple previous surgeries include with ileocolonic stenosis who presents with a Crohn's flare resistant outpatient treatment patient's previously been on Imuran and tibial multiple course of prednisone and is not had any good success. The patient has had an endoscopy 1 week prior to admission showing active colonic inflammation just to the small bowel side of his anastomosis. He has not responded to outpatient steroids and has had escalating doses of opiates. The patient also has an implanted pain stimulator to try to reduce abdominal pain this has had a lead malfunction which is added to the patient's discomfort Patient was seen in the office by Dr. Naranjo recommended for direct admission for bowel rest and TPN IV fluids IV steroids and attempts had consideration for another biological agent to suppress his Crohn's flare. Past Medical/Surgical History Medical Problems: (1) Bronchitis Status: Resolved (2) Calculus of kidney Status: Resolved (3) Crohns disease Status: Chronic (4) Diabetes mellitus Status: Chronic (5) Hyperlipidemia Status: Chronic (6) Hypertension Status: Chronic (7) PNA (pneumonia) Status: Resolved (8) Unspecified immunity deficiency Status: Resolved Surgical Problems: (1) H/O thyroidectomy Status: Resolved (2) History of bowel resection Status: Resolved (3) History of herniorrhaphy Status: Resolved (4) Hx of appendectomy Status: Resolved (5) S/P cholecystectomy Status: Resolved Family History Cancer Diabetes mellitus Heart disease Hypertension Kidney disease Kidney stones Social History Smoking Status: Never Smoker Drug Use: none Marital Status: Housing status: lives with family Occupational Status: disabled Allergies Coded Allergies: Morphine (Unverified Allergy, Mild, GI SYMPTOMS, 12/24/16) throws up Home Medications Scheduled Amlodipine (Norvasc), 10 MG PO DAILY Azathioprine (Imuran), 150 MG PO DAILY Cefdinir (Cefdinir), 300 MG PO BID Ergocalciferol (Vitamin D 15055 Unit), 50,000 UNIT PO WK Gabapentin (Gabapentin), 300 MG PO TID Insulin Human Regular (Humulin R), 6-10 UNITS SQ AC Insulin Isophan/Regular (Humulin 70/30), 40 UNITS SC QAM Insulin Isophan/Regular (Humulin 70/30), 20 UNITS SC QPM Levothyroxine Sodium (Levothyroxine Sodium), 1 TAB SL DAILY Losartan Potassium (Cozaar), 50 MG PO BID Metformin Hcl (Glucophage), 1,000 MG PO BID Pantoprazole (Pantoprazole Sodium), 40 MG PO DAILY Tamsulosin Hcl (Flomax), 0.4 MG PO DAILY Vedolizumab (Entyvio), 1 DOSE IV Q6WK Scheduled PRN Hydromorphone Hcl (Dilaudid), 4 MG PO QID PRN for Pain Ondansetron Hcl (Zofran), 4 MG PO Q8 PRN for Nausea Review of Systems ROS: well nourished well developed, the patient is in mild pain No double vision blurry vision No problems with speech or swallowing No palpitations, chest pain or pressure No Wheezing or breathing issues Central to right lower quadrant abdominal pain that is dull worsened with movement and exam the patient has had no nausea vomiting but has had diarrhea with small amounts of blood in it has had reduction in appetite but no changes in weight No burning urine urine frequency but darkening of urine color No focal joint pain or muscle pain No skin rashes or oral lesions No unusual bruising or bleeding No focused back pain or numbness or loss of strength No changes in memory or confusion Physical Exam Vital Signs Date Time Temp Pulse Resp B/P (MAP) Pulse Ox O2 Delivery O2 Flow Rate FiO2 01/17/17 15:49 36.5 60 18 141/83 (102) 96 Room Air 01/17/17 12:39 36.7 79 18 159/92 95 Room Air 01/17/17 11:00 36.7 79 18 159/92 (114) 95 Room Air General Appearance: WD/WN, + mild distress Head: normocephalic, atraumatic Eyes: PERRL, EOMI ENT: hearing grossly normal, pharynx normal Respiratory/Chest: chest non-tender, no respiratory distress Cardiovascular: regular rate, rhythm, no murmur Abdomen/GI: normal bowel sounds, soft, + tenderness, + guarding Back: no CVA tenderness, no muscle spasm, normal range of motion Extremities/Musculoskelatal: no pedal edema, normal range of motion Neurologic/Psych: alert, oriented x 3 Skin: normal color, warm/dry, no rash Diagnostics Laboratory Results Results Past 24 Hours Test 01/17/17 12:43 01/17/17 13:13 01/17/17 14:22 Range/Units White Blood Count 13.00 4.8-10.8 K/uL Red Blood Count 4.88 4.7-6.1 M/uL Hemoglobin 12.6 14.0-18.0 g/dL Hematocrit 37.7 42-52 % Mean Corpuscular Volume 77.3 80-100 fL Mean Corpuscular Hemoglobin 25.8 25-34 pg Mean Corpuscular Hemoglobin Concent 33.4 32-36 g/dl RDW Standard Deviation 42.0 36.4-46.3 fL RDW Coefficient of Variation 14.8 11.5-14.5 % Platelet Count 319 130-400 K/uL Mean Platelet Volume 8.8 7.4-10.4 fL Sodium Level 139 136-145 mmol/L Potassium Level 3.7 3.5-5.1 mmol/L Chloride Level 103 98-107 mmol/L Carbon Dioxide Level 29 21-32 mmol/L Anion Gap 7.0 3-11 mmol/L Blood Urea Nitrogen 13 7-18 mg/dl Creatinine 1.20 0.60-1.40 mg/dl Est Creatinine Clear Calc Drug Dose 80.6 ml/min Estimated GFR () 77.9 Estimated GFR (Non- 67.2 BUN/Creatinine Ratio 10.7 10-20 Random Glucose 128 70-99 mg/dl Calcium Level 9.5 8.5-10.1 mg/dl Phosphorus Level 3.4 2.5-4.9 mg/dl Magnesium Level 1.8 1.8-2.4 mg/dl Total Bilirubin 0.5 0.2-1 mg/dl Aspartate Amino Transf (AST/SGOT) 34 15-37 U/L Alanine Aminotransferase (ALT/SGPT) 48 12-78 U/L Alkaline Phosphatase 91 45-117 U/L Total Protein 7.9 6.4-8.2 gm/dl Albumin 4.1 3.4-5.0 gm/dl Globulin 3.8 2.5-4.0 gm/dl Albumin/Globulin Ratio 1.1 0.9-2 Bedside Glucose 114 70-99 mg/dl Prothrombin Time 10.6 9.0-12.0 SECONDS Prothromb Time International Ratio 1.0 0.9-1.1 Activated Partial Thromboplast Time 40.5 21.0-31.0 SECONDS Partial Thromboplastin Ratio 1.6 Microbiology Results 01/17/17 C.difficile Toxin B Gene (PCR), Ordered Pending 01/17/17 Shiga Toxin Test, Ordered Pending 01/17/17 Stool Culture, Ordered Pending Impression Assessment and Plan 56-year-old male with flare of Crohn's disease refractory to outpatient treatment The patient will have bowel rest, TPN as directed by GI medicine steroids at 30 mg slight Medrol IV every 6 Pain control be parenteral Dilaudid therapy as the patient is excluding doses of orals without improvement For diabetic care the patient will have a basal rate of Lantus applied and have insulin added to his TPN his home 70/30 regimen will be held For the patient's hypertension his medications will be continued with a small sip this includes losartan and amlodipine Likewise for hypothyroidism he appears clinically euthyroid since will be maintained orally DVT prevention is Lovenox Advanced Directives Existing Living Will: Yes Existing Power of Manager Gift: Yes VTE Prophylaxis VTE Risk Assessment Done? Y/N: Yes Risk Level: Moderate
[2017-01-17] MEDS ORDERED: GLUCOSE 40% GEL 15 GM TUBE PO PRN (17:00)
[2017-01-17] MEDS ORDERED: GLUCOSE 10 TABS/TUBE PO PRN (17:00)
[2017-01-17] MEDS ORDERED: GLUCAGON FOR INJ 1 MG VIAL SQ PRN (17:00)
[2017-01-17] MEDS ORDERED: DEXTROSE 50% 50 ML SYR IV PRN (17:00)
[2017-01-17] MEDS ORDERED: NURSING VERBAL MED ORDER ONE ×2 (19:00→19:45)
[2017-01-17] MEDS ORDERED: HYDROmorphone INJ 1 MG/ML SYR IV PRN (19:45)
[2017-01-17] MEDS ORDERED: CEFDINIR 300 MG CAP PO SCH (20:00)
[2017-01-17] MEDS: GABAPENTIN 300 MG CAP PO SCH (20:00)
--- NOTE | 2017-01-17 20:34 | GASTROINTESTINAL CONSULTATION ---
DATE OF CONSULTATION: 01/17/2017 CHIEF COMPLAINT: Exacerbation of Crohn's disease, malnutrition, diarrhea, abdominal pain. HISTORY OF PRESENT ILLNESS: Mr. Alcantara is a 56-year-old white male known to [facility] with Dr. Naranjo for Crohn's disease that involved several surgeries and a multitude attempts of medical therapy to control symptoms. Over the past week or so, the patient had experienced increase in stool volume and frequency which is usually 4-6 stools daily and is now upwards of 10-15 daily. He did report having an outpatient C. diff study which was negative, although this is currently repeated this evening. The patient underwent CT imaging which suggested inflammation in the TI and a colonoscopy by Dr. Naranjo on Friday of this week which suggested some inflammatory features and for which biopsies were pending. In the past, the patient has had ileocolonic stenosis and has required the use of prednisone and steroids for flares, use of Imuran, several biologic agents, all of which have been ineffective from a long-term perspective. He is currently on vedolizumab, but continues to have reported inflammatory features on recent colonoscopy this week. There are plans to consider Stelara, however, this will require preauthorization. In addition, because of the patient's abdominal pain, increase in stool frequency, a 12-pound weight loss over the past week and inability to tolerate p.o., the patient was admitted for IV fluid and nutrition support, pain control and assessment of Crohn's activity. PAST MEDICAL HISTORY: Significant for a renal calculi, Crohn's disease, diabetes, hyperlipidemia, hypertension, pneumonia, prior history of multiple bowel resections, appendectomy, cholecystectomy and hernia repair. FAMILY: Significant for cancer, diabetes, heart disease and renal calculi. SOCIAL HISTORY: The patient is . Lives with his family. Never smoked, does not use alcoholic beverages. ALLERGIES: HE IS ALLERGIC TO MORPHINE WHICH PRODUCES GI UPSET. HOME MEDICATIONS: In addition to vedolizumab include, Flomax, pantoprazole, Cozaar, levothyroxine, insulin, gabapentin, ergocalciferol, azathioprine, amlodipine. REVIEW OF SYSTEMS: Otherwise noncontributory based on 13-point exam, except for mentioned above. Although he has had nausea, he does not report any significant vomiting or clear or obvious features of obstruction. The stool that he passes is almost always nonbloody, although he may have had a dark, small clot passed later this week sometime after his colonoscopy. He denies currently any dysuria or hematuria. Did not have fevers, but felt chills at home. PHYSICAL EXAMINATION: VITAL SIGNS: On admission today, blood pressure is 159/92, heart rate 79, respirations 18, temperature 36.7, 95% on room air. HEENT: Reveal anicteric sclerae. Oral mucosa moist. NECK: Normal range of motion. There is no cervical or supraclavicular adenopathy. I do not appreciate thyromegaly HEART: Normal S1, S2. LUNGS: Clear to auscultation. ABDOMEN: Soft, mildly tender in the right lower to mid abdomen adjacent to the umbilicus. This is a chronic site of pain for the patient. There are multiple well-healed incisions throughout the abdomen. RECTAL: Deferred at this time. EXTREMITIES: Show normal range of motion. There is no localizing neurologic defects. Extremities are without clubbing, cyanosis or edema. ADMISSION LABORATORY STUDIES: Today show white count of 13, hemoglobin 12.6, MCV is low at 77 and platelets 319,000. His BUN and creatinine 13 and 1.2, random glucose 128, phosphorus 3.4, magnesium 1.8, total bilirubin 0.5, AST 34, ALT 48, alk phos 91, total protein 7.9. INR 1. STUDIES: Stool studies are pending at this time including C. diff. IMPRESSION: Mr. Alcantara has a long-standing history of Crohn's disease of multiple surgeries and has attempted multiple agents including several biologics, all of which have not provided a long-term durable response. He is currently on vedolizumab. Authorization is being sought for possible use of Stelara however, at the present time nutrition support with TPN, stool assessment with stool studies, analgesia, I believe are prudent. In addition management with IV steroids, which included prednisone prior to admission, started last week at 50 mg daily. Use of Solu-Medrol 30 mg every 12 hours is reasonable. The patient can have ice -chips and sips of water, but would not at the present time advance his diet in case there is any evidence of developing obstruction based on his pain and stool output and recent imaging. The patient should ambulate in halls as tolerated. We will continue to follow with you. Would continue Imuran at present dose as no evidence for leucopenia or LFT abnormalities. All questions are answered. Thank you for allowing me to participate in this patient's care. MTDD
[2017-01-17] MEDS: LOSARTAN POTASSIUM 50 MG TAB PO SCH (20:49)
[2017-01-17] MEDS: METHYLPREDNISOLONE IV 30 MG in SYRINGE 0 ML IV SCH (20:54)
[2017-01-17] MEDS: ENOXAPARIN 40 MG/0.4 ML SYR SQ SCH (20:56)
[2017-01-17] MEDS ORDERED: INSULIN GLARGINE SOLOSTAR 100 UNITS/ML 3 ML PEN SC SCH (21:00)
[2017-01-17] MEDS: HYDROmorphone INJ 2 MG/ML SYR/VIAL IV PRN (23:11)
[2017-01-18] VITALS (7 sets, daily range): BP systolic 127–152; BP diastolic 69–89; PULSE 70–88; TEMP 36.3–36.8; O2SAT 90–96
[2017-01-18] MEDS: HYDROmorphone INJ 2 MG/ML SYR/VIAL IV PRN ×3 (03:42→11:02)
[2017-01-18] MEDS: LEVOTHYROXINE 175 MCG TAB PO SCH (06:08)
[2017-01-18 07:10] LABS: BLOOD UREA NITROGEN 16 mg/dl (7-18); BUN/CREATININE RATIO 13.2 (10-20); C-REACTIVE PROTEIN < 0.29 mg/dl (0-0.29); CALCIUM 9.1 mg/dl (8.5-10.1); CARBON DIOXIDE 30 mmol/L (21-32); CHLORIDE 97 mmol/L (98-107); GLUCOSE 174 mg/dl (70-99); MAGNESIUM 1.9 mg/dl (1.8-2.4); PHOSPHORUS 4.1 mg/dl (2.5-4.9); SODIUM 134 mmol/L (136-145); TRIGLYCERIDES 193 mg/dl (0-150)
[2017-01-18 07:18] LABS: POTASSIUM 4.4 mmol/L (3.5-5.1)
[2017-01-18] MEDS: PANTOprazole SOD 40 MG TAB PO SCH (08:05)
[2017-01-18] MEDS: METHYLPREDNISOLONE IV 30 MG in SYRINGE 0 ML IV SCH ×2 (08:05→21:06)
[2017-01-18] MEDS: TAMSULOSIN HCL 0.4 MG CAP PO SCH (08:05)
[2017-01-18] MEDS: AMLODIPINE BESYLATE 5 MG TAB PO SCH (08:06)
[2017-01-18] MEDS: AZATHIOPRINE 50 MG TAB PO SCH (08:06)
[2017-01-18] MEDS: GABAPENTIN 300 MG CAP PO SCH ×3 (08:06→21:06)
[2017-01-18] MEDS: LOSARTAN POTASSIUM 50 MG TAB PO SCH ×2 (08:06→21:06)
[2017-01-18] MEDS ORDERED: NALOXONE HCL 0.4 MG/1 ML VIAL/CARP IV PRN (12:00)
[2017-01-18] MEDS: SODIUM CHLORIDE 0.9% 1000ML 1,000 ML IV SCH (12:28)
[2017-01-18] MEDS: HYDROmorphone HCL 0.5MG/ML 50 ML CASSETTE IV PRN ×2 (12:57→23:26)
--- NOTE | 2017-01-18 14:28 | GASTROENTEROLOGY PROGRESS NOTE ---
DATE: 01/18/2017 DATE: 01/18/2017 SUBJECTIVE: The chart reviewed. The patient examined. Overall, the patient is doing about the same. He is sitting in the chair and continues to experience mid abdominal pain, mostly on the right side, although some of it has migrated slightly towards the umbilicus compared to his chronic source. He did have a bowel movements which are loose, but not bloody. There has been no vomiting but mild nausea was reported this morning. He declined any nausea medications. He is using pain medicines to control some of his pain. He remains n.p.o., is on IV steroids and Imuran. VITAL SIGNS: Today, he is 36.4, blood pressure 152/85, 94% on room air, respirations 20, heart rate 75. LABORATORY STUDIES: There are no laboratory studies from today. CURRENT MEDICATIONS: Include TPN, hydromorphone, Norvasc, Protonix, Flomax, Imuran, Synthroid, DVT, Lovenox, methylprednisolone 30 mg q. 12. The patient also on losartan. REVIEW OF SYSTEMS: Otherwise noncontributory based on 13-point exam. PHYSICAL EXAMINATION: GENERAL: The patient is awake, alert and oriented x3. HEAD, EYES, EARS, NOSE, AND THROAT: Sclerae are anicteric, conjunctivae moist. Oral mucosa moist. HEART: Normal S1, S2. LUNGS: Clear to auscultation. ABDOMEN: Soft, tender in the region of the umbilicus have mostly towards the right of it, although some central discomfort is noted today with this. There is no focal tenderness or rebound noted. The bowel sounds are active. EXTREMITIES: Without clubbing, cyanosis or edema. Sclerae are anicteric. Conjunctivae moist. RECTAL EXAMINATION: Deferred. IMPRESSION: The patient with evidence of an exacerbation of Crohn disease with diarrhea, abdominal pain and failure to respond to [facility]izumab. [facility] is in progress, but cannot be administered inpatient until this is approved for outpatient use for the patient. Would continue current therapies with pain control, IV fluids, n.p.o. status except for ice chips and TPN. Review of the CT scan from 01/14/2017 and compared with the study of 08/18/2016 the oral contrast reached the rectum without evidence of colonic wall thickening. There are post-surgical changes of right hemicolectomy and ileocolic anastomosis in the anterior right abdomen. Mild wall thickening of the TI of a short length of approximately 5 cm. There is no significant fat stranding. There is small bowel anastomosis upstream from the terminal ileal which is patent, no bowel obstruction. There are no abnormal lymph nodes. There was no evidence of colitis. There was evidence of short segment of wall thickening in the TI below the small bowel anastomosis but above the ileocolic anastomosis. Fatty liver also noted. Will await authorization of [place]. In the meantime, continue current management. The patient encouraged to ambulate. All questions answered.
--- NOTE | 2017-01-18 15:55 | Progress Note ---
Subjective Date of Service: Jan 18, 2017. 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 compliance project manager Problem List Medical Problems: (1) Abdominal wall hernia Status: Acute (2) Intractable abdominal pain Status: Acute (3) Urinary tract infection Status: Acute Review of Systems Constitutional: No fever, No chills, No weakness Respiratory: No cough, No sputum, No wheezing, No shortness of breath Abdomen: + pain, + diarrhea, No nausea, No vomiting Objective Vital Signs Date Time Temp Pulse Resp B/P (MAP) Pulse Ox O2 Delivery O2 Flow Rate FiO2 01/18/17 12:50 36.3 70 18 127/75 (92) 91 Room Air 01/18/17 08:00 36.4 75 20 152/85 (107) 94 Room Air 01/18/17 08:00 94 Room Air 01/18/17 00:29 36.8 75 20 130/69 (89) 94 Room Air 01/18/17 00:00 96 Room Air 01/17/17 16:00 96 Room Air Physical Exam General Appearance: WD/WN, + moderate distress Respiratory/Chest: chest non-tender, lungs clear, normal breath sounds Cardiovascular: regular rate, rhythm, no murmur Abdomen: normal bowel sounds, soft, + guarding, + tenderness Extremities: no pedal edema, no calf tenderness Neurologic/Psychiatric: alert, oriented x 3 Laboratory Results Last 24 Hours Test 01/17/17 18:56 01/18/17 00:38 01/18/17 06:07 01/18/17 06:14 Bedside Glucose 92 mg/dl 158 mg/dl 178 mg/dl Sodium Level 134 mmol/L Potassium Level 4.4 mmol/L Chloride Level 97 mmol/L Carbon Dioxide Level 30 mmol/L Anion Gap 7.0 mmol/L Blood Urea Nitrogen 16 mg/dl Creatinine 1.20 mg/dl Est Creatinine Clear Calc Drug Dose 80.6 ml/min Estimated GFR () 77.9 Estimated GFR (Non- 67.2 BUN/Creatinine Ratio 13.2 Random Glucose 174 mg/dl Calcium Level 9.1 mg/dl Phosphorus Level 4.1 mg/dl Magnesium Level 1.9 mg/dl C-Reactive Protein < 0.29 mg/dl Albumin 3.8 gm/dl Triglycerides Level 193 mg/dl Test 9/23/17 11:58 Bedside Glucose 190 mg/dl Assessment and Plan 56-year-old male with flare of Crohn's disease refractory to outpatient treatment The patient will have bowel rest, TPN as directed by GI medicine steroids at 30 mg slight Medrol IV every 6 Pain control we will start on CLIENT RELATIONS SPECIALIST given peripheral IV placed continue parenteral Dilaudid therapy For diabetic care the patient will have a basal rate of Lantus increased slighlty and have insulin added to his TPN his home 70/30 regimen will be held, glycemic management consult performed For the patient's hypertension his medications will be continued with a small sip this includes losartan and amlodipine Likewise for hypothyroidism he appears clinically euthyroid since will be maintained orally DVT prevention is Lovenox
[2017-01-18] MEDS ORDERED: CUSTOM CENTRAL PN 1 BAG IV SCH (16:00)
[2017-01-18] MEDS: ENOXAPARIN 40 MG/0.4 ML SYR SQ SCH (21:00)
[2017-01-18] MEDS: INSULIN GLARGINE SOLOSTAR 100 UNITS/ML 3 ML PEN SC SCH (21:11)
[2017-01-19] VITALS (7 sets, daily range): BP systolic 119–152; BP diastolic 67–82; PULSE 57–77; TEMP 36.4–36.6; O2SAT 90–95
[2017-01-19] MEDS: ONDANSETRON INJ 2 MG/ML 2 ML VIAL IV PRN ×2 (00:45→06:11)
[2017-01-19] MEDS: LEVOTHYROXINE 175 MCG TAB PO SCH (06:14)
[2017-01-19] MEDS: METHYLPREDNISOLONE IV 30 MG in SYRINGE 0 ML IV SCH ×2 (07:44→20:14)
[2017-01-19] MEDS: PANTOprazole SOD 40 MG TAB PO SCH (07:45)
[2017-01-19] MEDS: AMLODIPINE BESYLATE 5 MG TAB PO SCH (07:45)
[2017-01-19] MEDS: LOSARTAN POTASSIUM 50 MG TAB PO SCH ×2 (07:45→20:14)
[2017-01-19] MEDS: AZATHIOPRINE 50 MG TAB PO SCH (07:46)
[2017-01-19] MEDS: GABAPENTIN 300 MG CAP PO SCH ×3 (07:46→20:00)
[2017-01-19] MEDS: TAMSULOSIN HCL 0.4 MG CAP PO SCH (07:46)
[2017-01-19 08:57] LABS: BUN/CREATININE RATIO 19.3 (10-20); CALCIUM 8.8 mg/dl (8.5-10.1); CREATININE 1.1 mg/dl (0.60-1.40); MAGNESIUM 2.2 mg/dl (1.8-2.4); POTASSIUM 4.4 mmol/L (3.5-5.1)
[2017-01-19 08:58] LABS: PHOSPHORUS 3.6 mg/dl (2.5-4.9)
[2017-01-19] MEDS: SODIUM CHLORIDE 0.9% 1000ML 1,000 ML IV SCH (13:31)
--- NOTE | 2017-01-19 13:47 | GASTROENTEROLOGY PROGRESS NOTE ---
DATE: 01/19/2017 The patient is resting comfortably in bed and has better pain control today and has not had any loose stools today. The patient had some brief nausea overnight but it was controlled with Zofran. There is no prolonged vomiting or hematemesis. The patient is currently on TPN, IV Solu-Medrol at 30 mg q. 12 and additional medications including insulin, Dilaudid, Narcan p.r.n. for oversedation, amlodipine, pantoprazole, Flomax, Imuran 150 mg daily, levothyroxine 175 mcg daily, Lovenox is DVT prophylaxis. The patient is ambulating. PHYSICAL EXAMINATION: VITAL SIGNS: Today, the patient is afebrile at 36.6, blood pressure 152/82, heart rate 59, respirations 16, 94% on room air. GENERAL: The patient is awake, alert and oriented x3, resting comfortably in bed. HEENT: Sclerae are anicteric. Conjunctivae moist. Oral mucosa moist. HEART: Normal S1, S2. LUNGS: Clear to auscultation. ABDOMEN: With minimal abdominal pain which is decreased since yesterday's exam. There is no distention, evidence of ascites or shifting dullness and there are positive bowel sounds. EXTREMITIES: Without clubbing, cyanosis or edema. RECTAL: Deferred. LABORATORY STUDIES: There are no laboratory studies pending for today by way of CBC. His blood work today showed a sodium that is slightly low at 132, potassium 4.4. BUN 21, creatinine 1.1. Glucose 192, triglycerides are 164. IMPRESSION: The patient with a history of Crohn disease with complex and multiple surgical resections, who has been poorly controlled with several different biologic agents including current vedolizumab. Plans for Stelara are made; however, this requires authorization and hopefully this can be resolved by Friday or sometime early this week. Inpatient pharmacy cannot administer until outpatient authorization is obtained. Would continue on methylprednisolone IV, Imuran, n.p.o. status except for ice chips currently and TPN. If at some point there will be delay, then can consider outpatient TPN with conversion to oral prednisone, continue the Imuran and slowly advance diet as tolerated, although the majority of nutrition will need to be supplied by TPN. All questions answered. [facility]
--- NOTE | 2017-01-19 14:26 | Progress Note ---
Subjective Date of Service: Jan 19, 2017. Subjective pt is about the same pain controlled with crotch piece baster, no bowel production for last day or so Problem List Medical Problems: (1) Abdominal wall hernia Status: Acute (2) Intractable abdominal pain Status: Acute (3) Urinary tract infection Status: Acute Review of Systems Constitutional: No fever, No chills Respiratory: No shortness of breath Cardiac: No chest pain, No edema Abdomen: + pain, No nausea, No vomiting, No diarrhea, No constipation Psychiatric: No depression symptoms, No anhedonism Objective Vital Signs Date Time Temp Pulse Resp B/P (MAP) Pulse Ox O2 Delivery O2 Flow Rate FiO2 01/19/17 11:18 36.6 59 16 152/82 (105) 94 Room Air 01/19/17 07:56 95 Room Air 01/19/17 07:15 36.5 58 18 130/67 (88) 95 Room Air 01/19/17 05:00 Room Air 01/19/17 04:52 36.5 77 20 119/75 (90) 90 Room Air 01/18/17 23:11 36.4 82 20 135/89 (104) 91 Room Air 01/18/17 19:28 36.6 88 19 131/76 (94) 90 Room Air 01/18/17 16:20 36.4 70 20 136/80 (98) 92 Room Air 01/18/17 16:00 Room Air Physical Exam General Appearance: WD/WN, + mild distress Eyes: PERRL, EOMI Respiratory/Chest: chest non-tender, lungs clear, normal breath sounds Cardiovascular: regular rate, rhythm, no murmur Abdomen: normal bowel sounds, soft, + guarding, + tenderness Extremities: no pedal edema, no calf tenderness Neurologic/Psychiatric: alert, oriented x 3 Laboratory Results Last 24 Hours Test 01/18/17 17:50 01/19/17 00:06 01/19/17 05:58 01/19/17 07:52 Bedside Glucose 187 mg/dl 206 mg/dl 197 mg/dl Sodium Level 132 mmol/L Potassium Level 4.4 mmol/L Chloride Level 97 mmol/L Carbon Dioxide Level 29 mmol/L Anion Gap 6.0 mmol/L Blood Urea Nitrogen 21 mg/dl Creatinine 1.10 mg/dl Est Creatinine Clear Calc Drug Dose 87.9 ml/min Estimated GFR () 86.5 Estimated GFR (Non- 74.6 BUN/Creatinine Ratio 19.3 Random Glucose 192 mg/dl Calcium Level 8.8 mg/dl Phosphorus Level 3.6 mg/dl Magnesium Level 2.2 mg/dl Triglycerides Level 164 mg/dl Test 01/19/17 11:42 Bedside Glucose 219 mg/dl Assessment and Plan 56-year-old male with flare of Crohn's disease refractory to outpatient treatment Continue bowel rest, TPN as directed by GI medicine steroids at 30 mg slight Medrol IV every 6 Pain control improved on GAGGERMAN given peripheral IV placed continue parenteral Dilaudid therapy For diabetic reasonable control with basal rate of Lantus increased 01/18 and have insulin added to his TPN his home 70/30 is held, glycemic management consult performed hypertension losartan and amlodipine po with small sip hypothyroidism he appears clinically euthyroid oral synthroid DVT prevention is Lovenox
[2017-01-19] MEDS ORDERED: CUSTOM CENTRAL PN 1 BAG IV SCH (16:00)
[2017-01-19] MEDS: HYDROmorphone HCL 0.5MG/ML 50 ML CASSETTE IV PRN (16:05)
[2017-01-19] MEDS: ENOXAPARIN 40 MG/0.4 ML SYR SQ SCH (20:13)
[2017-01-19] MEDS: INSULIN GLARGINE SOLOSTAR 100 UNITS/ML 3 ML PEN SC SCH (20:30)
[2017-01-20] VITALS (8 sets, daily range): BP systolic 118–139; BP diastolic 66–76; PULSE 61–73; TEMP 36.5–36.7; O2SAT 91–95
[2017-01-20] MEDS: LEVOTHYROXINE 175 MCG TAB PO SCH (06:15)
[2017-01-20 07:33] LABS: HEMATOCRIT 36.4 % (42-52); MEAN CELL VOLUME 78.8 fL (80-100); MEAN PLATELET VOLUME 8.9 fL (7.4-10.4); PLATELET COUNT 318 K/uL (130-400); RED BLOOD COUNT 4.62 M/uL (4.7-6.1); WHITE BLOOD COUNT 14.34 K/uL (4.8-10.8)
[2017-01-20] MEDS: GABAPENTIN 300 MG CAP PO SCH (08:00)
[2017-01-20] MEDS: LOSARTAN POTASSIUM 50 MG TAB PO SCH ×2 (08:06→21:16)
[2017-01-20] MEDS: TAMSULOSIN HCL 0.4 MG CAP PO SCH (08:06)
[2017-01-20] MEDS: METHYLPREDNISOLONE IV 30 MG in SYRINGE 0 ML IV SCH ×2 (08:06→21:15)
[2017-01-20] MEDS: AMLODIPINE BESYLATE 5 MG TAB PO SCH (08:06)
[2017-01-20] MEDS: AZATHIOPRINE 50 MG TAB PO SCH (08:07)
[2017-01-20] MEDS: PANTOprazole SOD 40 MG TAB PO SCH (08:07)
[2017-01-20 08:11] LABS: BUN/CREATININE RATIO 20.2 (10-20); CALCIUM 8.9 mg/dl (8.5-10.1); CREATININE 1.2 mg/dl (0.60-1.40); MAGNESIUM 2.1 mg/dl (1.8-2.4); POTASSIUM 4.5 mmol/L (3.5-5.1)
[2017-01-20 08:17] LABS: PHOSPHORUS 2.8 mg/dl (2.5-4.9)
[2017-01-20] MEDS: SODIUM CHLORIDE 0.9% 1000ML 1,000 ML IV SCH (12:45)
[2017-01-20] MEDS: INSULIN ASPART 100 UNITS/ML 3 ML PEN SC SCH ×2 (12:53→18:40)
[2017-01-20] MEDS ORDERED: CUSTOM CENTRAL PN 1 BAG IV SCH (16:00)
--- NOTE | 2017-01-20 17:35 | Medical Student: [facility] ---
Med Student History & Physical Date & Time of Service: Jan 20, 2017 at 17:33 Chief Complaint: Crohns Flare Primary Care Physician: Audra Matos History of Present Illness Source: patient, clinic records, hospital records Pt is a 56 year old male with a 11 year hx of Chron's disease that has been previously treated with multiple small bowel resections. Last week he underwent a colonoscopy that indicated ulcerations on the small bowel side the the anastomosis. he was then started on IV steroids however he continued to be symptomatic with mutiple loose stools and significant abdominal pain not controlled with PO narcotics. He was admitted by [facility] for Bowel Rest and pain control with the goal of starting him on Stelara. Pt notes that he has not had a BM in 48 hours and that his pain is improving. He currently rates his pain at a 2/10, but notes it can get as high as a 5/10 on the HOSTAGE NEGOTIATOR in the morning when he does not push his button while sleeping overnight. He did have some emesis overnight two nights ago but the nausea has been well controlled on Zofran. Pt notes that bowel rest and TPN has been helpful in the past. Past Medical/Surgical History Medical Problems: (1) Abdominal wall hernia Status: Acute (2) Intractable abdominal pain Status: Acute (3) Urinary tract infection Status: Acute Surgical Problems: (1) History of herniorrhaphy Status: Resolved Social History Smoking Status: Never Smoker Drug Use: none Marital Status: Housing status: lives with family Occupational Status: disabled Allergies Coded Allergies: Morphine (Unverified Allergy, Mild, GI SYMPTOMS, 12/24/16) throws up Medications Amlodipine (Norvasc), 10 MG PO DAILY Azathioprine (Imuran), 150 MG PO DAILY Cefdinir (Cefdinir), 300 MG PO BID Ergocalciferol (Vitamin D 72072 Unit), 50,000 UNIT PO WK Gabapentin (Gabapentin), 300 MG PO TID Hydromorphone Hcl (Dilaudid), 4 MG PO QID PRN for Pain Insulin Human Regular (Humulin R), 6-10 UNITS SQ AC Insulin Isophan/Regular (Humulin 70/30), 40 UNITS SC QAM Insulin Isophan/Regular (Humulin 70/30), 20 UNITS SC QPM Levothyroxine Sodium (Levothyroxine Sodium), 1 TAB SL DAILY Losartan Potassium (Cozaar), 50 MG PO BID Metformin Hcl (Glucophage), 1,000 MG PO BID Ondansetron Hcl (Zofran), 4 MG PO Q8 PRN for Nausea Pantoprazole (Pantoprazole Sodium), 40 MG PO DAILY Tamsulosin Hcl (Flomax), 0.4 MG PO DAILY Vedolizumab (Entyvio), 1 DOSE IV Q6WK Review of Systems Constitutional: No fever, No chills, No sweats Respiratory: No cough, No wheezing, No shortness of breath Cardiovascular: No chest pain, No orthopnea, No palpitations Abdomen: + pain (2-5/10 in lower abdomen), No nausea, No diarrhea, No constipation Musculoskeletal: No joint pain Genitourinary - Male: No dysuria Integumentary: No rash Physical Exam Vital Signs (24 Hours) Date Time Temp Pulse Resp B/P (MAP) Pulse Ox O2 Delivery O2 Flow Rate FiO2 01/20/17 16:20 93 Room Air 01/20/17 15:08 36.6 67 16 139/72 (94) 93 Room Air 01/20/17 11:26 36.6 64 16 123/76 (92) 93 Room Air 01/20/17 08:00 95 Room Air 01/20/17 07:41 36.6 72 16 121/67 (85) 91 Room Air 01/20/17 04:57 36.5 73 19 118/66 (83) 92 Room Air 01/20/17 00:00 95 Room Air 01/19/17 22:37 36.6 57 20 135/79 (97) 93 Room Air 01/19/17 19:15 36.6 69 18 135/77 (96) 92 Room Air General Appearance: WD/WN, no apparent distress (resting comfortably. ) Head: normocephalic, atraumatic Eyes: normal inspection ENT: normal ENT inspection Neck: supple, no adenopathy, no JVD Respiratory/Chest: lungs clear, normal breath sounds, no respiratory distress Cardiovascular: regular rate, rhythm, no edema, no murmur Abdomen/GI: soft, no organomegaly, + tenderness (lower abdomen bilaterally) Extremities/Musculoskelatal: no pedal edema, normal range of motion Neurologic/Psych: normal mood/affect, oriented x 3 Skin: normal color, warm/dry, no rash Diagnostics Laboratory Results Results Past 24 Hours Test 01/19/17 17:52 01/20/17 00:59 01/20/17 06:13 01/20/17 07:23 Range/Units Bedside Glucose 196 158 190 70-99 mg/dl White Blood Count 14.34 4.8-10.8 K/uL Red Blood Count 4.62 4.7-6.1 M/uL Hemoglobin 12.0 14.0-18.0 g/dL Hematocrit 36.4 42-52 % Mean Corpuscular Volume 78.8 80-100 fL Mean Corpuscular Hemoglobin 26.0 25-34 pg Mean Corpuscular Hemoglobin Concent 33.0 32-36 g/dl RDW Standard Deviation 41.0 36.4-46.3 fL RDW Coefficient of Variation 14.4 11.5-14.5 % Platelet Count 318 130-400 K/uL Mean Platelet Volume 8.9 7.4-10.4 fL Nucleated RBC Absolute Count (auto) 0.03 0-0 K/uL Nucleated Red Blood Cells % 0.2 % Sodium Level 134 136-145 mmol/L Potassium Level 4.5 3.5-5.1 mmol/L Chloride Level 98 98-107 mmol/L Carbon Dioxide Level 27 21-32 mmol/L Anion Gap 9.0 3-11 mmol/L Blood Urea Nitrogen 24 7-18 mg/dl Creatinine 1.20 0.60-1.40 mg/dl Est Creatinine Clear Calc Drug Dose 81.4 ml/min Estimated GFR () 77.9 Estimated GFR (Non- 67.2 BUN/Creatinine Ratio 20.2 10-20 Random Glucose 192 70-99 mg/dl Calcium Level 8.9 8.5-10.1 mg/dl Phosphorus Level 2.8 2.5-4.9 mg/dl Magnesium Level 2.1 1.8-2.4 mg/dl Test 01/20/17 11:38 Range/Units Bedside Glucose 195 70-99 mg/dl Impression Assessment and Plan Pt is a 56 year old male with hx of Chron's disease status post multiple small bowel resections who presents with a Chron's flare unresponsive to outpt steroids and narcotics. Plan: Neuro * Dilaudid HOSTAGE NEGOTIATOR * Concentration 0.5mg/mL * continuous dose of 0.20 mg/hr, demand dose of 0.4 mg/hr. * interval time 20 mins. * D/C gabapentin. Pt no longer taking. Cardiovascular * HTN * continue home dose of PO Losartan 50 mg BID and Amlodipine 10 mg qd. Pulmonology * no concerns at this time. GI * Chron's Flare - Bowel Rest * Sips and chips only. * TPN as per GI. * IV Methylprednisolone 30 mg BID. * Imuran 150 mg qd. * [facility] * Continue weekly dose of Vitamin D 50k units. * Continue home dose of Pantoprazole 40 mg q day. Renal * BPH * Continue Tamulosin 0.4mg daily. Endocrine * DMT2 * SSI * Hypothyroidism * Change to home dose of Levothyroxine 200 mcg per day. Infectious Disease * No concerns at this time. * Continue to monitor for s/s of infxn. Hematology * No concerns at this time. Advanced Directives Existing Living Will: Yes Existing Power of Cementer Hand: Yes Resuscitation Status FULL RESUSCITATION DVT Prophylaxis enoxaparin (Lovenox) SQ
--- NOTE | 2017-01-20 19:24 | PROGRESS NOTE ---
DATE: 01/20/2017 SUBJECTIVE: The patient states that he has not had any bowel movements in 2 days because he has been n.p.o., he is tolerating TPN well. His pain is being controlled with IV Dilaudid. His vital signs are normal. He is afebrile. LABORATORY: Shows blood sugars are ranging from 92-190. Triglycerides are 193, albumin is 3.8, C-reactive protein is normal at 0.29. CBC shows a white count of 14.34, hemoglobin 12, MCV 78.8. IMPRESSION: The patient has anastomotic recurrence of his Crohn's disease on Entyvio. He is improving on IV steroids, bowel rest and TPN. Today his Stelara infusion was improved, but it will have to be given as an outpatient. Plan now is to continue IV steroids and may be transition him to oral steroids in the next few days and advance his diet starting tomorrow with clear liquids and taper him off TPN. If he does okay with these maneuvers then we can discharge him and get his Stelara started as an outpatient in place of the Entyvio. Dr. Brooks will be covering tomorrow.
[2017-01-20] MEDS: HYDROmorphone HCL 0.5MG/ML 50 ML CASSETTE IV PRN ×3 (19:30→23:04)
[2017-01-20] MEDS: ENOXAPARIN 40 MG/0.4 ML SYR SQ SCH (21:17)
[2017-01-20] MEDS: INSULIN GLARGINE SOLOSTAR 100 UNITS/ML 3 ML PEN SC SCH (21:18)
[2017-01-21] VITALS (7 sets, daily range): BP systolic 113–159; BP diastolic 56–79; PULSE 60–83; TEMP 36.4–36.8; O2SAT 91–96
[2017-01-21] MEDS: INSULIN ASPART 100 UNITS/ML 3 ML PEN SC SCH ×5 (06:05→20:59)
[2017-01-21] MEDS: LEVOTHYROXINE 200 MCG TAB PO SCH (06:05)
[2017-01-21] MEDS: HYDROmorphone HCL 0.5MG/ML 50 ML CASSETTE IV PRN ×3 (07:13→23:17)
[2017-01-21] MEDS: LOSARTAN POTASSIUM 50 MG TAB PO SCH ×2 (07:30→20:47)
[2017-01-21] MEDS: AZATHIOPRINE 50 MG TAB PO SCH (07:31)
[2017-01-21] MEDS: PANTOprazole SOD 40 MG TAB PO SCH (07:31)
[2017-01-21] MEDS: TAMSULOSIN HCL 0.4 MG CAP PO SCH (07:31)
[2017-01-21] MEDS: METHYLPREDNISOLONE IV 30 MG in SYRINGE 0 ML IV SCH ×2 (07:31→20:46)
[2017-01-21] MEDS: AMLODIPINE BESYLATE 5 MG TAB PO SCH (07:31)
--- NOTE | 2017-01-21 07:43 | Progress Note ---
Subjective Date of Service: Jan 20, 2017. Subjective Pt evaluation today including: conversation w/ patient, physical exam, chart review, lab review, review of studies Pain: controlled w/ dilaudid SHIRT MAKER PO Intake: npo Voiding: no voiding problems overall feels better abd pain improved review of SHIRT MAKER dilaudid - over 4 hour period received dilaudid about 6-7 times no vomiting no diarrhea no blood per rectum glycemic control adequate Problem List Medical Problems: (1) Abdominal wall hernia Status: Acute (2) Intractable abdominal pain Status: Acute (3) Urinary tract infection Status: Acute Review of Systems Constitutional: No fever Respiratory: No shortness of breath Cardiac: No chest pain Objective Vital Signs Date Time Temp Pulse Resp B/P (MAP) Pulse Ox O2 Delivery O2 Flow Rate FiO2 01/20/17 16:20 93 Room Air 01/20/17 15:08 36.6 67 16 139/72 (94) 93 Room Air 01/20/17 11:26 36.6 64 16 123/76 (92) 93 Room Air 01/20/17 08:00 95 Room Air 01/20/17 07:41 36.6 72 16 121/67 (85) 91 Room Air 01/20/17 04:57 36.5 73 19 118/66 (83) 92 Room Air 01/20/17 00:00 95 Room Air 01/19/17 22:37 36.6 57 20 135/79 (97) 93 Room Air Physical Exam General Appearance: no apparent distress ENT: pharynx normal, + pertinent finding (no oral ulcers) Neck: no JVD Respiratory/Chest: lungs clear, no respiratory distress, no accessory muscle use Cardiovascular: regular rate, rhythm, no gallop, no murmur Abdomen: normal bowel sounds, non tender, soft, no organomegaly Extremities: no pedal edema Neurologic/Psychiatric: alert, oriented x 3 Laboratory Results Last 24 Hours Test 01/20/17 00:59 01/20/17 06:13 01/20/17 07:23 01/20/17 11:38 Bedside Glucose 158 mg/dl 190 mg/dl 195 mg/dl White Blood Count 14.34 K/uL Red Blood Count 4.62 M/uL Hemoglobin 12.0 g/dL Hematocrit 36.4 % Mean Corpuscular Volume 78.8 fL Mean Corpuscular Hemoglobin 26.0 pg Mean Corpuscular Hemoglobin Concent 33.0 g/dl RDW Standard Deviation 41.0 fL RDW Coefficient of Variation 14.4 % Platelet Count 318 K/uL Mean Platelet Volume 8.9 fL Nucleated RBC Absolute Count (auto) 0.03 K/uL Nucleated Red Blood Cells % 0.2 % Sodium Level 134 mmol/L Potassium Level 4.5 mmol/L Chloride Level 98 mmol/L Carbon Dioxide Level 27 mmol/L Anion Gap 9.0 mmol/L Blood Urea Nitrogen 24 mg/dl Creatinine 1.20 mg/dl Est Creatinine Clear Calc Drug Dose 81.4 ml/min Estimated GFR () 77.9 Estimated GFR (Non- 67.2 BUN/Creatinine Ratio 20.2 Random Glucose 192 mg/dl Calcium Level 8.9 mg/dl Phosphorus Level 2.8 mg/dl Magnesium Level 2.1 mg/dl Test 01/20/17 18:33 Bedside Glucose 183 mg/dl Assessment and Plan 56yo male: 1. severe Crohn's disease with exacerbation - defer management to GI. Remains on IV steroids, TPN, bowel rest. CMP, mag, phos in AM. 2. hypothyroidism - continue synthroid; will check outpatient records to see when last TSH was performed. 3. mild microcytic anemia - presumed iron def due to Crohn's. Check outpatient records to see when last iron panel was. 4. T2DM - remains on IV insulin per pharmacy recommendations with adequate control. 5. DVT proph - encouraged to use lovenox daily. In fact, had a post-op DVT years ago and thus his risk of DVT is higher during this stay. Again encouraged use of lovenox. Ambulation is not enough. 6. mild hyponatremia - recheck BMP in am. Appears volume repleted at this time. 7. HTN - controlled with outpatient meds. 8. pain control - remains on SHIRT MAKER dilaudid. Control is satisfactory. Consider stopping basal dilaudid tomorrow AM if he is stable, then ultimately demand dosing. 9. FEN - NPO, TPN, bowel rest. Lytes are acceptable today. Repeat all labs in AM. Continued [facility] stay due to: inadequate po fluid intake, inadequate oral pain control, multiple IV medications needed
[2017-01-21 09:00] LABS: BUN/CREATININE RATIO 21.7 (10-20); CALCIUM 8.7 mg/dl (8.5-10.1); CREATININE 1.1 mg/dl (0.60-1.40)
[2017-01-21] MEDS: ONDANSETRON INJ 2 MG/ML 2 ML VIAL IV PRN (10:39)
[2017-01-21] MEDS ORDERED: PHARMACY GLYCEMIC MGMT CONSULT PRN (11:00)
[2017-01-21] MEDS: SODIUM CHLORIDE 0.9% 1000ML 1,000 ML IV SCH (11:02)
--- NOTE | 2017-01-21 12:29 | Pharmacy Progress Note ---
Glycemic Control Intl Consult Date of Service Jan 21, 2017. Scope Glycemic Pharmacist consulted by Dr Casey on 01/21/17 for glycemic control and to write orders per [facility] inpatient glycemic control protocol Objective Weight (Kilograms): 102.100 Accuchecks BSG (last 24hrs): Test 01/20/17 18:33 01/21/17 06:00 01/21/17 07:52 01/21/17 11:37 Bedside Glucose 183 mg/dl (70-99) 216 mg/dl (70-99) 237 mg/dl (70-99) Random Glucose 181 mg/dl (70-99) Laboratory Data (last 24hrs) Test 01/21/17 07:52 Anion Gap 8.0 mmol/L BUN/Creatinine Ratio 21.7 Blood Urea Nitrogen 24 mg/dl Creatinine 1.10 mg/dl Potassium Level 4.0 mmol/L Sodium Level 134 mmol/L Recent Pertinent Medications Outpatient Anti-diabetic Regimen: * Humulin 70/30 - 40 units AM, 20 units PM; Regular insulin 6-10 units AC; Metformin 1g PO BID * A1c = 7 % 01/11/15 - ordered updated A1c with AM labs The patient is currently receiving: * Basal insulin: Lantus 24 units every 24 hours * Correctional Insulin: Novolog Correction per scale ACHS Goal Range: Low 110 mg/dL - High 140 mg/dL Correction Factor: 25 mg/dL/unit * Prandial insulin: 100units of Regular insulin in TPN containing 225 grams dextrose Risk Factors for Insulin Resistance: * Steroids: IV Solu-medrol 30mg BID * Diet: TPN, cutting in half today starting with 1600 bag, pt started on clears , had 100% of breakfast Assessment & Plan ASSESSMENT: * 56 yo type 2 diabetic admitted for Crohn's flare, placed on TPN, today is day 5 of TPN. Pt has insulin in TPN bag in addition to Lantus and Novolog correction. Pt also on IV steroids, causing hyperglycemia. * Pt started on diet today, needs carb ratio to cover carbs in PO diet * TPN cut in half today starting at 1600, pt still requiring about 11 units of insulin/day correction, BSGs above goal range, needs more insulin per dextrose in TPN bag and tighter CF * Unknown diabetes control as outpatient, most recent A1c was at goal but is 2 years old. Ordered new A1c with AM labs * ADA & AACE recommend a goal blood sugar range 140-180 mg/dl for the majority of critically ill & non-critically ill patients. However, more stringent targets may be selected in individual cases. Will continue 110-140mg/dl for pt' s age/comorbidities. PLAN FOR INPATIENT GLYCEMIC CONTROL: * Holding outpatient oral diabetes medications * CHANGE Basal insulin with LANTUS SQ HS * 24 units for BSG < 110 mg/dl * 34 units for BSG 110mg/dl or greater * Correctional Insulin with NOVOLOG per scale ACHS or Q6hrs while NPO * Goal Range: Low 110 mg/dL - High 140 mg/dL * TIGHTEN: Correction Factor: 18 mg/dL/unit * TIGHTEN: Nutritional / Prandial insulin per carb ratio of 1 unit per 6 grams CHO consumed * Please note that the plan above was derived based on current level of insulin resistance and hospital stress. These recommendations are appropriate for inpatient admission only. Plan of care upon discharge will need to be reassessed to avoid potential outpatient hypo/hyperglycemia. Thank you.
--- NOTE | 2017-01-21 13:31 | Medical Student: [facility] ---
Med Student Progress Note Date of Service Jan 21, 2017. Subjective Pt evaluation today including: conversation w/ patient, physical exam, chart review, lab review, review of studies, review of inpatient medication list Pain: 2/10 PO Intake: advancing to clear liquids. Patient is a 56 yo male with a hx of Chrons disease and T2DM who presented for the inpt management of an acute Chron's flare. He continues without a BM for 72 hours now. His pain remains well controlled on the dilaudid STAFF CERTIFIED NURSE MIDWIFE. Per GI will begin clear liquids today. Does state that when previously returning to diet following bowel rest, experienced significant nausea. Per GI note, Stelara was approved as outpt therapy. Nutritional labs reviewed with patient today. Review of Systems Constitutional: No fever, No chills, No sweats ENT: No nasal symptoms, No trouble swallowing Respiratory: No cough Cardiac: No chest pain, No orthopnea, No palpitations Abdomen: + pain (2/10 in lower abdomen), + nausea (following clear liquid diet) , No vomiting Musculoskeletal: No joint pain, No muscle pain Male : No dysuria, No urinary frequency Skin: No rash Objective Vital Signs Date Time Temp Pulse Resp B/P (MAP) Pulse Ox O2 Delivery O2 Flow Rate FiO2 01/21/17 12:04 36.5 69 20 143/72 (95) 91 01/21/17 08:00 96 Room Air 01/21/17 07:43 36.4 60 18 159/79 (105) 96 Room Air 01/21/17 03:51 36.8 60 16 129/74 (92) 96 Room Air 01/21/17 00:00 36.7 63 16 121/65 (83) 95 Room Air 01/21/17 00:00 Room Air 01/20/17 20:14 36.7 61 16 127/75 (92) 93 Room Air 01/20/17 16:20 93 Room Air 01/20/17 15:08 36.6 67 16 139/72 (94) 93 Room Air Physical Exam General Appearance: WD/WN, no apparent distress ENT: hearing grossly normal Neck: supple, no adenopathy Respiratory/Chest: lungs clear, normal breath sounds, no accessory muscle use Cardiovascular: regular rate, rhythm, no murmur Abdomen: soft, no organomegaly, + tenderness (lower quadrants) Extremities: normal inspection, no pedal edema Neurologic/Psychiatric: alert, normal mood/affect, oriented x 3 Skin: normal color, warm/dry, no rash Laboratory Results Last 24 Hours Test 01/20/17 18:33 01/21/17 06:00 01/21/17 07:52 01/21/17 11:37 Bedside Glucose 183 mg/dl 216 mg/dl 237 mg/dl Sodium Level 134 mmol/L Potassium Level 4.0 mmol/L Chloride Level 98 mmol/L Carbon Dioxide Level 28 mmol/L Anion Gap 8.0 mmol/L Blood Urea Nitrogen 24 mg/dl Creatinine 1.10 mg/dl Est Creatinine Clear Calc Drug Dose 88.3 ml/min Estimated GFR () 86.5 Estimated GFR (Non- 74.6 BUN/Creatinine Ratio 21.7 Random Glucose 181 mg/dl Calcium Level 8.7 mg/dl Phosphorus Level 3.0 mg/dl Magnesium Level 2.0 mg/dl Total Bilirubin 0.8 mg/dl Aspartate Amino Transf (AST/SGOT) 25 U/L Alanine Aminotransferase (ALT/SGPT) 35 U/L Alkaline Phosphatase 75 U/L Total Protein 7.3 gm/dl Albumin 3.7 gm/dl Globulin 3.6 gm/dl Albumin/Globulin Ratio 1.0 Assessment and Plan Assessment and Plan: Pt is a 56 year old male with hx of Chron's disease status post multiple small bowel resections who presents with a Chron's flare unresponsive to outpt steroids and narcotics. Plan: Neuro * Dilaudid STAFF CERTIFIED NURSE MIDWIFE * Concentration 0.5mg/mL * demand dose of 0.4 mg/hr. * no longer receiving a basal dose. * interval time 20 mins. Cardiovascular * HTN * continue home dose of PO Losartan 50 mg BID and Amlodipine 10 mg qd. Pulmonology * no concerns at this time. GI * Chron's Flare - Bowel Rest * Diet advanced to full liquids per GI. Pt experienced some nausea with the advancement, Zofran helped. * TPN as per GI. * IV Methylprednisolone 30 mg BID. * Imuran 150 mg qd. * Stelara was approved to begin as outpt therapy. * Continue weekly dose of Vitamin D 50k units. * Continue home dose of Pantoprazole 40 mg q day. Renal * BPH * Continue Tamulosin 0.4mg daily. Endocrine * DMT2 * SSI * Hypothyroidism * Change to home dose of Levothyroxine 200 mcg per day. Infectious Disease * No concerns at this time. * Continue to monitor for s/s of infxn. Hematology * Per My[facility] records --> Ferratin 6.9, Iron 33 on 09/16/16. Albumin 4.8 and Pre- albumin 26 on 01/14/17. * Per [facility] [place] records --> Vit D 29.4 and TSH 2.8 on 12/26/2016. Will continue weekly Vit D 50K units when resumes PO. * Vitamin B12 and Folate levels WNL * Severe Iron deficiency anemia - Will begin Venofer 300 mg dose. Can repeat in two days. Dispo:Med/Surg Full Resuscitation DVT PPx: Lovenox Continued [facility] stay due to: inadequate po fluid intake, inadequate oral pain control, multiple IV medications needed
[2017-01-21] MEDS: PROMETHAZINE HCL INJ 12.5 MG in SODIUM CHLORIDE 0.9% 50ML 50 ML IV PRN (13:36)
[2017-01-21] MEDS ORDERED: CUSTOM CENTRAL PN 1 BAG IV SCH (16:00)
--- NOTE | 2017-01-21 16:58 | GASTROENTEROLOGY PROGRESS NOTE ---
DATE: 01/21/2017 SUBJECTIVE: The patient had some nausea today with clear liquids. His current diet is clear liquids. His pain is in good control and he has not had any bowel movements. He continues on TPN and IV Solu-Medrol. He does receive Zofran for his nausea. Additional medications include insulin, levothyroxine, hydromorphone, Norvasc, pantoprazole, Flomax, Imuran 150 daily, losartan, Zofran 4 mg every 6 hours and promethazine. LABORATORY STUDIES: Today showed potassium 4.0 and sodium 134. BUN and creatinine of 24 and 1.1. Blood sugars are 181-237. The patient is ambulating in the hallway at times. REVIEW OF SYSTEMS: Otherwise noncontributory. PHYSICAL EXAMINATION: VITAL SIGNS: Today blood pressure currently 113/56, heart rate 83, respirations 18, temperature 36.5 and he has been afebrile, and room air sat 95%. GENERAL: The patient is awake, alert and oriented x3. HEENT: Sclerae are anicteric. Conjunctivae moist. HEART: Normal S1 and S2. LUNGS: Clear to auscultation. ABDOMEN: Soft. Minimally tender in the right abdomen without rebound or guarding. EXTREMITIES: Without clubbing, cyanosis or edema. RECTAL: Deferred. IMPRESSION AND PLAN: The patient's Stelara has been approved for medication for his Crohn's disease. This will need to be started as an outpatient. In the interim, would slowly advance diet to full liquids and see if tolerated. Can consider increasing the Zofran to 8 mg every 8 hours. Also, IV Solu-Medrol can be changed to p.o. prednisone equivalent. Hopefully, TPN can be stopped if tolerating p.o. and can be discharged with intentions for Stelara administration as an outpatient. All questions answered. DUNCAND
[2017-01-21] MEDS: ENOXAPARIN 40 MG/0.4 ML SYR SQ SCH (20:47)
[2017-01-21] MEDS ORDERED: INSULIN GLARGINE SOLOSTAR 100 UNITS/ML 3 ML PEN SC SCH (21:00)
[2017-01-22] VITALS (9 sets, daily range): BP systolic 119–138; BP diastolic 69–81; PULSE 58–62; TEMP 36.4–36.9; O2SAT 92–98
[2017-01-22] MEDS: HYDROmorphone HCL 0.5MG/ML 50 ML CASSETTE IV PRN ×2 (00:14→07:10)
--- NOTE | 2017-01-22 05:29 | Progress Note ---
Subjective Date of Service: Jan 21, 2017. Subjective Pt evaluation today including: conversation w/ patient, conversation w/ family ( at bedside), physical exam, chart review, lab review, conversation w/ business continuity consultant (GI), review of inpatient medication list Pain: abdomen - controlled w PHARMACY GRAD INTERN dilaudid PO Intake: started clears this AM - nausea developed during the meal Voiding: no voiding problems no bowel movement in several days despite the nausea he has had no vomiting he recalls having received IV iron in the past at [facility] and tolerated this no new complaints Problem List Medical Problems: (1) Abdominal wall hernia Status: Acute (2) Intractable abdominal pain Status: Acute (3) Urinary tract infection Status: Acute Review of Systems Constitutional: No fever, No chills Respiratory: No shortness of breath Cardiac: No chest pain, No edema Abdomen: + pain, + nausea Objective Vital Signs Date Time Temp Pulse Resp B/P (MAP) Pulse Ox O2 Delivery O2 Flow Rate FiO2 01/21/17 16:35 36.5 83 18 113/56 (75) 95 Room Air 01/21/17 16:00 91 Room Air 01/21/17 12:04 36.5 69 20 143/72 (95) 91 01/21/17 08:00 96 Room Air 01/21/17 07:43 36.4 60 18 159/79 (105) 96 Room Air 01/21/17 03:51 36.8 60 16 129/74 (92) 96 Room Air 01/21/17 00:00 36.7 63 16 121/65 (83) 95 Room Air 01/21/17 00:00 Room Air Physical Exam General Appearance: no apparent distress ENT: pharynx normal Neck: no JVD Respiratory/Chest: lungs clear, no respiratory distress, no accessory muscle use Cardiovascular: regular rate, rhythm, no gallop, no murmur Abdomen: normal bowel sounds, non tender, soft, no organomegaly Extremities: no pedal edema Neurologic/Psychiatric: alert, oriented x 3 Laboratory Results Last 24 Hours Test 01/21/17 06:00 01/21/17 07:52 01/21/17 11:37 01/21/17 17:31 Bedside Glucose 216 mg/dl 237 mg/dl 202 mg/dl Sodium Level 134 mmol/L Potassium Level 4.0 mmol/L Chloride Level 98 mmol/L Carbon Dioxide Level 28 mmol/L Anion Gap 8.0 mmol/L Blood Urea Nitrogen 24 mg/dl Creatinine 1.10 mg/dl Est Creatinine Clear Calc Drug Dose 88.3 ml/min Estimated GFR () 86.5 Estimated GFR (Non- 74.6 BUN/Creatinine Ratio 21.7 Random Glucose 181 mg/dl Calcium Level 8.7 mg/dl Phosphorus Level 3.0 mg/dl Magnesium Level 2.0 mg/dl Total Bilirubin 0.8 mg/dl Aspartate Amino Transf (AST/SGOT) 25 U/L Alanine Aminotransferase (ALT/SGPT) 35 U/L Alkaline Phosphatase 75 U/L Total Protein 7.3 gm/dl Albumin 3.7 gm/dl Globulin 3.6 gm/dl Albumin/Globulin Ratio 1.0 Test 01/21/17 20:12 Bedside Glucose 189 mg/dl Assessment and Plan 56yo male: 1. severe Crohn's disease with exacerbation - defer management to GI. Remains on IV steroids, TPN. Clears started this am; advancement per GI. Hopefully can wean TPN off next 1-2 days. CMP, mag, phos in AM. 2. hypothyroidism - continue synthroid; most recent TSH was normal per the EMR. 3. mild microcytic anemia - ferritin level was 6 in August 2016 c/w very severe iron def anemia. Recommend IV iron before hospital discharge. 4. T2DM - remains on IV insulin per pharmacy recommendations with adequate control. 5. DVT proph - lovenox once daily. 6. mild hyponatremia - stable. 7. HTN - controlled with outpatient meds. 8. pain control - remains on PH[employer]Y GR[employer] INTERN dilaudid. Control is satisfactory. Consider stopping basal dilaudid soon. 9. FEN - clears today, possibly full liquids later today or tomorrow. Will continue TPN another day. Lytes are acceptable today. Repeat all labs in AM. 10. h/o vitamin D def - most recent level was acceptable. 11. at risk of b12, folate def - check those levels in am updated Continued [facility] stay due to: inadequate po fluid intake, inadequate oral pain control, multiple IV medications needed Discharge planning: home
[2017-01-22] MEDS: LEVOTHYROXINE 200 MCG TAB PO SCH (05:43)
[2017-01-22] MEDS: METHYLPREDNISOLONE IV 30 MG in SYRINGE 0 ML IV SCH ×2 (07:57→20:36)
[2017-01-22] MEDS: LOSARTAN POTASSIUM 50 MG TAB PO SCH ×2 (08:04→20:36)
[2017-01-22] MEDS: TAMSULOSIN HCL 0.4 MG CAP PO SCH (08:05)
[2017-01-22] MEDS: AZATHIOPRINE 50 MG TAB PO SCH (08:05)
[2017-01-22] MEDS: AMLODIPINE BESYLATE 5 MG TAB PO SCH (08:06)
[2017-01-22] MEDS: PANTOprazole SOD 40 MG TAB PO SCH (08:06)
[2017-01-22] MEDS: INSULIN ASPART 100 UNITS/ML 3 ML PEN SC SCH ×4 (09:20→20:41)
[2017-01-22] MEDS: INSULIN GLARGINE SOLOSTAR 100 UNITS/ML 3 ML PEN SC SCH ×2 (09:21→20:42)
[2017-01-22 10:52] LABS: CALCIUM 8.5 mg/dl (8.5-10.1); CREATININE 1.2 mg/dl (0.60-1.40)
[2017-01-22 11:10] LABS: ESTIMATED AVERAGE GLUCOSE 151 mg/dl; HA1C FLAG Normal (Normal)
[2017-01-22] MEDS: SODIUM CHLORIDE 0.9% 1000ML 1,000 ML IV SCH (12:40)
[2017-01-22] MEDS: PROMETHAZINE HCL INJ 12.5 MG in SODIUM CHLORIDE 0.9% 50ML 50 ML IV PRN (13:41)
[2017-01-22] MEDS ORDERED: CUSTOM CENTRAL PN 1 BAG IV SCH (16:00)
[2017-01-22] MEDS ORDERED: IRON SUCROSE INJ 300 MG in SODIUM CHLORIDE 0.9% 100ML 100 ML IV SCH (18:00)
[2017-01-22] MEDS: ENOXAPARIN 40 MG/0.4 ML SYR SQ SCH (20:36)
[2017-01-23] VITALS (7 sets, daily range): BP systolic 127–151; BP diastolic 65–89; PULSE 46–72; TEMP 36.4–36.7; O2SAT 93–96
--- NOTE | 2017-01-23 01:50 | Progress Note ---
Subjective Date of Service: late entry for visit on Jan 22, 2017. Subjective Pt evaluation today including: conversation w/ patient, physical exam, chart review, lab review, conversation w/ school plant consultant (GI) Pain: controlled w/ CLAIMS ASSISTANT dilaudid OFF the basal rate PO Intake: tolerating full liquids with minimal nausea Voiding: no voiding problems still no bowel movement feels a little bloated today denies passing flatus but his abdominal pain is no worse than previous overall feels pretty good and asks when he might be going home Problem List Medical Problems: (1) Abdominal wall hernia Status: Acute (2) Intractable abdominal pain Status: Acute (3) Urinary tract infection Status: Acute Review of Systems Constitutional: No fever, No chills Respiratory: No shortness of breath Cardiac: No chest pain Abdomen: + constipation, No diarrhea, No GI bleeding Objective Vital Signs Date Time Temp Pulse Resp B/P (MAP) Pulse Ox O2 Delivery O2 Flow Rate FiO2 01/23/17 00:00 36.7 53 16 147/89 (108) 95 Room Air 01/23/17 00:00 Room Air 01/22/17 19:28 36.7 62 18 119/72 (88) 93 Room Air 01/22/17 18:48 36.5 62 18 121/69 (86) 92 Room Air 01/22/17 16:00 Room Air 01/22/17 14:55 36.9 58 20 123/76 (92) 94 Room Air 01/22/17 11:37 36.6 60 16 134/70 (91) 95 Room Air 01/22/17 11:22 60 16 134/70 (91) 95 Room Air 01/22/17 08:34 98 Room Air 01/22/17 08:00 Room Air 01/22/17 07:10 36.6 58 12 131/74 (93) 98 Room Air 01/22/17 04:56 36.4 58 19 129/72 (91) 98 Room Air Physical Exam General Appearance: no apparent distress ENT: pharynx normal Neck: no JVD Respiratory/Chest: lungs clear, no respiratory distress, no accessory muscle use Cardiovascular: regular rate, rhythm, no gallop Abdomen: normal bowel sounds, non tender, no organomegaly, + distended (slight) Extremities: no pedal edema Neurologic/Psychiatric: alert, oriented x 3 Skin: no rash Laboratory Results Last 24 Hours Test 01/22/17 08:12 01/22/17 10:00 01/22/17 11:20 01/22/17 17:19 Bedside Glucose 198 mg/dl 213 mg/dl 164 mg/dl Sodium Level 135 mmol/L Potassium Level 4.0 mmol/L Chloride Level 99 mmol/L Carbon Dioxide Level 30 mmol/L Anion Gap 6.0 mmol/L Blood Urea Nitrogen 23 mg/dl Creatinine 1.20 mg/dl Est Creatinine Clear Calc Drug Dose 81.1 ml/min Estimated GFR () 77.9 Estimated GFR (Non- 67.2 BUN/Creatinine Ratio 19.0 Random Glucose 251 mg/dl Estimated Average Glucose 151 mg/dl Hemoglobin A1c 6.9 % Calcium Level 8.5 mg/dl Vitamin B12 Level 372 pg/mL Folate 15.38 ng/mL Test 01/22/17 20:14 Bedside Glucose 143 mg/dl Assessment and Plan 56yo male: 1. severe Crohn's disease with exacerbation - defer management to GI. Overall slowly improving. Remains on IV steroids, TPN. Advancing to full liquids today and hopefully low fiber tomorrow. Hopefully can wean TPN off by tomorrow if tolerating diet. Over to PO prednisone tomorrow? Defer to GI once again. CMP, mag, phos have been normal. 2. hypothyroidism - continue synthroid; most recent TSH was normal per the EMR. 3. mild microcytic anemia - ferritin level was 6 in August 2016 c/w very severe iron def anemia. Will give venofer 300mg IV x 1 today; then should have 2 more runs of such in the future. 4. T2DM - remains on insulin protocol per pharmacy recommendations with adequate control. 5. DVT proph - lovenox once daily. 6. mild hyponatremia - resolved. 7. HTN - controlled with outpatient meds. 8. pain control - remains on CLAIMS ASSISTANT dilaudid. Control is satisfactory. Stop basal dilaudid. allow demands to continue. then hopefully stop CLAIMS ASSISTANT dilaudid fully tomorrow. 9. FEN - advance to full liquids. Hopefully d/c TPN by tomorrow?? Lytes are acceptable today. Repeat all labs in AM. 10. h/o vitamin D def - most recent level was acceptable. 11. at risk of b12, folate def - levels acceptable today. 12. mild abdominal bloating - suspect constipation and/or slowed motility from narcotics. Crohn's could be playing a role but less likely. dulcolax suppos now consider KUB x-ray if needed care d/w [facility] progressing Continued [facility] stay due to: inadequate po fluid intake, inadequate oral pain control, multiple IV medications needed Discharge planning: home
[2017-01-23] MEDS: LEVOTHYROXINE 200 MCG TAB PO SCH (05:52)
[2017-01-23 07:07] LABS: MEAN CELL VOLUME 78.9 fL (80-100); MEAN CORPUSCULAR HEMOGLOBIN 24.9 pg (25-34); MEAN CORPUSCULAR HGB CONC 31.6 g/dl (32-36); MEAN PLATELET VOLUME 9.1 fL (7.4-10.4); PLATELET COUNT 288 K/uL (130-400); RED BLOOD COUNT 4.69 M/uL (4.7-6.1); WHITE BLOOD COUNT 11.75 K/uL (4.8-10.8)
[2017-01-23 07:35] LABS: BUN/CREATININE RATIO 20.3 (10-20); CALCIUM 8.6 mg/dl (8.5-10.1); CREATININE 1.1 mg/dl (0.60-1.40); MAGNESIUM 2.2 mg/dl (1.8-2.4); POTASSIUM 4.3 mmol/L (3.5-5.1)
[2017-01-23 07:40] LABS: PHOSPHORUS 4.2 mg/dl (2.5-4.9)
--- NOTE | 2017-01-23 07:41 | GASTROENTEROLOGY PROGRESS NOTE ---
DATE: 01/23/2017 DATE: 01/23/2017 SUBJECTIVE: The patient overall doing about the same. He continues to experience nausea with some meals, but no vomiting. He is receiving antiemetics. His pain is reasonably well controlled, but has not had a bowel movement since at least Friday or Friday without any flatus. This may be in part related to limited p.o. intake, and the narcotic allergies for pain control. His pain overall is reasonably well controlled and Stelara has been approved with anticipation of administration for his first dose next Friday as an outpatient. LABORATORY STUDIES: White count has increased slightly to 14.34 with a hemoglobin of 12.0, and MCV of 78.8. Serum chemistries show sugars are running approximately 200 range. BUN and creatinine are 23 and 1.2, potassium is normal. There has been no recent imaging studies. REVIEW OF SYSTEMS: Otherwise noncontributory. He is ambulating in the hallways. PHYSICAL EXAMINATION: VITAL SIGNS: The patient is afebrile at 36.6, blood pressure 134/70, respirations 16, pulse 60, 95% on room air, heart rate 60, respirations 16. GENERAL: The patient is awake, alert and oriented x3. HEAD, EYES, EARS, NOSE, AND THROAT: Sclerae are anicteric. Conjunctivae moist. Oral mucosa moist. HEART: Normal S1, S2. LUNGS: Clear to auscultation with good effort. ABDOMEN: Soft, positive bowel sounds, without rebound or guarding. There is some focal tenderness again in the right mid abdomen, although this is less though than in the earlier part of this admission. EXTREMITIES: Without clubbing, cyanosis or edema. RECTAL: Deferred. IMPRESSION AND PLAN: I agreed with iron infusion for the patient's microcytic profile. The patient currently just started on a bag of TPN at 4 p.m. and this will run for 24 hours. Hopefully, his p.o. intake can be advanced throughout the same time period and is doing well and has a reasonable pain control discharge over the next day or 2 is reasonable with plans for Stelara infusion on Friday. The patient will need conversion to prednisone along with his continued medications. At the present time he is on 30 b.i.d. of methylprednisolone. Would consider resuming dose of prednisone 50 mg orally daily with taper as directed by Dr. Naranjo as an outpatient. All questions answered for the patient.
[2017-01-23] MEDS: METHYLPREDNISOLONE IV 30 MG in SYRINGE 0 ML IV SCH (07:46)
[2017-01-23] MEDS: AZATHIOPRINE 50 MG TAB PO SCH (07:53)
[2017-01-23] MEDS: PANTOprazole SOD 40 MG TAB PO SCH (07:53)
[2017-01-23] MEDS: INSULIN ASPART 100 UNITS/ML 3 ML PEN SC SCH ×2 (09:13→13:31)
[2017-01-23] MEDS: INSULIN GLARGINE SOLOSTAR 100 UNITS/ML 3 ML PEN SC SCH (09:13)
[2017-01-23] MEDS: LOSARTAN POTASSIUM 50 MG TAB PO SCH (09:15)
[2017-01-23] MEDS: TAMSULOSIN HCL 0.4 MG CAP PO SCH (09:15)
[2017-01-23] MEDS: AMLODIPINE BESYLATE 5 MG TAB PO SCH (09:15)
[2017-01-23] MEDS: SODIUM CHLORIDE 0.9% 1000ML 1,000 ML IV SCH (12:17)
[2017-01-23] MEDS ORDERED: HYDROmorphone HCL 2 MG TAB PO PRN (13:00)
[2017-01-23] MEDS ORDERED: PRD10 PO (13:06)
--- NOTE | 2017-01-23 13:07 | Discharge Instructions ---
Discharge Instructions Date of Service Jan 23, 2017. Admission Reason for Admission: Crohns Flare Discharge Discharge Diagnosis / Problem: crohns flare Discharge Goals Goal(s): Diagnostic testing, Therapeutic intervention Activity Recommendations Activity Limitations: resume your previous activity . Current Hospital Diet Patient's current hospital diet: Diabetes Type 2 Diet, Low Fiber Diet Discharge Diet Recommended Diet: Regular Diet Pending Studies Studies pending at discharge: no Laboratory Results Hemoglobin A1c Test 01/22/17 10:00 Range/Units Estimated Average Glucose 151 mg/dl Hemoglobin A1c 6.9 H 4.5-5.6 % Lipid Panel Test 01/19/17 07:52 Range/Units Triglycerides Level 164 H 0-150 mg/dl Medical Emergencies . Who to Call and When: Medical Emergencies: If at any time you feel your situation is an emergency, please call 911 immediately. . Non-Emergent Contact Non-Emergency issues call your: Primary Care Provider, Operational Assistant Call Non-Emergent contact if: temperature is above 101, your pain is unusual for you . . "Provider Documentation" section prepared by Kip Wagner. . VTE Core Measure Inpt VTE Proph given/why not?: Enoxaparin (Lovenox)SQ
--- NOTE | 2017-01-23 17:41 | Medical Student: [facility] ---
Discharge Summary Admission Date: Jan 17, 2017 at 10:44 Discharge Date: Jan 23, 2017 Discharge Disposition: Home Principal Diagnosis: Chron's Problems/Secondary Diagnoses: T2DM, Iron Deficiency Medications: Amlodipine (Norvasc), 10 MG PO DAILY Azathioprine (Imuran), 150 MG PO DAILY -J-x-o-d-i-n-i-r- -(--Q-v-d-d-i-n-i-r--)--,- -3-0-0- -M-G- -P-O- -B-I-D- Stopped. Ergocalciferol (Vitamin D 13365 Unit), 50,000 UNIT PO WK Gabapentin (Gabapentin), 300 MG PO TID Insulin Human Regular (Humulin R), 6-10 UNITS SQ AC Insulin Isophan/Regular (Humulin 70/30), 40 UNITS SC QAM Insulin Isophan/Regular (Humulin 70/30), 20 UNITS SC QPM Levothyroxine Sodium (Levothyroxine Sodium), 1 TAB SL DAILY Losartan Potassium (Cozaar), 50 MG PO BID Metformin Hcl (Glucophage), 1,000 MG PO BID Pantoprazole (Pantoprazole Sodium), 40 MG PO DAILY Tamsulosin Hcl (Flomax), 0.4 MG PO DAILY -P-c-i-g-d-h-z-u-m-a-b- -(--O-p-f-y-v-i-o--)--,- -1- -D-O-S-E- -I-V- -Q-6-W-K- Stopped. Will begin [facility] outpatient-.- Add Prednisone 50 mg daily until f/u with Dr. Naranjo. Discharge Exam Review of Systems: Constitutional: + fatigue, No fever, No chills, No sweats, No weight loss Respiratory: No cough, No sputum, No wheezing, No shortness of breath, No dyspnea on exertion Cardiovascular: No chest pain, No orthopnea, No palpitations Abdomen: + pain (2-6/10 lower abdomen), + nausea (post meals), No vomiting, No diarrhea, No constipation Musculoskeletal: No joint pain, No muscle pain, No swelling Genitourinary - Male: No dysuria, No urinary frequency Integumentary: No rash, No itch Physical Exam: General Appearance: WD/WN, no apparent distress Eyes: EOMI ENT: hearing grossly normal Neck: supple, no adenopathy, thyroid normal Respiratory/Chest: lungs clear, normal breath sounds, no respiratory distress Cardiovascular: regular rate, rhythm, no edema, no murmur Abdomen / GI: normal bowel sounds, soft, no organomegaly, + tenderness ( slight, lower abdomen) Extremities: normal inspection, no calf tenderness, no pedal edema Neurologic/Psychiatric: alert, normal mood/affect, normal reflexes Skin: normal color, warm/dry, no rash Hospital Course Pt is 56 yo male admitted for Chron's flare refractory to outpatient management. On admission he was given IV steroids, diluadid [employer] M[employer] OPERATOR and TPN to allow for bowel rest. He went >72 hours without a bowel movement with adequate pain control. As diet advanced he would become nauseated but he never had an episode of emesis. Medications were changed to PO and a normal diet was tolerated prior to discharge. Total Time Spent: Greater than 30 minutes This includes examination of the patient, discharge planning, medication reconciliation, and communication with other providers. Discharge Instructions Please refer to the electronic Patient Visit Report (Discharge Instructions) for additional information. Follow-Up You will be discharged on your home doses of all medications. [place] has been approved and that will begin on 01/28/2017. Take the 50 mg of Prednisone daily and f/u with Dr. Naranjo.
--- NOTE | 2017-01-23 18:21 | Discharge Summary ---
Discharge Summary Date of Service Jan 23, 2017. Discharge Summary Admission Date: Jan 17, 2017 at 10:44 Discharge Date: Jan 23, 2017 Discharge Disposition: Home Principal Diagnosis: crohns flare Consultations: [facility] GI medicine Medication Reconciliation New Medications: Prednisone (Prednisone) 10 Mg Tab 50 MG PO UD, #50 DOSE 50 mg a day and as directed Continued Medications: Amlodipine (Norvasc) 10 Mg Tab 10 MG PO DAILY, TAB Azathioprine (Imuran) 50 Mg Tab 150 MG PO DAILY, TAB Ergocalciferol (Vitamin D 82126 Unit) 50,000 Unit Cap 46413 UNIT PO WK, CAP MONDAYS Gabapentin (Gabapentin) 300 Mg Cap 300 MG PO TID for 30 Days, CAP Hydromorphone Hcl (Dilaudid) 4 Mg Tab 4 MG PO QID PRN for Pain for 30 Days, #120 TAB Insulin Human Regular (Humulin R) 1 Ea Inj 6-10 UNITS SQ AC Insulin Isophan/Regular (Humulin 70/30) Susp 40 UNITS SC QAM, VIAL Insulin Isophan/Regular (Humulin 70/30) Susp 20 UNITS SC QPM, VIAL Levothyroxine Sodium (Levothyroxine Sodium) 175 Mcg Tab 1 TAB SL DAILY for 90 Days, #90 TAB 3 Refills Losartan Potassium (Cozaar) 50 Mg Tab 50 MG PO BID, TAB Metformin Hcl (Glucophage) 1,000 Mg Tab 1000 MG PO BID, #60 Ondansetron Hcl (Zofran) 4 Mg Tab 4 MG PO Q8 PRN for Nausea for 30 Days, #90 TAB Pantoprazole (Pantoprazole Sodium) 40 Mg Tab 40 MG PO DAILY, #30 Tamsulosin Hcl (Flomax) 0.4 Mg Cap 0.4 MG PO DAILY, CAP Discontinued Medications: Cefdinir (Cefdinir) 300 Mg Cap 300 MG PO BID, #28 STARTED POST OP ON 12/11/16 Vedolizumab (Entyvio) 300 Mg Inj 1 DOSE IV Q6WK Discharge Exam Review of Systems: Constitutional: No fever, No chills Respiratory: No cough, No sputum Cardiovascular: No chest pain, No orthopnea Abdomen: + pain, + diarrhea, No nausea, No vomiting Physical Exam: General Appearance: WD/WN, + mild distress Eyes: PERRL, EOMI Respiratory/Chest: chest non-tender, lungs clear Cardiovascular: regular rate, rhythm, no murmur Abdomen / GI: normal bowel sounds, non tender, soft Hospital Course 56-year-old male with flare of Crohn's disease refractory to outpatient treatment severe Crohn's disease with exacerbation tolerated advancing diet but still with some bowel frequency, is tolerant of po intake hypothyroidism - continue synthroid; most recent TSH was normal per the EMR. T2DM - returns to 70/30 with ssi on discharge HTN - controlled with outpatient meds. pain control - retuen to po dilaudid, which may also help diarrhea as infectious studies are normal Total Time Spent: Greater than 30 minutes This includes examination of the patient, discharge planning, medication reconciliation, and communication with other providers. Discharge Instructions Please refer to the electronic Patient Visit Report (Discharge Instructions) for additional information.
[2017-01-24] MEDS ORDERED: INSULIN ASPART 100 UNITS/ML 3 ML PEN SC SCH
== END 2017-01-23 14:30 | disposition home or self-care (01) | DRG 386 ==
LOC: C.4E 10:44
PROVIDERS: ADMIT Hospitalist; ATTEND Internal Medicine
DX: K50.90 Crohn's disease, unspecified, without complications (principal); E87.1 Hypo-osmolality and hyponatremia; E46 Unspecified protein-calorie malnutrition; Z83.3 Family history of diabetes mellitus; Z82.49 Family history of ischemic heart disease and other diseases of the circulatory system; Z87.442 Personal history of urinary calculi; E11.9 Type 2 diabetes mellitus without complications; E78.5 Hyperlipidemia, unspecified; I10 Essential (primary) hypertension; Z79.4 Long term (current) use of insulin; Z90.49 Acquired absence of other specified parts of digestive tract; E03.9 Hypothyroidism, unspecified; D53.9 Nutritional anemia, unspecified

== ENCOUNTER → 2017-05-20 | Outpatient (CLI) | payer OTHER, BC ==
[~2017-05-20] MED LIST changes: -CEFD300C3 PO; +PANT40TA2 PO; +PRD10 PO; -PRT/40 PO; -VEDO1INJ IV
== END | disposition home or self-care (01) ==
LOC: C.LAB1850 07:44
PROVIDERS: ATTEND Internal Medicine Endocrinology, Diabetes & Metabolism
DX: E89.0 Postprocedural hypothyroidism (principal)

== ENCOUNTER → 2017-05-21 | Outpatient (CLI) | payer OTHER, BC ==
[~2017-05-21] MED LIST changes: +INSHRIE SC; +LEVO200T6 PO; +PANT40TA PO; +PRED20TA PO
== END | disposition home or self-care (01) ==
LOC: C.LABMFLN 11:59
PROVIDERS: ATTEND Internal Medicine Gastroenterology
DX: K50.80 Crohn's disease of both small and large intestine without complications (principal)

== ENCOUNTER → 2017-05-26 | Day surgery (SDC) | payer OTHER, BC ==
[2017-05-22 15:52] VITALS: Ht 175.3 cm; Wt 104.5 kg
[~2017-05-26] VITALS: Ht 175.3 cm; Wt 104.5 kg
[~2017-05-26] MED LIST changes: -LEVO175T3 SL; +LIDOCAINE HCL 2% 2 ML VIAL (20MG/ML) ONE; -NRN300 PO; -PANT40TA2 PO; -PRD10 PO; +PROPOFOL IV EMULSION 10 MG/ML 20 ML VIAL IV ONE; +USTE90IN SQ
--- NOTE | 2017-05-26 13:48 | Endo History and Physical ---
History & Physical Date of Service: May 26, 2017. Chief Complaint: Crohn's Referring Physician: Jesica BEARD History of Present Illness For colonoscopy Past Medical History Diabetes, Arthritis, Reflux, Cancer, Hypertension, Thyroid Disease, Chronic Steroid Use, Other Past Surgical History Hx Cardiac Surgery: Yes (HEART CATH/NO STENTS) Hx Internal Defibrillator: No Hx Pacemaker: No Hx Abdominal Surgery: Yes (CONNIE, APPY, BOWEL RESECTION X 5 (ILEOSTOMY WITH REVERSAL IN PAST)) Hx of Implantable Prosthesis: No Hx Post-Op Nausea and Vomiting: No Hx Cancer Surgery: No Hx Thoracic Surgery: No Hx Orthopedic: Yes (RT/LEFT KNEE ARTHROSCOPY) Hx Urinary Tract Surgery: Yes (CYSTOSCOPY WITH STONE REMOVAL) Family History IBD Social History Smoking Status: Never Smoker Hx Substance Use: No Hx Alcohol Use: No Allergies Coded Allergies: Morphine (Verified Allergy, Mild, GI SYMPTOMS, 05/26/17) throws up Current Medications Reported Home Medications Medications Dose Route/Sig Max Daily Dose Days Date Category Dose Instructions Stelara (Ustekinumab) 90 Mg/Ml Inj 90 Mg SQ Q8WK 05/26/17 Reported Prednisone 20 Mg Tab 40 Mg PO QAM 05/22/17 Reported Zofran (Ondansetron HCl) 4 Mg Tab 4 Mg PO Q8H PRN 05/22/17 Reported Humulin R (Insulin Human Regular) 100 Units/Ml Susp 6-10 Unit SC AC 05/22/17 Reported PER SLIDING SCALE. Protonix (Pantoprazole Sodium) 40 Mg Tab 40 Mg PO QAM 05/22/17 Reported Levothyroxine Sodium 200 Mcg Tab 1 Tab PO QAM 05/22/17 Reported Imuran (Azathioprine) 50 Mg Tab 200 Mg PO QAM 05/22/17 Reported Vitamin D 66043 Unit (Ergocalciferol) 50,000 Unit Cap 50,000 Unit PO WK 12/24/16 Reported MONDAYS Humulin R (Insulin Human Regular) 1 Ea Inj 6-10 Units SQ AC 07/15/16 Reported Glucophage (Metformin Hcl) 1,000 Mg Tab 1,000 Mg PO BID 01/22/16 Reported Dilaudid (Hydromorphone Hcl) 4 Mg Tab 4 Mg PO QID PRN 30 11/17/15 Reported Flomax (Tamsulosin Hcl) 0.4 Mg Cap 0.4 Mg PO HS 10/23/15 Reported Humulin 70/30 (Insulin Human Isoph/Insulin Regular) Susp 20 Units SC QPM 08/06/15 Reported Humulin 70/30 (Insulin Human Isoph/Insulin Regular) Susp 40 Units SC QAM 08/06/15 Reported Norvasc (Amlodipine Besylate) 10 Mg Tab 10 Mg PO QAM 08/06/15 Reported Cozaar (Losartan Potassium) 50 Mg Tab 50 Mg PO BID 08/06/15 Reported Vital Signs Weight (Kilograms): 104.55 Height (Feet): 5 Height (Inches): 9 Date Time Temp Pulse Resp B/P (MAP) Pulse Ox O2 Delivery O2 Flow Rate FiO2 05/26/17 13:01 36.6 87 20 180/88 (118) 99 Room Air Physical Exam General Appearance: WD/WN Respiratory/Chest: Respiratory effort: no dyspnea Cardiovascular: Heart Auscultation: RRR Abdomen: Bowel Sounds: pertinent finding (scars) Inspection & Palpation: soft Assessment and Plan Crohns with diarrhea for colonoscopy
--- NOTE | 2017-05-26 14:10 | Discharge Instructions ---
Endoscopy Patient Instructions Date / Procedure(s) Performed May 26, 2017. Colonoscopy Allergy Information Coded Allergies: Morphine (Verified Allergy, Mild, GI SYMPTOMS, 05/26/17) throws up Discharge Date / Findings May 26, 2017. Active Crohn's in ileum Medication Instructions Stopped Medication(s): stopped Metformin on 05/23 Restart Stopped Medication(s): resume meds Reported Home Medications Medications Dose Route/Sig Max Daily Dose Days Date Category Dose Instructions Stelara (Ustekinumab) 90 Mg/Ml Inj 90 Mg SQ Q8WK 05/26/17 Reported Prednisone 20 Mg Tab 40 Mg PO QAM 05/22/17 Reported Zofran (Ondansetron HCl) 4 Mg Tab 4 Mg PO Q8H PRN 05/22/17 Reported Humulin R (Insulin Human Regular) 100 Units/Ml Susp 6-10 Unit SC AC 05/22/17 Reported PER SLIDING SCALE. Protonix (Pantoprazole Sodium) 40 Mg Tab 40 Mg PO QAM 05/22/17 Reported Levothyroxine Sodium 200 Mcg Tab 1 Tab PO QAM 05/22/17 Reported Imuran (Azathioprine) 50 Mg Tab 200 Mg PO QAM 05/22/17 Reported Vitamin D 73323 Unit (Ergocalciferol) 50,000 Unit Cap 50,000 Unit PO WK 12/24/16 Reported MONDAYS Humulin R (Insulin Human Regular) 1 Ea Inj 6-10 Units SQ AC 07/15/16 Reported Glucophage (Metformin Hcl) 1,000 Mg Tab 1,000 Mg PO BID 01/22/16 Reported Dilaudid (Hydromorphone Hcl) 4 Mg Tab 4 Mg PO QID PRN 30 11/17/15 Reported Flomax (Tamsulosin Hcl) 0.4 Mg Cap 0.4 Mg PO HS 10/23/15 Reported Humulin 70/30 (Insulin Human Isoph/Insulin Regular) Susp 20 Units SC QPM 08/06/15 Reported Humulin 70/30 (Insulin Human Isoph/Insulin Regular) Susp 40 Units SC QAM 08/06/15 Reported Norvasc (Amlodipine Besylate) 10 Mg Tab 10 Mg PO QAM 08/06/15 Reported Cozaar (Losartan Potassium) 50 Mg Tab 50 Mg PO BID 08/06/15 Reported Provider Instructions Activity Restrictions - No exercising or heavy lifting for 24 hours. - Do not drink alcohol the day of the procedure. - Do not drive a car or operate machinery until the day after the procedure. - Do not make any important decisions or sign important papers in 24 hours after the procedure. Following Day: - Return to full activity which may include returning to work/school. Diet Start your diet with liquids and light foods (jello, soup, juice, toast). Then eat your usual diet if not nauseated. Treatment For Common After Affects For mild abdominal pain, bloating, or excessive gas: - Rest - Eat lightly - Lie on right side Follow-Up Information Follow-up with Jesica BEARD as scheduled Anesthesia Information What You Should Know You have had a procedure that required some medicine to reduce anxiety and discomfort. This treatment is called moderate sedation. After receiving the treatment, you may be sleepy, but you will be able to breathe on your own. The effects of the treatment may last for several hours. Follow these instructions along with Activity/Diet recommendations noted above: * Do NOT do anything where dizziness or clumsiness would be dangerous. * Rest quietly at home today, then you can be up and about tomorrow. * Have a responsible person stay with you the rest of today. * You may have had an I.V. today. If so, you may take the dressing off later today. Recommendations Call your doctor if: * Trouble breathing * Continuous vomiting for more than 24 hours * Temperature above 101 degrees * Severe abdominal pain or bloating * Pain not relieved by pain medicine ordered * There is increased drainage or redness from any incision * A large amount of rectal bleeding greater than 2-3 tablespoons. (If you had a polyp/s removed or have hemorrhoids, a small amount of blood - from the rectum is to be expected.) * You have any unanswered questions or concerns. IN THE EVENT OF A SERIOUS EMERGENCY, GO TO THE NEAREST EMERGENCY ROOM Your discharge instructions were prepared by provider Remington Naranjo. Patient Instructions Signature Page Roberto Alcantara Patient (or Guardian) Signature/Date: I have read and understand the instructions given to me by my caregivers. Caregiver/RN/Doctor Signature/Date: The above-named patient and/or guardian has received patient instructions on this date. + Original Patient Signature Page (only) stays with chart. Please make copy for patient.
--- NOTE | 2017-05-26 14:16 | GI REPORT ---
Procedure Date: 05/26/2017 1:50 PM Procedure: Colonoscopy Indications: Clinically significant diarrhea of unexplained origin, Crohn's disease of the small bowel and colon Medicines: Propofol total dose 270 mg IV, Lidocaine 40 mg IV Complications: No immediate complications. Estimated Blood Loss: Estimated blood loss: none. Procedure: Pre-Anesthesia Assessment: - Prior to the procedure, a History and Physical was performed, and patient medications, allergies and sensitivities were reviewed. The patient's tolerance of previous anesthesia was reviewed. - The risks and benefits of the procedure and the sedation options and risks were discussed with the patient. All questions were answered and informed consent was obtained. After I obtained informed consent, the scope was passed under direct vision. Throughout the procedure, the patient's blood pressure, pulse, and oxygen saturations were monitored continuously. The scope was introduced through the anus and advanced to the ileocolonic anastomosis. The colonoscopy was performed without difficulty. The patient tolerated the procedure well. The quality of the bowel preparation was excellent. Findings: There was evidence of a prior [id number] ileo-colonic anastomosis in the ascending colon. This was patent and was characterized by inflammation and ulceration. The anastomosis was traversed. Estimated blood loss: none. The entire examined colon appeared normal. Impression: - Patent [id number] ileo-colonic anastomosis, characterized by inflammation and ulceration. - The entire examined colon is normal. - No specimens collected. Recommendation: - Discharge patient to home (ambulatory). - Continue present medications. - Return to GI office as previously scheduled. Remington Naranjo M.D. Remington Naranjo MD 05/26/2017 2:16:00 PM This report has been signed electronically. Note Initiated On: 05/26/2017 1:50 PM I attest to the content of the Intraoperative Record and orders documented therein, exceptions below
[2017-05-26 14:42] VITALS: BP 121/78; PULSE 74; O2SAT 94
--- NOTE | 2017-05-26 14:57 | Anesthesiology Progress Note ---
Anesthesia Post Op Note Date & Time May 26, 2017 at 14:57 Vital Signs Pain Intensity: 4 Vital Signs Past 12 Hours Date Time Temp Pulse Resp B/P (MAP) Pulse Ox O2 Delivery O2 Flow Rate FiO2 05/26/17 14:42 74 20 121/78 (92) 94 Room Air 05/26/17 14:26 83 20 114/73 (87) 94 Room Air 05/26/17 14:11 85 20 86/66 (73) 94 Room Air 05/26/17 13:01 36.6 87 20 180/88 (118) 99 Room Air Notes Mental Status: alert / awake / arousable, participated in evaluation Pt Amnestic to Procedure: Yes Nausea / Vomiting: adequately controlled Pain: adequately controlled Airway Patency, RR, SpO2: stable & adequate BP & HR: stable & adequate Hydration State: stable & adequate Anesthetic Complications: no major complications apparent
== END | disposition home or self-care (01) ==
LOC: C.GI 12:42
PROVIDERS: ATTEND Internal Medicine Gastroenterology
DX: R19.7 Diarrhea, unspecified (principal); K50.90 Crohn's disease, unspecified, without complications; I10 Essential (primary) hypertension; E11.9 Type 2 diabetes mellitus without complications; Z88.5 Allergy status to narcotic agent; Z79.52 Long term (current) use of systemic steroids; Z90.89 Acquired absence of other organs; Z98.890 Other specified postprocedural states; Z79.4 Long term (current) use of insulin; Z79.899 Other long term (current) drug therapy

== ENCOUNTER → 2017-06-19 | Outpatient (CLI) | payer OTHER, BC ==
[~2017-06-19] MED LIST changes: -LIDOCAINE HCL 2% 2 ML VIAL (20MG/ML) ONE; -PROPOFOL IV EMULSION 10 MG/ML 20 ML VIAL IV ONE
== END | disposition home or self-care (01) ==
LOC: C.LAB1850 10:51
PROVIDERS: ATTEND Internal Medicine Endocrinology, Diabetes & Metabolism
DX: E04.1 Nontoxic single thyroid nodule (principal)

== ENCOUNTER 2017-07-09 16:49 | Inpatient (IN) | payer OTHER, BC ==
[~2017-07-09] VITALS: Ht 175.3 cm; Wt 104.1 kg
[2017-07-09] MEDS ORDERED: ONDANSETRON INJ 2 MG/ML 2 ML VIAL IV STA (17:51)
[2017-07-09] MEDS ORDERED: HYDROmorphone INJ 1 MG/ML SYR IV STA ×2 (17:51→21:53)
[2017-07-09] MEDS ORDERED: OPTIRAY 320 IV PRN (18:00)
[2017-07-09] MEDS ORDERED: DIAZ-165 PO (18:32)
[2017-07-09 18:55] LABS: BASO % 0.5 %; BASO ABS # 0.04 K/uL (0-0.2); EOS % 9.8 %; EOS ABS # 0.83 K/uL (0-0.5); HEMATOCRIT 29.8 % (42-52); HEMOGLOBIN 9.9 g/dL (14.0-18.0); IG# 0.02 K/uL (0.00-0.02); LYMPH % 18.4 %; LYMPH ABS # 1.56 K/uL (1.2-3.4); MEAN CELL VOLUME 75.3 fL (80-100); MEAN CORPUSCULAR HGB CONC 33.2 g/dl (32-36); MEAN PLATELET VOLUME 8.3 fL (7.4-10.4); MONO ABS # 0.68 K/uL (0.11-0.59); NEUT % 63.1 %; NEUT ABS # 5.34 K/uL (1.4-6.5); PLATELET COUNT 261 K/uL (130-400); RED CELL DISTRIBUTION WIDTH CV 13.7 % (11.5-14.5); RED CELL DISTRIBUTION WIDTH SD 37.7 fL (36.4-46.3); WHITE BLOOD COUNT 8.47 K/uL (4.8-10.8)
[2017-07-09 19:12] LABS: ALBUMIN 3.4 gm/dl (3.4-5.0); ALT/SGPT 43 U/L (12-78); BLOOD UREA NITROGEN 11 mg/dl (7-18); CARBON DIOXIDE 28 mmol/L (21-32); CREATININE 1.13 mg/dl (0.60-1.40); GLUCOSE 179 mg/dl (70-99); LIPASE 163 U/L (73-393); POTASSIUM 3.7 mmol/L (3.5-5.1); SODIUM 134 mmol/L (136-145)
[2017-07-09 19:15] LABS: ALKALINE PHOSPHATASE 91 U/L (45-117); AST/SGOT 30 U/L (15-37); TOTAL PROTEIN 7.3 gm/dl (6.4-8.2)
--- NOTE | 2017-07-09 21:22 | DIAGNOSTIC IMAGING REPORT ---
CT SCAN OF THE CHEST, ABDOMEN, AND PELVIS WITH IV CONTRAST CLINICAL HISTORY: Trauma. COMPARISON STUDY: Chest CT scans dated 06/10/2014 and 04/27/2015. Abdominal CT dated 01/14/2017. Chest and abdominal radiograph dated 12/24/2016. TECHNIQUE: Following the IV administration of 93 of Optiray 320, CT scan of the chest, abdomen, and pelvis was performed from the thoracic inlet to the proximal femora. Images are reviewed in the axial, sagittal, and coronal planes. IV contrast was administered without complication. Automated dose control exposure was utilized. A dose lowering technique was utilized adhering to the principles of ALARA. CT DOSE: 1220.69 mGy.cm FINDINGS: CHEST: Thyroid: Atrophic versus surgically absent. Thoracic aorta: The thoracic aorta is normal in caliber and demonstrates standard 3-vessel arch anatomy. No dissection is seen. A right internal jugular central venous infusion port is in place. Heart: The heart is top normal in size and without pericardial effusion. There are coronary artery calcifications. The pulmonary trunk is normal in caliber. Lungs and pleural spaces: There is no airspace consolidation, pleural effusion, or pneumothorax. Dependent atelectasis is noted. The trachea and central airways are clear. Mediastinum: There is no mediastinal lymphadenopathy. Sparkle: Clear. Axillae: There is no axillary lymphadenopathy. Bony thorax: Findings suggest right hemilaminectomy at T9 and T10. Intrathecal leads are seen on right studies have been removed. Fragmentation is seen involving the spinous processes of T9, T10, and T11. These findings are new from 01/14/2017. Acute fracture is suggested involving the spinous processes of T10 and T11. Hyperdense material is questioned within the posterior right aspect of the central canal at these levels with small foci of calcific debris. This is best seen on axial images #119 and #121. The bony thorax is otherwise intact. No lytic or blastic lesions are identified. ABDOMEN AND PELVIS: Liver: The contrast-enhanced liver is enlarged, measuring 20.2 cm and length. The liver demonstrates diffusely diminished attenuation consistent with hepatic steatosis. There is no intrahepatic or ductal dilatation. The hepatic veins and portal veins are patent. Gallbladder: Surgically absent noting clips in the gallbladder fossa. Spleen: The spleen is enlarged, measuring 15.4 cm in length. Pancreas: Moderately atrophic and grossly unremarkable. Adrenal glands: Unremarkable. Kidneys: The contrast enhanced kidneys demonstrate mild cortical atrophy and are without hydronephrosis. The kidneys enhance symmetrically. There is a 2 mm nonobstructing left renal calculus. Abdominal vasculature: The abdominal aorta is normal in course and caliber noting mild atherosclerotic calcification. Stomach and bowel: There is a small hiatal hernia. The stomach and duodenum otherwise normal in configuration. There are postoperative changes from ileocecal resection with ileocolic anastomosis. No bowel obstruction is seen. No abnormally thick walled or hyperemic bowel loops are seen. Peritoneum: There is no intraperitoneal free air or abdominal ascites. Lymphadenopathy: None. Pelvic viscera: The bladder, prostate, and seminal vesicles are normal as visualized. Skeletal structures: The lumbosacral spine and bony pelvis appear intact. No lytic or blastic lesions are seen. Sclerotic change and partial fusion is noted in the sacroiliac joints. IMPRESSION: 1. The lungs are clear. No pneumothorax is seen. 2. Post laminectomy change is suggested on the right from T9-T11. Destructive change/fragmentation is seen involving the spinous processes of T9, T10, and T11, and fracture is suggested involving the T10 and T11 spinous processes. An intrathecal device at this level has been removed from previous. These findings are all new from 01/14/2017 and may be related to postoperative change. Posttraumatic change is considered less likely but not excluded. Clinical correlation will be essential. Follow-up with the patient's surgeon is recommended. 3. There is hyperdense material with small calcific fragments identified within the posterior aspect of the central canal at T9-T11 on the right. Again, this likely represents postoperative change. Epidural hematoma would be impossible to exclude by CT. Again, clinical correlation will be essential. 4. There is no evidence of solid organ injury in the abdomen or pelvis. 5. Hepatomegaly and hepatic steatosis. 6. Splenomegaly. 7. There are postoperative changes from ileocecal resection with ileocolic anastomosis. No bowel obstruction is identified. 8. Punctate nonobstructing left renal calculus. 9. Additional findings as above. Electronically signed by: Pedro Garibay M.D. 07/09/2017 9:21 PM Dictated Date/Time: 07/09/2017 9:01 PM
[2017-07-09] MEDS ORDERED: SODIUM CHLORIDE 0.9% 1000ML 1,000 ML IV ONE (22:00)
[2017-07-09] MEDS ORDERED: SODIUM CHLORIDE 0.9% 1000ML 1,000 ML IV STA (22:00)
--- NOTE | 2017-07-09 22:24 | History and Physical ---
History & Physical Date & Time of Service: Jul 09, 2017 at 22:12 Chief Complaint: Fall Related (Crohns) Primary Care Physician: Audra Matos History of Present Illness Source: patient, hospital records 57 y/o M Hx Crohn's disease - 5 bowel resections and chronic abdominal pain. HTN, HPL, DM II, hypothyroidism. The pt is narcotic-dependent and had an implanted stimulator which was removed 2 weeks ago. He is currently receiving Stelara for his Crohn's. 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 He also reports falling in the bathroom 6 days ago and states he has had a lump on his R abdomen since then. He states he was nauseous and vomited one day prior and has a generally poor appetite. The pt states that he normally has a small amount of bleeding following a bowel movement and denies increased bleeding recently. A CT of the abdomen was obtained in the ER and does not show a significant hematoma or internal organ damage. Past Medical/Surgical History 1) Crohn's disease 2) Chronic abdominal pain - narcotic-dependent 3) HTN 4) HPL 5) Hypothyroidism 6) Obese 7) Hepatic steatosis 8) Hepatosplenomegaly 9) Pancreatic atrophy Surgical: 1) Lumbar laminectomy 2) Implantation of spinal stimulator for abdominal pain - removed 3) Bowel resection x 5 4) Cholecystectomy Family History Cancer Diabetes mellitus Heart disease Hypertension Kidney disease Kidney stones Social History Smoking Status: Never Smoker Drug Use: none Marital Status: Housing status: lives with family Occupational Status: disabled Allergies Coded Allergies: Morphine (Verified Allergy, Mild, GI SYMPTOMS, 07/09/17) throws up Home Medications Scheduled Amlodipine (Norvasc), 10 MG PO QAM Insulin Human Regular (Humulin R), 6-10 UNITS SQ AC Insulin Human Regular (Humulin R), 6-10 UNIT SC AC Insulin Isophan/Regular (Humulin 70/30), 40 UNITS SC QAM Insulin Isophan/Regular (Humulin 70/30), 20 UNITS SC QPM Levothyroxine Sodium (Levothyroxine Sodium), 1 TAB PO QAM Losartan Potassium (Cozaar), 50 MG PO BID Pantoprazole (Protonix), 40 MG PO DIRECTED Tamsulosin Hcl (Flomax), 0.4 MG PO HS Ustekinumab (Stelara), 90 MG SQ Q8WK Scheduled PRN Diazepam (Valium), 5 MG PO Q6 PRN for Muscle Spasms Hydromorphone Hcl (Dilaudid), 4 MG PO QID PRN for Pain Ondansetron Hcl (Zofran), 4 MG PO Q8H PRN for Nausea Review of Systems Constitutional: + weakness, + fatigue, No fever, No chills Eyes: No worsening of vision ENT: No hearing loss, No unusual epistaxis, No nasal symptoms Respiratory: + cough Cardiovascular: No chest pain, No orthopnea, No PND Abdomen: + pain, + nausea, + vomiting, + GI bleeding (small amount following a BM as above) Genitourinary - Male: No hematuria, No dysuria Neurologic: + weakness, No memory loss, No paralysis Psychiatric: No depression symptoms Endocrine: + fatigue Hematologic / Lymphatic: No abnormal bleeding/bruising Integumentary: No rash Allergic / Immunologic: No environmental allergies Physical Exam Vital Signs Date Time Temp Pulse Resp B/P (MAP) Pulse Ox O2 Delivery O2 Flow Rate FiO2 07/09/17 21:25 80 20 135/72 93 Room Air 07/09/17 19:07 139/86 07/09/17 18:49 80 24 07/09/17 17:55 87 07/09/17 17:07 36.6 95 18 151/92 96 Room Air General Appearance: WD/WN, no apparent distress Head: normocephalic Eyes: normal inspection ENT: normal ENT inspection, pharynx normal Neck: supple, no JVD Respiratory/Chest: chest non-tender, lungs clear, normal breath sounds Cardiovascular: regular rate, rhythm, no edema, no gallop Abdomen/GI: + pertinent finding (There is no evidence of a large hematoma or significant abdominal trauma. there is minimal tenderness to palpation without guarding. 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 nml as tested, no motor/sensory deficits, alert, oriented x 3 Skin: normal color Diagnostics Laboratory Results Results Past 24 Hours Test 07/09/17 18:23 07/09/17 21:15 Range/Units White Blood Count 8.47 4.8-10.8 K/uL Red Blood Count 3.96 4.7-6.1 M/uL Hemoglobin 9.9 14.0-18.0 g/dL Hematocrit 29.8 42-52 % Mean Corpuscular Volume 75.3 80-100 fL Mean Corpuscular Hemoglobin 25.0 25-34 pg Mean Corpuscular Hemoglobin Concent 33.2 32-36 g/dl Platelet Count 261 130-400 K/uL Mean Platelet Volume 8.3 7.4-10.4 fL Neutrophils (%) (Auto) 63.1 % Lymphocytes (%) (Auto) 18.4 % Monocytes (%) (Auto) 8.0 % Eosinophils (%) (Auto) 9.8 % Basophils (%) (Auto) 0.5 % Neutrophils # (Auto) 5.34 1.4-6.5 K/uL Lymphocytes # (Auto) 1.56 1.2-3.4 K/uL Monocytes # (Auto) 0.68 0.11-0.59 K/uL Eosinophils # (Auto) 0.83 0-0.5 K/uL Basophils # (Auto) 0.04 0-0.2 K/uL RDW Standard Deviation 37.7 36.4-46.3 fL RDW Coefficient of Variation 13.7 11.5-14.5 % Immature Granulocyte % (Auto) 0.2 % Immature Granulocyte # (Auto) 0.02 0.00-0.02 K/uL Sodium Level 134 136-145 mmol/L Potassium Level 3.7 3.5-5.1 mmol/L Chloride Level 99 98-107 mmol/L Carbon Dioxide Level 28 21-32 mmol/L Anion Gap 7.0 3-11 mmol/L Blood Urea Nitrogen 11 7-18 mg/dl Creatinine 1.13 0.60-1.40 mg/dl Est Creatinine Clear Calc Drug Dose 86.1 ml/min Estimated GFR () 83.2 Estimated GFR (Non- 71.8 BUN/Creatinine Ratio 10.0 10-20 Random Glucose 179 70-99 mg/dl Calcium Level 9.0 8.5-10.1 mg/dl Total Bilirubin 0.4 0.2-1 mg/dl Direct Bilirubin < 0.1 0-0.2 mg/dl Aspartate Amino Transf (AST/SGOT) 30 15-37 U/L Alanine Aminotransferase (ALT/SGPT) 43 12-78 U/L Alkaline Phosphatase 91 45-117 U/L Total Protein 7.3 6.4-8.2 gm/dl Albumin 3.4 3.4-5.0 gm/dl Lipase 163 73-393 U/L Diagnostic Radiology CT abdomen 1. The lungs are clear. No pneumothorax is seen. 2. Post laminectomy change is suggested on the right from T9-T11. Destructive change/fragmentation is seen involving the spinous processes of T9, T10, and T11 , and fracture is suggested involving the T10 and T11 spinous processes. An intrathecal device at this level has been removed from previous. These findings are all new from 01/14/2017 and may be related to postoperative change. Posttraumatic change is considered less likely but not excluded. Clinical correlation will be essential. Follow-up with the patient's surgeon is recommended. 3. There is hyperdense material with small calcific fragments identified within the posterior aspect of the central canal at T9-T11 on the right. Again, this likely represents postoperative change. Epidural hematoma would be impossible to exclude by CT. Again, clinical correlation will be essential. 4. There is no evidence of solid organ injury in the abdomen or pelvis. 5. Hepatomegaly and hepatic steatosis. 6. Splenomegaly. 7. There are postoperative changes from ileocecal resection with ileocolic anastomosis. No bowel obstruction is identified. 8. Punctate nonobstructing left renal calculus. EKG NSR - t wv inversions in inferior leads Impression Assessment and Plan 57 y/o M Hx Crohn's disease - 5 bowel resections and chronic abdominal pain. HTN, HPL, DM II, hypothyroidism. The pt is narcotic-dependent and had an implanted stimulator which was removed 2 weeks ago. He is currently receiving Stelara for his Crohn's. 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 He also reports falling in the bathroom 6 days ago and states he has had a lump on his R abdomen since then. He states he was nauseous and vomited one day prior and has a generally poor appetite. The pt states that he normally has a small amount of bleeding following a bowel movement and denies increased bleeding recently. A CT of the abdomen was obtained in the ER and does not show a significant hematoma or internal organ damage. 1) Abdominal pain, dehydration, N/V - no discrete etiology is identified on imaging. We will provide pain control, IVF, antiemetics and defer to GI for additional workup. 2) Anemia - Hb is down 2 units from baseline - may be due to slow blood loss as there is no evidence of significant blood loss due to recent trauma. MCV is low. We will trend his Hb form AM. He may benefit from Iron supplementation. Stool occult blood is unlikely to be helpful as he does report chronic bleeding. Repeat colonoscopy will be left to the discretion of his whiskey filterer. 3) Nausea, vomiting, poor bobby - placed on liquid diet pending GI eval - antiemetics provided 4) DM II - placed on sliding scale 5) HTN - cont Amlodipine, Losartan 6) Hypothyroidism - cont Synthroid 7) Crohn's - can continue Stelara as outpatient Full code - SCDs due to blood loss Total time for this admit including review of labs, meds, imaging, records - discussion with pt and ER attending - 39 min Resuscitation Status VTE Prophylaxis Will order VTE Prophylaxis: Yes
--- NOTE | 2017-07-09 23:10 | EMERGENCY ROOM VISIT NOTE ---
History Report prepared by Madi: Samantha Hua Under the Supervision of: Dr. Trey Henderson M.D. First contact with patient: 17:40 Chief Complaint: ABDOMINAL PAIN Stated Complaint: FALL RELATED (CROHNS) Nursing Triage Summary: Patient states "I had surgery on the . They removed a stimulator. I fell on , went to the ER at [place] on Friday. Dr. Garcia referred me to the be admitted because I have a lump on the right abdomen. I might need blood and fluids. He thinks I am dehydrated." History of Present Illness The patient is a 57 year old male who presents to the Emergency Room with complaints of persistent right abdominal pain starting 1 week ago. The patient was sent to the ED by Dr. Naranjo over concerns that he is dehydrated and might require blood. The patient fell while he was in the bathroom and hit his right side. He has developed a lump which is getting bigger. He had a CT scan at [place] 4 days ago which was not concerning. He has appeared more pale than usual. He has a decreased appetite. He has been coughing. He had some nausea and vomiting yesterday. The patient has a history of Crohn's disease and 5 bowel resections. His bowel movements have been normal. He has some blood with wiping which is standard. He had a stimulator for 6 months which was removed 2 weeks ago. He elected to have it removed. Source of History: patient Onset: 1 week ago Position: abdomen (right) Quality: other (injury, pain) Timing: other (persistent) Associated Symptoms: + cough, + nausea, + vomiting Review of Systems See HPI for pertinent positives & negatives. A total of 10 systems reviewed and were otherwise negative. 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 Nurse's notes were reviewed and I agree with. Family History Cancer Diabetes mellitus Heart disease Hypertension Kidney disease Kidney stones Social History Smoking Status: Never Smoker Alcohol Use: none Drug Use: none Marital Status: Housing Status: lives with family Occupation Status: disabled Current/Historical Medications Scheduled Amlodipine (Norvasc), 10 MG PO QAM Insulin Human Regular (Humulin R), 6-10 UNITS SQ AC Insulin Human Regular (Humulin R), 6-10 UNIT SC AC Insulin Isophan/Regular (Humulin 70/30), 40 UNITS SC QAM Insulin Isophan/Regular (Humulin 70/30), 20 UNITS SC QPM Levothyroxine Sodium (Levothyroxine Sodium), 1 TAB PO QAM Losartan Potassium (Cozaar), 50 MG PO BID Pantoprazole (Protonix), 40 MG PO DIRECTED Tamsulosin Hcl (Flomax), 0.4 MG PO HS Ustekinumab (Stelara), 90 MG SQ Q8WK Scheduled PRN Diazepam (Valium), 5 MG PO Q6 PRN for Muscle Spasms Hydromorphone Hcl (Dilaudid), 4 MG PO QID PRN for Pain Ondansetron Hcl (Zofran), 4 MG PO Q8H PRN for Nausea Allergies Coded Allergies: Morphine (Verified Allergy, Mild, GI SYMPTOMS, 07/09/17) throws up Physical Exam Vital Signs Date Time Temp Pulse Resp B/P (MAP) Pulse Ox O2 Delivery O2 Flow Rate FiO2 07/09/17 22:11 78 20 125/86 97 Room Air 07/09/17 21:25 80 20 135/72 93 Room Air 07/09/17 19:07 139/86 07/09/17 18:49 80 24 07/09/17 17:55 87 07/09/17 17:07 36.6 95 18 151/92 96 Room Air Physical Exam General: Middle aged male complaining of RUQ abdominal and right lower chest pain which is worse with movement. HEENT: Normal cephalic atraumatic. Pupils are equal round and reactive to light. Extraocular movements are intact. Oropharynx is pink with moist mucous membranes. No swelling of the mouth lips or tongue. Neck: Supple with a midline trachea. No meningeal signs or stiffness, no JVD or bruits. No Stridor. Chest: Clear to auscultation bilaterally. No wheezes or rhonchi. No increased work of breathing. Heart: regular rate and rhythm. Abdomen: Soft, tender in the right lower ribs and right upper abdomen, no crepitus, nondistended without rebound guarding or rigidity. Extremities: No cyanosis clubbing or edema. No calf tenderness or assymetry Spine/Back. Non tender to palpation. No CVA tenderness Skin: Good turgor without rashes. Neurologic exam: Cranial nerves two through 12 are intact. Motor and sensation are intact and symmetrical throughout. Medical Decision & Procedures ER Provider Diagnostic Interpretation: Radiology results as stated below per my review and radiologist interpretation: CT SCAN OF THE CHEST, ABDOMEN, AND PELVIS WITH IV CONTRAST CLINICAL HISTORY: Trauma. COMPARISON STUDY: Chest CT scans dated 06/10/2014 and 04/27/2015. Abdominal CT dated 01/14/2017. Chest and abdominal radiograph dated 12/24/2016. TECHNIQUE: Following the IV administration of 93 of Optiray 320, CT scan of the chest, abdomen, and pelvis was performed from the thoracic inlet to the proximal femora. Images are reviewed in the axial, sagittal, and coronal planes. IV contrast was administered without complication. Automated dose control exposure was utilized. A dose lowering technique was utilized adhering to the principles of ALARA. CT DOSE: 1220.69 mGy.cm FINDINGS: CHEST: Thyroid: Atrophic versus surgically absent. Thoracic aorta: The thoracic aorta is normal in caliber and demonstrates standard 3-vessel arch anatomy. No dissection is seen. A right internal jugular central venous infusion port is in place. Heart: The heart is top normal in size and without pericardial effusion. There are coronary artery calcifications. The pulmonary trunk is normal in caliber. Lungs and pleural spaces: There is no airspace consolidation, pleural effusion, or pneumothorax. Dependent atelectasis is noted. The trachea and central airways are clear. Mediastinum: There is no mediastinal lymphadenopathy. Sparkle: Clear. Axillae: There is no axillary lymphadenopathy. Bony thorax: Findings suggest right hemilaminectomy at T9 and T10. Intrathecal leads are seen on right studies have been removed. Fragmentation is seen involving the spinous processes of T9, T10, and T11. These findings are new from 01/14/2017. Acute fracture is suggested involving the spinous processes of T10 and T11. Hyperdense material is questioned within the posterior right aspect of the central canal at these levels with small foci of calcific debris. This is best seen on axial images #119 and #121. The bony thorax is otherwise intact. No lytic or blastic lesions are identified. ABDOMEN AND PELVIS: Liver: The contrast-enhanced liver is enlarged, measuring 20.2 cm and length. The liver demonstrates diffusely diminished attenuation consistent with hepatic steatosis. There is no intrahepatic or ductal dilatation. The hepatic veins and portal veins are patent. Gallbladder: Surgically absent noting clips in the gallbladder fossa. Spleen: The spleen is enlarged, measuring 15.4 cm in length. Pancreas: Moderately atrophic and grossly unremarkable. Adrenal glands: Unremarkable. Kidneys: The contrast enhanced kidneys demonstrate mild cortical atrophy and are without hydronephrosis. The kidneys enhance symmetrically. There is a 2 mm nonobstructing left renal calculus. Abdominal vasculature: The abdominal aorta is normal in course and caliber noting mild atherosclerotic calcification. Stomach and bowel: There is a small hiatal hernia. The stomach and duodenum otherwise normal in configuration. There are postoperative changes from ileocecal resection with ileocolic anastomosis. No bowel obstruction is seen. No abnormally thick walled or hyperemic bowel loops are seen. Peritoneum: There is no intraperitoneal free air or abdominal ascites. Lymphadenopathy: None. Pelvic viscera: The bladder, prostate, and seminal vesicles are normal as visualized. Skeletal structures: The lumbosacral spine and bony pelvis appear intact. No lytic or blastic lesions are seen. Sclerotic change and partial fusion is noted in the sacroiliac joints. IMPRESSION: 1. The lungs are clear. No pneumothorax is seen. 2. Post laminectomy change is suggested on the right from T9-T11. Destructive change/fragmentation is seen involving the spinous processes of T9, T10, and T11, and fracture is suggested involving the T10 and T11 spinous processes. An intrathecal device at this level has been removed from previous. These findings are all new from 01/14/2017 and may be related to postoperative change. Posttraumatic change is considered less likely but not excluded. Clinical correlation will be essential. Follow-up with the patient's surgeon is recommended. 3. There is hyperdense material with small calcific fragments identified within the posterior aspect of the central canal at T9-T11 on the right. Again, this likely represents postoperative change. Epidural hematoma would be impossible to exclude by CT. Again, clinical correlation will be essential. 4. There is no evidence of solid organ injury in the abdomen or pelvis. 5. Hepatomegaly and hepatic steatosis. 6. Splenomegaly. 7. There are postoperative changes from ileocecal resection with ileocolic anastomosis. No bowel obstruction is identified. 8. Punctate nonobstructing left renal calculus. 9. Additional findings as above. Electronically signed by: Pedro Garibay M.D. 07/09/2017 9:21 PM Dictated Date/Time: 07/09/2017 9:01 PM Laboratory Results 07/09/17 18:23 Red Blood Count 3.96, Mean Corpuscular Volume 75.3, Mean Corpuscular Hemoglobin 25.0, Mean Corpuscular Hemoglobin Concent 33.2, Mean Platelet Volume 8.3, Neutrophils (%) (Auto) 63.1, Lymphocytes (%) (Auto) 18.4, Monocytes (%) (Auto) 8.0, Eosinophils (%) (Auto) 9.8, Basophils (%) (Auto) 0.5, Neutrophils # (Auto) 5.34, Lymphocytes # (Auto) 1.56, Monocytes # (Auto) 0.68, Eosinophils # (Auto) 0.83, Basophils # (Auto) 0.04 07/09/17 18:23 Test 07/09/17 18:23 07/09/17 21:15 White Blood Count 8.47 K/uL (4.8-10.8) Red Blood Count 3.96 M/uL (4.7-6.1) Hemoglobin 9.9 g/dL (14.0-18.0) Hematocrit 29.8 % (42-52) Mean Corpuscular Volume 75.3 fL (80-100) Mean Corpuscular Hemoglobin 25.0 pg (25-34) Mean Corpuscular Hemoglobin Concent 33.2 g/dl (32-36) Platelet Count 261 K/uL (130-400) Mean Platelet Volume 8.3 fL (7.4-10.4) Neutrophils (%) (Auto) 63.1 % Lymphocytes (%) (Auto) 18.4 % Monocytes (%) (Auto) 8.0 % Eosinophils (%) (Auto) 9.8 % Basophils (%) (Auto) 0.5 % Neutrophils # (Auto) 5.34 K/uL (1.4-6.5) Lymphocytes # (Auto) 1.56 K/uL (1.2-3.4) Monocytes # (Auto) 0.68 K/uL (0.11-0.59) Eosinophils # (Auto) 0.83 K/uL (0-0.5) Basophils # (Auto) 0.04 K/uL (0-0.2) RDW Standard Deviation 37.7 fL (36.4-46.3) RDW Coefficient of Variation 13.7 % (11.5-14.5) Immature Granulocyte % (Auto) 0.2 % Immature Granulocyte # (Auto) 0.02 K/uL (0.00-0.02) Anion Gap 7.0 mmol/L (3-11) Est Creatinine Clear Calc Drug Dose 86.1 ml/min Estimated GFR () 83.2 Estimated GFR (Non- 71.8 BUN/Creatinine Ratio 10.0 (10-20) Calcium Level 9.0 mg/dl (8.5-10.1) Iron Level 26 mcg/dl (35-175) Total Iron Binding Capacity 525 mcg/dl (250-450) Total Bilirubin 0.4 mg/dl (0.2-1) Direct Bilirubin < 0.1 mg/dl (0-0.2) Aspartate Amino Transf (AST/SGOT) 30 U/L (15-37) Alanine Aminotransferase (ALT/SGPT) 43 U/L (12-78) Alkaline Phosphatase 91 U/L (45-117) Total Protein 7.3 gm/dl (6.4-8.2) Albumin 3.4 gm/dl (3.4-5.0) Lipase 163 U/L (73-393) Urine Color YELLOW Urine Appearance CLEAR (CLEAR) Urine pH 5.0 (4.5-7.5) Urine Specific [place] 1.023 (1.000-1.030) Urine Protein NEG (NEG) Urine Glucose (UA) 1+ (NEG) Urine Ketones NEG (NEG) Urine Occult Blood NEG (NEG) Urine Nitrite NEG (NEG) Urine Bilirubin NEG (NEG) Urine Urobilinogen NEG (NEG) Urine Leukocyte Esterase NEG (NEG) Laboratory studies as stated above per my review. Medications Administered Medications (Trade) Dose Ordered Sig/Lance Route Start Time Stop Time Status Last Admin Dose Admin Hydromorphone HCl (Dilaudid Inj) 1 mg NOW STAT IV 07/09/17 17:51 07/09/17 17:55 DC 07/09/17 18:22 1 MG Ondansetron HCl (Zofran Inj) 4 mg NOW STAT IV 07/09/17 17:51 07/09/17 17:55 DC 07/09/17 18:22 4 MG Hydromorphone HCl (Dilaudid Inj) 1 mg NOW STAT IV 07/09/17 21:53 07/09/17 21:54 DC 07/09/17 22:10 1 MG Sodium Chloride 1,000 ml @ 999 mls/hr Q1H1M STAT IV 07/09/17 22:00 07/09/17 23:00 DC 07/09/17 22:10 999 MLS/HR Sodium Chloride 1,000 ml @ 200 mls/hr Q5H ONCE IV 07/09/17 22:00 07/10/17 02:59 07/09/17 22:00 200 MLS/HR ECG Per My Interpretation Indication: abdominal pain Rate (beats per minute): 85 Rhythm: normal sinus Findings: no acute ischemic change, no ectopy Comparison ECG Date: 10-Jan-2015 Change: no significant change ED Course 1743: Past medical records reviewed. The patient was evaluated in room C12B, and a complete history and physical examination were performed. 175: Zofran Inj 4 mg IV, Dilaudid Inj 1 mg IV. 2018: I reevaluated the patient. He is comfortable, waiting to go to CT. 0: I reevaluated the patient. He is still having pain. He feels too weak to go home. I discussed the results and treatment plan with the patient. He verbalized agreement of the treatment plan. The patient will be evaluated for further management. 3: Dilaudid Inj 1 mg IV. 2200: NSS 1000 ml @ 200 mls/hr IV, NSS 1000 ml @ 999 mls/hr IV. 0: I discussed the patient's case with Dr. Lakhani, [facility] hospitalist. The patient will be evaluated for further management. Medical Decision Differentials include, but are not limited to; rib fracture, pulmonary contusion , pneumonia, intraabdominal injury, Crohn's disease flare, electrolyte or metabolic abnormality. 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 IV access was established via his A[place] and he was hydrated with IV normal saline. he was given Dilaudid IV 2 as well as IV Zofran. He is mildly anemic with a hemoglobin of 9. He is christopher no acute electrolyte or metabolic abnormalities. CAT scan of his abdomen shows no acute findings he does have some findings on the spine which I think are likely related to his spinal stimulator removal that he had recently. He herman is s nothing clinically to suggest epidural abscess or acute spinal process. I do think he needs to be observed/admitted for IV hydration and IV pain medicine and further treatment and evaluation. I have consulted for these measures. Medication Reconcilliation Current Medication List: was personally reviewed by me Blood Pressure Screening Patient's blood pressure: Elevated blood pressure Blood pressure disposition: Elevated BP felt to be situational Consults Time Called: [phone] Consulting Physician: Dr. Lakhani [facility] hospitalist Returned Call: [phone] Discussed the patient's case. The patient will be evaluated for further management. Impression Primary Impression: RUQ abdominal pain Additional Impressions: Dehydration crohns flare Scribe Attestation The scribe's documentation has been prepared under my direction and personally reviewed by me in its entirety. I confirm that the note above accurately reflects all work, treatment, procedures, and medical decision making performed by me. Departure Information Dispostion Being Evaluated By Hospitalist Referrals Audra Matos (PCP) Patient Instructions My [facility] Problem Qualifiers
[2017-07-09] MEDS ORDERED: ONDANSETRON 4 MG TAB PO PRN (23:15)
[2017-07-09] MEDS ORDERED: MAGNESIUM HYDROXIDE SUSP 30 ML UDC PO PRN (23:30)
[2017-07-09] MEDS ORDERED: ALUMINUM/MAGNESIUM/SIMETH (MAALOX MAX) 30 ML UDC PO PRN (23:30)
[2017-07-09] MEDS ORDERED: POLYETHYLENE (MIRALAX) 17 GM PACK PO PRN (23:30)
[2017-07-09] MEDS ORDERED: ACETAMINOPHEN 325 MG TAB PO PRN (23:30)
[2017-07-10] MEDS ORDERED: IV FLUIDS COMPLETED PRN (00:15)
[2017-07-10 00:40] VITALS: Ht 175.3 cm; Wt 104.1 kg
[2017-07-10 00:43] VITALS: BP 159/91; PULSE 91; TEMP 36.5; O2SAT 95
[2017-07-10] MEDS: HYDROmorphone HCL 2 MG TAB PO PRN ×4 (02:05→20:52)
[2017-07-10] MEDS: NSS + 20MEQ KCL 1000ML 1,000 ML IV SCH ×2 (02:05→12:19)
[2017-07-10] MEDS ORDERED: DEXTROSE 50% 50 ML SYR IV PRN (02:15)
[2017-07-10] MEDS ORDERED: GLUCAGON FOR INJ 1 MG VIAL SQ PRN (02:15)
[2017-07-10] MEDS ORDERED: GLUCOSE 10 TABS/TUBE PO PRN (02:15)
[2017-07-10] MEDS ORDERED: GLUCOSE 40% GEL 15 GM TUBE PO PRN (02:15)
[2017-07-10] MEDS: LEVOTHYROXINE 200 MCG TAB PO SCH (04:22)
[2017-07-10] MEDS: DIAZEPAM 5MG TAB PO PRN ×2 (04:22→23:21)
[2017-07-10 06:59] LABS: HEMATOCRIT 30.4 % (42-52); HEMOGLOBIN 9.7 g/dL (14.0-18.0); MEAN CELL VOLUME 76.6 fL (80-100); MEAN CORPUSCULAR HEMOGLOBIN 24.4 pg (25-34); MEAN CORPUSCULAR HGB CONC 31.9 g/dl (32-36); MEAN PLATELET VOLUME 8.6 fL (7.4-10.4); PLATELET COUNT 254 K/uL (130-400); RED CELL DISTRIBUTION WIDTH CV 13.7 % (11.5-14.5); RED CELL DISTRIBUTION WIDTH SD 39.1 fL (36.4-46.3); WHITE BLOOD COUNT 7.82 K/uL (4.8-10.8)
[2017-07-10 07:34] LABS: CALCIUM 8.4 mg/dl (8.5-10.1); CREATININE 1.17 mg/dl (0.60-1.40); POTASSIUM 4.1 mmol/L (3.5-5.1)
[2017-07-10 07:39] VITALS: BP 115/77; PULSE 76; TEMP 36.8; O2SAT 94
[2017-07-10] MEDS: ONDANSETRON INJ 2 MG/ML 2 ML VIAL IV PRN (09:05)
[2017-07-10] MEDS: MAGNESIUM SULFATE 1GM / D5W 1 GM in PREMIXED IN D5W 100 ML IV SCH ×2 (09:09→10:48)
[2017-07-10] MEDS: INSULIN ASPART 100 UNITS/ML 3 ML PEN SC SCH ×5 (09:17→20:50)
[2017-07-10] MEDS: LOSARTAN POTASSIUM 50 MG TAB PO SCH ×2 (09:17→20:51)
[2017-07-10] MEDS: AMLODIPINE BESYLATE 5 MG TAB PO SCH (09:18)
[2017-07-10] MEDS: PANTOprazole SOD 40 MG TAB PO SCH (09:19)
[2017-07-10] MEDS: MAGNESIUM OXIDE 400 MG TAB PO SCH ×2 (10:05→20:51)
[2017-07-10 15:16] VITALS: BP 117/75; PULSE 72; TEMP 36.4; O2SAT 95
[2017-07-10 20:49] VITALS: BP 128/79; PULSE 72
[2017-07-10] MEDS: TAMSULOSIN HCL 0.4 MG CAP PO SCH (20:51)
--- NOTE | 2017-07-10 22:16 | GASTROINTESTINAL CONSULTATION ---
DATE OF CONSULTATION: 07/10/2017 HISTORY OF PRESENT ILLNESS: This is a 57-year-old white male known to the GI service and Dr. Naranjo for longstanding history of Crohn's disease. The patient had fallen recently without recall and was seen in [facility] where a CT scan was performed. The patient has a longstanding history of Crohn's for which he has undergone surgery. He recently had a nerve stimulator removed from the left side of his body. He also had neurolysis performed in the vicinity of a prior right ileostomy site. The patient was seen in the office by Dr. Naranjo yesterday and was referred to the Emergency Room because of pain. A CT scan was performed both at [facility] and again here and there was no evidence for a hematoma or other anomaly on the right side of the abdomen. The patient is currently on Stelara for his Crohn's disease. He did report that this seemed to improve some of his pain symptoms. PAST MEDICAL HISTORY: Includes Crohn's disease, chronic abdominal pain, hypertension, hypothyroidism, obesity, hepatic steatosis, hepatosplenomegaly, pancreatic atrophy. PAST SURGICAL HISTORY: He has had lumbar laminectomy, bowel resection on 5 occasions, cholecystectomy and an implanted stimulator that has recently been removed. FAMILY HISTORY: Significant for cancer, diabetes, heart disease, renal stones, hypertension. There is no family history of colon cancer. SOCIAL HISTORY: The patient has never smoked, is and lives with his family. ALLERGIES: HE IS ALLERGIC TO MORPHINE. HOME MEDICATIONS: Include amlodipine, insulin, levothyroxine, losartan, pantoprazole, tamsulosin, Stelara 90 mg subQ every 8 weeks. REVIEW OF SYSTEMS: Otherwise noncontributory based on 13-point exam. The patient did not hit his head by his recollection. He did have prior events to this and was seen by Dr. Lopez several years ago for the attacks of passing out. PHYSICAL EXAMINATION: VITAL SIGNS: Today, the patient on admission afebrile 36.6, heart rate 95, respirations 18, 151/92, 96% on room air. GENERAL: The patient currently is awake, alert and oriented x3, accompanied by a friend. HEENT: Head normocephalic, atraumatic. Sclerae are anicteric, conjunctiva moist. Oral mucosa moist. HEART: Normal S1, S2. LUNGS: Clear to auscultation without rales, rhonchi or wheezes. ABDOMEN: Soft. Mildly tender in the right abdomen without rebound or guarding. There is no evidence of ecchymosis, bruising or skin breakdown on the right side of the abdomen. There is a well-healed incision in the right lower quadrant, presumably from prior surgery or stoma. The left side of the abdomen is without any tenderness. There is no evidence of rebound or guarding. I do not appreciate hepatosplenomegaly. There is no evidence of ascites or shifting dullness. There are no abdominal bruits. Positive bowel sounds are noted. EXTREMITIES: Without clubbing, cyanosis or edema. RECTAL: Deferred. LABORATORY VALUES: On admission, white count 8.47, hemoglobin 9.9. His MCV is low at 75.3, platelets 261,000. BUN and creatinine 11 and 1.1 with potassium 3.7. Transaminase and liver tests are all satisfactory including a total and direct bilirubin of 0.4 and 0.1 respectively. AST 30, ALT 43, alkaline phosphatase 91, lipase 163, albumin is slightly low normal at 3.4. The patient's CT scan at [facility] shows evidence of hepatosplenomegaly with fatty liver. There are no solid organ injuries to the abdomen or pelvis. Abdominal wall features suggest a subcutaneous or abdominal wall hematoma. Today's laboratory studies show white count 7.8, hemoglobin is 9.7, MCV 76.6, platelets 254,000. Serum chemistry this morning, BUN and creatinine 11 and 1.1, potassium 4.1, magnesium is slightly low at 1.5. ASSESSMENT AND PLAN: The patient's current medications in the hospital include tamsulosin, Norvasc, losartan, pantoprazole 40 mg daily, mag ox, insulin, levothyroxine, heparin flush, Zofran, Valium, Dilaudid. The patient's source of abdominal pain may be a traumatic, although there is no ecchymotic areas on the abdomen. The patient is feeling better since admission and has been passing urine without difficulty with IV hydration. I would continue IV fluids, but reasonable to advance diet tonight and continue his current medications. The patient does not recall falling last week when seen at [facility] and I am not sure if this was a syncopal event that created this fall. Either here or on discharge, it may be reasonable for the patient to have cardiology reassessment by Dr. Lopez to ensure that there are no rhythm or other cardiac sources to the patient's event. At the present time, there is no evidence that there is either intraabdominal or abdominal wall hemorrhage or hematoma. His hemoglobin historically had been higher in December of 2016, at which point it was 12.6 and has slowly drifted down in late December to 11.7. However, there is evidence of iron deficiency based on his MCV. I believe it is reasonable to consider IV iron therapy and this should be considered while the patient is administered and can be followed with Dr. Naranjo as an outpatient with administration as needed. An iron panel would be reasonable if not already performed during this hospitalization. There is no convincing evidence that there is significant active IBD and therefore, I would not start steroids presently and monitor his stool outputs. Hopefully, if he continues to do well, he can be discharged over the next 24-48 hours. All questions answered. We will follow with you.
[2017-07-10 22:57] VITALS: BP 127/79; PULSE 80; TEMP 37; O2SAT 94
[2017-07-11] VITALS (8 sets, daily range): BP systolic 103–142; BP diastolic 49–76; PULSE 57–80; TEMP 36.4–37.1; O2SAT 91–100
[2017-07-11] MEDS: HYDROmorphone HCL 2 MG TAB PO PRN ×3 (03:38→20:53)
[2017-07-11] MEDS: LEVOTHYROXINE 200 MCG TAB PO SCH (05:35)
[2017-07-11] MEDS ORDERED: MAGNESIUM SULFATE 1GM / D5W 1 GM in PREMIXED IN D5W 100 ML IV STA (08:40)
[2017-07-11] MEDS: INSULIN ASPART 100 UNITS/ML 3 ML PEN SC SCH ×4 (08:59→20:54)
[2017-07-11] MEDS ORDERED: MAGNESIUM OXIDE 400 MG TAB PO SCH (09:00)
[2017-07-11] MEDS: LOSARTAN POTASSIUM 50 MG TAB PO SCH ×2 (09:01→20:52)
[2017-07-11] MEDS: PANTOprazole SOD 40 MG TAB PO SCH (09:01)
[2017-07-11] MEDS: MAGNESIUM OXIDE 400 MG TAB PO SCH ×2 (09:01→20:53)
[2017-07-11] MEDS: AMLODIPINE BESYLATE 5 MG TAB PO SCH (09:02)
[2017-07-11] MEDS: DIAZEPAM 5MG TAB PO PRN (09:04)
--- NOTE | 2017-07-11 13:51 | GASTROENTEROLOGY PROGRESS NOTE ---
DATE: 07/11/2017 GASTROENTEROLOGY INPATIENT PROGRESS NOTE Chart reviewed, patient examined. SUBJECTIVE: The patient did well overnight, had been on clear liquids but is planning to have a full liquid, low residue for lunch today. The patient denies any fever or shaking chills. His abdominal pain is less intense. He did have a bowel movement today which was loose, but consistent with his chronic stool output. CURRENT MEDICATIONS: Flomax, amlodipine, losartan, pantoprazole 40 mg daily, insulin, levothyroxine 200 mcg daily REVIEW OF SYSTEMS: Otherwise noncontributory based on 13-point exam except for mentioned above. LABORATORY STUDIES: Blood work today - hemoglobin is 9.7, essentially stable from yesterday at 9.9; white count 7.8, platelets 254,000. Serum chemistry - none today. Please note the hemoglobin above was from July 10. There are no CBC today. IMAGING STUDY: There are no new studies except for the CT from admission. PHYSICAL EXAMINATION: VITAL SIGNS: Today afebrile 36.5, blood pressure 115/72, 91% on room air, respirations 14, heart rate 74. GENERAL: Today, the patient is awake, alert and oriented x3. HEENT: Sclerae are anicteric, conjunctiva moist. Oral mucosa moist. HEART: Normal S1, S2. LUNGS: Clear to auscultation without rales, rhonchi or wheezes. ABDOMEN: There is minimal tenderness in the right side of the abdomen without rebound or guarding. There are positive bowel sounds. EXTREMITIES: Without clubbing, cyanosis or edema. RECTAL: Deferred. SKIN: There are no rashes. Skin is warm, dry and intact. IMPRESSION AND PLAN: Would continue to advance diet and would recommend iron therapy. Perhaps, a dose of parenteral iron can be administered prior to discharge with follow up with Dr. Naranjo in 1-2 weeks. The patient's diet can be advanced slowly to a low residue diet and if he tolerates this well from gastrointestinal point of view, it appears that he could be discharged. At some point it is prudent for the patient to see Dr. Lopez in cardiology who has seen him in the past for this possible syncopal episode that occurred that led to his [facility] hospitalization. We will continue to follow with you. All questions answered for the patient. EM
[2017-07-11] MEDS: ONDANSETRON INJ 2 MG/ML 2 ML VIAL IV PRN (14:10)
--- NOTE | 2017-07-11 16:08 | Progress Note ---
Subjective Date of Service: Jul 11, 2017. Subjective Pt evaluation today including: conversation w/ patient, physical exam, chart review, lab review, review of studies, conversation w/ hr consultant, review of inpatient medication list Voiding: no voiding problems Feeling generally weak, mild nausea patient, no abdominal pain, has 2 bowel movement, no blood in his stool, Problem List Medical Problems: (1) Abdominal wall hernia Status: Acute (2) Dehydration Status: Acute (3) Intractable abdominal pain Status: Acute (4) RUQ abdominal pain Status: Acute (5) Urinary tract infection Status: Acute Review of Systems Constitutional: + weakness, + fatigue, No fever, No chills, No sweats, No weight loss, No problem reported Eyes: No worsening of vision, No eye pain, No redness, No discharge, No diplopia ENT: No hearing loss, No unusual epistaxis, No nasal symptoms, No sore throat, No tinnitus, No dental problems, No trouble swallowing Respiratory: No cough, No sputum, No wheezing, No shortness of breath, No dyspnea on exertion, No dyspnea at rest, No hemoptysis Cardiac: No chest pain, No orthopnea, No PND, No edema, No claudication, No palpitations Abdomen: + nausea, No pain, No vomiting, No diarrhea, No constipation Musculoskeletal: No joint pain, No muscle pain, No swelling, No calf pain Male : No dysuria, No urinary frequency, No incontinence, No nocturia more than once/night, No slowing stream, No hematuria Neurologic: No memory loss, No paralysis, No weakness, No numbness/tingling, No vertigo, No balance problems Psychiatric: No depression symptoms, No anhedonism, No anxiety, No insomnia, No substance abuse Heme: No abnormal bleeding/bruising, No clotting problems, No swollen lymph nodes, No night sweats Endo: No fatigue, No excessive thirst, No excessive urination Skin: No rash, No itch, No new/changing skin lesions, No color change, No bleeding Objective Vital Signs Date Time Temp Pulse Resp B/P (MAP) Pulse Ox O2 Delivery O2 Flow Rate FiO2 07/11/17 11:49 36.5 74 14 115/72 (86) 91 Room Air 07/11/17 09:33 96 Room Air 07/11/17 07:55 36.4 65 14 124/70 (88) 96 Room Air 07/11/17 07:15 Room Air 07/10/17 22:57 37.0 80 16 127/79 (95) 94 Room Air 07/10/17 20:49 72 128/79 (95) 07/10/17 20:40 Room Air 07/10/17 15:16 36.4 72 18 117/75 (89) 95 Room Air Physical Exam General Appearance: WD/WN, no apparent distress, + obese Eyes: normal inspection, PERRL, EOMI, sclerae normal ENT: normal ENT inspection, hearing grossly normal, pharynx normal Neck: supple, no adenopathy, thyroid normal, no JVD, no carotid bruits, trachea midline Respiratory/Chest: chest non-tender, lungs clear, normal breath sounds, no respiratory distress, no accessory muscle use Cardiovascular: regular rate, rhythm, no edema, no gallop, no JVD, no murmur Abdomen: non tender, soft, no organomegaly, no pulsatile mass, + distended Extremities: normal range of motion, non-tender, normal inspection, no pedal edema, no calf tenderness, normal capillary refill, pelvis stable, + swelling ( Trace to 1+ edema) Neurologic/Psychiatric: paralegal supervisor II-XII nml as tested, no motor/sensory deficits, alert, normal mood/affect, oriented x 3 Skin: normal color, warm/dry, no rash Lymphatic: no adenopathy Laboratory Results Last 24 Hours Test 07/10/17 17:03 07/10/17 20:36 07/11/17 08:12 07/11/17 12:06 Bedside Glucose 144 mg/dl 151 mg/dl 145 mg/dl 200 mg/dl Assessment and Plan 57 y/o M history of Crohn disease associated with abdominal pain and nausea patient was admitted on July 09, 2017 Possible Crohn disease flaring, with nauseous and vomited one day prior and has a generally poor appetite. denies increased bleeding A CT of the abdomen was obtained in the ER and does not show a significant hematoma or internal organ damage. will provide pain control, IVF, antiemetics Follow-up GI input anemia, will follow up, may need tepeat colonoscopy with air drier. DM II continue sliding scale HTN , stable continue Amlodipine, Losartan Hypothyroidism - cont Synthroid Crohn's - can continue Stelara as outpatient Hx Crohn's disease - 5 bowel resections and chronic abdominal pain. GI prophylaxis and DVT prophylaxis covered, continue supportive care, otherwise fall precaution This note is for July 10, 2017 Continued [facility] stay due to: multiple IV medications needed Discharge planning: home
--- NOTE | 2017-07-11 16:13 | Progress Note ---
Subjective Date of Service: Jul 11, 2017. Subjective Pt evaluation today including: conversation w/ patient, physical exam, chart review, lab review, review of studies, conversation w/ home sales consultant, review of inpatient medication list Was doing well this morning, was trying some diet in the lunch however he cannot tolerate the vomiting on full liquid, Problem List Medical Problems: (1) Abdominal wall hernia Status: Acute (2) Dehydration Status: Acute (3) Intractable abdominal pain Status: Acute (4) RUQ abdominal pain Status: Acute (5) Urinary tract infection Status: Acute Review of Systems Constitutional: No fever, No chills, No sweats, No weight loss, No weakness, No fatigue, No problem reported Eyes: No worsening of vision, No eye pain, No redness, No discharge, No diplopia ENT: No hearing loss, No unusual epistaxis, No nasal symptoms, No sore throat, No tinnitus, No dental problems, No trouble swallowing Respiratory: No cough, No sputum, No wheezing, No shortness of breath, No dyspnea on exertion, No dyspnea at rest, No hemoptysis Cardiac: No chest pain, No orthopnea, No PND, No edema, No claudication, No palpitations Abdomen: + nausea, + vomiting, No pain, No diarrhea, No constipation Musculoskeletal: No joint pain, No muscle pain, No swelling, No calf pain Male : No dysuria, No urinary frequency, No incontinence, No nocturia more than once/night, No slowing stream, No hematuria Neurologic: No memory loss, No paralysis, No weakness, No numbness/tingling, No vertigo, No balance problems Psychiatric: No depression symptoms, No anhedonism, No anxiety, No insomnia, No substance abuse Heme: No abnormal bleeding/bruising, No clotting problems, No swollen lymph nodes, No night sweats Endo: No fatigue, No excessive thirst, No excessive urination Skin: No rash, No itch, No new/changing skin lesions, No color change, No bleeding Objective Vital Signs Date Time Temp Pulse Resp B/P (MAP) Pulse Ox O2 Delivery O2 Flow Rate FiO2 07/11/17 15:31 36.5 57 18 112/65 (81) 96 Room Air 07/11/17 11:49 36.5 74 14 115/72 (86) 91 Room Air 07/11/17 09:33 96 Room Air 3/16/18 07:55 36.4 65 14 124/70 (88) 96 Room Air 07/11/17 07:15 Room Air 07/10/17 22:57 37.0 80 16 127/79 (95) 94 Room Air 07/10/17 20:49 72 128/79 (95) 07/10/17 20:40 Room Air Physical Exam General Appearance: WD/WN, no apparent distress, + obese Eyes: normal inspection, PERRL, EOMI, sclerae normal ENT: normal ENT inspection, hearing grossly normal, pharynx normal Neck: supple, no adenopathy, thyroid normal, no JVD, no carotid bruits, trachea midline Respiratory/Chest: chest non-tender, lungs clear, normal breath sounds, no respiratory distress, no accessory muscle use Cardiovascular: regular rate, rhythm, no edema, no gallop, no JVD, no murmur Abdomen: normal bowel sounds, non tender, soft, no organomegaly, no pulsatile mass Extremities: normal range of motion, non-tender, normal inspection, no pedal edema, no calf tenderness, normal capillary refill, pelvis stable Neurologic/Psychiatric: issuing operator II-XII nml as tested, no motor/sensory deficits, alert, normal mood/affect, oriented x 3 Skin: normal color, warm/dry, no rash Lymphatic: no adenopathy Laboratory Results Last 24 Hours Test 07/10/17 17:03 07/10/17 20:36 07/11/17 08:12 07/11/17 12:06 Bedside Glucose 144 mg/dl 151 mg/dl 145 mg/dl 200 mg/dl Assessment and Plan 57 y/o M history of Crohn disease associated with abdominal pain and nausea patient was admitted on July 09, 2017 Possible Crohn disease flaring, with nauseous and vomited one day prior and has a generally poor appetite. Hx Crohn's disease - 5 bowel resections and chronic abdominal pain, Crohn's - can continue Stelara as outpatient A CT of the abdomen was obtained in the ER and does not show a significant hematoma or internal organ damage. Not able to tolerate diet, continue supportive care, IVF, antiemetics Follow- up GI input Recent possible syncope episodes caused him admitted to hospital, will up and walk, check orthostatic blood pressure, continue telemetry, may be have follow-up with Dr. Lopez in cardiology who has seen him in the past anemia, will follow up, may need repeat colonoscopy with safety supervisor GI recs a dose of parenteral iron can be administered prior to discharge with follow up with Dr. Naranjo in 1-2 weeks. DM II continue sliding scale HTN , stable continue Amlodipine, Losartan Hypothyroidism - cont Synthroid GI prophylaxis and DVT prophylaxis covered, continue supportive care, otherwise fall precaution This note is for July 10, 2017 Continued [facility] stay due to: multiple IV medications needed Discharge planning: home
[2017-07-11 16:57] LABS: BASO % 0.6 %; BASO ABS # 0.04 K/uL (0-0.2); EOS % 11.3 %; EOS ABS # 0.79 K/uL (0-0.5); HEMATOCRIT 27.7 % (42-52); HEMOGLOBIN 9.1 g/dL (14.0-18.0); IG# 0.01 K/uL (0.00-0.02); LYMPH % 17.4 %; LYMPH ABS # 1.22 K/uL (1.2-3.4); MEAN CELL VOLUME 75.5 fL (80-100); MEAN CORPUSCULAR HEMOGLOBIN 24.8 pg (25-34); MEAN CORPUSCULAR HGB CONC 32.9 g/dl (32-36); MEAN PLATELET VOLUME 8.4 fL (7.4-10.4); MONO % 7.4 %; MONO ABS # 0.52 K/uL (0.11-0.59); NEUT % 63.2 %; NEUT ABS # 4.43 K/uL (1.4-6.5); PLATELET COUNT 231 K/uL (130-400); RED CELL DISTRIBUTION WIDTH CV 13.6 % (11.5-14.5); RED CELL DISTRIBUTION WIDTH SD 37.7 fL (36.4-46.3); WHITE BLOOD COUNT 7.01 K/uL (4.8-10.8)
[2017-07-11] MEDS: D5W AND 1/2NSS 1,000 ML IV SCH (17:05)
[2017-07-11] MEDS: TAMSULOSIN HCL 0.4 MG CAP PO SCH (20:53)
[2017-07-12 03:49] VITALS: BP 113/62; PULSE 67; TEMP 37; O2SAT 94
[2017-07-12] MEDS: D5W AND 1/2NSS 1,000 ML IV SCH (05:42)
[2017-07-12] MEDS: LEVOTHYROXINE 200 MCG TAB PO SCH (05:42)
[2017-07-12] MEDS: HYDROmorphone HCL 2 MG TAB PO PRN (05:59)
[2017-07-12 07:24] LABS: CALCIUM 8.3 mg/dl (8.5-10.1); CREATININE 1.37 mg/dl (0.60-1.40); POTASSIUM 3.6 mmol/L (3.5-5.1)
[2017-07-12 07:25] LABS: PHOSPHORUS 3.2 mg/dl (2.5-4.9)
[2017-07-12 08:00] VITALS: BP 130/72; PULSE 76; TEMP 36.9; O2SAT 94
[2017-07-12] MEDS: INSULIN ASPART 100 UNITS/ML 3 ML PEN SC SCH ×2 (08:29→11:55)
[2017-07-12] MEDS: DIAZEPAM 5MG TAB PO PRN (08:29)
[2017-07-12] MEDS: PANTOprazole SOD 40 MG TAB PO SCH (08:30)
[2017-07-12] MEDS: MAGNESIUM OXIDE 400 MG TAB PO SCH (08:30)
[2017-07-12] MEDS: AMLODIPINE BESYLATE 5 MG TAB PO SCH (08:30)
[2017-07-12] MEDS: LOSARTAN POTASSIUM 50 MG TAB PO SCH (08:30)
[2017-07-12 11:36] VITALS: BP 110/67; PULSE 79; TEMP 36.5; O2SAT 96
[2017-07-12] MEDS ORDERED: MGNO400 PO (12:21)
--- NOTE | 2017-07-12 12:21 | Discharge Instructions ---
Discharge Instructions Date of Service Jul 12, 2017. Admission Reason for Admission: Anemia, Dehydration Discharge Discharge Diagnosis / Problem: abdominal pain and nausea possible from Crohn's disease flaring Discharge Goals Goal(s): Decrease discomfort, Improve function, Increase independence, Improve disease control, Improve nutritional status, Learn about illness, Diagnostic testing, Therapeutic intervention, Prevent Disease Progression, Specific goals Activity Recommendations Activity Limitations: resume your previous activity . Instructions / Follow-Up Instructions / Follow-Up you have abdominal pain and nausea patient Possible from Crohn disease flaring Abdominal pain may be from recent fall as well Recent possible syncope episode Echocardiogram, you need to follow-up with Dr. Vance or Dr. Lopez for the formal results Your anemia may need repeat colonoscopy with product design engineer You may need parenteral iron infusion, please follow-up with follow up with Dr. Naranjo in 1-2 weeks. You have hypothyroidism with elevated TSH which is 9.4 today, please follow-up with your supervisor print line to adjusting the dose - you need to follow up with your primary care physician in 1 week, - take medication as instructed, never overdose or any misuse, or take with alcohol, because misuse of medicine may cause organ damage or , call your primary care physician if have questions of medicaitons. - call your primary care physician OR go to local emergency room if has any fever/chill, chest pain, shortness of breathing, nausea/vomiting/abdominal pain , facial droop/slurry speech/local weakness, or if has any questions. - fall precaution - diet as instructed - you need to follow up with your subspecialist Current Hospital Diet Patient's current hospital diet: Diabetes Type 2 Diet Discharge Diet Recommended Diet: Diabetes Type 2 Diet Pending Studies Studies pending at discharge: yes List of pending studies: Formal report of echocardiogram T3 and T4 Medical Emergencies . Who to Call and When: Medical Emergencies: If at any time you feel your situation is an emergency, please call 911 immediately. . Non-Emergent Contact Non-Emergency issues call your: Primary Care Provider, Drug Safety Coordinator, Head Boys Tennis Coach, Specialist (Endocrinology) . . "Provider Documentation" section prepared by Marc Napoles. .
--- NOTE | 2017-07-12 12:33 | Discharge Summary ---
Discharge Summary Date of Service Jul 12, 2017. Discharge Summary Admission Date: Jul 09, 2017 at 23:23 Discharge Date: Jul 12, 2017 Principal Diagnosis: abdominal pain and nausea patient Possible from Crohn disease flaring Problems/Secondary Diagnoses: Abdominal pain may be from recent fall as well Recent possible syncope episode anemia hypothyroidism with elevated TSH which is 9.4 Procedures: No Consultations: GI Medication Reconciliation New Medications: Magnesium Oxide (Magnesium-Oxide) 400 Mg Tab 400 MG PO BID for 7 Days, #14 TAB Continued Medications: Amlodipine (Norvasc) 10 Mg Tab 10 MG PO QAM, TAB Diazepam (Valium) 5 Mg Tab 5 MG PO Q6 PRN for Muscle Spasms Hydromorphone Hcl (Dilaudid) 4 Mg Tab 4 MG PO QID PRN for Pain for 30 Days, #120 TAB Insulin Human Regular (Humulin R) 1 Ea Inj 6-10 UNITS SQ AC Insulin Human Regular (Humulin R) 100 Units/Ml Susp 6-10 UNIT SC AC PER SLIDING SCALE. Insulin Isophan/Regular (Humulin 70/30) Susp 40 UNITS SC QAM, VIAL Insulin Isophan/Regular (Humulin 70/30) Susp 20 UNITS SC QPM, VIAL Levothyroxine Sodium (Levothyroxine Sodium) 200 Mcg Tab 1 TAB PO QAM, TAB 3 Refills Losartan Potassium (Cozaar) 50 Mg Tab 50 MG PO BID, TAB Ondansetron Hcl (Zofran) 4 Mg Tab 4 MG PO Q8H PRN for Nausea, TAB Pantoprazole (Protonix) 40 Mg Tab 40 MG PO DIRECTED Tamsulosin Hcl (Flomax) 0.4 Mg Cap 0.4 MG PO HS, CAP Ustekinumab (Stelara) 90 Mg/Ml Inj 90 MG SQ Q8WK Discharge Exam Up and walk, orthostatic negative, denied dizziness, tolerate diet, no nausea vomiting abdominal pain diarrhea constipation Review of Systems: Constitutional: No fever, No chills, No sweats, No weight loss, No weakness , No fatigue, No problem reported Eyes: No worsening of vision, No eye pain, No redness, No discharge, No diplopia, No problem reported ENT: No hearing loss, No unusual epistaxis, No nasal symptoms, No sore throat, No tinnitus, No dental problems, No trouble swallowing, No problem reported Respiratory: No cough, No sputum, No wheezing, No shortness of breath, No dyspnea on exertion, No dyspnea at rest, No hemoptysis, No problem reported Cardiovascular: No chest pain, No orthopnea, No PND, No edema, No claudication, No palpitations, No problem reported Abdomen: No pain, No nausea, No vomiting, No diarrhea, No constipation, No GI bleeding, No problem reported Musculoskeletal: No joint pain, No muscle pain, No swelling, No calf pain, No problem reported Genitourinary - Male: No hematuria, No dysuria, No urinary frequency, No urinary urgency, No urinary hesitancy, No urinary retention, No urinary incontinence, No penile discharge, No lesions, No impotence, No problem reported Neurologic: No memory loss, No paralysis, No weakness, No numbness/tingling , No vertigo, No balance problems, No problem reported Psychiatric: No depression symptoms, No anhedonism, No anxiety, No insomnia , No substance abuse, No problem reported Endocrine: No fatigue, No excessive thirst, No excessive urination, No problem reported Hematologic / Lymphatic: No abnormal bleeding/bruising, No clotting problems , No swollen lymph nodes, No night sweats, No problem reported Integumentary: No rash, No itch, No new/changing skin lesions, No color change, No bleeding, No problem reported Physical Exam: General Appearance: WD/WN, no apparent distress, + pertinent finding ( Minimal pale) Eyes: normal inspection, PERRL, EOMI ENT: normal ENT inspection, hearing grossly normal, TMs normal Neck: supple, no adenopathy, thyroid normal, no carotid bruits, trachea midline Respiratory/Chest: chest non-tender, normal breath sounds, no respiratory distress, no accessory muscle use, + decreased breath sounds Cardiovascular: regular rate, rhythm, no edema, no gallop, no JVD, no murmur Abdomen / GI: normal bowel sounds, non tender, soft, no organomegaly, no pulsatile mass Extremities: normal inspection, no calf tenderness, normal capillary refill , no pedal edema Neurologic/Psychiatric: assessment specialist II-XII nml as tested, no motor/sensory deficits , alert, normal mood/affect, normal reflexes, oriented x 3 Skin: normal color, warm/dry, no rash Hospital Course 57 y/o M history of Crohn disease associated with abdominal pain and nausea patient was admitted on July 09, 2017 Possible Crohn disease flaring, with nauseous and vomited one day prior and has a generally poor appetite. Hx Crohn's disease - 5 bowel resections and chronic abdominal pain, Crohn's - can continue Stelara as outpatient A CT of the abdomen was obtained in the ER and does not show a significant hematoma or internal organ damage. Not able to tolerate diet, continue supportive care, IVF, antiemetics Follow- up GI input Recent possible syncope episodes caused him admitted to hospital, will up and walk, check orthostatic blood pressure, continue telemetry, may be have follow-up with Dr. Lopez in cardiology who has seen him in the past anemia, will follow up, may need repeat colonoscopy with museum librarian GI recs a dose of parenteral iron can be administered prior to discharge with follow up with Dr. Naranjo in 1-2 weeks. DM II continue sliding scale HTN , stable continue Amlodipine, Losartan Hypothyroidism - cont Synthroid GI prophylaxis and DVT prophylaxis covered, continue supportive care, otherwise fall precaution you have abdominal pain and nausea patient Possible from Crohn disease flaring Abdominal pain may be from recent fall as well Recent possible syncope episode Echocardiogram, you need to follow-up with Dr. Vance or Dr. Lopez for the formal results Your anemia may need repeat colonoscopy with museum librarian You may need parenteral iron infusion, please follow-up with follow up with Dr. Naranjo in 1-2 weeks. You have hypothyroidism with elevated TSH which is 9.4 today, please follow-up with your fws faculty assistant to adjusting the dose - you need to follow up with your primary care physician in 1 week, - take medication as instructed, never overdose or any misuse, or take with alcohol, because misuse of medicine may cause organ damage or , call your primary care physician if have questions of medicaitons. - call your primary care physician OR go to local emergency room if has any fever/chill, chest pain, shortness of breathing, nausea/vomiting/abdominal pain , facial droop/slurry speech/local weakness, or if has any questions. - fall precaution - diet as instructed - you need to follow up with your subspecialist Total Time Spent: Greater than 30 minutes This includes examination of the patient, discharge planning, medication reconciliation, and communication with other providers. Discharge Instructions Please refer to the electronic Patient Visit Report (Discharge Instructions) for additional information. Additional Copies To Luis Daniel Lopez DO; Remington Naranjo M.D.; Dereck Vance M.D.
[2017-07-12 14:07] VITALS: BP 110/67; PULSE 79; TEMP 36.5; O2SAT 96
--- NOTE | 2017-07-12 15:21 | ECHOCARDIOGRAM REPORT ---
*NOTICE TO RECEIVING REPUBLICAN AGENCY This information is strictly Confidential and protected under [place] law. [place] law prohibits you from making any further disclosure of this information unless further disclosure is expressly permitted by the written consent of the person to whom it pertains or is authorized by law. A general authorization for the release of medical or other information is not sufficient for this purpose. Hospital accepts no responsibility if the information is made available to any other person, INCLUDING THE PATIENT. Interpretation Summary * Name: WILMER REESE Study Date: 07/12/2017 06:38 AM BP: 112/65 mmHg * Patient Location: [facility] HR: 57 * : 1960 (M/d/yyyy) Gender: Male Height: 69 in * Age: 57 yrs Ethnicity: [place] Weight: 232 lb * Ordering Physician: Marc Napoles MD, PhD * Referring Physician: Remington Naranjo * Performed By: Miracle Childs RDCS * * Reason For Study: Syncope * BSA: 2.2 m2 * -- Conclusions -- * 1. Normal left ventricular size and systolic function. EF 60-65%. No regional wall motion abnormalities. No left ventricular hypertrophy. * 2. The right ventricle is moderately dilated with normal systolic function. * 3. No significant valvular abnormalities visualized. * 4. No prior study available for comparison. Procedure Details * A complete two-dimensional transthoracic echocardiogram was performed (2D, M-mode, Doppler and color flow Doppler). Left Ventricle * Normal left ventricular size and systolic function. EF 60-65%. No regional wall motion abnormalities. No left ventricular hypertrophy. Right Ventricle * The right ventricle is moderately dilated. * The right ventricular systolic function is normal as assessed by tricuspid annular plane systolic excursion (TAPSE) (normal >1.5 cm). Atria * The left atrial size is normal. * Right atrial size is normal. * There is no evidence of atrial septal defect, but resolution does not allow assessment for a patent foramen ovale. Mitral Valve * The mitral valve is grossly normal. * There is no mitral valve stenosis. * There is trace mitral regurgitation. Tricuspid Valve * The tricuspid valve is not well visualized, but is grossly normal. * There is no tricuspid stenosis. * Significant tricuspid regurgitation is absent. Aortic Valve * The aortic valve is trileaflet. * No hemodynamically significant valvular aortic stenosis. * No aortic regurgitation is present. Pulmonic Valve * The pulmonary valve is inadequately visualized, but the Doppler data is adequate for interpretation. * There is no pulmonic valvular stenosis. * Trace pulmonic valvular regurgitation. Great Vessels * The aortic root is normal size. * Ascending aorta of normal dimension Pericardium/Pleural * There is no pericardial effusion. Great Vessels * Normal pulmonary venous flow pattern. MMode 2D Measurements and Calculations IVSd 1.0 cm LVIDd 4.4 cm LVIDs 2.8 cm LVPWd 1.1 cm IVS/LVPW 0.92 FS 35.7 % EDV(Teich) 88.3 ml ESV(Teich) 30.5 ml EF(Teich) 65.4 % EDV(cubed) 85.9 ml ESV(cubed) 22.8 ml EF(cubed) 73.4 % LV mass(C)d 160.2 grams LV mass(C)dI 72.8 grams/m\S\2 SV(Teich) 57.8 ml SI(Teich) 26.3 ml/m\S\2 SV(cubed) 63.1 ml SI(cubed) 28.7 ml/m\S\2 Ao root diam 3.9 cm Ao root area 11.9 cm\S\2 ACS 1.9 cm LA dimension 3.0 cm asc Aorta Diam 3.0 cm LA/Ao 0.77 LVOT diam 2.0 cm LVOT area 3.2 cm\S\2 LVAd ap4 27.1 cm\S\2 LVLd ap4 7.7 cm EDV(MOD-sp4) 78.7 ml EDV(sp4-el) 80.7 ml LVAs ap4 13.4 cm\S\2 LVLs ap4 5.7 cm ESV(MOD-sp4) 26.9 ml ESV(sp4-el) 26.7 ml EF(MOD-sp4) 65.8 % EF(sp4-el) 66.9 % LVAd ap2 31.6 cm\S\2 LVLd ap2 8.2 cm EDV(MOD-sp2) 101.8 ml EDV(sp2-el) 104.0 ml LVAs ap2 15.3 cm\S\2 LVLs ap2 5.7 cm ESV(MOD-sp2) 34.3 ml ESV(sp2-el) 34.8 ml EF(MOD-sp2) 66.2 % EF(sp2-el) 66.5 % LVLd %diff 5.5 % EDV(MOD-bp) 90.5 ml LVLs %diff 0.55 % ESV(MOD-bp) 30.3 ml EF(MOD-bp) 66.5 % SV(MOD-sp4) 51.8 ml SI(MOD-sp4) 23.6 ml/m\S\2 SV(MOD-sp2) 67.4 ml SI(MOD-sp2) 30.6 ml/m\S\2 SV(MOD-bp) 60.2 ml SI(MOD-bp) 27.4 ml/m\S\2 SV(sp4-el) 54.0 ml SI(sp4-el) 24.5 ml/m\S\2 SV(sp2-el) 69.2 ml SI(sp2-el) 31.4 ml/m\S\2 Doppler Measurements and Calculations MV E max yovany 84.8 cm/sec MV A max yovany 77.3 cm/sec MV E/A 1.1 MV dec time 0.20 sec Ao V2 max 101.7 cm/sec Ao max PG 4.1 mmHg Ao max PG (full) 1.0 mmHg EKATERINA(V,A) 2.8 cm\S\2 EKATERINA(V,D) 2.8 cm\S\2 LV V1 max PG 3.1 mmHg LV V1 max 87.9 cm/sec PA V2 max 95.8 cm/sec PA max PG 3.7 mmHg PA acc slope 353.4 cm/sec\S\2 PA acc time 0.13 sec PA pr(Accel) 18.6 mmHg
== END 2017-07-12 14:42 | disposition home or self-care (01) | DRG 386 ==
LOC: C.EDB 16:50 → C.MSN 23:23 → ENRESERV 23:34 → OBSVTOIN 07-11 15:46 → ENRESERV 07-11 17:36 → C.2E 07-11 18:36
PROVIDERS: ADMIT Internal Medicine; ATTEND Hospitalist
DX: K50.90 Crohn's disease, unspecified, without complications (principal); F11.20 Opioid dependence, uncomplicated; E86.0 Dehydration; E11.9 Type 2 diabetes mellitus without complications; E78.5 Hyperlipidemia, unspecified; D64.9 Anemia, unspecified; E03.9 Hypothyroidism, unspecified; I10 Essential (primary) hypertension; E66.9 Obesity, unspecified; Z68.34 Body mass index [BMI] 34.0-34.9, adult; Z79.4 Long term (current) use of insulin; Z79.899 Other long term (current) drug therapy; Z98.890 Other specified postprocedural states; Z90.49 Acquired absence of other specified parts of digestive tract; Z88.5 Allergy status to narcotic agent; Z83.3 Family history of diabetes mellitus; Z82.49 Family history of ischemic heart disease and other diseases of the circulatory system; Z91.81 History of falling

== ENCOUNTER → 2017-07-17 | Outpatient (CLI) | payer OTHER, BC ==
[~2017-07-17] MED LIST changes: -AZAT50TA17 PO; +DIAZ-165 PO; -ERGO500037 PO; -METF-384 PO; +MGNO400 PO; -PRED20TA PO
--- NOTE | 2017-07-17 14:56 | DIAGNOSTIC IMAGING REPORT ---
ABDOMEN LIMITED (US) CLINICAL HISTORY: RT FLANK PAIN AND SWELLING. Fall. COMPARISON STUDY: Abdomen and pelvis CT 07/09/2017. FINDINGS: Real-time sonographic imaging of the right abdominal wall/flank was performed with guest relations representative images submitted. No masses or fluid collections identified within the right side of the abdomen at the patient's area of interest. The right kidney is unremarkable. IMPRESSION: No sonographic abnormality within the right abdominal wall/flank. Electronically signed by: Edi Chairez M.D. 07/17/2017 2:54 PM Dictated Date/Time: 07/17/2017 2:53 PM
== END | disposition home or self-care (01) ==
LOC: C.ULTR 14:20
PROVIDERS: ATTEND Internal Medicine Gastroenterology
DX: S39.91XA Unspecified injury of abdomen, initial encounter (principal); X58.XXXA Exposure to other specified factors, initial encounter

== ENCOUNTER → 2017-08-20 | Outpatient (CLI) | payer OTHER, BC | END | disposition home or self-care (01) | LOC: C.LABMFLN 11:01 | PROVIDERS: ATTEND Internal Medicine Endocrinology, Diabetes & Metabolism | DX: E89.0 Postprocedural hypothyroidism (principal) ==

== ENCOUNTER → 2017-09-23 | Outpatient (CLI) | payer OTHER, BC ==
[~2017-09-23] MED LIST changes: -AMLO-114 PO; +AMLO10TA3 PO; +GADAVIST IV PRN
--- NOTE | 2017-09-23 11:23 | DIAGNOSTIC IMAGING REPORT ---
LUMBAR SPINE MRI WITH AND WITHOUT CONTRAST HISTORY: LUMBAR RADICULOPATHY TECHNIQUE: Multiplanar multisequence MRI of the lumbar spine was performed both before and after the intravenous administration of contrast. COMPARISON: None. FINDINGS: For the purpose of the report the L5-S1 disc space will be located on axial image 27 of 30. Alignment and curvature are intact. No fractures within the lumbar spine. Mild disc desiccation at L3-L4 and L4-5. However, disc heights are relatively preserved. There is a 1 cm lipoma posterior to the right L4 facet. The conus terminates at the L2 level. 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 Paraspinal soft tissues are unremarkable. No abnormal enhancement. L1-L2: No significant central canal or neural foraminal narrowing. L2-L3: Tiny broad-based posterior disc bulge without significant central canal narrowing. There is mild bilateral neural foraminal narrowing. L3-L4: Small broad-based posterior disc bulge with mild ligamentum and facet hypertrophy. This results in mild central canal and mild bilateral neural from narrowing. L4-L5: Small broad-based posterior disc bulge and a small left annular tear with mild ligamentum and facet hypertrophy. This results in mild central canal and mild bilateral neural from narrowing. L5-S1: No significant central canal or neural foraminal narrowing. IMPRESSION: 1. No fracture or subluxation within the lumbar spine. 2. Mild degenerative changes as described above. 3. No abnormal enhancement. Electronically signed by: Edi Chairez M.D. 09/23/2017 11:22 AM Dictated Date/Time: 09/23/2017 11:13 AM
== END | disposition home or self-care (01) ==
LOC: C.MRI 09:43
PROVIDERS: ATTEND Physician Assistant
DX: M54.16 Radiculopathy, lumbar region (principal)